=== PATIENT | male | born 1955 | race Caucasian/White ===

== ENCOUNTER → 2018-02-13 11:33 | Outpatient (CLI) | payer OTHER, SELFPAY ==
[2018-02-13 11:55] LABS: Basophils # 0.1 K/mm3 (0-0.2); Basophils % 0.5 % (0.1-2.0); Eosinophils # 0.4 K/mm3 (0.0-0.4); Eosinophils % 3.7 % (0.1-12.0); Hemoglobin 15.1 g/dL (14.1-18.0); Lymphocytes # 2.9 K/mm3 (0.7-4.5); Mean Corpuscular HGB Conc 31.4 g/dL (31.8-35.4); Mean Corpuscular Hemoglobin 31.1 pg (27.0-31.2); Mean Corpuscular Volume 99.1 fl (80-94); Mean Platelet Volume 10.1 fl (7.4-10.4); Monocytes # 0.5 K/mm3 (0.1-1.0); Monocytes % 5.1 % (1.7-9.3); Neutrophils # 5.8 K/mm3 (1.8-7.8); Neutrophils % 60.6 % (37.0-80.0); Platelet Count 199 K/mm3 (142-424); Red Blood Count 4.84 M/mm3 (4.60-6.20); White Blood Count 9.6 K/mm3 (4.8-10.8)
[2018-02-13 12:34] LABS: Alanine Aminotransferase 28 U/L (12-78); Albumin Level 3.5 gm/dL (3.4-5.0); Albumin/Globulin Ratio 1.3 (1.1-1.8); Alkaline Phosphatase 90 U/L (46-116); Anion Gap 9.6 mEq/L (5-15); Aspartate Amino Transferase 18 U/L (15-37); Bilirubin,Total 0.4 mg/dL (0.2-1.0); Blood Urea Nitrogen 14 mg/dL (7-18); Calcium 8.6 mg/dL (8.5-10.1); Carbon Dioxide 28 mmol/L (21.0-32.0); Chloride 109 mmol/L (98-107); Cholesterol 135 mg/dL (140-200); Creatinine,Serum 1.25 mg/dL (0.70-1.30); Estimated Glomerular Filt Rate 59 ml/min (>60); GFR (African American) 71 ML/MIN (>60); Globulin 2.8 gm/dl (1.3-3.2); Glucose 105 mg/dL (74-106); HDL Cholesterol 34 mg/dL (27-67); LDL Cholesterol 86 mg/dL (0-130); Potassium 4.6 mmoL/L (3.5-5.1); Sodium 142 mmol/L (136-145); Total Protein,Serum 6.3 gm/dL (6.4-8.2); Triglycerides 75 mg/dL (30-200); VLDL Cholesterol 15 mg/dL (0-40)
== END ==
PROVIDERS: Visit Provider Internal Medicine Adolescent Medicine
DX: I25.10 Atherosclerotic heart disease of native coronary artery without angina pectoris (principal)
CPT/HCPCS: 36415; 80053; 80061; 85025

== ENCOUNTER → 2019-07-14 10:31 | Outpatient (CLI) | payer OTHER, SELFPAY ==
[2019-07-14 11:24] LABS: Basophils # 0.1 K/mm3 (0-0.2); Basophils % 0.9 % (0.1-2.0); Eosinophils # 0.3 K/mm3 (0.0-0.4); Eosinophils % 3.3 % (0.1-12.0); Hemoglobin 14.3 g/dL (14.1-18.0); Lymphocytes # 2.6 K/mm3 (0.7-4.5); Lymphocytes % 32.9 % (10-50); Mean Corpuscular HGB Conc 32.4 g/dL (31.8-35.4); Mean Corpuscular Hemoglobin 32.6 pg (27.0-31.2); Mean Corpuscular Volume 100.6 fl (80-94); Mean Platelet Volume 9.7 fl (7.4-10.4); Monocytes # 0.4 K/mm3 (0.1-1.0); Neutrophils # 4.6 K/mm3 (1.8-7.8); Neutrophils % 57.9 % (37.0-80.0); Platelet Count 224 K/mm3 (142-424); Red Blood Count 4.38 M/mm3 (4.60-6.20); White Blood Count 7.9 K/mm3 (4.8-10.8)
[2019-07-14 15:49] LABS: Alanine Aminotransferase 17 U/L (12-78); Albumin Level 3.2 gm/dL (3.4-5.0); Albumin/Globulin Ratio 1.1 (1.1-1.8); Alkaline Phosphatase 91 U/L (46-116); Anion Gap 13.1 mEq/L (5-15); Aspartate Amino Transferase 13 U/L (15-37); Bilirubin,Total 0.4 mg/dL (0.2-1.0); Blood Urea Nitrogen 12 mg/dL (7-18); Calcium 8.1 mg/dL (8.5-10.1); Carbon Dioxide 29 mmol/L (21.0-32.0); Chloride 106 mmol/L (98-107); Estimated Glomerular Filt Rate 56 ml/min (>60); GFR (African American) 68 ML/MIN (>60); Globulin 2.8 gm/dl (1.3-3.2); Glucose 96 mg/dL (74-106); Potassium 4.1 mmoL/L (3.5-5.1); Sodium 144 mmol/L (136-145)
== END ==
PROVIDERS: Visit Provider Internal Medicine Adolescent Medicine
DX: R22.1 Localized swelling, mass and lump, neck (principal)
CPT/HCPCS: 36415; 80053; 85025

== ENCOUNTER → 2019-07-23 08:57 | Outpatient (CLI) | payer OTHER, SELFPAY ==
--- NOTE | 2019-07-23 | CT_ITS ---
PROCEDURE: CT SOFT TISSUE NECK W CON CLINICAL HISTORY: NECK MASS COMPARISON: No exams were available for comparison TECHNIQUE: 75 mL Optiray 350 axial images obtained with sagittal and coronal reformats. All CT scans at the facility use one or more dose reduction, viz: automated exposure control, ma/kV adjustment per patient size (including targeted exams where dose is matched to indication, i.e. head), or iterative reconstruction technique. FINDINGS: Heterogeneous soft tissue density is present at the angle of the mandible on the left deep to the sternocleidomastoid and anterior to the jugular vein and carotid artery consistent with an enlarged lymph node measuring 2.5 x 1.9 cm. Other smaller nodes are present in the neck. The submandibular glands, parotid glands and thyroid gland have an unremarkable appearance. There is some mild asymmetric prominence of the left parapharyngeal soft tissues. This is of questionable clinical significance and could be due to nondistention. No obvious abnormal enhancement at this area. Cannot exclude the possibility of a mucosal lesion. Please correlate with direct visualization. The epiglottis, glottic region, and subglottic area have an unremarkable appearance. The upper thoracic images show centrilobular emphysematous changes. There are degenerative changes of the cervical spine. Nuchal ligament calcifications are present. Incidental note made of mucosal thickening of the left maxillary sinus. Mild mucosal thickening also noted of the ethmoid sinuses. IMPRESSION: 1. Enlarged left internal jugular lymph node. This is superior to the hyoid bone and is a level 2 lymph node 2. Minimal asymmetric prominence of the left parapharyngeal soft tissues in the lower nasopharyngeal area and at the fossa of Rosenmuller. This may only be due to nondistention however, a submucosal lesion is not excluded. Please correlate with direct visualization. 3. Paranasal sinus disease Dictated by: Guillermo Diamond MD 07/23/2019 16:50 Electronically signed by Guillermo Diamond MD in [facility] 07/24/2019 10:23
== END ==
PROVIDERS: PCP Internal Medicine Adolescent Medicine; Visit Provider Internal Medicine Adolescent Medicine
DX: R22.1 Localized swelling, mass and lump, neck (principal)
CPT/HCPCS: 70491; Q9967

== ENCOUNTER → 2019-09-03 13:38 | Outpatient (CLI) | payer OTHER, SELFPAY ==
[2019-09-03 14:59] LABS: Blood Urea Nitrogen 11 mg/dL (7-18); Creatinine,Serum 1.36 mg/dL (0.70-1.30); Estimated Glomerular Filt Rate 53 ml/min (>60); GFR (African American) 64 ML/MIN (>60)
== END ==
PROVIDERS: Visit Provider Otolaryngology
DX: Z01.818 Encounter for other preprocedural examination (principal)
CPT/HCPCS: 36415; 82565; 84520

== ENCOUNTER → 2019-09-04 08:55 | Outpatient (CLI) | payer OTHER, SELFPAY ==
--- NOTE | 2019-09-04 08:56 | US_ITS ---
PROCEDURE: US FNA LYMPH NODE CLINICAL INDICATION: Left neck mass COMPARISON: CT SOFT TISSUE NECK W CON from 07/23/2019 TECHNIQUE: Following obtaining informed consent, using aseptic technique and local anesthesia with buffered lidocaine, fine-needle aspiration was performed of the nodule of interest using sonographic guidance. Four passes were made into the nodule with a 21 gauge needle. Two specimens were sent for cytology and 2 were put in the RPMI solution. Patient tolerated the procedure well without evidence of immediate complication and left radiology suite in stable condition. FINDINGS: Pre biopsy ultrasound performed of the left neck confirms hypoechoic mass in the left neck at 3.3 by 2 cm. There are fine stippled areas of increased echogenicity in the mass which could be due to small calcifications. CYTOLOGY: Squamous cell carcinoma IMPRESSION: Successful and uneventful ultrasound-guided fine needle aspiration of left neck mass demonstrating squamous cell carcinoma. The patient tolerated the procedure well without evidence of immediate complications and left the ultrasound suite in stable condition. Dictated by: Guillermo Diamond MD 09/06/2019 09:40 Electronically signed by Guillermo Diamond MD in [facility] 09/06/2019 09:40
--- NOTE | 2019-09-04 08:56 | XR_ITS ---
PROCEDURE: XR CHEST 2V CLINICAL HISTORY: cough COMPARISON: AARUNOFF ANGIO ABD/ILEO BILAT RUNOFF from 06/21/2013 FINDINGS: The cardiomediastinal silhouette and pulmonary vascularity are within normal limits. The lungs are clear without infiltrates, suspicious nodules, or pleural effusions. There are degenerative changes in the lower thoracic with wedging T12-T11 T10 most prominent at the T10 region. These findings may be chronic. Please correlate with patient's history. IMPRESSION: Chronic appearing wedge deformities of the lower thoracic spine otherwise negative Dictated by: Guillermo Diamond MD 09/04/2019 15:06 Electronically signed by Guillermo Diamond MD in [facility] 09/04/2019 15:06
--- NOTE | 2019-09-04 08:56 | CT_ITS ---
PROCEDURE: CT HEAD/BRAIN WO/W CON CLINICAL INDICATION: requested per radiologist Neck mass evaluate past this is COMPARISON: CT SOFT TISSUE NECK W CON from 07/23/2019 TECHNIQUE: IV Contrast: 100ML OPITRAY 320 Axial images obtained. All CT scans at the facility use one or more dose reduction, viz: automated exposure control, ma/kV adjustment per patient size (including targeted exams where dose is matched to indication, i.e. head), or iterative reconstruction technique. FINDINGS: No midline shift, mass effect, intracranial hemorrhage, hydrocephalus, or extra-axial fluid collection is evident. No enhancing lesions are evident. The calvarium has an unremarkable appearance. No mastoid effusion . Mild mucosal thickening ethmoid sinuses anteriorly This exam does not include the nasopharyngeal region. IMPRESSION: No acute intracranial findings. Dictated by: Guillermo Diamond MD 09/05/2019 10:50 Electronically signed by Guillermo Diamond MD in [facility] 09/05/2019 10:50
== END ==
PROVIDERS: PCP Internal Medicine Adolescent Medicine; Visit Provider Otolaryngology
DX: R22.1 Localized swelling, mass and lump, neck (principal); R05 Cough
CPT/HCPCS: 10005; 70470; 71046; 76942; Q9967

== ENCOUNTER → 2019-09-08 12:55 | Outpatient (CLI) | payer OTHER, SELFPAY ==
--- NOTE | 2019-09-08 | ECG_ITS ---
APPROVED REPORT Exam: Resting ECG HR:63 bpm ECG Measurements Heart Rate 63 AXES ND 142 P 78 QRSd 104 QRS 83 QT 404 T 61 QTc 413 <Conclusion> Normal sinus rhythm Incomplete right bundle branch block Borderline ECG Electronically signed by : Baron Kent, 09/10/2019 14:00:00
[2019-09-08 13:18] LABS: Basophils # 0.1 K/mm3 (0-0.2); Basophils % 0.7 % (0.1-2.0); Eosinophils # 0.3 K/mm3 (0.0-0.4); Eosinophils % 3.5 % (0.1-12.0); Hemoglobin 15.3 g/dL (14.1-18.0); Lymphocytes # 2.5 K/mm3 (0.7-4.5); Lymphocytes % 29.9 % (10-50); Mean Corpuscular HGB Conc 32.5 g/dL (31.8-35.4); Mean Corpuscular Hemoglobin 32.1 pg (27.0-31.2); Mean Corpuscular Volume 98.8 fl (80-94); Mean Platelet Volume 9.8 fl (7.4-10.4); Monocytes # 0.5 K/mm3 (0.1-1.0); Neutrophils # 4.9 K/mm3 (1.8-7.8); Neutrophils % 59.9 % (37.0-80.0); Platelet Count 215 K/mm3 (142-424); Red Blood Count 4.76 M/mm3 (4.60-6.20); Red Cell Distribution Width 13.2 % (11.5-17.5); White Blood Count 8.2 K/mm3 (4.8-10.8)
[2019-09-08 15:13] LABS: Anion Gap 10.6 mEq/L (5-15); Blood Urea Nitrogen 13 mg/dL (7-18); Calcium 8.5 mg/dL (8.5-10.1); Carbon Dioxide 30 mmol/L (21.0-32.0); Chloride 105 mmol/L (98-107); Creatinine,Serum 1.36 mg/dL (0.70-1.30); Estimated Glomerular Filt Rate 53 ml/min (>60); GFR (African American) 64 ML/MIN (>60); Glucose 90 mg/dL (74-106); Potassium 4.6 mmoL/L (3.5-5.1); Sodium 141 mmol/L (136-145)
== END ==
PROVIDERS: Visit Provider Otolaryngology
DX: C44.42 Squamous cell carcinoma of skin of scalp and neck (principal)
CPT/HCPCS: 36415; 80048; 85025; 93005

== ENCOUNTER → 2020-05-24 12:38 | Outpatient (CLI) | payer OTHER, SELFPAY ==
[2020-05-24 13:06] LABS: Basophils % 0.3 % (0.1-2.0); Eosinophils # 0.1 K/mm3 (0.0-0.4); Eosinophils % 1.7 % (0.1-12.0); Hematocrit 45.5 % (42.0-52.0); Hemoglobin 14.3 g/dL (14.1-18.0); Lymphocytes % 12.4 % (10-50); Mean Corpuscular HGB Conc 31.4 g/dL (31.8-35.4); Mean Corpuscular Hemoglobin 31.6 pg (27.0-31.2); Mean Corpuscular Volume 100.7 fl (80-94); Mean Platelet Volume 9.6 fl (7.4-10.4); Monocytes # 0.4 K/mm3 (0.1-1.0); Monocytes % 4.7 % (1.7-9.3); Neutrophils # 6.4 K/mm3 (1.8-7.8); Neutrophils % 80.9 % (37.0-80.0); Platelet Count 315 K/mm3 (142-424); Red Blood Count 4.52 M/mm3 (4.60-6.20); Red Cell Distribution Width 14.2 % (11.5-17.5); White Blood Count 7.9 K/mm3 (4.8-10.8)
[2020-05-24 13:11] LABS: Chloride 103 mmol/L (98-107); Potassium 4.8 mmoL/L (3.5-5.1); Sodium 140 mmol/L (136-145)
[2020-05-24 13:14] LABS: Alanine Aminotransferase 28 U/L (12-78); Albumin Level 3.9 g/dl (3.5-5.0); Albumin/Globulin Ratio 1.3 (1.1-1.8); Alkaline Phosphatase 100 U/L (38-126); Anion Gap 14.8 mEq/L (5-15); Aspartate Amino Transferase 23 U/L (17-59); Bilirubin,Total 0.5 mg/dl (0.2-1.3); Blood Urea Nitrogen 18 mg/dl (9-20); Calcium 9.2 mg/dl (8.4-10.2); Carbon Dioxide 27 mmol/L (22.0-30.0); Estimated Glomerular Filt Rate 76 ml/min (>60); GFR (African American) 92 ML/MIN (>60); Glucose 112 mg/dl (74-100); Total Protein,Serum 6.9 g/dl (6.3-8.2)
[2020-05-24 13:27] VITALS: BP 136/79; PULSE 67; RESP 18; TEMP 36.7; O2SAT 97
[2020-05-24 15:26] VITALS: BP 136/79; PULSE 68; RESP 18; TEMP 36.7; O2SAT 100
== END ==
PROVIDERS: PCP Internal Medicine Adolescent Medicine; Visit Provider Internal Medicine Adolescent Medicine
DX: I95.1 Orthostatic hypotension (principal)
CPT/HCPCS: 36415; 80053; 85025; 96365; 96366

== ENCOUNTER 2020-07-01 11:00 | Outpatient (RCR) | payer OTHER, SELFPAY | END 2020-07-01 11:55 | disposition home or self-care (01) | LOC: ST 11:00 | PROVIDERS: PCP Internal Medicine Adolescent Medicine | DX: R13.10 Dysphagia, unspecified (principal) | CPT/HCPCS: 92507; 92610 ==

== ENCOUNTER → 2020-09-16 15:43 | Outpatient (CLI) | payer OTHER, SELFPAY ==
--- NOTE | 2020-09-16 15:48 | XR_ITS ---
PROCEDURE: XR SHOULDER RT MIN 2V CLINICAL INDICATION: ACUTE PAIN OF RT SHOULDER COMPARISON: No exams were available for comparison FINDINGS: No fracture or dislocation. No lytic or blastic change. There is normal mineralization. Mild osteoarthritic change of the AC joint and glenohumeral joint with mild subacromial stenosis with mild hypertrophic change along the inferior aspect of the acromion. Right IJ MediPort catheter is present with tip in the region the SVC. Other findings:None. 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
== END ==
PROVIDERS: PCP Internal Medicine Adolescent Medicine; Visit Provider Internal Medicine Adolescent Medicine
DX: M25.511 Pain in right shoulder (principal)
CPT/HCPCS: 73030

== ENCOUNTER 2020-09-30 14:53 | Outpatient (RCR) | payer OTHER, SELFPAY ==
--- NOTE | 2020-09-30 16:17 | HMH.OTOPEV ---
OT Inpatient Evaluation Rehab OT Outpatient Eval Start: 09/30/20 15:48 Freq: Status: Active Protocol: Document 09/30/20 15:48 RMBILLHALMere (Rec: 09/30/20 16:17 [id number] Electronically Signed By Romulo Pereyra OT 09/30/20 15:48 Outpatient Therapy Subjective History Subjective History Pt seen this date for OT initial evaluation. Pt's was present for eval and assisted w/ providing information. Pt reports that his pain began about 1 month ago. Pt cannot recall a specific event causing the initial pain. Pt reports that he was diagnosed with throat cancer September 2019. Pt reports that he was declared cancer free in July 2020. Pt does still have a port in his R upper chest as well as a feeding tube. Pt reports that he has had an X-ray on the R shoulder but no MRI. Pt reports that pain has recently began in his L shoulder. Pt presents w/ decreased ROM in R shoulder. Chief Complaint Pain,Stiff Symptom Type Ache,Sharp Symptoms Relieved By Rest/Positioning,Activity Symptoms Aggravated By Supine,Physical Activity Prior Functional Limitations None Current Functional Limitations Reaching,Lifting,Dressing, Sleeping Symptom Description Intermittent,Pain at Rest, Activity Dependent Level of pain today (0-10) 5 Pain scale - at its best (0-10) 0 Pain scale - at its worst (0-10) 7 Shoulder/Elbow Eval Shoulder Objective Measurements Shoulder ROM Right Shoulder Abduction Active Range of 84 Motion (degrees) Shoulder Abduction Passive Range of 110 Motion (degrees) Shoulder Flexion Active Range of Motion 97 (degrees) Query Text: Shoulder Flexion Passive Range of Motion 100 (degrees) Shoulder External Rotation Active Range 39 of Motion (degrees) Shoulder External Rotation Passive Range 65 of Motion (degrees) Shoulder Internal Rotation Active Range 35 of Motion (degrees) Shoulder Internal Rotation Passive Range 90 of Motion (degrees) Shoulder MMT Shoulder Abduction Strength Grade 3-
== END 2020-09-30 14:55 | disposition home or self-care (01) ==
LOC: OT 14:53
PROVIDERS: PCP Internal Medicine Adolescent Medicine; Visit Provider Internal Medicine Adolescent Medicine
DX: M25.511 Pain in right shoulder (principal)
CPT/HCPCS: 97166

== ENCOUNTER 2021-06-10 17:00 | Emergency (ER) | payer OTHER, SELFPAY ==
[2021-06-10 17:00] VITALS: BP 142/82; PULSE 75; RESP 14; TEMP 36.7; O2SAT 99; BMI 22.8
--- NOTE | 2021-06-10 17:19 | PC.NURSE ---
Attempting to contact Dr. Menon at this time. Surgeon with [facility]. Spoke with after hours call center and they advised they would page him.
--- NOTE | 2021-06-10 17:19 | HMH.EDGENADL ---
ED Disposition Clinical Impression: Jejunostomy tube fell out Disposition: Home, Self-Care Condition on Discharge: Good Additional Instructions: Call your oncologist tomorrow to get a replacement jejunostomy tube insertion ordered, to be performed by interventional radiology at [facility]. Referrals: Genaro Avendano MD [Primary Care Provider] - - Critical Care Critical Care Time: No Attestation: On , the high probability of a clinically significant, sudden or life threatening deterioration of the following system(s) required my full and direct attention, intervention and personal management. The time I documented below is in addition to time spent performing reported procedures but includes the following listed in this critical care notation. Medical Decision Making - Bishnu Inquiry Pt receiving controlled substance: No Vital Signs: 06/10/21 17:00 Temperature 98.0 F Temperature Source Oral Pulse Rate [Right Radial] 75 Respiratory Rate 14 Blood Pressure [Right Arm] 142/82 H Blood Pressure Mean [Right Arm] 102 Blood Pressure Source [Right Arm] Automatic Cuff Blood Pressure Position [Right Arm] Sitting 02 Sat by Pulse Oximetry 99 Oxygen Delivery Method Room Air - Physician Consults Physician Consulted: Pao Time: 17:39 Reason -: Surgical Eval/Care Comment/Response: He states that the patient's tube goes into his jejunostomy. He says that he received a call with his office today from the patient and office staff advised the patient that he needed to get the tube replaced by interventional radiology in [place] and the patient should call his oncologist or primary care doctor to get that ordered and arranged. He states that it is not an emergency, the patient is able to eat small meals. Medical Decision Narrative: The largest tube we have is 20 Beninese, which according to the patient would be prone to clog. General Adult HPI - General Chief complaint: Recheck/Abnormal Lab/Rx Stated complaint: feeding tube replaced Time Seen by Provider: 06/10/21 17:19 Mode of Arrival: Ambulatory Limitations: No Limitations Description of Symptoms (Recalled from ER Triage Doc. by RN): Pt reports his PEG tube fell out 2 nights ago. States he was able to get ahold of his doctor today who told him to come to the ER to have it replaced. Pt brought old tube with him, it is a 22fr. Pt has a dressing in place over PEG tube site, opening looks to be smaller than what is orginally would be. - History of Present Illness HPI narrative: States that while he was taking a shower yesterday afternoon his PEG tube came out. He has had the PEG tube for more than a year. It is a 22 Beninese. He receives tube feedings through the tube daily. He says that the tube feeding are thick. He has had smaller tubes, but they have clogged. The 22 Beninese is the only tube that has not clogged. He does not get medications through the tube. He is able to eat small meals. The tube was put in by Dr. Cedeno at [facility]. The patient says they tried calling every doctor that is associated with his care and finally they were able to reach the service of Dr. Petersen today and were advised to come to the emergency department. - Related Data Home Medications Medication Instructions Recorded Confirmed Aspirin [Aspir 81] 81 mg PO DAILY 04/17/19 10/01/19 Esomeprazole Magnesium [Nexium] 20 mg PO DAILY 04/17/19 10/01/19 Allergies Allergy/AdvReac Type Severity Reaction Status Date / Time codeine [CODEINE] Allergy Unknown I-HIVES Verified 10/01/19 15:39 [facility] History - Hepatitis A Screen Drug use history?: No High risk sexual behaviors?: No History of sexually transmitted infection?: No Currently employed?: No Childcare worker?: No Do you have indoor plumbing?: Yes Do you have electricity?: Yes Attestation statement:: This patient has been screened for Hepatitis A risk factors. I have reviewed the patient's past
--- NOTE | 2021-06-10 17:32 | PC.NURSE ---
speaking with Dr. Menon
[2021-06-10 18:07] VITALS: BP 150/80; PULSE 70; RESP 16; TEMP 36.8; O2SAT 98
== END 2021-06-10 18:09 | disposition home or self-care (01) ==
PROVIDERS: Emergency Provider Emergency Medicine; PCP Internal Medicine Adolescent Medicine
DX: T85.528A Displacement of other gastrointestinal prosthetic devices, implants and grafts, initial encounter (principal); I73.9 Peripheral vascular disease, unspecified; F17.210 Nicotine dependence, cigarettes, uncomplicated; Z88.5 Allergy status to narcotic agent
CPT/HCPCS: 99281

== ENCOUNTER → 2021-07-16 08:49 | Outpatient (CLI) | payer OTHER, SELFPAY ==
[2021-07-16 09:31] LABS: Basophils % 0.6 % (0.1-2.0); Eosinophils # 0.1 K/mm3 (0.0-0.4); Eosinophils % 1.6 % (0.1-12.0); Hematocrit 39.3 % (42.0-52.0); Hemoglobin 13.1 g/dL (14.1-18.0); Lymphocytes # 1.1 K/mm3 (0.7-4.5); Lymphocytes % 15.3 % (10-50); Mean Corpuscular HGB Conc 33.4 g/dL (31.8-35.4); Mean Corpuscular Volume 102.1 fl (80-94); Mean Platelet Volume 10.1 fl (7.4-10.4); Monocytes # 0.5 K/mm3 (0.1-1.0); Monocytes % 6.6 % (1.7-9.3); Neutrophils # 5.3 K/mm3 (1.8-7.8); Neutrophils % 75.8 % (37.0-80.0); Platelet Count 221 K/mm3 (142-424); Red Blood Count 3.85 M/mm3 (4.60-6.20); Red Cell Distribution Width 13.6 % (11.5-17.5)
[2021-07-16 10:03] LABS: Alanine Aminotransferase 12 U/L (12-78); Albumin Level 4.1 g/dl (3.5-5.0); Albumin/Globulin Ratio 1.7 (1.1-1.8); Alkaline Phosphatase 77 U/L (38-126); Anion Gap 5.6 mEq/L (5-15); Aspartate Amino Transferase 21 U/L (17-59); Bilirubin,Total 0.5 mg/dl (0.2-1.3); Blood Urea Nitrogen 9 mg/dl (9-20); Calcium 9.2 mg/dl (8.4-10.2); Carbon Dioxide 31 mmol/L (22.0-30.0); Chloride 105 mmol/L (98-107); Estimated Glomerular Filt Rate 61 ml/min (>60); GFR (African American) 74 ML/MIN (>60); Globulin 2.4 g/dL (1.3-3.2); Glucose 112 mg/dl (74-100); Potassium 3.6 mmoL/L (3.5-5.1); Sodium 138 mmol/L (136-145); Total Protein,Serum 6.5 g/dl (6.3-8.2)
[2021-07-16 10:21] LABS: Free Thyroxine Index 2.9 ug/dL (5.93-13.13); T4 (Thyroxine) 9.2 ug/dl (5.53-11.0); Triiodothryronine (T3) Uptake 32 % (23.5-40.5)
[2021-07-16 10:35] LABS: Thyroid Stimulating Hormone 6.49 uIU/mL (0.465-4.68)
== END ==
PROVIDERS: Visit Provider Internal Medicine Adolescent Medicine
DX: C76.0 Malignant neoplasm of head, face and neck (principal); E03.9 Hypothyroidism, unspecified
CPT/HCPCS: 36415; 80053; 84436; 84443; 84479; 85025

== ENCOUNTER → 2022-01-02 10:34 | Outpatient (CLI) | payer OTHER, SELFPAY | PROVIDERS: Visit Provider Surgery | DX: Z01.812 Encounter for preprocedural laboratory examination (principal); Z20.822 Contact with and (suspected) exposure to COVID-19; Z12.11 Encounter for screening for malignant neoplasm of colon; Z86.010 Personal history of colon polyps | CPT/HCPCS: C9803; U0003; U0005 ==

== ENCOUNTER 2022-01-05 08:30 | Day surgery (SDC) | payer OTHER, SELFPAY ==
[2021-12-31 09:09] VITALS: BMI 22.8
[2022-01-05] VITALS (8 sets, daily range): BP systolic 99–136; BP diastolic 50–78; PULSE 59–69; RESP 16–18; TEMP 36.4–36.5; O2SAT 95–98
--- NOTE | 2022-01-05 10:24 | HMH.SCOPE ---
- Procedure: Date: 01/05/22 Patient Date of :: 1955 Procedure Performed:: Colonoscopy with polypectomy Indications:: History of colon polyps. Multiple colon polyps noted on most recent colonoscopy in April 2019 (Dr. Harrison). Performing Provider:: Grayson Trevino MD Referring Provider:: . Sedation:: Monitored anesthesia care Procedure:: After informed consent was obtained the patient was taken to the endoscopy suite. Sedation ensued after the patient was transferred to the left lateral decubitus position. Pulse, blood pressure, and oxygen saturation were monitored throughout the procedure. Digital rectal exam revealed no significant abnormality. The colonoscope was placed in position. The entire colon was evaluated. The colonoscope was carefully removed and the patient was transferred to recovery in stable condition. Please see findings and specimens below for detail. Findings:: Small palpable ridge versus nodule along midportion of prostate (noted on prior colonoscopy) Hemorrhoidal tags and cushions Bowel preparation moderate to fair Fairly profound spasticity/lack of relaxation Mild scattered sigmoid/left colonic diverticulosis Polyps (see specimens) Specimens:: Periappendiceal polyp (cold biopsy forceps) Complex lobulated polyp at 35 cm (hot snare) Recommendations:: Timing of repeat colonoscopy is pending pathology but likely be between 2-3 years secondary to slightly-limiting bowel preparation, profound spasticity/lack of relaxation, and history of complex polyps. Prior evaluation completed with regard to prostatic nodule...patient aware of current findings. Complications:: No immediate Estimated blood obtained (mL): 1
== END 2022-01-05 11:15 | disposition home or self-care (01) ==
LOC: OUTP 08:30
PROVIDERS: PCP Internal Medicine Adolescent Medicine; Visit Provider Surgery
PROC: 0DJD8ZZ Inspection of Lower Intestinal Tract, Via Natural or Artificial Opening Endoscopic (ICD-10-PCS; CPT 45380; principal; 2022-01-05 09:30)
DX: K63.5 Polyp of colon (principal); Z79.82 Long term (current) use of aspirin; Z79.899 Other long term (current) drug therapy
CPT/HCPCS: 45380; 45385

== ENCOUNTER → 2022-08-13 08:20 | Outpatient (CLI) | payer MEDICARE, SELFPAY ==
--- NOTE | 2022-08-13 08:25 | CT_ITS ---
FINAL REPORT TECHNIQUE: Axial images were obtained from the lung apex to the mid abdomen by computed tomography. This study was performed with techniques to keep radiation doses as low as reasonably achievable (ALARA). Individualized dose reduction techniques using automated exposure control or adjustment of mA and/or kV according to the patient's size were employed. CLINICAL HISTORY: HX OF NICOTINE DEPENDENCE current smoker 1ppd x4o years FINDINGS: CHEST CT LOW DOSE CTDI vol (mGy): 2.90 DLP (mGy-cm): 116.46 There is no axillary adenopathy. There is no hilar or mediastinal adenopathy. The heart is normal in size. There is no pericardial or pleural effusion. Lung window images demonstrate no suspicious infiltrate or nodule. Note is made of emphysema. There is mild bronchiectasis. Limited images of the upper abdomen are unremarkable. IMPRESSION: No evidence of neoplasm. Lung RADS category 1. Recommend 12 month follow-up low-dose chest CT. Reviewed, Interpreted and Dictated by Ophelia Caro MD Transcribed by Rehana Robles Authenticated and . [facility]
--- NOTE | 2022-08-13 08:25 | US_ITS ---
FINAL REPORT CLINICAL HISTORY: NICOTINE DEPENDENCE, AAA SCREENING FINDINGS: Limited sonographic images of the abdominal aorta were obtained. The aorta measures up to 1.9 cm. There is no evidence of aneurysm. Mild plaque disease is noted. IMPRESSION: No evidence of abdominal aortic aneurysm. Reviewed, Interpreted and Dictated by Ophelia Caro MD Transcribed by Rehana Robles Authenticated and [facility]
== END ==
PROVIDERS: PCP Internal Medicine Adolescent Medicine; Visit Provider Internal Medicine Adolescent Medicine
DX: Z87.891 Personal history of nicotine dependence (principal); Z12.2 Encounter for screening for malignant neoplasm of respiratory organs; Z13.6 Encounter for screening for cardiovascular disorders
CPT/HCPCS: 71271; 76705

== ENCOUNTER → 2023-01-07 13:08 | Outpatient (CLI) | payer MEDICARE, SELFPAY ==
--- NOTE | 2023-01-07 13:14 | XR_ITS ---
FINAL REPORT TECHNIQUE: Chest PA & Lateral CLINICAL HISTORY: BRONCHITIS. cough, fever COMPARISON: None FINDINGS: 2 views of the chest were performed. The heart size is normal. The mediastinum is within normal limits. There is no acute cardiopulmonary process. There are no pleural effusions. There is no pneumothorax. The bony thorax appears intact. IMPRESSION: No acute cardiopulmonary process. Reviewed, Interpreted and Dictated by Hector Ayoub MD Transcribed by Silvia Milner Authenticated and [facility]
== END ==
PROVIDERS: PCP Internal Medicine Adolescent Medicine; Visit Provider Physician Assistant
DX: J40 Bronchitis, not specified as acute or chronic (principal)
CPT/HCPCS: 71046

== ENCOUNTER → 2023-03-29 09:49 | Outpatient (CLI) | payer MEDICARE, SELFPAY ==
[2023-03-29 10:23] LABS: Blood Urea Nitrogen 19 mg/dl (9-20); Estimated Glomerular Filt Rate 44 ml/min (>60); GFR (African American) 53 ML/MIN (>60)
--- NOTE | 2023-03-29 10:31 | CT_ITS ---
FINAL REPORT CLINICAL HISTORY: PAD,RT LEG PAIN,TOBACCO USE COMPARISON: None FINDINGS: Post contrast axial imaging of the aorta and bilateral lower extremity was obtained and reviewed.This study was performed with techniques to keep radiation doses as low as reasonably achievable (ALARA). Individualized dose reduction techniques using automated exposure control or adjustment of mA and/or kV according to the patient''s size were employed. There is no evidence of aortic aneurysm. There is no evidence of aortic stenosis. The celiac axis is widely patent. There is approximately 50% stenosis at the origin of the superior mesenteric artery. There is no evidence of renal artery stenosis. The iliac arteries are unremarkable, without stenosis. There is a stent present in the right common iliac artery which is patent. There are moderate calcifications present in the left common iliac artery. The internal and external iliac arteries are patent. Right: The right common femoral artery, deep femoral artery and superficial femoral artery are all patent, without stenosis. There is no stenosis of the popliteal artery. The anterior and posterior tibial and peroneal arteries are patent to the lower leg. The anterior and posterior tibial arteries are patent to the foot. Left: The left common femoral artery has a small focus of less than 50% stenosis. The deep femoral artery and superficial femoral artery are all patent, without stenosis. There is no stenosis of the popliteal artery. The anterior and posterior tibial and peroneal arteries are patent to the lower leg. The anterior and posterior tibial arteries are patent to the foot. Review of the remaining abdomen and pelvis demonstrates a low-attenuation focus in the medial aspect of the right lobe of the liver, likely a hepatic cyst. Mild scarring is noted in the lung bases. There is no fluid collection or acute inflammatory process. 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 Less than 50% stenosis in the common femoral artery on the left side. No acute process. Reviewed, Interpreted and Dictated by Hector Ayoub MD Transcribed by Silvia Milner Authenticated and [facility]
== END ==
LOC: RAD 09:49
PROVIDERS: PCP Internal Medicine Adolescent Medicine; Visit Provider Nurse Practitioner Family
DX: I73.9 Peripheral vascular disease, unspecified (principal); M79.604 Pain in right leg; Z72.0 Tobacco use
CPT/HCPCS: 36415; 75635; 82565; 84520; Q9967

== ENCOUNTER → 2023-04-15 11:52 | Outpatient (CLI) | payer MEDICARE, SELFPAY ==
[2023-04-15 12:29] LABS: Basophils % 0.4 % (0.1-2.0); Eosinophils # 0.1 K/mm3 (0.0-0.4); Eosinophils % 1.1 % (0.1-12.0); Hematocrit 42.4 % (42.0-52.0); Hemoglobin 13.6 g/dL (14.1-18.0); Lymphocytes % 21.1 % (10-50); Mean Corpuscular HGB Conc 32.1 g/dL (31.8-35.4); Mean Corpuscular Hemoglobin 32.7 pg (27.0-31.2); Mean Platelet Volume 8.8 fl (7.4-10.4); Monocytes # 0.3 K/mm3 (0.1-1.0); Monocytes % 5.5 % (1.7-9.3); Neutrophils # 3.4 K/mm3 (1.8-7.8); Neutrophils % 71.9 % (37.0-80.0); Platelet Count 233 K/mm3 (142-424); Red Blood Count 4.15 M/mm3 (4.60-6.20); Red Cell Distribution Width 13.4 % (11.5-17.5); White Blood Count 4.7 K/mm3 (4.8-10.8)
[2023-04-15 12:49] LABS: Albumin Level 3.9 g/dl (3.5-5.0); Albumin/Globulin Ratio 1.5 (1.1-1.8); Alkaline Phosphatase 85 U/L (38-126); Anion Gap 10.5 mEq/L (5-15); Aspartate Amino Transferase 22 U/L (17-59); Bilirubin,Total 0.5 mg/dl (0.2-1.3); Blood Urea Nitrogen 14 mg/dl (9-20); Calcium 8.9 mg/dl (8.4-10.2); Carbon Dioxide 29 mmol/L (22.0-30.0); Chloride 103 mmol/L (98-107); Estimated Glomerular Filt Rate 55 ml/min (>60); GFR (African American) 67 ML/MIN (>60); Globulin 2.6 g/dL (1.3-3.2); Glucose 118 mg/dl (74-100); Potassium 4.5 mmoL/L (3.5-5.1); Sodium 138 mmol/L (136-145); Total Protein,Serum 6.5 g/dl (6.3-8.2)
[2023-04-15 12:50] LABS: Alanine Aminotransferase 17 U/L (12-78)
== END ==
PROVIDERS: PCP Internal Medicine Adolescent Medicine; Visit Provider Internal Medicine Adolescent Medicine
DX: R50.9 Fever, unspecified (principal)
CPT/HCPCS: 36415; 80053; 85025

== ENCOUNTER 2024-01-04 15:47 | Outpatient (CLI) | payer MEDICARE, SELFPAY ==
--- NOTE | 2024-01-04 15:57 | XR_ITS ---
PROCEDURE INFORMATION: Exam: XR Lumbosacral Spine Exam date and time: 01/04/2024 4:27 PM Age: 68 years old Clinical indication: Low back pain TECHNIQUE: Imaging protocol: Radiologic exam of the lumbosacral spine. Views: 4 or 5 views. COMPARISON: XR SACROILIAC JOINT BI MIN 3V 01/04/2024 4:27 PM FINDINGS: Bones/joints: Right iliac vascular stent is noted. The alignment of the lumbar spine is within normal limits with maintained lumbar lordosis. There are moderate degenerative changes characterized by disc space narrowing at multiple levels, most pronounced in the lower lumbar region. There is evidence of osteophyte formation along the vertebral bodies. The facet joints show moderate hypertrophic changes. The vertebral body heights are preserved, and there are no signs of acute fracture or dislocation. Soft tissues: Unremarkable. Vasculature: The visualized portions of the abdominal aorta and pelvic bones appear unremarkable. Other findings: Prevertebral and paravertebral soft tissues appear unremarkable. IMPRESSION: 1. Moderate degenerative changes in the lumbar spine, including disc space narrowing and osteophyte formation. 2. No evidence of acute fracture or significant malalignment.
--- NOTE | 2024-01-04 15:57 | XR_ITS ---
PROCEDURE INFORMATION: Exam: XR Bilateral Sacroiliac Joints Exam date and time: 01/04/2024 4:27 PM Age: 68 years old Clinical indication: Pain; Lumbago; With sciatica; Additional info: Lumbago with sciatica TECHNIQUE: Imaging protocol: XR bilateral XR of the sacroiliac joints. Views: 3 or more views. COMPARISON: CR XR LUMBAR SPINE MIN 4V 01/04/2024 4:27 PM FINDINGS: Bones/joints: Right iliac stent in place. There are partially visualized degenerative changes of the sacroiliac joints and lumbar spine as well as some degenerative disease of the pubic symphysis. Soft tissues: Normal. IMPRESSION: Mild degenerative change of the sacroiliac joints without acute abnormality identified.
[2024-01-04 17:42] LABS: Basophils # 0.1 K/mm3 (0-0.2); Basophils % 0.7 % (0.1-2.0); Eosinophils # 0.1 K/mm3 (0.0-0.4); Eosinophils % 1.9 % (0.1-12.0); Hematocrit 37.2 % (42.0-52.0); Hemoglobin 11.9 g/dL (14.1-18.0); Lymphocytes # 1.1 K/mm3 (0.7-4.5); Lymphocytes % 17.9 % (10-50); Mean Corpuscular Hemoglobin 33.5 pg (27.0-31.2); Mean Corpuscular Volume 104.7 fl (80-94); Mean Platelet Volume 8.9 fl (7.4-10.4); Monocytes # 0.3 K/mm3 (0.1-1.0); Neutrophils # 4.7 K/mm3 (1.8-7.8); Neutrophils % 74.3 % (37.0-80.0); Platelet Count 252 K/mm3 (142-424); Red Blood Count 3.55 M/mm3 (4.60-6.20); Red Cell Distribution Width 13.6 % (11.5-17.5); White Blood Count 6.3 K/mm3 (4.8-10.8)
[2024-01-04 18:22] LABS: Alanine Aminotransferase 14 U/L (12-78); Albumin Level 3.6 g/dl (3.5-5.0); Albumin/Globulin Ratio 1.5 (1.1-1.8); Alkaline Phosphatase 59 U/L (38-126); Anion Gap 10.1 mEq/L (5-15); Aspartate Amino Transferase 26 U/L (17-59); Bilirubin,Total 0.4 mg/dl (0.2-1.3); Blood Urea Nitrogen 9 mg/dl (9-20); Calcium 8.9 mg/dl (8.4-10.2); Carbon Dioxide 31 mmol/L (22.0-30.0); Chloride 102 mmol/L (98-107); Estimated Glomerular Filt Rate 51 ml/min (>60); GFR (African American) 61 ML/MIN (>60); Globulin 2.4 g/dL (1.3-3.2); Glucose 87 mg/dl (74-100); Magnesium 1.5 mg/dl (1.6-2.3); Potassium 4.1 mmoL/L (3.5-5.1); Sodium 139 mmol/L (136-145)
[2024-01-04 18:33] LABS: 25-OH Vitamin D, Total 34.1 ng/mL (30-100)
[2024-01-04 18:47] LABS: Thyroid Stimulating Hormone 2.47 uIU/mL (0.465-4.68)
[2024-01-04 19:23] LABS: Vitamin B12 400 pg/mL (239-931)
[2024-01-04 19:28] LABS: Folate 3.61 ng/mL
== END 2024-01-04 23:59 | disposition home or self-care (01) ==
PROVIDERS: PCP Internal Medicine Adolescent Medicine; Visit Provider Physician Assistant
DX: M54.41 Lumbago with sciatica, right side (principal); D53.9 Nutritional anemia, unspecified; R53.83 Other fatigue; R42 Dizziness and giddiness
CPT/HCPCS: 36415; 72110; 72202; 80053; 82306; 82607; 82746; 83735; 84443; 85025

== ENCOUNTER 2024-03-22 11:00 | Outpatient (RCR) | payer MEDICARE, SELFPAY | END 2024-03-22 11:05 | disposition home or self-care (01) | LOC: PT 11:00 | PROVIDERS: Visit Provider Physician Assistant | DX: M54.41 Lumbago with sciatica, right side (principal) | CPT/HCPCS: 97010; 97012; 97014; 97110; 97163; 97164; G0283 ==

== ENCOUNTER 2024-04-13 14:14 | Outpatient (CLI) | payer MEDICARE, SELFPAY ==
--- NOTE | 2024-04-13 14:18 | CT_ITS ---
FINAL REPORT TECHNIQUE: Axial CT images of the chest were obtained without contrast. Low-dose protocol was utilized. This study was performed with techniques to keep radiation doses as low as reasonably achievable (ALARA). Individualized dose reduction techniques using automated exposure control or adjustment of mA and/or kV according to the patient's size were employed. CLINICAL HISTORY: HX OF NICOTINE current smoker 1/2ppd x50 years COMPARISON: 08/13/2022 FINDINGS: CT CHEST WITHOUT, LOW DOSE SCREENING CT Di Vol: 2.90 mGy DLP: 110.20 mGy*cm There is no axillary, mediastinal, or hilar adenopathy. The heart size is normal. There are moderate coronary artery calcifications. There is no pleural or pericardial effusion. Mild emphysema and mild scarring are noted. The lung windows show no suspicious mass or nodule. There is a small calcified granuloma in the posterior right upper lobe. Limited images of the upper abdomen demonstrate a less than 3 mm nonobstructing left renal stone. IMPRESSION: No suspicious mass or nodule. LR Category 1: 12 month follow-up low-dose chest CT is recommended per Fleischner criteria. Reviewed, Interpreted and Dictated by Todd Harrell III, MD Transcribed by Michelle Espinoza Authenticated and [facility]
== END 2024-04-13 23:59 | disposition home or self-care (01) ==
LOC: RAD 14:14
PROVIDERS: PCP Internal Medicine Adolescent Medicine; Visit Provider Internal Medicine Adolescent Medicine
DX: Z87.891 Personal history of nicotine dependence (principal)
CPT/HCPCS: 71271

== ENCOUNTER 2024-05-01 13:24 | Day surgery (SDC) | payer MEDICARE, SELFPAY ==
[2024-05-01 13:42] VITALS: BP 120/61; PULSE 72; RESP 16; TEMP 36.6; O2SAT 98; BMI 24.9
[2024-05-01] MEDS: methylPREDNISolone ACETATE 80MG/ML VIAL 80 MG (14:14)
[2024-05-01 14:15] VITALS: BP 135/63; PULSE 67; RESP 18; O2SAT 99
[2024-05-01 14:16] VITALS: BP 135/63; PULSE 67; RESP 18; O2SAT 99
[2024-05-01 14:19] VITALS: BP 139/67; PULSE 77; RESP 18; O2SAT 99
--- NOTE | 2024-05-01 14:34 | P.PCN_ITS ---
Procedure Date: 05/01/24 Time: 14:00 Anesthesiologist:: Filippo Guidry CRNA Complications:: None Pre-procedure Diagnosis:: Degenerative disc lumbar spine multilevels. Lumbar radiculopathy. Post-procedure Diagnosis:: Same. Indications for Procedure:: Patient is a very pleasant 68-year-old male who comes our clinic today for lumbar epidural steroid injection at the L4-5 level. Patient describes low lumbar back pain as constant, dull, aching. Patient reports bilateral hip and leg radicular symptoms right greater than left. He rates his pain 7/10. Procedure Details:: Procedure: Lumbar epidural steroid injection under fluoroscopy Informed consent was obtained and the risks and benefits of the procedure were explained to the patient. The patient was taken to the procedure room and noninvasive monitors placed, including noninvasive blood pressure cuff and pulse oximeter. The back was viewed using C-arm Fluoroscopy and prepped using Chloraprep as a cleansing solution and the L4-L5 interspace was palpated. Skin and subcutaneous tissues were anesthetized using lidocaine 1.5% and a 25-gauge needle. After this, an 18-gauge Touhy epidural needle was placed into the L4-L5 interspace and advanced using fluoroscopic guidance and loss of resistance to air until the epidural space was encountered. After confirmation of needle placement in the epidural space, with dye, a solution containing normal saline, 3 mL and Depo-Medrol 80 mg were incrementally injected into the lumbar epidural space. The patient tolerated the procedure well with no complications. The patient was observed in the Pain Clinic and then discharged home neurolog ically intact. Plan and Disposition:: Patient was discharged without incident.
== END 2024-05-01 14:19 | disposition home or self-care (01) ==
LOC: SC.PAINP 13:25
PROVIDERS: PCP Internal Medicine Adolescent Medicine; Visit Provider Nurse Anesthetist, Certified Registered
DX: M51.16 Intervertebral disc disorders with radiculopathy, lumbar region (principal)
CPT/HCPCS: 62323; J1010

== ENCOUNTER 2024-05-30 14:30 | Outpatient (POV) | payer MEDICARE, SELFPAY ==
--- NOTE | 2024-05-30 14:35 | EXP.PAIN.SOA ---
[facility] Disclaimer: The information contained in this section may have been updated after the patient was seen, as this information can be updated by other users. 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 Patient rates his pain today a 6 out of 10. He denies any new trauma or injury from our last visit. Patient does state that he did not really notice any additional improvement following this injection. He states he still is having the low back and hip related pain with pressure. He does state that he still notices it more with certain positions such as prolonged sitting or riding his tractor or lawnmower. He does state the pain is interfering with his ability to perform activities of daily living such as cooking and cleaning. Patient is prescribed Flexeril from his PCP. His Bishnu has been reviewed and is appropriate Review of Systems: General: No recent weight changes, no fever, no sleep disturbances Respiratory: No cough, no shortness of air, no recurring pulmonary infections Cardiovascular/peripheral vascular: No chest pain, no palpitations, no edema, no shortness of breath Gastrointestinal: No new onset incontinence, normal bowel movements reported Genitourinary: No new onset incontinence Musculoskeletal: Low back pain, bilateral hip pain Psychiatric: [Normal mood/affect] Neurological: [Denies weakness in extremities], [denies balance issues] Pain at rest (0-10 scale): 6 Objective Objective:: Physical Exam: General: Alert and oriented x3, no acute distress, pleasant and cooperative Lungs: Respirations even and unlabored, symmetrical chest expansion Eyes: PERRL Musculoskeletal: Flexion and extension of lumbar [spine] somewhat guarded secondary to pain, [antalgic gait noted] point tenderness along bilateral SIs with positive bilateral Samy's, Laura's, Gaenslen's, compression and distraction exam Neurological: Speech clear, no gross sensory deficit Has patient had previous pain injection?: Yes Percent improvement in pain since last injection: 0 Conservative treatment options previously tried: Home exercise plan Length of treatment: Longer than 12 weeks Meds Home Medications and Allergies Home Medications ?Medication ?Instructions ?Recorded ?Confirmed ?Type aspirin 81 mg tablet,delayed 81 mg PO DAILY Blood thinner 04/17/19 05/01/24 History release esomeprazole magnesium 20 mg 20 mg PO DAILY GERD 04/17/19 05/01/24 History capsule,delayed release levothyroxine 50 mcg tablet 50 mcg PO DAILY Supplement 12/31/21 05/01/24 History New Prescriptions to Start Prescriptions: Allergies Allergy/AdvReac Type Severity Reaction Status Date / Time codeine [CODEINE] Allergy Unknown I-HIVES Verified 05/01/24 13:49 Assessment and Plan *Assessment and plan (1) Degenerative disc disease, lumbar: Status: Acute Category: Medical Code(s): M51.36 - Other intervertebral disc degeneration, lumbar region (2) Bilateral sacroiliitis: Status: Acute Category: Medical Code(s): M46.1 - Sacroiliitis, not elsewhere classified Plan Patient is experiencing worsening pain in his low back and bilateral hips today with point tenderness along his bilateral SIs and a positive bilateral Samy's, Laura's, Gaenslen's, compression and distraction exam. Patient was counseled that he may benefit from bilateral SI injections. Risk and benefits were discussed with the patient and he would like to proceed forward with this plan of care. Patient has tried and failed conservative therapy including continued at home stretching exercise for longer than 12 weeks. Patient has had this going on for longer than 3 months. Patient has also had updated imaging that did show degenerative changes in his SI joints. Patient will be scheduled for bilateral SI injections under fluoroscopy. Patient has been instructed to contact the clinic with any concerns before the next appointment. Dr. Pierson has reviewed this note and agrees with this plan of care. This note was dictated using voice recognition software and make contain errors or omissions. All injections are used with Lidocaine or Bupivacaine and Depo Medrol.
[2024-05-30 14:47] VITALS: BP 129/80; PULSE 77; RESP 18; O2SAT 99; BMI 25.0
== END 2024-05-30 23:59 | disposition home or self-care (01) ==
LOC: SC.PAIN 14:31
PROVIDERS: PCP Internal Medicine Adolescent Medicine; Visit Provider Nurse Practitioner Family
DX: M46.1 Sacroiliitis, not elsewhere classified; M51.369 Other intervertebral disc degeneration, lumbar region without mention of lumbar back pain or lower extremity pain; F17.210 Nicotine dependence, cigarettes, uncomplicated; Z73.89 Other problems related to life management difficulty
CPT/HCPCS: 99212; G0463

== ENCOUNTER 2024-10-19 15:05 | Outpatient (CLI) | payer MEDICARE, SELFPAY ==
[2024-10-19 15:18] LABS: Microscopic, Urine URINE MICROSCOPIC (MICROSCOPIC)
[2024-10-19 15:43] LABS: Hematocrit 28.9 % (42.0-52.0); Hemoglobin 9.1 g/dL (14.1-18.0); Mean Corpuscular HGB Conc 31.5 g/dL (31.8-35.4); Mean Corpuscular Hemoglobin 28.9 pg (27.0-31.2); Mean Corpuscular Volume 91.7 fl (80-94); Platelet Count 323 K/mm3 (142-424); Red Blood Count 3.15 M/mm3 (4.60-6.20); White Blood Count 7.2 K/mm3 (4.8-10.8)
[2024-10-19 15:57] LABS: Appearance,Urine Clear (Clear); Blood, Urine Negative (Negative); Color,Urine Yellow (Yellow); Glucose,Urine (UA) Negative (Negative); Ketones,Urine Negative (Negative); Nitrate,Urine Negative (Negative); PH,Urine 6.5 (5.0-8.5); Protein,Urine Trace (Negative); Specific Gravity, Urine 1.025 (1.005-1.030)
[2024-10-19 15:58] LABS: Bilirubin,Urine Negative (Negative); Leukocyte Esterase,Urine Negative (Negative); Urobilinogen,Urine 0.2 EU/dl (0.2)
[2024-10-19 16:05] LABS: WBC,Urine Occasional #/hpf (0-3)
[2024-10-19 16:06] LABS: Bacteria,Urine Trace /lpf; Mucus,Urine 2+ /lpf
[2024-10-19 16:25] LABS: Albumin Level 4.1 g/dl (3.5-5.0); Anion Gap 10.5 mEq/L (5-15); Blood Urea Nitrogen 14 mg/dl (9-20); Calcium 9.2 mg/dl (8.4-10.2); Carbon Dioxide 25 mmol/L (22.0-30.0); Chloride 106 mmol/L (98-107); Estimated Glomerular Filt Rate 51 ml/min (>60); GFR (African American) 61 ML/MIN (>60); Glucose 107 mg/dl (74-100); Phosphorous 3.1 mg/dl (2.5-4.5); Potassium 4.5 mmoL/L (3.5-5.1); Sodium 137 mmol/L (136-145)
[2024-10-19 16:34] LABS: Creatinine,Urine Random 399 mg/dL (Not Estab.)
[2024-10-19 16:37] LABS: Intact Parathyroid Hormone 120.8 pg/mL (7.5-53.5)
[2024-10-19 16:42] LABS: 25-OH Vitamin D, Total 31.8 ng/mL (30-100)
== END 2024-10-19 23:59 | disposition home or self-care (01) ==
LOC: LAB 15:07
PROVIDERS: PCP Internal Medicine Adolescent Medicine; Visit Provider Student in an Organized Health Care Education/Training Program
DX: I12.9 Hypertensive chronic kidney disease with stage 1 through stage 4 chronic kidney disease, or unspecified chronic kidney disease (principal); N18.30 Chronic kidney disease, stage 3 unspecified; F17.210 Nicotine dependence, cigarettes, uncomplicated
CPT/HCPCS: 36415; 80069; 81001; 82306; 82570; 83970; 84156; 85027

== ENCOUNTER 2025-04-02 10:02 | Day surgery (SDC) | payer MEDICARE, SELFPAY ==
--- NOTE | 2025-03-25 12:47 | SUR.PREOP ---
Left VM stating arrival time and the need for a route salesman and driver. Left number and instructions to call if any questions about procedure and prep.
[2025-04-01 10:30] VITALS: BMI 24.3
--- NOTE | 2025-04-02 10:16 | EXP.GEN.HP ---
HPI HPI HPI: This is a 69-year-old gentleman who presents for endoscopy. He has a history of reflux and is currently on proton pump inhibition. Symptoms continue to be intermittent. He also has a history of multiple colon polyps. In April 2019 he underwent a colonoscopy by Dr. Harrison and was diagnosed with multiple complex polyps. In December 2021 he underwent repeat colonoscopy. A small palpable ridge versus prostatic nodule noted on physical exam. The patient was made aware of these findings and confirmed plans to follow-up with urology/primary care. Hemorrhoidal tags/cushions also noted. Fairly profound spasticity/lack of relaxation limited visualization. Mild sigmoid/left-sided diverticulosis also confirmed. A sessile serrated adenoma of the periappendiceal region was excised. A tubular adenoma at 35 cm was excised. Recommendations for a 1-2-year repeat were made [facility] Disclaimer: The information contained in this section may have been updated after the patient was seen, as this information can be updated by other users. Medical History (Updated 04/02/25 @ 10:20 by Grayson Trevino MD) Thyroid cancer GERD (gastroesophageal reflux disease) Anemia Hypothyroid Hypertension GERD (gastroesophageal reflux disease) Surgical History (Updated 04/01/25 @ 10:27 by Rogelio Golden RN) History of thyroid surgery Family History (Updated 04/01/25 @ 10:28 by Rogelio Golden RN) Family history of CVA Family history of heart failure Social History (Updated 04/01/25 @ 10:29 by Rogelio Golden RN) Smoking Status: Current every day smoker tobacco type: cigarettes packs per day: 1 alcohol intake: never substance use type: denies use current occupational status: retired Travel in the last 8 weeks?: None household members: spouse housing: house 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 current occupational exposures/hazards: No caffeine: Yes Have you lived/traveled outside US in past 30 days?: No Contact w/someone who lives/traveled outside US past 30 days?: No Exposure to someone with infectious disease in past 14 days?: No Do you have a fever (greater than 100.4 F or 38 C)?: No Have you tested positive for COVID-19?: Yes Exposed to someone with COVID-19 in past 14 days?: No Do you have a sore throat?: No Do you have a cough?: No Do you have any weakness?: No Are you experiencing any nausea/vomitting?: No Do you have any diarrhea?: No Are you experiencing any unusual bleeding?: No Do you have any muscle aches/pain?: No Do you have any abdominal pain?: No Are you experiencing loss of taste or smell?: No Other Medical History Have you received the Flu Vaccine for this season: Yes Have you received the Pneumonia Vaccine: Yes Review of Systems Review of Systems Review of systems:: pertinent systems reviewed and negative unless documented below *Gastrointestinal Gastrointestinal: Reports as per [facility] Meds Home Medications and Allergies Home Medications ?Medication ?Instructions ?Recorded ?Confirmed ?Type aspirin 81 mg tablet,delayed 81 mg PO DAILY Blood thinner 04/17/19 05/30/24 History release esomeprazole magnesium 20 mg 20 mg PO DAILY GERD 04/17/19 05/30/24 History capsule,delayed release levothyroxine 50 mcg tablet 50 mcg PO DAILY Supplement 12/31/21 05/30/24 History New Prescriptions to Start Prescriptions: Allergies Allergy/AdvReac Type Severity Reaction Status Date / Time codeine (CODEINE) Allergy Unknown I-HIVES Verified 05/01/24 13:49 Exam Data for Last 24 hours I & O for Last 24 hours: Intake & Output 03/30/25 03/31/25 04/01/25 04/02/25 11:59 11:59 11:59 11:59 Weight 160 lb Constitutional Constitutional: no acute distress *Routine HEENT Exam Head: Present normocephalic Eye: Present EOMI ENT: Present mucous membranes moist *Routine Neck Exam Neck: Present full ROM *Routine Respiratory Exam Respiratory: Absent respiratory distress *Routine Cardiovascular Exam Cardiovascular: Absent tachycardia *Routine Abdominal Exam Abdominal: Present soft *Routine Rectal Exam Rectal:: deferred *Routine Genitalia Exam Genitalia:: deferred *Routine Extremities Exam Extremities: Present full ROM *Routine Skin Exam Skin: Absent erythema *Routine Neurological Exam Neurological: Present alert Assessment and Plan *Assessment and plan (1) History of colon polyps: Status: Acute Category: Medical Code(s): Z86.0100 - Personal history of colon polyps, unspecified (2) GERD (gastroesophageal reflux disease): Status: Acute Qualifiers: Esophagitis presence: esophagitis presence not specified Qualified Code(s): K21.9 - Gastro-esophageal reflux disease without esophagitis Category: Medical Code(s): K21.9 - Gastro-esophageal reflux disease without esophagitis Plan Esophagogastroduodenoscopy/colonoscopy today I have discussed the risks and benefits including, but not limited to: Bleeding Infection Damage to surrounding tissue Inherent risks of sedation The patient agrees to proceed.
[2025-04-02 10:18] VITALS: BP 153/72; PULSE 66; RESP 18; TEMP 36.4; O2SAT 99; BMI 24.3
--- NOTE | 2025-04-02 10:20 | HMH.SCOPE ---
Procedure: Date: 04/02/25 Patient Date of :: 1955 Procedure Performed:: Esophagogastroduodenoscopy with biopsy Colonoscopy with polypectomy by means other than snare Indications:: Anemia History of colon polyps Gastroesophageal reflux Note: Most recent colonoscopy in December 2021 complicated by profound spasticity/lack of relaxation. A small palpable ridge versus prostatic nodule palpated. The patient confirmed plans to follow-up with primary care/urology. Hemorrhoidal tags/cushions and mild diverticulosis also confirmed. A sessile serrated adenoma of the periappendiceal region was excised. A complex tubular adenoma 35 cm was also excised. Recommendations for a 1-2 year repeat were made. Performing Provider:: Grayson Trevino MD Referring Provider:: . Sedation:: Monitored anesthesia care Procedure:: After informed consent was obtained the patient was taken to the endoscopy suite. Sedation ensued after the patient was transferred to the left lateral decubitus position. Pulse, blood pressure, and oxygen saturation were monitored throughout the procedure. The endoscope was advanced beyond the duodenal bulb. Retroflexion within the gastric lumen was accomplished. The gastroscope was carefully removed. Digital rectal exam revealed no significant abnormality. The colonoscope was placed in position. The entire colon was evaluated. The colonoscope was carefully removed and the patient was transferred to recovery in stable condition. Please see findings and specimens below for detail. Findings:: Tortuous/patulous esophagus Moderate sliding hiatal hernia Mild patchy gastritis Bowel preparation moderate poor Small palpable ridge/prostatic nodule (unchanged) Unchanged hemorrhoidal cushions/tags Profound spasticity/lack of relaxation Mild left-sided and sigmoid diverticulosis Right colon polyp Specimens:: Antral biopsy Right colon polyp (cold biopsy forceps) Recommendations:: Consider UGI/SBFT/capsule endoscopy for evaluation of anemia Continue proton pump inhibition Follow-up pathology Timing of repeat colonoscopy is pending pathology will likely be around 1 year with extended/alternate bowel preparation. Consider gastroenterology consultation for evaluation of possible chronic constipation. If gastroenterology consultation completed, repeat colonoscopy will be deferred to their service. Complications:: No immediate Estimated blood obtained (mL): 1 Colonoscopy Component Colonoscopy Component Was a colonoscopy performed during today's procedure?: Yes Recommended follow up colonoscopy of at least 10 years?: No If no, follow up colonoscopy recommended in ___ years?: (See above) Reason for not recommending >/= 10 yr follow-up interval?: (See above)
[2025-04-02] MEDS: LACTATED RINGERS 1000ML 1,000 ML 50 ML IV (10:32)
[2025-04-02 11:21] VITALS: BP 98/54; PULSE 67; RESP 18; TEMP 36.3; O2SAT 96
[2025-04-02 11:31] VITALS: BP 105/56; PULSE 65; RESP 16; O2SAT 94
[2025-04-02 11:41] VITALS: BP 106/51; PULSE 65; RESP 18; O2SAT 98
[2025-04-02 11:51] VITALS: BP 125/68; PULSE 61; RESP 16; TEMP 36.4; O2SAT 96
== END 2025-04-02 11:59 | disposition home or self-care (01) ==
PROVIDERS: PCP Internal Medicine Adolescent Medicine; Visit Provider Surgery
PROC: 0DJ08ZZ Inspection of Upper Intestinal Tract, Via Natural or Artificial Opening Endoscopic (ICD-10-PCS; CPT 45378; principal; 2025-04-02 11:00)
DX: D12.2 Benign neoplasm of ascending colon (principal); K21.9 Gastro-esophageal reflux disease without esophagitis; F17.210 Nicotine dependence, cigarettes, uncomplicated; E03.9 Hypothyroidism, unspecified; I10 Essential (primary) hypertension; D64.9 Anemia, unspecified; K29.70 Gastritis, unspecified, without bleeding; K57.30 Diverticulosis of large intestine without perforation or abscess without bleeding; K31.A0 Gastric intestinal metaplasia, unspecified; N40.2 Nodular prostate without lower urinary tract symptoms; K44.9 Diaphragmatic hernia without obstruction or gangrene; K64.4 Residual hemorrhoidal skin tags; K22.89 Other specified disease of esophagus; Z79.82 Long term (current) use of aspirin; Z88.6 Allergy status to analgesic agent; Z86.0101 Personal history of adenomatous and serrated colon polyps
CPT/HCPCS: 43239; 45380; 88305; 88342; J2003; J2704; J3010; J7120

== ENCOUNTER 2025-04-24 15:19 | Outpatient (CLI) | payer MEDICARE, SELFPAY ==
--- OUTSIDE RECORDS SUMMARY | 2024-10-01 11:00 | XMS_ITS ---
Author Organization [facility] Address [address] [place] [address] Care Team Providers Care Stereotyper Name Role Phone Genaro Avendano Primary Care Provider [phone] REASON FOR VISIT 6 wk f/u Encounters Encounter Location Date Provider Diagnosis [facility] [address] [place] [address] 10/01/2024 Genaro Avendano Plan Of Treatment No Information Progress Notes * Colton RIVAS LDOB:1955 (69 yo M)Acc No.[id number]:10/01/2024 Progress Notes Patient: Colton AHUJA Provider: John Paul Avendano MD :1955 A ge:69 Y S ex:Male Date:10/01/2024 Address:[address] [id number] Subjective: * Chief Complaints: * 1 . 6 wk f/u. * Medical History: Objective: * Vitals: Assessment: Plan: * Treatment: * * Electronic signature of Miguelito Avendano MD FAAP on 04/24/2025 at 03:22 PM EDT Sign off status: Pending * Provider: John Paul Avendano MD Date: 0 10/01/2024 Generated for Keli migue/Debbie/eTransmitting on: 0 04/24/2025 03:22 PM EDT
--- OUTSIDE RECORDS SUMMARY | 2024-11-10 17:30 | XMS_ITS ---
Author Organization [facility] Address [address] [place] [address] Care Team Providers Care Regulatory Manager Name Role Phone Genaro Avendano Primary Care Provider [phone] Migration, Provider Unavailable Unavailable Allergies Allergen (clinical drug ingredient) Drug/Non Drug Allergy documented on EMR Reaction Allergy Type Onset Date Status codeine Codeine Unknown Drug Allergy Active REASON FOR VISIT [facility] Conversion Encounter Medications Medication SIG (Take, [...] a nd pick correct strength-formulati on from [employer] options. If intended option is not shown, discontinue and re-order from Quick Search* Active Fluticasone Furoate 2 sprays/eac h nostril *Please review and pick correct strength-formulati on from [employer] options. If intended option is not shown, discontinue and re-order from Quick Search* Active Levocetirizine Dihydrochloride 5 MG 1 tab(s) orally once a day (in the evening); Duration: 30 days Active Encounters Encounter Location Date Provider Diagnosis [facility] [address] [place] [address] 11/10/2024 Provider Migration Nocturia R35.1 ; Seasonal [...] * Colton RIVAS LDOB:1955 (69 yo M)Acc No.[id number]:11/10/2024 Patient: Colton AHUJA Provider: Frandy Francis :1955 A ge:69 Y S ex:Male Date:11/10/2024 Address:[address] [place] [address], [place], [id number] Pcp:Genaro Avendano Subjective: * Chief Complaints: * 1 . Multum To Medispan Conversion Encounter. * Medical History: * Medications: T aking Fluticasone Furoate , Notes to Pharmacist: 2 sprays/each nostril *Please review and pick correct strength-formulation from [employer] options. If intended option is not shown, discontinue and re-order from Quick Search*, Taking Zinc 50 MG TAB QD , Notes to Pharmacist: *Please review and pick correct strength-formulation from [employer] options. If intended option is not shown, [...] Electronic signature of Prov ider Migration on 04/24/2025 at 03:22 PM EDT Sign off status: Pending * Provider: Frandy rincon Migration Date: 0 11/10/2024 Generated for Patience camarena/Debbie/Edilberto on: 0 04/24/2025 03:22 PM EDT
--- OUTSIDE RECORDS SUMMARY | 2025-03-21 07:15 | XMS_ITS ---
Author Organization [facility] Address [address] [place] [address] Care Team Providers Care Transcribing Machine Operator Name Role Phone Genaro Avendano Primary Care Provider Allergies Allergen (clinical drug ingredient) Drug/Non Drug Allergy documented on EMR Reaction Allergy Type Onset Date Status codeine Codeine Unknown Drug Allergy Active Results Component Value Reference Range Notes THYROID PANEL WITH TSH (7444 ) Reviewed date:03/25/2025 10:06:36 AM Interpretation: Performing Lab:[facility] [employer] shopatplacesteMetronom HealthEl[facility] CenterLvsdYL[address] Paresh Pena Notes/Report: NON-FASTING; NON-FASTING; NON-FASTING; NON-FASTING T3 UPTAKE 31 22-35 % T4 (THYROXINE), TOTAL 7.1 4.9-10.5 mcg/dL FREE T4 INDEX (T7) 2.2 1.4-3.8 TSH 5.18 0.40-4.50 mIU/L COMPREHENSIVE METABOLIC PANE L (28009) Reviewed date:03/25/2025 10:06:24 AM Interpretation: Performing Lab:RUFINA [employer] Sweet CredElbow Lake Medical CenterGqmkWI[address] Paresh Pena Notes/Report: NON-FASTING; NON-FASTING; NON-FASTING; NON-FASTING GLUCOSE 112 65-99 mg/dL For someone without known diabetes, a glucose value Fasting reference interval between 100 and 125 mg/dL is consistent with prediabetes and should be confirmed with a follow-up test. UREA NITROGEN (BUN) 20 7-25 mg/dL CREATININE 1.52 0.70-1.35 mg/dL EGFR 50 > OR = 60 mL/min/1.73m2 BUN/CREATININE RATIO 13 6-22 (calc) SODIUM 139 135-146 mmol/L POTASSIUM 5.1 3.5-5.3 mmol/L CHLORIDE 109 98-110 mmol/L CARBON DIOXIDE 22 20-32 mmol/L CALCIUM 8.8 8.6-10.3 mg/dL PROTEIN, TOTAL 6.7 6.1-8.1 g/dL ALBUMIN 4.2 3.6-5.1 g/dL GLOBULIN 2.5 1.9-3.7 g/dL (calc) ALBUMIN/GLOBULIN RATIO 1.7 1.0-2.5 (calc) BILIRUBIN, TOTAL 0.3 0.2-1.2 mg/dL ALKALINE PHOSPHATASE 80 35-144 U/L AST 11 10-35 U/L ALT 5 9-46 U/L CBC (INCLUDES DIFF/PLT) (639 9) Reviewed date:03/25/2025 10:06:17 AM Interpretation: Performing Lab:CB, [facility] [address], [facility] CenterTkczWC[address] Paresh Pena Notes/Report: NON-FASTING; NON-FASTING; NON-FASTING; NON-FASTING WHITE BLOOD CELL COUNT 5.3 3.8-10.8 Thousand/ uL RED BLOOD CELL COUNT 3.21 4.20-5.80 Million/uL HEMOGLOBIN 7.4 13.2-17.1 g/dL HEMATOCRIT 26.9 38.5-50.0 % MCV 83.8 80.0-100.0 fL MCH 23.1 27.0-33.0 pg MCHC 27.5 32.0-36.0 g/dL For adults, a slight decrease in the calculated MCHC value (in the range of 30 to 32 g/dL) is most likely not clinically significant; however, it should be interpreted with caution in correlation with other red cell parameters and the patient's clinical condition. RDW 17.1 11.0-15.0 % PLATELET COUNT 292 140-400 Thousand/uL MPV 11.0 7.5-12.5 fL ABSOLUTE NEUTROPHILS 3641 3310-8587 cells/uL ABSOLUTE LYMPHOCYTES 439 796-3644 cells/uL ABSOLUTE MONOCYTES 445 200-950 cells/uL ABSOLUTE EOSINOPHILS 270 15-500 cells/uL ABSOLUTE BASOPHILS 69 0-200 cells/uL NEUTROPHILS 68.7 LYMPHOCYTES 16.5 MONOCYTES 8.4 EOSINOPHILS 5.1 BASOPHILS 1.3 PSA, TOTAL (5363) Reviewed date:03/25/2025 10:06:29 AM Interpretation: Performing Lab:CB, [facility] [address], Srinath ThomasPutlBL[address] Paresh Pena Notes/Report: NON-FASTING; NON-FASTING; NON-FASTING; NON-FASTING PSA, TOTAL 0.59 < OR = 4.00 ng/mL The total PSA value from this assay system is standardized against the WHO standard. The test result will be approximately 20% lower when compared to the equimolar-standardized total PSA (Leon Rafael). Comparison of serial PSA results should be interpreted with this fact in mind. This test was performed using the Siemens chemiluminescent method. Values obtained from different assay methods cannot be used interchangeably. PSA levels, regardless of value, should not be interpreted as absolute evidence of the presence or absence of disease. Reason For Referral Reason [facility] _ needs EGD and Colonoscopy set up Diagnosis 1 Walsh's esophagus without dysplasia (K22.70) Referral Organization [facility] CELINE NUNEZ Referring Provider First Name Genaro Referring Provider Last Name Romana Referring Provider Speciality Internal M edicine Referred Organization [facility] Referred Address [address] [place] [phone], Referred Provider Specialty Gastroentero logy General Notes Jessica Ordonez 2024 09:13:57 AM >records and referral sent to Dr. Harrison- They will contact patient to schedule. Referral Priority Routine REASON FOR VISIT Annual ck, dizziness, cough, wants to know if you think needs to have another CT Medications Medication SIG (Take, Route, Frequency, Duration) Notes Start Date End Date Status rOPINIRole HCl 0.5 MG 1 tab(s) orally at bedtime; Duration: 30 days Active Levothyroxine Sodium 75 MCG 1 tab(s) orally once a day; Duration: 30 day(s) Active Levocetirizine Dihydrochloride 5 MG 1 tab(s) orally once a day (in the evening); Duration: 30 days Active Rosuvastatin Calcium 10 MG 1 tab(s) orally once a day; Duration: 30 days Active Esomeprazole Magnesium 20 MG TAKE 1 CAPSULE BY MOUTH TWICE DAILY; Duration: 30 Active Tamsulosin HCl 0.4 MG 1 cap(s) orally once a day; Duration: 90 days Active Farxiga 10 MG 1 tab(s) orally once a day; Duration: 30 days 03/21/2024 Active Losartan Potassium 50 MG 1 tab(s) orally once a day; Duration: 90 days Active Fluticasone Furoate 2 sprays/eac h nostril *Please review and pick correct strength-formulati on from MysteryD options. If intended option is not shown, discontinue and re-order from Quick Search* Active Zinc 50 MG QD *Please review a nd pick correct strength-formulati on from MysteryD options. If intended option is not shown, discontinue and re-order from Quick Search* Active Escitalopram Oxalate 10 MG 1 tablet Orally Once a day; Duration: 30 days 03/21/2025 Active Ketoconazole 2 % 1 ute applied topically 3 times per week; Duration: 30 days 09/02/2022 Active Social History Tobacco Use: Social History Observation Description Date Details (start date - stop date) Current Smoker NA - NA Smoking: Question Answer Notes Are you a: current smoker How often do you smoke cigarettes? every day How many cigarettes a day do you smoke? - Problems Problem Type SNOMED Code ICD Code Onset Dates Problem Status W/U Status Risk Notes Problem Major depression single episode, in partial remission (68835562) Major depress, part remis (F32.4) Active confirmed Problem Mild major depression, single episode (85308131) Current mild episode of major depressive disorder, unspecified whether recurrent (F32.0) Active confirmed Problem Walsh's esophagus (657921472) Walsh's esophagus without dysplasia (K22.70) Active confirmed Vital Signs Temperature 97.3 degrees Fahrenheit 03/21/20 25 Heart Rate 88 /min 03/21/2025 Blood pressure systolic 90 mm Hg 03/21/20 25 Blood pressure diastolic 58 mm Hg 025 Height 68.5 in 03/21/2025 Weight 160 lbs 03/21/2025 BMI 23.97 kg/m2 03/21/2025 Encounters Encounter Location Date Provider Diagnosis [facility] [address] [address] 03/21/2025 Genaro Avendano Atherosclerosis of paimiut coronary artery of paimiut heart without angina pectoris I25.10 ; Hypothyroidism (acquired) E03.9 ; Chronic kidney disease, stage 3b N18.32 ; Current mild episode of major depressive disorder, unspecified whether recurrent F32.0 ; Walsh's esophagus without dysplasia K22.70 ; Foreign body of right external ear S00.451A ; Personal history of nicotine dependence Z87.891 and Healthcare maintenance Z00.00 Assessments Encounter Date Diagnosis (ICD Code) Assessment Notes Treatment Notes Treatment Clinical Notes Section Notes 03/21/2025 Atherosclerosis of paimiut coronary artery of paimiut heart without angina pectoris (ICD-10 - I25.10) f 03/21/2025 Hypothyroidism (acquired) (ICD-10 - E03.9) Had subclinical hypothyroidism at last TSH check. Will repeat today and can treat if TSH above 10 or if patient is symptomatic after starting lexapro + stopping BP medications. f 03/21/2025 Chronic kidney disease, stage 3b (ICD-10 - N18.32) Likely related to T2DM. On SGLT2i, had to d/c levi/arb due to hypotension. Will check UAC today and repeat CMP. f 03/21/2025 Current mild episode of major depressive disorder, unspecified whether recurrent (ICD-10 - F32.0) Will start Lexapro 10 mg today and see back in 3-4 weeks f 03/21/2025 Walsh's esophagus without dysplasia (ICD-10 - K22.70) Continue PPI daily. Last EGD in 2019 with metaplasia without signs of dysplasia. Will order repeat EGD today f 03/21/2025 Foreign body of right external ear (ICD-10 - S00.451A) Appears to be a small, bug near the tympanic membrane. No evidence of bites or rupture of the membrane. Discussed sweet oil to help flush the bug out f 03/21/2025 Personal history of nicotine dependence (ICD-10 - Z87.891) Wishes to defer low-dose CT, has had CT scans with cancer staging. Still smoking a bit, greater than 5 minutes discussed how to quit completely f 03/21/2025 Healthcare maintenance (ICD-10 - Z00.00) Colonoscopy due today, ordered. Up to date on vacciantions besides flu shot, advised to get at pharmacy or can give at follow up in 3-4 weeks. Patients wants to defere LDCT due to having CT neck for his cancer survelience. Patient would like to get PSA screened today. We will start medications for Depression, Will treat his hypotension to help for his concern for Falls, He would want his to make decision for him, He is up to date on his vaccines beside his annual flu shot, HCM up to date besides will do LDCT at a later time, low dose CT. Will order Colonoscopy, EGD today f Plan Of Treatment Medication Medication Name Sig Start Date Stop Date Notes Escitalopram Oxalate 10 MG 1 tablet Oral ly Once a day; Duration: 30 days 03/21/2025 PARoxetine HCl 20 MG 1 tab(s) orally once a day Treatment Notes Assessment Notes Hypothyroidism (acquired) Had subclinica l hypothyroidism at last TSH check. Will repeat today and can treat if TSH above 10 or if patient is symptomatic after starting lexapro + stopping BP medications. Chronic kidney disease, stage 3b Likely related to T2DM. On SGLT2i, had to d/c levi/arb due to hypotension. Will check UAC today and repeat CMP. Current mild episode of tania r depressive disorder, unspecified whether recurrent Will start Lexapro 10 mg today and see back in 3-4 weeks Walsh's esophagus without dysplasia Co ntinue PPI daily. Last EGD in 2019 with metaplasia without signs of dysplasia. Will order repeat EGD today Foreign body of right external ear Appears to be a small, bug near the tympanic membrane. No evidence of bites or rupture of the membrane. Discussed sweet oil to help flush the bug out Personal history of nicotine dependence Wishes to defer low-dose CT, has had CT scans with cancer staging. Still smoking a bit, greater than 5 minutes discussed how to quit completely Healthcare maintenance Colonoscopy due today, ordered. Up to date on vacciantions besides flu shot, advised to get at pharmacy or can give at follow up in 3-4 weeks. Patients wants to defere LDCT due to having CT neck for his cancer survelience. Patient would like to get PSA screened today. We will start medications for Depression, Will treat his hypotension to help for his concern for Falls, He would want his to make decision for him, He is up to date on his vaccines beside his annual flu shot, HCM up to date besides will do LDCT at a later time, low dose CT. Will order Colonoscopy, EGD today Pending Test Test Name Order Date Microalbumin (In-House) 03/21/2025 Referrals Referral Date Details 03/21/2025 03/21/2025, [facility] _ ne eds EGD and Colonoscopy set up, [address] [facility], [place], [address], Next Appt Details Follow Up: 2 Months, Reason: Progress Notes * Colton RIVAS LDOB:1955 (69 yo M)Acc No.[id number]:03/21/2025 Progress Notes Patient: Colton AHUJA Provider: John Paul Avendano MD :1955 A ge:69 Y S ex:Male Date:03/21/2025 Address:[address] [place] [address], [place] [id number] Subjective: * Chief Complaints: * 1 . Annual ck. 2. Dizziness. 3. Cough. 4. wants to know if you think needs to have another CT. * HPI: g en: Gen Arcadio frye will start medications for Depression, Will treat hypotension to help for his concern for Falls, He would want his to make decision for him, He is up to date on his vaccines beside his annual flu shot, HCM (will do at a later time, low dose CT, Colonoscopy, EGD will do) Chinmay frye thinks something is wrong with his blood pressure, he gets dizzy when he stands up. He has to go sit down. He is able to bend over, that doesnt bothering him. No room spinning sensation. No syncope. He gets dizzier when he looks up. Chinmay orozco got the shakes. Noties the most when he sits downs. Both hands. Caffiene does not make it worse. Hasnt tried anything to make it better. He has had this for 6 months to a year. B ack still bothering him. It has been constant for years. He takes tylenol when he goes to sleep. Physical therapy and the injections did not help. No worsening of pain. He is interested in checking his prostate numbers. 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 He would be interested in starting a medication. popping in ear, has bug in there. * Medical History: E sophageal reflux, Pernicious anemia, Neuropathy, B12 vitamin deficiency, Kidney stone, Intermittent spinal claudication, Anxiety, colonoscopy April 2019 with multiple tubular adenoma - repeated in 01/2022 with small adenomas... 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 * Surgical History: c olonoscopy 01/2022, port removal 10/2022. * Hospitalization/Major Diagno stic Procedure: D enies Past Hospitalization. * Family History: F ather: , diagnosed with Stroke. M other: , diagnosed with Stroke. P aternal Grand Father: , diagnosed with Stroke. P aternal Grand Mother: . M aternal Grand Father: . M aternal Grand Mother: . S iblings: alive, diagnosed with Stroke, Heart Disease. 5 brother(s) , 2 sister(s) . . * Social History: S moking: yes A re you a: c urrent smoker, H ow often do you smoke cigarettes??every day, H ow many cigarettes a day do you smoke? 1 -20. R ecreational drug use: no. Exercise: yes, minimal. Home smoke detector use: yes. Caffeine: yes, frequency:coffee, tea daily. Living Will: No. Alcohol: no. Sexually active: yes. Travel outside [place]: no. Occupation: retired. * Medications: T aking Fluticasone Furoate , Notes to Pharmacist: 2 sprays/each nostril *Please review and pick correct strength-formulation from Medispan options. If intended option is not shown, discontinue and re-order from Quick Search*, Taking Zinc 50 MG TAB QD , Notes to Pharmacist: *Please review and pick correct strength-formulation from Medispan options. If intended option is not shown, discontinue and re-order from Quick Search*, Taking Ketoconazole 2 % Shampoo 1 ute applied topically 3 times per week , Taking Farxiga 10 MG Tablet 1 tab(s) orally once a day , Taking Losartan Potassium 50 MG Tablet 1 tab(s) orally once a day , Taking Tamsulosin HCl 0.4 MG Capsule 1 cap(s) orally once a day , Taking PARoxetine HCl 20 MG Tablet 1 tab(s) orally once a day , Taking Levothyroxine Sodium 75 MCG Tablet 1 tab(s) orally once a day , Taking Levocetirizine Dihydrochloride 5 MG Tablet 1 tab(s) orally once a day (in the evening) , Taking rOPINIRole HCl 0.5 MG Tablet 1 tab(s) orally at bedtime , Taking Rosuvastatin Calcium 10 MG Tablet 1 tab(s) orally once a day , Taking Esomeprazole Magnesium 20 MG Capsule Delayed Release TAKE 1 CAPSULE BY MOUTH TWICE DAILY , Discontinued Chantix 1 MG Tablet 1 tab(s) orally 2 times a day , Discontinued Doxycycline Hyclate 100 MG Capsule 1 cap(s) orally 2 times a day , Medication List reviewed and reconciled with the patient * Allergies: C harshil. Objective: * Vitals: N urse: dw, Pain: 6, Temp: 97.3, RR: 20, HR: 88, BP: 90/58, Ht: 68.5, Wt: 160, BMI:23.97. * Examination: G eneral Examination: General P leasant and Cooperative, NAD on RA,. Heart: R egular Rate and Rhythm, no murmur, rubs or gallops. HEENT: s mall bed bug appearing object in R ear. Lungs: S light expiratory wheezes in lower lung field, scattered crackles, decreased air movement.. Abdomen: S oft, NTND, BSNA, No organomegaly or peritoneal signs.. Assessment: * Assessment: 1. A therosclerosis of paimiut coronary artery of paimiut heart without angina pectoris - I25.10 (Primary) 2 . H ypothyroidism (acquired) - E03.9 3 . C hronic kidney disease, stage 3b - N18.32 4 . C urrent mild episode of major depressive disorder, unspecified whether recurrent - F32.0 5 . B arrett's esophagus without dysplasia - K22.70 6 . F oreign body of right external ear - S00.451A ? 7 . P ersonal history of nicotine dependence - Z87.891 8 . H ealthcare maintenance - Z00.00 f Plan: * Treatment: Value Reference Range T 3 UPTAKE 31 22-35 - % * T 4 (THYROXINE), TOTAL 7.1 4.9-10.5 - mcg/dL * F REE T4 INDEX (T7) 2.2 1.4-3.8 - * T SH 5.18 H 0.40-4.50 - mIU/L * This lab was reviewed by Remigio Ordonez on 03/25/2025 at 10:06 AM EDT ?LAB: COMPREHENSIVE METABOLIC PANEL (46142)* Value Reference Range G LUCOSE 112 H 65-99 - mg/dL * U JOSIE NITROGEN (BUN) 20 7-25 - mg/dL * C REATININE 1.52 H 0.70-1.35 - mg/dL * B UN/CREATININE RATIO 13 6-22 - (calc) * S ODIUM 139 135-146 - mmol/L * P OTASSIUM 5.1 3.5-5.3 - mmol/L * C HLORIDE 109 98-110 - mmol/L * C ARBON DIOXIDE 22 20-32 - mmol/L * C ALCIUM 8.8 8.6-10.3 - mg/dL * P ROTEIN, TOTAL 6.7 6.1-8.1 - g/dL * A LBUMIN 4.2 3.6-5.1 - g/dL * G LOBULIN 2.5 1.9-3.7 - g/dL (calc ) * A LBUMIN/GLOBULIN RATIO 1.7 1.0-2.5 - (calc) * B ILIRUBIN, TOTAL 0.3 0.2-1.2 - mg/dL * A LKALINE PHOSPHATASE 80 35-144 - U/L * A ST 11 10-35 - U/L * A LT 5 L 9-46 - U/L * E GFR 50 L > OR = 60 - mL/min/1 .73m2 * This lab was reviewed by Remigio Ordonez on 03/25/2025 at 10:06 AM EDT ?LAB: CBC (INCLUDES DIFF/PLT) (4570)* Value Reference Range W KEN BLOOD CELL COUNT 5.3 3.8-10.8 - Thousan d/uL * R ED BLOOD CELL COUNT 3.21 L 4.20-5.80 - Million/ uL * H EMOGLOBIN 7.4 L 13.2-17.1 - g/dL * H EMATOCRIT 26.9 L 38.5-50.0 - % * M CV 83.8 80.0-100.0 - fL * M CH 23.1 L 27.0-33.0 - pg * M CHC 27.5 L 32.0-36.0 - g/dL * R DW 17.1 H 11.0-15.0 - % * P LATELET COUNT 292 140-400 - Thousand/u L * N EUTROPHILS 68.7 - % * A BSOLUTE NEUTROPHILS 3641 4211-2193 - cells/uL * L YMPHOCYTES 16.5 - % * A BSOLUTE LYMPHOCYTES [phone] - cells/uL * M ONOCYTES 8.4 - % * A BSOLUTE MONOCYTES 445 200-950 - cells/uL * E OSINOPHILS 5.1 - % * A BSOLUTE EOSINOPHILS 270 15-500 - cells/uL * B ASOPHILS 1.3 - % * A BSOLUTE BASOPHILS 69 0-200 - cells/uL * M PV 11.0 7.5-12.5 - fL * This lab was reviewed by Remigio Ordonez on 03/25/2025 at 10:06 AM EDT ?LAB: PSA, TOTAL (5363)* Value Reference Range P SA, TOTAL 0.59 < OR = 4.00 - ng/mL * This lab was reviewed by Remigio Ordonez on 03/25/2025 at 10:06 AM EDT 2.?Hypothyroidism (acquired)?LAB: THYROID PANEL WITH TSH (7444)* Value Reference Range T 3 UPTAKE 31 22-35 - % * T 4 (THYROXINE), TOTAL 7.1 4.9-10.5 - mcg/dL * F REE T4 INDEX (T7) 2.2 1.4-3.8 - * T SH 5.18 H 0.40-4.50 - mIU/L * This lab was reviewed by Remigio Ordonez on 03/25/2025 at 10:06 AM EDT ?LAB: COMPREHENSIVE METABOLIC PANEL (08987)* Value Reference Range G LUCOSE 112 H 65-99 - mg/dL * U JOSIE NITROGEN (BUN) 20 7-25 - mg/dL * C REATININE 1.52 H 0.70-1.35 - mg/dL * B UN/CREATININE RATIO 13 6-22 - (calc) * S ODIUM 139 135-146 - mmol/L * P OTASSIUM 5.1 3.5-5.3 - mmol/L * C HLORIDE 109 98-110 - mmol/L * C ARBON DIOXIDE 22 20-32 - mmol/L * C ALCIUM 8.8 8.6-10.3 - mg/dL * P ROTEIN, TOTAL 6.7 6.1-8.1 - g/dL * A LBUMIN 4.2 3.6-5.1 - g/dL * G LOBULIN 2.5 1.9-3.7 - g/dL (calc ) * A LBUMIN/GLOBULIN RATIO 1.7 1.0-2.5 - (calc) * B ILIRUBIN, TOTAL 0.3 0.2-1.2 - mg/dL * A LKALINE PHOSPHATASE 80 35-144 - U/L * A ST 11 10-35 - U/L * A LT 5 L 9-46 - U/L * E GFR 50 L > OR = 60 - mL/min/1 .73m2 * This lab was reviewed by Remigio Ordonez on 03/25/2025 at 10:06 AM EDT ?LAB: CBC (INCLUDES DIFF/PLT) (6215)* Value Reference Range W KEN BLOOD CELL COUNT 5.3 3.8-10.8 - Thousan d/uL * R ED BLOOD CELL COUNT 3.21 L 4.20-5.80 - Million/ uL * H EMOGLOBIN 7.4 L 13.2-17.1 - g/dL * H EMATOCRIT 26.9 L 38.5-50.0 - % * M CV 83.8 80.0-100.0 - fL * M CH 23.1 L 27.0-33.0 - pg * M CHC 27.5 L 32.0-36.0 - g/dL * R DW 17.1 H 11.0-15.0 - % * P LATELET COUNT 292 140-400 - Thousand/u L * N EUTROPHILS 68.7 - % * A BSOLUTE NEUTROPHILS 3641 3376-1709 - cells/uL * L YMPHOCYTES 16.5 - % * A BSOLUTE LYMPHOCYTES [phone] - cells/uL * M ONOCYTES 8.4 - % * A BSOLUTE MONOCYTES 445 200-950 - cells/uL * E OSINOPHILS 5.1 - % * A BSOLUTE EOSINOPHILS 270 15-500 - cells/uL * B ASOPHILS 1.3 - % * A BSOLUTE BASOPHILS 69 0-200 - cells/uL * M PV 11.0 7.5-12.5 - fL * This lab was reviewed by Remigio Ordonez on 03/25/2025 at 10:06 AM EDT ?LAB: PSA, TOTAL (5363)* Value Reference Range P SA, TOTAL 0.59 < OR = 4.00 - ng/mL * This lab was reviewed by Remigio Ordonez on 03/25/2025 at 10:06 AM EDT Notes: Had subclinical hypothyroidism at last TSH check. Will repeat today and can treat if TSH above 10 or if patient is symptomatic after starting lexapro + stopping BP medications. ??3.?Chronic kidney disease, stage 3b?LAB: Microalbumin (In-House) ?LAB: THYROID PANEL WITH TSH (7444)* Value Reference Range T 3 UPTAKE 31 22-35 - % * T 4 (THYROXINE), TOTAL 7.1 4.9-10.5 - mcg/dL * F REE T4 INDEX (T7) 2.2 1.4-3.8 - * T SH 5.18 H 0.40-4.50 - mIU/L * This lab was reviewed by Remigio Ordonez on 03/25/2025 at 10:06 AM EDT ?LAB: COMPREHENSIVE METABOLIC PANEL (17619)* Value Reference Range G LUCOSE 112 H 65-99 - mg/dL * U JOSIE NITROGEN (BUN) 20 7-25 - mg/dL * C REATININE 1.52 H 0.70-1.35 - mg/dL * B UN/CREATININE RATIO 13 6-22 - (calc) * S ODIUM 139 135-146 - mmol/L * P OTASSIUM 5.1 3.5-5.3 - mmol/L * C HLORIDE 109 98-110 - mmol/L * C ARBON DIOXIDE 22 20-32 - mmol/L * C ALCIUM 8.8 8.6-10.3 - mg/dL * P ROTEIN, TOTAL 6.7 6.1-8.1 - g/dL * A LBUMIN 4.2 3.6-5.1 - g/dL * G LOBULIN 2.5 1.9-3.7 - g/dL (calc ) * A LBUMIN/GLOBULIN RATIO 1.7 1.0-2.5 - (calc) * B ILIRUBIN, TOTAL 0.3 0.2-1.2 - mg/dL * A LKALINE PHOSPHATASE 80 35-144 - U/L * A ST 11 10-35 - U/L * A LT 5 L 9-46 - U/L * E GFR 50 L > OR = 60 - mL/min/1 .73m2 * This lab was reviewed by Remigio Ordonez on 03/25/2025 at 10:06 AM EDT ?LAB: CBC (INCLUDES DIFF/PLT) (6470)* Value Reference Range W KEN BLOOD CELL COUNT 5.3 3.8-10.8 - Thousan d/uL * R ED BLOOD CELL COUNT 3.21 L 4.20-5.80 - Million/ uL * H EMOGLOBIN 7.4 L 13.2-17.1 - g/dL * H EMATOCRIT 26.9 L 38.5-50.0 - % * M CV 83.8 80.0-100.0 - fL * M CH 23.1 L 27.0-33.0 - pg * M CHC 27.5 L 32.0-36.0 - g/dL * R DW 17.1 H 11.0-15.0 - % * P LATELET COUNT 292 140-400 - Thousand/u L * N EUTROPHILS 68.7 - % * A BSOLUTE NEUTROPHILS [phone] - cells/uL * L YMPHOCYTES 16.5 - % * A BSOLUTE LYMPHOCYTES [phone] - cells/uL * M ONOCYTES 8.4 - % * A BSOLUTE MONOCYTES 445 200-950 - cells/uL * E OSINOPHILS 5.1 - % * A BSOLUTE EOSINOPHILS 270 15-500 - cells/uL * B ASOPHILS 1.3 - % * A BSOLUTE BASOPHILS 69 0-200 - cells/uL * M PV 11.0 7.5-12.5 - fL * This lab was reviewed by Remigio Ordonez on 03/25/2025 at 10:06 AM EDT ?LAB: PSA, TOTAL (5363)* Value Reference Range P SA, TOTAL 0.59 < OR = 4.00 - ng/mL * This lab was reviewed by Remigio Ordonez on 03/25/2025 at 10:06 AM EDT Notes: Likely related to T2DM. On SGLT2i, had to d/c levi/arb due to hypotension. Will check UAC today and repeat CMP. ??4.?Current mild episode of major depressive disorder, unspecified whether recurrent? Start Escitalopram Oxalate Tablet, 10 MG, 1 tablet, Orally, Once a day, 30 days, 30, Refills 1; Stop PARoxetine HCl Tablet, 20 MG, 1 tab(s), orally, once a day.?? Notes: Will start Lexapro 10 mg today and see back in 3-4 weeks??5.?Walsh's esophagus without dysplasia? Notes: Continue PPI daily. Last EGD in 2019 with metaplasia without signs of dysplasia. Will order repeat EGD today? Referral To: ?Reason:[facility] _ needs EGD and Colonoscopy set up 6.?Foreign body of right external ear? Notes: Appears to be a small, bug near the tympanic membrane. No evidence of bites or rupture of the membrane. Discussed sweet oil to help flush the bug out??7.?Personal history of nicotine dependence? Notes: Wishes to defer low-dose CT, has had CT scans with cancer staging. Still smoking a bit, greater than 5 minutes discussed how to quit completely?? 8.?Healthcare maintenance? Notes: Colonoscopy due today, ordered. Up to date on vacciantions besides flu shot, advised to get at pharmacy or can give at follow up in 3-4 weeks. Patients wants to defere LDCT due to having CT neck for his cancer survelience. Patient would like to get PSA screened today. We will start medications for Depression, Will treat his hypotension to help for his concern for Falls, He would want his to make decision for him, He is up to date on his vaccines beside his annual flu shot, HCM up to date besides will do LDCT at a later time, low dose CT. Will order Colonoscopy, EGD today?? * Procedure Codes: 8 2043 MICROALBUMIN, URINE, Modifiers: QW , G2211 Complex e/m visit add on, G0439 ANNUAL WELLNESS VST; PPS SUBSQT VST, 1170F FUNCTIONAL STATUS ASSESSMENT, 1123F ADVANCED DIRECTIVE - HAS A LIVING WILL, 3017F COLORECTAL CA SCREEN DOC REV, G8420 BMI documented as normal, no follow up required., G8431 POSITIVE SCREENING FOR DEPRESSION W/DOCUMENTED F/U, G9902 Pt scrn tbco and id as user, G0030 PET MYOCARD IMAG FLW PREV PET; 1, G8783 NORMAL BP READING DOC F/U NOT RQR, 45487 BEHAV CHNG SMOKING 3-10 MIN * Follow Up: 2 Months * * Sign off status: Completed Addendum: * true * Provider: John Paul Avendano MD Date: 0 03/21/2025 Generated for Patience camarena/Debbie/eTransmitting on: 0 04/24/2025 03:21 PM EDT History and Physical Notes * HPI (History of Present Illness) Category Sub-Category Detail Notes Category Not es gen Gen We will start me dications for Depression, Will treat hypotension to help for his concern for Falls, He would want his to make decision for him, He is up to date on his vaccines beside his annual flu shot, HCM (will do at a later time, low dose CT, Colonoscopy, EGD will do) He thinks something is wrong with his blood pressure, he gets dizzy when he stands up. He has to go sit down. He is able to bend over, that doesnt bothering him. No room spinning sensation. No syncope. He gets dizzier when he looks up. Hes got the shakes. Noties the most when he sits downs. Both hands. Caffiene does not make it worse. Hasnt tried anything to make it better. He has had this for 6 months to a year. Back still bothering him. It has been constant for years. He takes tylenol when he goes to sleep. Physical therapy and the injections did not help. No worsening of pain. He is interested in checking his prostate numbers. 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 He would be interested in starting a medication. popping in ear, has bug in there Examination Category Sub-Category Detail Notes Category Not es General Examination HEENT: small bed bu g appearing object in R ear Heart: Regular Rate and Rhy thm, no murmur, rubs or gallops Lungs: Slight expiratory wh eezes in lower lung field, scattered crackles, decreased air movement. Abdomen: Soft, NTND, BSNA, No organomegaly or peritoneal signs. General Pleasant and [place] t[place], NAD on RA, Consultation Request Notes Referral Date Referring Provider Referred Provider Not es 03/21/2025 Genaro Avendano , [facility] _ needs EGD and Colonoscopy set up
--- OUTSIDE RECORDS SUMMARY | 2025-04-24 15:21 | XMS_ITS | Clinical Summary ---
Author Organization Healthcare Address [address] [place] [address] Care Team Providers Care Medical Records Receptionist Name Role Phone Genaro Avendano MD Primary Care Provider [phone] Allergies Active Allergy Reactions Criticality Noted Date Comments Codeine Other - please docum ent in the comment field Low 05/18/2010 Medications fluticasone (Veramyst) 27.5 MCG/SPRAY nasal spray Administer 2 sprays into each nostril 1 (one) time each day. Active Zinc 50 MG tablet Take by mouth. Activ e rosuvastatin (Crestor) 10 MG tablet Take 1 tablet by mouth daily. Active levocetirizine (Xyzal) 5 MG tablet Take by mouth every evening. Active dapagliflozin (Farxiga) 10 MG tablet Take 1 tablet by mouth daily. Active levothyroxine (Synthroid, Levoxyl) 75 MCG tablet Take 1 tablet by mouth daily before breakfast. Active esomeprazole (NexIUM) [address] capsule Take 1 capsule by mouth daily before breakfast. Do not open capsule. Active meclizine (Antivert) 25 MG tablet Take 1 tablet by mouth 3 (three) times a day as needed for dizziness. Active losartan (Cozaar) 50 MG tablet Take 1 tablet by mouth daily. Active varenicline (Chantix) 1 MG tablet Take 1 tablet by mouth 2 (two) times a day. Take with full glass of water. Active rOPINIRole (Requip) 0.5 MG tablet Take 1 tablet by mouth 3 (three) times a day. Active PARoxetine (Paxil) 20 MG tablet Take 1 tablet by mouth every morning. Active Active Problems Problem Noted Date Diagnosed Date Anemia in stage 3a chronic kidney disease 2024 Hypertensive chronic kidney disease with stage 1 through stage 4 chronic kidney disease, or unspecified chronic kidney disease 11/23/2024 History of throat cancer 11/23/2024 History of nephrolithiasis 11/23/2024 Mixed hyperlipidemia 11/23/2024 Family History Medical History Relation Name Comments Stroke Father Stroke Mother Relation Name Status Comments Father Mother Social History Tobacco Use Types Packs/Day Years Used Date Smoking Tobacco: Every Day Cigarettes 0.5 50.7 Started: 1974 Smokeless Tobacco: Never Tobacco Cessation:Ready to Q uit: Yes; Counseling Given: Yes Comments:Pt is quiting and only smokes roughly 4 a day Alcohol Use Standard Drinks/Week Comments Never 0 (1 standard drink = 0.6 oz pur e alcohol) Sex and Gender Information Value Date Recorded Sex Assigned at Not on file Legal Sex Male 6:15 PM EDT Gender Identity Not on file Sexual Orientation Not on file Last Filed Vital Signs Vital Sign Reading Time Taken Comments Blood Pressure 118/68 11/23/2024 11:16 AM EDT Pulse 79 11/23/2024 11:16 AM EDT Temperature 36.7 C (98 F) 11/23/2024 11:16 AM EDT Respiratory Rate 18 11/23/2024 11:16 AM EDT Oxygen Saturation 98% 11/23/2024 11:16 AM EDT Inhaled Oxygen Concentration - - Weight 73 kg (161 lb) 11/23/2024 11:16 AM EDT Height 172.7 cm (5' 8 ) 11/23/2024 11:16 AM EDT Body Mass Index 24.48 11/23/2024 11:16 AM EDT Plan of Treatment Upcoming Encounters Date Type Department Care Team (Late st Contact Info) Description 12/06/2025 12:20 PM EDT Office Visit [facility] [address] [place] [phone] Christopher Casiano MD [address] [place] [phone] Health Maintenance Due Date Last Done Comments [facility]-Depression Screening 1955 [facility]-Hepatitis C Screening 1955 [facility]-Medicare Annual Wellness (AWV) 1955 [facility]-Infant/Child/Adol SDOH Screenings 1955 [facility]- SDOH Screenings 1975 [facility]-Adult SDOH Screenings 1975 CT Colonography 2002 Colonoscopy 2002 FIT-DNA 2002 FIT 2002 FOBT 2002 Sigmoidoscopy 2002 [facility]-Colorectal Cancer Screening 2002 [facility]-Lung Cancer Screening 2007 [facility]-RSV Vaccine: 60+ Years or (1 - Risk 60-74 years 1-dose series) 2017 [facility]-Abdominal Aortic Aneurysm (AAA) Screening 2022 [id number] Vaccine ( - season) 2025 03/15/2022, 12/03/2020, 11/05/2020 [facility]-Influenza Vaccine (#1) 04/08/202506/14, 07/19/2022, 05/06/2021, Additional history exists [facility]-DTaP,Tdap,and Td Vaccines (2 - Td or Tdap) 03/19/2034 03/19/2024 [facility]-Zoster Vaccines Completed 05/06/2021, [facility]-Pneumococcal Vaccine: 50+ Years Completed 03/19/2024 HPV Vaccines Aged Out No longer eligi ble based on patient's age to complete this topic [facility]-HIB Vaccines Aged Out No longer e ligible based on patient's age to complete this topic [facility]-Hepatitis A Vaccines Aged Out No longer eligible based on patient's age to complete this topic [facility]-IPV Vaccines Aged Out No longer e ligible based on patient's age to complete this topic [facility]-Rotavirus Vaccines Aged Out No lo nger eligible based on patient's age to complete this topic Insurance Care Teams Medical Records Receptionist Relationship Specialty Start Date End Date Genaro Avendano MD [address] [place] [address] PCP - General 12/19/20
--- OUTSIDE RECORDS SUMMARY | 2025-04-24 15:22 | XMS_ITS | Encounter Summary ---
Author Organization [facility] Address [address] [place] [address] Care Team Providers Care Fittings Finisher Name Role Phone Genaro Avendano MD Primary Care Provider [phone] Reason for Referral * Consultation (Routine) - Closed Specialty Diagnoses / Procedures Referred By Carol t Referred To Contact Nephrology Diagnoses Chronic kidney disease (CKD) stage G3b/A1, moderately decreased glomerular filtration rate (GFR) between 30-44 mL/min/1.73 square meter and albuminuria creatinine ratio less than 30 mg/g ([facility]) Genaro Avendano MD [address] [facility] [address] [place] [id number] Phone: tel: fax: [address] [phone] Phone: tel: fax: Referral ID Status Reason Start Date Expiration Date V isits Requested Visits Authorized [id number] Closed Specialty Services Required 06/20/2024 12/20/2025 1 1 Encounter Details Date Type Department Care Team (Late st Contact Info) Description 06/20/2024 Community [facility] [address] [place] [address] Genaro Avendano MD [address] [place] [address] Chronic kidney disease (CKD) stage G3b/A1, moderately decreased glomerular filtration rate (GFR) between 30-44 mL/min/1.73 square meter and albuminuria creatinine ratio less than 30 mg/g (CMS/HCC) (Primary Dx) Social History Tobacco Use Types Packs/Day Years Used Date Smoking Tobacco: Never Assessed Sex and Gender Information Value Date Recorded Sex Assigned at Not on file Legal Sex Male 6:15 PM EDT Gender Identity Not on file Sexual Orientation Not on file documented as of this encounter Plan of Treatment Upcoming Encounters Date Type Department Care Team (Late st Contact Info) Description 12/06/2025 12:20 PM EDT Office Visit [facility] [address] [place] [phone] Christopher Casiano MD [address] [place] [phone] Scheduled Referrals Name Type Priority Associated Diagnoses Orde r Schedule Ambulatory referral to Nephrology Outpatient Referral Routine Chronic kidney disease (CKD) stage G3b/A1, moderately decreased glomerular filtration rate (GFR) between 30-44 mL/min/1.73 square meter and albuminuria creatinine ratio less than 30 mg/g (CMS/HCC) Ordered: 06/20/2024 documented as of this encounter Visit Diagnoses Diagnosis Chronic kidney disease (CKD) stage G3b/A1, moderately decreased glomerular filtration rate (GFR) between 30-44 mL/min/1.73 square meter and albuminuria creatinine ratio less than 30 mg/g (CMS/HCC)- Primary documented in this encounter Care Teams Fittings Finisher Relationship Specialty Start Date End Date Genaro Avendano MD [address] [place] [address] PCP - General 12/19/20 documented as of this encounter
--- OUTSIDE RECORDS SUMMARY | 2025-04-24 15:22 | XMS_ITS | Patient Health Record ---
Author Organization [facility] Address [address] [place] [address] Care Team Providers Care Baker Chef Name Role Phone SanjayGenaro nunez Primary Care Provider Jessie Lomax Unavailable [phone] Migration, Provider Unavailable Unavailable Allergies Allergen (clinical drug ingredient) Drug/Non Drug Allergy documented on EMR Reaction Allergy Type Onset Date Status codeine Codeine Unknown Drug Allergy Active Results Component Value Reference Range Notes CBC (INCLUDES DIFF/PLT) (639 9) Reviewed date:03/25/2025 10:06:17 AM Interpretation: Performing Lab:RUFINA, [facility] Xcbx3670 [facility], [facility] ClinicFybxTW[address] Paresh Pena Notes/Report: NON-FASTING; NON-FASTING; NON-FASTING; NON-FASTING [...] MPV 11.0 7.5-12.5 fL ABSOLUTE NEUTROPHILS 3641 [phone] cells/uL ABSOLUTE LYMPHOCYTES 410 430-3746 cells/uL ABSOLUTE MONOCYTES 445 200-950 cells/uL ABSOLUTE EOSINOPHILS 270 15-500 cells/uL ABSOLUTE BASOPHILS 69 0-200 cells/uL NEUTROPHILS 68.7 LYMPHOCYTES 16.5 MONOCYTES 8.4 EOSINOPHILS 5.1 BASOPHILS 1.3 COMPREHENSIVE METABOLIC PANE L (49201) Reviewed date:03/25/2025 10:06:24 AM Interpretation: Performing Lab:RUFINA, [facility] [address], The [employer] CompanyFvebBL[address] Paresh Pena Notes/Report: NON-FASTING; NON-FASTING; NON-FASTING; NON-FASTING GLUCOSE 112 65-99 mg/dL Fasting reference interval For someone without known diabetes, a glucose value between 100 and 125 mg/dL is consistent [...] 11 10-35 U/L ALT 5 9-46 U/L THYROID PANEL WITH TSH (4444 ) Reviewed date:03/25/2025 10:06:36 AM Interpretation: Performing Lab:RUFINA, [facility] [address], The [employer] CompanyGmoaIE[address] Paresh Pena Notes/Report: NON-FASTING; NON-FASTING; NON-FASTING; NON-FASTING T3 UPTAKE 31 22-35 % T4 (THYROXINE), TOTAL 7.1 4.9-10.5 mcg/dL FREE T4 INDEX (T7) 2.2 1.4-3.8 TSH 5.18 0.40-4.50 mIU/L CBC (INCLUDES DIFF/PLT) (639 9) Reviewed date:06/20/2024 03:26:24 PM Interpretation: Performing Lab:RUFINA, [facility] Networkse[address], [place] NvneIP[address] Paresh Pena Notes/Report: NON-FASTING; NON-FASTING; NON-FASTING; NON-FASTING; NON-FAST FASTING:YES FASTING: YES WHITE BLOOD CELL COUNT 5.4 3.8-10.8 Thousand/ uL RED BLOOD CELL COUNT 3.77 4.20-5.80 Million/uL HEMOGLOBIN 11.9 13.2-17.1 g/dL HEMATOCRIT 36.2 38.5-50.0 % MCV 96.0 80.0-100.0 fL MCH 31.6 27.0-33.0 pg MCHC 32.9 32.0-36.0 g/dL For adults, a slight decrease in the calculated MCHC value (in the range of 30 to 32 g/dL) is most likely not clinically significant; however, it should be interpreted with caution in correlation with other red cell parameters and the patient's clinical condition. RDW 14.5 11.0-15.0 % PLATELET COUNT 257 140-400 Thousand/uL MPV 11.2 7.5-12.5 fL ABSOLUTE NEUTROPHILS [phone] cells/uL ABSOLUTE LYMPHOCYTES 919 761-7456 cells/uL ABSOLUTE MONOCYTES 389 200-950 cells/uL ABSOLUTE EOSINOPHILS 178 15-500 cells/uL ABSOLUTE BASOPHILS 49 0-200 cells/uL NEUTROPHILS 70.5 LYMPHOCYTES 18.1 MONOCYTES 7.2 EOSINOPHILS 3.3 BASOPHILS 0.9 MAGNESIUM (622) Reviewed date:06/20/2024 03:25:50 PM Interpretation: Performing Lab:RUFINA, NSL [employer] [address], Acopia NetworksJhqzOA[address] Paresh Pena Notes/Report: NON-FASTING; NON-FASTING; NON-FASTING; NON-FASTING; NON-FAST FASTING:YES FASTING: YES MAGNESIUM 2.2 1.5-2.5 mg/dL LIPID PANEL, STANDARD (7600) Reviewed date:06/20/2024 03:26:04 PM Interpretation: Performing Lab:RUFINA S[facility] ServicesG[facility] Servicese1355 [facility], [facility] HospitalEbazBU[address] Paresh Pena Notes/Report: NON-FASTING; NON-FASTING; NON-FASTING; NON-FASTING; NON-FAST FASTING:YES FASTING: YES CHOLESTEROL, TOTAL 99 <200 mg/dL HDL CHOLESTEROL 43 > OR = 40 mg/dL TRIGLYCERIDES 67 <150 mg/dL LDL-CHOLESTEROL 42 Reference range: <100 Desirable range <100 mg/dL for primary prevention; <70 mg/dL for patients with CHD or diabetic patients with > or = 2 CHD risk factors. LDL-C is now calculated using the Chilo-Jennifer calculation, which is a validated novel method providing better accuracy than the Friedewald equation in the estimation of LDL-C. Chilo SS et al. KAVITA. 2013;310(19): 2539-9847 (http://education.Orchestra [employer].Ampex/faq/GDY637) CHOL/HDLC RATIO 2.3 <5.0 (calc) NON HDL CHOLESTEROL 56 <130 mg/dL (calc) For patients with diabetes plus 1 major ASCVD risk factor, treating to a non-HDL-C goal of <100 mg/dL (LDL-C of <70 mg/dL) is considered a therapeutic option. ALBUMIN, RANDOM URINE W/CREA LIBIA (6517) Reviewed date:06/20/2024 03:25:57 PM Interpretation: Performing Lab:RUFINA SASH [facility] ServicesGlen[facility] Servicese1355 [facility], [facility] HospitalCmpfRD[address] Paresh Pena Notes/Report: NON-FASTING; NON-FASTING; NON-FASTING; NON-FASTING; NON-FAST FASTING:YES FASTING: YES CREATININE, RANDOM URINE 325 20-320 mg/dL Anya ified by repeat analysis. ALBUMIN, URINE 1.6 See Note: mg/dL Reference Range: Reference Range Not established ALBUMIN/CREATININE RATIO, RANDOM URINE 5 <30 mg/g creat The ADA defines abnormalities in albumin excretion as follows: Albuminuria Category Result (mg/g creatinine) Normal to Mildly increased <30 Moderately increased 30-299 Severely increased > OR = 300 The ADA recommends that at least two of three specimens collected within a 3-6 month period be abnormal before considering a patient to be within a diagnostic category. THYROID PANEL WITH TSH (7444 ) Reviewed date:06/20/2024 03:26:10 PM Interpretation: Performing Lab:RUFINA, [facility] Bvpq9877 GoTableAstra Health Center, Buffalo HospitalQtwbBY[address] Paresh Pena Notes/Report: NON-FASTING; NON-FASTING; NON-FASTING; NON-FASTING; NON-FAST FASTING:YES FASTING: YES T3 UPTAKE 32 22-35 % T4 (THYROXINE), TOTAL 7.0 4.9-10.5 mcg/dL FREE T4 INDEX (T7) 2.2 1.4-3.8 TSH 4.77 0.40-4.50 mIU/L COMPREHENSIVE METABOLIC PANE L (45976) Reviewed date:06/20/2024 03:26:16 PM Interpretation: Performing Lab:RUFINA [facility] Owgy5374 GoTableAstra Health Center, Buffalo HospitalLagnXU[address] Paresh Pena Notes/Report: NON-FASTING; NON-FASTING; NON-FASTING; NON-FASTING; NON-FAST FASTING:YES FASTING: YES GLUCOSE 129 65-99 mg/dL Fasting reference interval For someone without known diabetes, a glucose value >125 mg/dL indicates that they may have diabetes and this should be confirmed with a follow-up test. UREA NITROGEN (BUN) 13 7-25 mg/dL CREATININE 1.70 0.70-1.35 mg/dL EGFR 44 > OR = 60 mL/min/1.73m2 BUN/CREATININE RATIO 8 6-22 (calc) SODIUM 136 135-146 mmol/L POTASSIUM 4.6 3.5-5.3 mmol/L CHLORIDE 103 98-110 mmol/L CARBON DIOXIDE 26 20-32 mmol/L CALCIUM 8.7 8.6-10.3 mg/dL PROTEIN, TOTAL 6.5 6.1-8.1 g/dL ALBUMIN 4.0 3.6-5.1 g/dL GLOBULIN 2.5 1.9-3.7 g/dL (calc) ALBUMIN/GLOBULIN RATIO 1.6 1.0-2.5 (calc) BILIRUBIN, TOTAL 0.3 0.2-1.2 mg/dL ALKALINE PHOSPHATASE 95 35-144 U/L AST 15 10-35 U/L ALT 8 9-46 U/L PSA, TOTAL (5363) Reviewed date:03/25/2025 10:06:29 AM Interpretation: Performing Lab:CB, [facility] Kidde1355 [facility], Srinath KiddFenuBK[address] Paresh Ander Pena Notes/Report: NON-FASTING; NON-FASTING; NON-FASTING; NON-FASTING PSA, TOTAL 0.59 < OR = 4.00 ng/mL The total PSA value from this assay system is standardized against the WHO standard. The test result will be approximately 20% lower when compared to the equimolar-standardized total PSA ([place]). Comparison of serial PSA results should be interpreted with this fact in mind. This test was performed using the Siemens chemiluminescent method. Values obtained from different assay methods cannot be used interchangeably. PSA levels, regardless of value, should not be interpreted as absolute evidence of the presence or absence of disease. Reason For Referral Reason Dr. Casiano- Nephrology Referral Organization [facility] CELINE NUNEZ Referring Provider First Name Genaro Referring Provider Last Name Romana Referring Provider Speciality Internal M edicine Referred Organization Referrals Referred Address [address] [facility] [place],[place] Referred Provider Specialty Nephrology General Notes Jessica Ordonez 2023 03:36:52 PM >Placed through [facility] Referral Priority Routine Referral Appointment Date 11/23/2024 Reason Please arrange Carot id US bilateral at [facility] for patient. Recurrent dizziness, history of PAD with stents in his legs, smoker. CPT 69273 no precert required per Cristiane Raylon unable to contact patient- per [facility] Diagnosis 1 Dizziness, nonspecif ic (R42) Referral Organization [facility] Referring Provider First Name Jessie Referring Provider Last Name Monie Referring Provider Speciality [facility] ctice Referred Organization [facility] Referred Address [address] [place] [facility] [facility] [facility], [place], [place],[address],[place] Referred Provider Specialty Diagnostic R adiology General Notes Jessica Ordonez 2024 03:48:00 PM >sent to [facility] No Precert needed, Jessica Ordonez 08/31/2024 04:34:14 PM >checked with [facility] Referral Priority Routine Reason [facility] _ needs EGD and Colonoscopy set up Diagnosis 1 Walsh's esophagus without dysplasia (K22.70) Referral Organization [facility] EN[facility]QUE Referring Provider First Name Genaro Referring Provider Last Name Romana Referring Provider Speciality Internal M edicine Referred Organization [facility] Referred Address [address] [facility] [facility], [place],[address],[place] Referred Provider Specialty Gastroentero logy General Notes Jessica Ordonez 2024 09:13:57 AM >records and referral sent to Dr. Harrison- They will contact patient to schedule. Referral Priority Routine Medications Medication SIG (Take, Route, Frequency, Duration) Notes Start Date End Date Status Fluticasone Furoate 2 sprays/eac h nostril *Please review and pick correct strength-formulati on from Parascale options. If intended option is not shown, discontinue and re-order from Quick Search* Active rOPINIRole HCl 0.5 MG 1 tab(s) orally at bedtime; Duration: 30 days Active Zinc 50 MG QD *Please review a nd pick correct strength-formulati on from Parascale options. If intended option is not shown, discontinue and re-order from Quick Search* Active Levothyroxine Sodium 75 MCG 1 tab(s) orally once a day; Duration: 30 day(s) Active Levocetirizine Dihydrochloride 5 MG 1 tab(s) orally once a day (in the evening); Duration: 30 days Active Escitalopram Oxalate 10 MG 1 tablet Orally Once a day; Duration: 30 days 03/21/2025 Active Farxiga 10 MG 1 tab(s) orally once a day; Duration: 30 days 03/21/2024 Active Losartan Potassium 50 MG 1 tab(s) orally once a day; Duration: 90 days Active Tamsulosin HCl 0.4 MG TAKE 1 CAPSULE BY MOUTH ONCE DAILY; Duration: 90 Active Rosuvastatin Calcium 10 MG 1 tab(s) orally once a day; Duration: 30 days Active Ketoconazole 2 % 1 ute applied topically 3 times per week; Duration: 30 days 09/02/2022 Active Esomeprazole Magnesium 20 MG TAKE 1 CAPSULE BY MOUTH TWICE DAILY; Duration: 30 Active Immunizations Vaccine Route Administration Date Status Comme nts Boostrix IM Intramuscular 03/19/2024 Administered Covid Moderna Unknown 11/05/2020 Administered Covid Moderna Unknown 12/03/2020 Administered Flublok IM Intramuscular 07/19/2022 Administered Fluvirin--Influenza vaccine 3+ year IM Intramuscular 06/17/2008 Administered Fluvirin--Influenza vaccine 3+ year IM Intramuscular 04/30/2013 Administered Fluvirin--Influenza vaccine 3+ year IM Intramuscular 06/17/2014 Administered FLUZONE 6MO - OLDER IM Intramuscular 07/07/2019 Administer ed Fluzone High Dose IM Intramuscular 06/14/2024 Administered Influenza-Fluzone 3+years (NON-MEDICARE) IM Intramuscular 04/19/2018 Administered Prevnar PCV-20 (Pneumococcal conjugate 20) IM Intramuscular 03/19/2024 Administered SHINGRIX Unknown 02/02/2021 Administered SHINGRIX Unknown 05/06/2021 Administered Social History Tobacco Use: Social History Observation Description Date Details (start date - stop date) Current Smoker NA - NA Smoking: Question Answer Notes Are you a: current smoker How often do you smoke cigarettes? every day How many cigarettes a day do you smoke? 11-20 Problems Problem Type SNOMED Code ICD Code Onset Dates Problem Status W/U Status Risk Notes Problem Generalized anxiety disorder (20791336) Generalized anxiety disorder (F41.1) Active confirmed Problem Seasonal allergic rhinitis (107870624) Other seasonal allergic rhinitis (J30.2) Active confirmed Problem Allergic rhinitis (71325457) Other allergic rhinitis (J30.89) Active confirmed Problem Walsh's esophagus (895631439) Walsh's esophagus without dysplasia (K22.70) Active confirmed Problem Sciatica (61782633) Lumbago with sciatica, right side (M54.41) Active confirmed Problem Tobacco use (907751276) Tobacco use (Z72.0) Active confirmed Problem Nicotine dependence (86451004) Personal history of nicotine dependence (Z87.891) Active confirmed Problem Hypothyroidism (96775903) Hypothyroidism (acquired) (E03.9) Active confirmed Problem Sore throat (795489103) Sore throat (J02.9) Active confirmed Problem Essential hypertension (06719704) Hypertension, essential (I10) Active confirmed Problem Seasonal allergy (530665322) Seasonal allergies (J30.2) Active confirmed Problem Restless legs syndrome (95470393) Restless leg syndrome (G25.81) Active confirmed Problem Acute exacerbation of chronic obstructive airways disease (008614831) COPD with acute exacerbation (J44.1) Active confirmed Problem Chronic pain (15418944) Other chronic pain (G89.29) Active confirmed Problem Polyp colon (98301414) Colon polyp (K63.5) Active confirmed Problem Atherosclerosis of coronary artery without angina pectoris (169059227421087) Atherosclerosis of [place] coronary artery of [place] heart without angina pectoris (I25.10) Active confirmed Problem Peripheral vascular disease (150346907) PAD (peripheral artery disease) (I73.9) Active confirmed Problem Sciatica (60838974) Right sided sciatica (M54.31) Active confirmed Problem Sciatica (72070313) Acute right-sided low back pain with right-sided sciatica (M54.41) Active confirmed Problem Major depression single episode, in partial remission (78246074) Major depress, part remis (F32.4) Active confirmed Problem Gastrojejunostom y tube status (Z93.4) Active confirmed Problem Chronic kidney disease stage 3B (disorder) (383766783) Chronic kidney disease, stage 3b (N18.32) Active confirmed Problem Gastroesophageal reflux disease with esophagitis (disorder) (064029645) Gastroesophageal reflux disease with esophagitis, unspecified whether hemorrhage (K21.00) Active confirmed Problem Squamous cell carcinoma of head and neck (399787965) 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) Active confirmed Problem Mild major depression, single episode (18883573) Current mild episode of major depressive disorder, unspecified whether recurrent (F32.0) Active confirmed Problem Squamous cell carcinoma of skin of neck (035684980) Squamous cell carcinoma of neck (C44.42) Active confirmed Problem Chronic kidney disease stage 3B (disorder) (401323392) Stage 3b chronic kidney disease (CKD) (N18.32) Active confirmed Vital Signs Heart Rate 88 /min 03/21/2025 Temperature 97.3 degrees Fahrenheit 03/21/2025 Blood pressure diastolic 58 mm Hg 03/21/2025 Height 68.5 in 03/21/2025 Blood pressure systolic 90 mm Hg 03/21/2025 Weight 160 lbs 03/21/2025 BMI 23.97 kg/m2 03/21/2025 Encounters Encounter Location Date Provider Diagnosis [facility] ENRIQUE [address] [place] [address] 06/18/2024 Genaro Besson [facility] [address] [facility] [address] [place] [address] 11/10/2024 Provider Migration Nocturia R35.1 ; Seasonal allergies J30.2 ; Restless leg syndrome G25.81 and Acute bronchitis, unspecified organism J20.9 [facility] [address] [address] 06/14/2024 Genaro Avendano Atherosclerosis of [place] coronary artery of [place] heart without angina pectoris I25.10 ; Personal history of nicotine dependence Z87.891 ; Hypertension, essential I10 ; Immunization(s) administered Z23 ; Hypothyroidism (acquired) E03.9 ; Right sided sciatica M54.31 ; Chronic kidney disease, stage 3b N18.32 and Routine medical exam Z00.00 [facility] [address] [facility] [address] [place] [address] 08/22/2024 Jessie Lomax Restless leg syndrom e G25.81 ; Acute bronchitis, unspecified organism J20.9 ; Dizziness, nonspecific R42 and Stage 3b chronic kidney disease (CKD) N18.32 [facility] [address] [address] 03/21/2025 Genaro Avendano Atherosclerosis of [place] coronary artery of [place] heart without angina pectoris I25.10 ; Hypothyroidism (acquired) E03.9 ; Chronic kidney disease, stage 3b N18.32 ; Current mild episode of major depressive disorder, unspecified whether recurrent F32.0 ; Walsh's esophagus without dysplasia K22.70 ; Foreign body of right external ear S00.451A ; Personal history of nicotine dependence Z87.891 and Healthcare maintenance Z00.00 [facility] [address] [facility] [address] [place] [address] 08/22/2024 Jessie Lomax Dizziness, nonspecif ic R42 ; PAD (peripheral artery disease) I73.9 and Personal history of nicotine dependence Z87.891 [facility] [address] [facility] [address] [place] [address] 02/14/2025 Genaro Avendano [facility] [address] [facility] [address] [place] [address] 03/28/2025 Genaro Avendano Assessments Encounter Date Diagnosis (ICD Code) Assessment Notes Treatment Notes Treatment Clinical Notes Section Notes 08/22/2024 Restless leg syndrome (ICD-10 - G25.81) Normal free t4 in June. Discussed pathophysiology of restless leg issues and importance of hydration. Discussed medication and patient is agreeable. Will proceed with treatment. If no improvement at follow-up, consider checking iron studies, B12, and folate. Not checking labs today with patient being sick with bronchitis. Follow-up in 4 weeks or sooner if needed. 08/22/2024 Acute bronchitis, unspecified organism (ICD-10 - J20.9) Discussed the etiology and expected course of bronchitis. Discussed the rationale for antibiotic and the importance of completing the prescription as prescribed. Continue supportive care with PRN antipyretics, OTC cough/cold meds, nasal saline rinses/Neti pot with distilled water, salt water gargles, cough drops, and humidifier. Encourage PO hydration. Discussed the signs and symptoms of worsening infection/respirat ory distress that may indicate need for reassessment in clinic/ED. Keep previously scheduled physical exam or f/u sooner PRN. Patient voices understanding and agree to this plan. 08/22/2024 Dizziness, nonspecific (ICD-10 - R42) 03/21/2025 Hypothyroidism (acquired) (ICD-10 - E03.9) Had subclinical hypothyroidism at last TSH check. Will repeat today and can treat if TSH above 10 or if patient is symptomatic after starting lexapro + stopping BP medications. f 03/21/2025 Atherosclerosis of [place] coronary artery of [place] heart without angina pectoris (ICD-10 - I25.10) f 11/10/2024 Nocturia (ICD-10 - R35.1) 11/10/2024 Seasonal allergies (ICD-10 - J30.2) 11/10/2024 Restless leg syndrome (ICD-10 - G25.81) 11/10/2024 Acute bronchitis, unspecified organism (ICD-10 - J20.9) 06/14/2024 Personal history of nicotine dependence (ICD-10 - Z87.891) Discussed smoking cessation. Discussed for greater than 5 minutes needs for this. Discussed pharmacologic availability. Has tried Chantix before, wishes to restart this. Will do so 06/14/2024 Atherosclerosis of [place] coronary artery of [place] heart without angina pectoris (ICD-10 - I25.10) Overall doing well. Seems to be stable. No cardiovascular issues at this point. Stay on xiga. Check labs to make sure things are stable 06/14/2024 Hypertension, essential (ICD-10 - I10) Excellent blood pressure control. He will check at home to see if he is orthostatic that might be causing the dizziness 03/21/2025 Chronic kidney disease, stage 3b (ICD-10 - N18.32) Likely related to T2DM. On SGLT2i, had to d/c levi/arb due to hypotension. Will check UAC today and repeat CMP. f 08/22/2024 PAD (peripheral artery disease) (ICD-10 - I73.9) 08/22/2024 Dizziness, nonspecific (ICD-10 - R42) Normal BP in clinic today. [place] to be related to poor po water intake, but with his smoking history and PAD requiring stents to his legs, will proceed with Carotid US. I personally will review US results once final. 08/22/2024 Stage 3b chronic kidney disease (CKD) (ICD-10 - N18.32) Keep follow-up with Chief Digital Officer Dr. Casiano and Dr. Avendano is okay with waiting for November app with his long waitlist. 08/22/2024 Personal history of nicotine dependence (ICD-10 - Z87.891) 03/21/2025 Current mild episode of major depressive disorder, unspecified whether recurrent (ICD-10 - F32.0) Will start Lexapro 10 mg today and see back in 3-4 weeks f 06/14/2024 Immunization(s) administered (ICD-10 - Z23) 06/14/2024 Hypothyroidism (acquired) (ICD-10 - E03.9) 03/21/2025 Walsh's esophagus without dysplasia (ICD-10 - [...] to help flush the bug out f 06/14/2024 Right sided sciatica (ICD-10 - M54.31) Patient thinks that the instability is from sciatica. Wants to go try more shots. Declines PT. Declines further evaluation of dizziness 06/14/2024 Chronic kidney disease, stage 3b (ICD-10 - N18.32) Labs ordered. All reviewed personally 03/21/2025 Personal history of nicotine dependence (ICD-10 [...] CT. Will order Colonoscopy, EGD today f 06/14/2024 Routine medical exam (ICD-10 - Z00.00) Good functional status. No cognitive impairment, 3/3 word recall. 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 Will check labs Tuesday. Up-to-date with low-dose CTs, colonoscopy and AAA screening. Flu shot today. Has had pneumonia vaccine and other vaccines 08/22/2024 Other Patient discuss ed with Attending Dr. Avendano who agrees with the plan of care above. Plan Of Treatment Pending Test Test Name Order Date N-CBC 06/20/2006 X-Lipid Profile 06/20/2006 X ray : Chest 01/07/2023 Ultrasound : Carotids 08/22/2024 CT Scan : Chest, Without Contrast 2016 X ray : Foot, Left 06/20/2006 N-TSH (Thyroid Stimulating Hormone) 06/08 N-PSA 06/20/2006 Microalbumin (In-House) 03/21/2025 N-CMP 06/20/2006 Occupational Therapy : Eval & Treatment 09/24/2020 H-CBC with AUTO DIFF 01/30/2009 H-CBC with AUTO DIFF 01/13/2009 H-VITAMIN B12 01/13/2009 H-FOLATE, SERUM 01/13/2009 H-BMP 01/30/2009 H-CMP 01/13/2009 H-LIPID PANEL 01/13/2009 H-IMMUNOGLOBULIN A URINE 01/30/2009 H-PSA SCREEN 01/13/2009 H-TSH 01/13/2009 H-SED RATE 01/13/2009 H-SED RATE 01/30/2009 H-URINALYSIS 01/30/2009 H-URINE 24 HOUR FOR PROTEIN 01/30/2009 H-CREATININE CLEARANCE 24HR UA 9 H-URINARY SEDIMENT 01/30/2009 H-TESTOSTERONE 01/13/2009 Physical Therapy Eval and Treat 01/12/20 24 COMPREHENSIVE METABOLIC PANEL (34308) MAGNESIUM (622) 01/04/2024 CBC (INCLUDES DIFF/PLT) (6399) VITAMIN B12/FOLATE, SERUM PANEL (7065) 0 01/04/2024 TSH W/REFLEX TO FT4 (05090) 01/04/2024 VITAMIN D,25-OH,TOTAL,IA [phone]) [phone] Insurance Providers Payer Name Payer Address Payer Phone Subscriber Number Group Number Insured Name Patient Relationship to Insured Coverage Start Date Coverage End Date [employer] MED[employer]ARE [address] [address] [place] [address] [id number] Colton Ascencio Self - patient is the insured Medications Administered Medication Instructions Date of Administration Dosage Notes Ceftriaxone 500 05/01/2016 500 mg Cyanocobalamin/B-12 Pt's Own Medication 11/26/2013 Cyanocobalamin/B-12 Pt's Own Medication 02/25/2014 Cyanocobalamin/B-12 Pt's Own Medication 04/22/2014 Cyanocobalamin/B-12 Pt's Own Medication 06/17/2014 1 mL Dexamethasone 4mg Injection 01/27/2023 4 mg Dexamethasone 4mg Injection 06/16/2023 4 mL Kenalog 40mg 07/09/2017 40 mg Triamcinolone Acetonide 40mg Injection 04/19/2018 1 mL Triamcinolone Acetonide 40mg Injection 01/27/2019 1 mL Kenalog 04/30/2013 1 Kenalog 05/01/2016 1 mL Kenalog 08/02/2016 1 mL Medical (General) History Medical History History ICD Code Esophageal reflux pernicious anemia neuropathy B12 vitamin deficiency Kidney stone Intermittent spinal claudication Anxiety colonoscopy April 2019 w ith multiple tubular adenoma - repeated in 01/2022 with small adenomas... repeat 3 years EGD April 2019 with Walsh's esopha gitis Neck mass biopsy 08/27 with squamous cell carcinoma Negative low-dose CT scan August 2022 a nd 03/2024 Negative AAA screening August 2022 Surgical History Surgery Date(Month/Year) colonoscopy 01/2022 port removal 10/2022 Hospitalization History Reason Date(Month/Year)
[2025-04-24 15:41] LABS: Hematocrit 29.4 % (42.0-52.0); Hemoglobin 8.5 g/dL (14.1-18.0)
== END 2025-04-24 23:59 | disposition home or self-care (01) ==
LOC: LAB 15:19
PROVIDERS: PCP Internal Medicine Adolescent Medicine; Visit Provider Surgery
DX: K21.9 Gastro-esophageal reflux disease without esophagitis (principal)
CPT/HCPCS: 36415; 85014; 85018

== ENCOUNTER 2025-06-17 07:57 | Outpatient (CLI) | payer MEDICARE, SELFPAY ==
--- OUTSIDE RECORDS SUMMARY | 2024-06-06 10:00 | XMS_ITS ---
Author Organization [facility] Address [address] [place] [address] Care Team Providers Care Fishing Rod Assembler Name Role Phone Genaro Avendano Primary Care Provider REASON FOR VISIT 2 month check up Encounters Encounter Location Date Provider Diagnosis [facility] [place] [address] [place] [address] 06/06/2024 Genaro Avendano Plan Of Treatment No Information Progress Notes * Colton RIVAS LDOB:1955 (69 yo M)Acc No.[id number]:06/06/2024 Progress Notes Patient: Colton AHUJA Provider: John Paul Avendano MD :1955 A ge:68 Y S ex:Male Date:06/06/2024 Address:[address] [id number] Subjective: * Chief Complaints: * 1 . 2 month check up. * Medical History: Objective: * Vitals: Assessment: Plan: * Treatment: * * Electronic signature of Miguelito Avendano MD FAAP on 06/17/2025 at 07:59 AM EST Sign off status: Pending * Provider: John Paul Avendano MD Date: Generated for Printi migue/Debbie/eTransmitting on: 08/17/2024 07:59 AM EST
--- OUTSIDE RECORDS SUMMARY | 2024-06-18 06:15 | XMS_ITS ---
Author Organization [facility] Address [address] [place] [address] Care Team Providers Care General Duty Nurse Name Role Phone Genaro Avendano Primary Care Provider [phone] REASON FOR VISIT blood draw Encounters Encounter Location Date Provider Diagnosis [facility] [address] [place] [address] 06/18/2024 Geanro Avendano Plan Of Treatment No Information Progress Notes * Colton RIVAS LDOB:1955 (69 yo M)Acc No.[id number]:06/18/2024 LABS Patient: Colton AHUJA Provider: John Paul Avendano MD :1955 A ge:68 Y S ex:Male Date:06/18/2024 Address:[address] [id number] Subjective: * Chief Complaints: * 1 . Blood draw. * Medical History: Objective: * Vitals: Assessment: Plan: * Treatment: * * Electronic signature of Miguelito Avendano MD FAAP on 06/17/2025 at 08:03 AM EST Sign off status: Pending * Provider: John Paul Avendano MD Date: 08/18/2023 Generated for Printi ng/Fadebbieg/eTransmitting on: 08/17/2024 08:03 AM EST
--- OUTSIDE RECORDS SUMMARY | 2024-10-01 10:00 | XMS_ITS ---
Author Organization [facility] Address [address] [place] [address] Care Team Providers Care Television Cable Installer Name Role Phone Genaro Avendano Primary Care Provider REASON FOR VISIT 6 wk f/u Encounters Encounter Location Date Provider Diagnosis [facility] [address] [place] [address] 10/01/2024 Genaro Avendano Plan Of Treatment No Information Progress Notes * Colton RIVAS LDOB:1955 (69 yo M)Acc No.[id number]:10/01/2024 Progress Notes Patient: Colton AHUJA Provider: John Paul Avendano MD :1955 A ge:69 Y S ex:Male Date:10/01/2024 Address:[address] [id number] Subjective: * Chief Complaints: * 1 . 6 wk f/u. * Medical History: Objective: * Vitals: Assessment: Plan: * Treatment: * * Electronic signature of Miguelito Avendano MD FAAP on 06/17/2025 at 08:02 AM EST Sign off status: Pending * Provider: John Paul Avendano MD Date: 0 10/01/2024 Generated for Patience camarena/Debbie/eTransmitting on: 1 08/17/2024 08:02 AM EST
--- OUTSIDE RECORDS SUMMARY | 2024-11-10 16:30 | XMS_ITS ---
Author Organization [facility] Address [address] [place] [address] Care Team Providers Care Tin Pot Operator Name Role Phone Genaro Avendano Primary Care Provider [phone] Migration, Provider Unavailable Unavailable Allergies Allergen (clinical drug ingredient) Drug/Non Drug Allergy documented on EMR Reaction Allergy Type Onset Date Status codeine Codeine Unknown Drug Allergy Active REASON FOR VISIT [facility] To [facility] Conversion Encounter Medications Medication SIG (Take, Route, Frequency, Duration) Notes Start Date End Date Status NexIUM 24HR 20 MG 1 cap(s) orally twice daily; Duration: 30 days Active Doxycycline Hyclate 100 MG 1 cap(s) orally 2 times a day; Duration: 10 days 08/22/2024 Active Chantix 1 MG 1 tab(s) orally 2 times a day; Duration: 90 days 06/14/2024 Active Losartan Potassium 50 MG 1 tab(s) orally once a day; Duration: 90 days Active rOPINIRole HCl 0.5 MG 1 tab(s) orally at bedtime; Duration: 30 days Active Farxiga 10 MG 1 tab(s) orally once a day; Duration: 30 days 03/21/2024 Active Rosuvastatin Calcium 10 MG 1 tab(s) orally once a day; Duration: 30 days Active Tamsulosin HCl 0.4 MG 1 cap(s) orally once a day; Duration: 90 days Active PARoxetine HCl 20 MG 1 tab(s) orally once a day; Duration: 30 days Active Levothyroxine Sodium 75 MCG 1 tab(s) orally once a day; Duration: 30 day(s) Active Ketoconazole 2 % 1 ute applied topically 3 times per week; Duration: 30 days 09/02/2022 Active Zinc 50 MG QD *Please review a nd pick correct strength-formulati on from [employer] Dev[employer] options. If intended option is not shown, discontinue and re-order from Quick Search* Active Fluticasone Furoate 2 sprays/eac h nostril *Please review and pick correct strength-formulati on from [employer] options. If intended option is not shown, discontinue and re-order from Quick Search* Active Levocetirizine Dihydrochloride 5 MG 1 tab(s) orally once a day (in the evening); Duration: 30 days Active Encounters Encounter Location Date Provider Diagnosis [facility] [address] [place] [address] 11/10/2024 Provider Migration Nocturia R35.1 ; Seasonal allergies J30.2 ; Restless leg syndrome G25.81 and Acute bronchitis, unspecified organism J20.9 Assessments Encounter Date Diagnosis (ICD Code) Assessment Notes Treatment Notes Treatment Clinical Notes Section Notes 11/10/2024 Nocturia (ICD-10 - R35.1) 11/10/2024 Seasonal allergies (ICD-10 - J30.2) 11/10/2024 Restless leg syndrome (ICD-10 - G25.81) 11/10/2024 Acute bronchitis, unspecified organism (ICD-10 - J20.9) Plan Of Treatment Medication Medication Name Sig Start Date Stop Date Notes NexIUM 24HR 20 MG 1 cap(s) orally twic e daily; Duration: 30 days Doxycycline Hyclate 100 MG 1 cap(s) oral ly 2 times a day; Duration: 10 days 08/22/2024 rOPINIRole HCl 0.5 MG 1 tab(s) orally at bedtime; Duration: 30 days Tamsulosin HCl 0.4 MG 1 cap(s) orally on ce a day; Duration: 90 days PARoxetine HCl 20 MG 1 tab(s) orally onc e a day; Duration: 30 days Levocetirizine Dihydrochlori de 5 MG 1 tab(s) orally once a day (in the evening); Duration: 30 days Progress Notes * Colton RIVAS LDOB:1955 (69 yo M)Acc No.[id number]:11/10/2024 Patient: Colton AHUJA Provider: Frandy Francis :1955 A ge:69 Y S ex:Male Date:11/10/2024 Address:[address] [place] [address], [place], [id number] Pcp:Genaro Avendano Subjective: * Chief Complaints: * 1 . Multum To Medispan Conversion Encounter. * Medical History: * Medications: T aking Fluticasone Furoate , Notes to Pharmacist: 2 sprays/each nostril *Please review and pick correct strength-formulation from [employer] options. If intended option is not shown, discontinue and re-order from Quick Search*, Taking Zinc 50 MG TAB QD , Notes to Pharmacist: *Please review and pick correct strength-formulation from [employer] options. If intended option is not shown, discontinue and re-order from Quick Search*, Taking Ketoconazole 2 % Shampoo 1 ute applied topically 3 times per week , Taking Rosuvastatin Calcium 10 MG Tablet 1 tab(s) orally once a day , Taking Farxiga 10 MG Tablet 1 tab(s) orally once a day , Taking Levothyroxine Sodium 75 MCG Tablet 1 tab(s) orally once a day , Taking Losartan Potassium 50 MG Tablet 1 tab(s) orally once a day , Taking Chantix 1 MG Tablet 1 tab(s) orally 2 times a day * Allergies: C odeine. Objective: * Vitals: Assessment: * Assessment: 1. A cute bronchitis, unspecified organism - J20.9 (Primary) 2 . N octuria - R35.1 3 . S easonal allergies - J30.2 4 . R estless leg syndrome - G25.81 Plan: * Treatment: 2. N octuria Start Tamsulosin HCl Capsule, 0.4 MG, 1 cap(s), orally, once a day, 90 days, 90 Capsule, Refills 1.? 3. S easonal allergies Start Levocetirizine Dihydrochloride Tablet, 5 MG, 1 tab(s), orally, once a day (in the evening), 30 days, 30, Refills 2. 4. R estless leg syndrome Start rOPINIRole HCl Tablet, 0.5 MG, 1 tab(s), orally, at bedtime, 30 days, 30, Refills 2. ? 5. O thers Start PARoxetine HCl Tablet, 20 MG, 1 tab(s), orally, once a day, 30 days, 30, Refills 3; S tart NexIUM 24HR Capsule Delayed Release, 20 MG, 1 cap(s), orally, twice daily, 30 days, 60, Refills 1.? * * Electronic signature of Prov ider Migration on 06/17/2025 at 08:02 AM EST Sign off status: Pending * Provider: Frandy rincon Migration Date: 0 11/10/2024 Generated for Patience camarena/Debbie/Edilberto on: 1 08/17/2024 08:02 AM EST
--- OUTSIDE RECORDS SUMMARY | 2025-06-17 07:58 | XMS_ITS | Encounter Summary ---
Author Organization [employer] ([place], [place], [place], [place], [place]) Address [address] [place] [address] Care Team Providers Care Engine Manager Name Role Phone Christophe Vega MD Unavailable Unavailable Dennys Kent MD Unavailable [phone] Genaro Avendano MD Primary Care Provider [phone] Encounter Details Date Type Department Care Team (Late st Contact Info) Description 01/17/2020 Transcribed Document [facility] [place] [address] [place] [address] ProviderRadha MD [address] [place] [address] Social History Tobacco Use Types Packs/Day Years Used Date Smoking Tobacco: Never Assessed Sex and Gender Information Value Date Recorded Sex Assigned at Not on file Legal Sex Male 4:20 PM CDT Gender Identity Not on file Sexual Orientation Not on file documented as of this encounter Miscellaneous Notes * Cerner Conversion Note - Radha ProviderMD - 01/17/2020 4:50 PM CDT Electronically signed by [facility] Conversion Bacon Skinner Cerner at 11/25/2022 12:13 AM CDT documented in this encounter Plan of Treatment Not on file documented as of this encounter Visit Diagnoses Not on filedocumented in this encounter Care Teams Engine Manager Relationship Specialty Start Date End Date Genaro Avendano MD [address] [place] [address] PCP - General Adolescent Medicine 01/25/23 Christophe Vega MD Medical Oncologist Hematology and Oncology 07/27/22 Dennys Kent MD [address] [place] [address] Surgeon Otolaryngology 07/27/22 documented as of this encounter
--- OUTSIDE RECORDS SUMMARY | 2025-06-17 07:58 | XMS_ITS | Encounter Summary ---
Author Organization [employer] ([place], [place], [place], [place], [place]) Address [address] [place] [address] Care Team Providers Care Newspaper Copy Editor Name Role Phone Christophe Vega MD Unavailable Unavailable Dennys Kent MD Unavailable [phone] Genaro Avendano MD Primary Care Provider [phone] Encounter Details Date Type Department Care Team (Late st Contact Info) Description 03/18/2025 Telephone Pool Radiation Oncology - [facility] [address] [place] [address] Juju Dhaliwal RN Social History Tobacco Use Types Packs/Day Years Used Date Smoking Tobacco: Every Day Cigarettes 0.5 50 Passive Smoke Exposure: Past Smokeless Tobacco: Never Alcohol Use Standard Drinks/Week Comments Never 0 (1 standard drink = 0.6 oz pur e alcohol) Family and Community Support Answer Gordo e Recorded Help with Day to Day Activities Not on file 08/17/2023 Feeling Lonely or Isolated Not on file 08/17 Educational Attainment Answer Date Nadeem rded Speak language other than Cambodian at home Not on file 08/17/2023 Want help with school or training Not on file 08/17/2023 Substance Use Answer Date Recorded Used prescription meds for non-medical reasons N ot on file 08/17/2023 Used illegal drugs past 12 months Not on file 08/17/2023 Sex and Gender Information Value Date Recorded Sex Assigned at Not on file Legal Sex Male 4:20 PM CDT Gender Identity Not on file Sexual Orientation Not on file 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
--- OUTSIDE RECORDS SUMMARY | 2025-06-17 07:58 | XMS_ITS | Encounter Summary ---
Author Organization [employer] ([place], [place], [place], [place], [place]) Address [address] [place] [address] Care Team Providers Care Rn Radiation Oncology Name Role Phone Christophe Vega MD Unavailable Unavailable Dennys Kent MD Unavailable [phone] Genaro Avendano MD Primary Care Provider [phone] Encounter Details Date Type Department Care Team (Late st Contact Info) Description 01/17/2020 Transcribed Document [facility] [place] [address] [place] [address] ProviderRadha MD [address] [place] [address] Social History Tobacco Use Types Packs/Day Years Used Date Smoking Tobacco: Never Assessed Sex and Gender Information Value Date Recorded Sex Assigned at Not on file Legal Sex Male 4:20 PM CDT Gender Identity Not on file Sexual Orientation Not on file documented as of this encounter Miscellaneous Notes * Cerner Conversion Note - Radha Garduno MD - 01/17/2020 4:58 PM CDT ED Discharge Entered On: 01/17/2020 16:58 EDT Performed On: 01/17/2020 16:58 EDT by Flora Lara RN Discharge Process Patient Disposition : Discharge Personal Belongings With Patient : Yes Patient Education Completed : Yes Teaching Evaluation : Verbalizes understanding IV Discontinued : Not applicable Nursing Documentation Completed : Yes Flora Lara RN - 01/17/2020 16:58 EDT ED Discharge Discharge To : Home with ambulatory/outpatient follow-up Mode Of Departure : Ambulatory Accompanied By : Unaccompanied Discharge Instructions Reviewed With, Opportunity For Questions Given : Patient Prescriptions Given to Patient : Flora Crockett, RN - 01/17/2020 16:58 EDT documented in this encounter Plan of Treatment Not on file documented as of this encounter Visit Diagnoses Not on filedocumented in this encounter Care Teams Rn Radiation Oncology Relationship Specialty Start Date End Date Genaro Avendano MD [address] [facility] [address] [place] [address] PCP - General Adolescent Medicine 01/25/23 Christophe Vega MD Medical Oncologist Hematology and Oncology 07/27/22 Dennys Kent MD [address] [place] [address] Surgeon Otolaryngology 07/27/22 documented as of this encounter
--- OUTSIDE RECORDS SUMMARY | 2025-06-17 07:58 | XMS_ITS | Encounter Summary ---
Author Organization [employer] ([place], [place], [place], [place], [place]) Address [address] [place] [address] Care Team Providers Care Spring Assembler Name Role Phone Christophe Vega MD Unavailable Unavailable Dennys Kent MD Unavailable [phone] Genaro Avendano MD Primary Care Provider [phone] Encounter Details Date Type Department Care Team (Late st Contact Info) Description 01/26/2020 Transcribed Document [facility] [place] Medicine [address] [place] [address] ProviderRadha MD [address] [place] [address] Social History Tobacco Use Types Packs/Day Years Used Date Smoking Tobacco: Never Assessed Sex and Gender Information Value Date Recorded Sex Assigned at Not on file Legal Sex Male 4:20 PM CDT Gender Identity Not on file Sexual Orientation Not on file documented as of this encounter Miscellaneous Notes * Cerner Conversion Note - Radha Garduno MD - 01/26/2020 3:20 PM CDT ED Assessment Entered On: 01/26/2020 16:06 EDT Performed On: 01/26/2020 15:53 EDT by NEO BOSTON RN ED Quick Look Assessment Level of Consciousness : Alert, Awake Affect/Behavior : Appropriate, Calm, Cooperative Orientation : Oriented x 4 Skin Temperature : Warm NEO BOSTON RN - 01/26/2020 15:53 EDT ED General-Functional Assess Information Obtained From : Patient Preferred Communication Mode : Verbal Communication Barrier : None Primary Language : Croatian Any Spiritual/Cultural Needs or Requests : No Currently in Unsafe Situation : No NEO BOSTON RN - 01/26/2020 15:53 EDT Social Habits Smoking Status : Never (less than 100 in lifetime; none in last 30 days) Smokeless Tobacco Status : Never Desires Tobacco Cessation Calc : 0 NEO BOSTON RN - 01/26/2020 15:53 EDT Social History (As Of: 01/26/2020 16:06:23 EDT) Tobacco: Never (less than 100 in lifetime) Smoking Status. Never Smokeless Tobacco Status. (Last Updated: 01/17/2020 15:59:40 EDT by Flora Lara RN) Gastrointestinal ED Gastrointestinal Assessment WDL : WDL with exceptions (Comment: Pt is visiting the ED today stating his G-tube is clogged. Cannot unclog it at home after several attempts. [NEO BOSTON RN - 01/26/2020 15:53 EDT] ) NEO BOSTON RN - 01/26/2020 15:53 EDT Electronically signed by [facility] Conversion Pattern Hand Cerner at 11/25/2022 12:13 AM CDT documented in this encounter Plan of Treatment Not on file documented as of this encounter Visit Diagnoses Not on filedocumented in this encounter Care Teams Spring Assembler Relationship Specialty Start Date End Date Genaro Avendano MD [address] [place] [facility] [address] [place] [address] PCP - General Adolescent Medicine 01/25/23 Christophe Vega MD Medical Oncologist Hematology and Oncology 07/27/22 Dennys Kent MD [address] [place] [address] Surgeon Otolaryngology 07/27/22 documented as of this encounter
--- OUTSIDE RECORDS SUMMARY | 2025-06-17 07:58 | XMS_ITS | Encounter Summary ---
Author Organization [employer] ([place], [place], [place], [place], [place]) Address [address] [place] [address] Care Team Providers Care Merchandise Shopper Name Role Phone Christophe Vega MD Unavailable Unavailable Dennys Kent MD Unavailable [phone] Genaro Avendano MD Primary Care Provider [phone] Encounter Details Date Type Department Care Team (Late st Contact Info) Description 01/18/[address] [facility] [place] Medicine [address] [place] [address] ProviderRadha MD [address] [place] [address] Social History Tobacco Use Types Packs/Day Years Used Date Smoking Tobacco: Never Assessed Sex and Gender Information Value Date Recorded Sex Assigned at Not on file Legal Sex Male 4:20 PM CDT Gender Identity Not on file Sexual Orientation Not on file documented as of this encounter Miscellaneous Notes * Cerner Conversion Note - Historical ProviderMD - 01/18/2020 11:28 AM CDT CR G-J Tube Injection Ordered: 01/17/2020 Auth (Verified) Reason for Exam: clogged 01/18/2020 08:41 01/18/2020 11:28 (CAMILA CHASE) No further action required documented in this encounter Plan of Treatment Not on file documented as of this encounter Visit Diagnoses Not on filedocumented in this encounter Care Teams Merchandise Shopper Relationship Specialty Start Date End Date Genaro Avendano MD [address] [place] [address] PCP - General Adolescent Medicine 01/25/23 Christophe Vega MD Medical Oncologist Hematology and Oncology 07/27/22 Dennys Kent MD [address] [place] [address] Surgeon Otolaryngology 07/27/22 documented as of this encounter
--- OUTSIDE RECORDS SUMMARY | 2025-06-17 07:58 | XMS_ITS | Encounter Summary ---
Author Organization [employer] ([place], [place], [place], [place], [place]) Address [address] [place] [address] Care Team Providers Care Assistant Engineer Name Role Phone Christophe Vega MD Unavailable Unavailable Dennys Kent MD Unavailable [phone] Genaro Avendano MD Primary Care Provider [phone] Encounter Details Date Type Department Care Team (Late st Contact Info) Description 01/26/2020 Transcribed Document [facility] [place] [facility] [place] [address] [place] [address] ProviderRadha MD [address] [place] [address] Social History Tobacco Use Types Packs/Day Years Used Date Smoking Tobacco: Never Assessed Sex and Gender Information Value Date Recorded Sex Assigned at Not on file Legal Sex Male 4:20 PM CDT Gender Identity Not on file Sexual Orientation Not on file documented as of this encounter Miscellaneous Notes * Cerner Conversion Note - Radha ProviderMD - 01/26/2020 4:08 PM CDT Electronically signed by [facility] Conversion Park Attendant Cerner at 11/25/2022 12:21 AM CDT documented in this encounter Plan of Treatment Not on file documented as of this encounter Visit Diagnoses Not on filedocumented in this encounter Care Teams Assistant Engineer Relationship Specialty Start Date End Date Genaro Avendano MD [address] [place] [address] PCP - General Adolescent Medicine 01/25/23 Christophe Vega MD Medical Oncologist Hematology and Oncology 07/27/22 Dennys Kent MD [address] [place] [address] Surgeon Otolaryngology 07/27/22 documented as of this encounter
--- OUTSIDE RECORDS SUMMARY | 2025-06-17 07:58 | XMS_ITS | Encounter Summary ---
Author Organization [employer] ([place], [place], [place], [place], [place]) Address [address] [place] [address] Care Team Providers Care Forensic Anthropologist Name Role Phone Christophe Vega MD Unavailable Unavailable Dennys Kent MD Unavailable [phone] Genaro Avendano MD Primary Care Provider [phone] Encounter Details Date Type Department Care Team (Late st Contact Info) Description 01/17/2020 Transcribed Document [facility] [place] [address] [place] [address] ProviderRadha MD [address] [place] [address] Social History Tobacco Use Types Packs/Day Years Used Date Smoking Tobacco: Never Assessed Sex and Gender Information Value Date Recorded Sex Assigned at Not on file Legal Sex Male 4:20 PM CDT Gender Identity Not on file Sexual Orientation Not on file documented as of this encounter Miscellaneous Notes * Cerner Conversion Note - Radha Garduno MD - 01/17/2020 2:31 PM CDT ED Assessment Entered On: 01/17/2020 16:00 EDT Performed On: 01/17/2020 15:59 EDT by Flora Lara RN ED Quick Look Assessment Level of Consciousness : Alert, Awake Affect/Behavior : Appropriate, Calm, Cooperative Orientation : Oriented x 4 Skin Temperature : Warm Skin Description : Dry Flora Lara RN - 01/17/2020 15:59 EDT ED General-Functional Assess Information Obtained From : Patient Preferred Communication Mode : Verbal Communication Barrier : None Primary Language : Ivorian Any Spiritual/Cultural Needs or Requests : No Currently in Unsafe Situation : No Living Situation : Home Current Daily Living Assistance : None Sensory Deficits : None Mobility Assistance Prior to Admission : Independent Current Home Treatments : Tube feeding Home Equipment : Tube feeding/supplies Professional Skilled Services : None Special Services and Community Resources : None Flora Lara RN - 01/17/2020 15:59 EDT Social Habits Smoking Status : Never (less than 100 in lifetime; none in last 30 days) Smokeless Tobacco Status : Never Desires Tobacco Cessation Calc : 0 Flora Lara RN - 01/17/2020 15:59 EDT Social History (As Of: 01/17/2020 16:00:46 EDT) Tobacco: Never (less than 100 in lifetime) Smoking Status. Never Smokeless Tobacco Status. (Last Updated: 01/17/2020 15:59:40 EDT by Flora Lara RN) Gastrointestinal ED Bowel Sounds Bowel Sounds All Quadrants : Active LLQ : Active LUQ : Active RLQ : Active RUQ : Active Flora Lara RN - 01/17/2020 15:59 EDT Electronically signed by [facility] Conversion Prefitter Cerner at 11/25/2022 12:19 AM CDT documented in this encounter Plan of Treatment Not on file documented as of this encounter Visit Diagnoses Not on filedocumented in this encounter Care Teams Forensic Anthropologist Relationship Specialty Start Date End Date Genaro Avendano MD [address] [place] [address] PCP - General Adolescent Medicine 01/25/23 Christophe Vega MD Medical Oncologist Hematology and Oncology 07/27/22 Dennys Kent MD [address] [place] [address] Surgeon Otolaryngology 07/27/22 documented as of this encounter
--- OUTSIDE RECORDS SUMMARY | 2025-06-17 07:58 | XMS_ITS | Encounter Summary ---
Author Organization [employer] ([place], [place], [place], [place], [place]) Address [address] [place] [address] Care Team Providers Care Cyber Threat Analyst Name Role Phone Christophe Vega MD Unavailable Unavailable Dennys Kent MD Unavailable [phone] Genaro Avendano MD Primary Care Provider [phone] Encounter Details Date Type Department Care Team (Late st Contact Info) Description 01/02/2020 Transcribed Document [facility] [place] [address] [place] [address] ProviderRadha MD [address] [place] [address] Social History Tobacco Use Types Packs/Day Years Used Date Smoking Tobacco: Never Assessed Sex and Gender Information Value Date Recorded Sex Assigned at Not on file Legal Sex Male 4:20 PM CDT Gender Identity Not on file Sexual Orientation Not on file documented as of this encounter Miscellaneous Notes * [employer]ner Conversion Note - Radha Garduno MD - 01/02/2020 4:05 PM CDT Consult Phone Call Documentation Entered On: 01/02/2020 16:28 EDT Performed On: 01/02/2020 16:05 EDT by Kaylynn Carmona PATIENT FORESTRY PATROLMAN Phone Call for Consults Consult Phone Call/Page Attempt : First call Consult Reason : surgery dr. Cedeno need G or J feeding tube Physician Requesting Consult : BRAXTON PATTEN MD-INT Physician Requested for Consult : CRISTEL CEDENO MD-SUR Physician Covering for Consult : CRISTEL CEDENO MD-SUR Date and Time Call Returned : 01/02/2020 16:28 EDT Physician Returning Call : CRISTEL CEDENO MD-Kaylynn Noyola, PATIENT FORESTRY PATROLMAN - 01/02/2020 16:27 EDT documented in this encounter Plan of Treatment Not on file documented as of this encounter Visit Diagnoses Not on filedocumented in this encounter Care Teams Cyber Threat Analyst Relationship Specialty Start Date End Date Genaro Avendano MD [address] [place] [address] PCP - General Adolescent Medicine 01/25/23 Christophe Vega MD Medical Oncologist Hematology and Oncology 07/27/22 Dennys Kent MD [address] [place] [address] Surgeon Otolaryngology 07/27/22 documented as of this encounter
--- OUTSIDE RECORDS SUMMARY | 2025-06-17 07:58 | XMS_ITS | Encounter Summary ---
Author Organization [employer] ([place], [place], [place], [place], [place]) Address [address] [place] [address] Care Team Providers Care Phone Screener Name Role Phone Christophe Vega MD Unavailable Unavailable Dennys Kent MD Unavailable [phone] Genaro Avendano MD Primary Care Provider [phone] Encounter Details Date Type Department Care Team (Late st Contact Info) Description 03/20/2025 Telephone [place] Radiation Oncology - [facility] [address] [place] [address] Juju Dhaliwal RN Social History [...] Date Nadeem rded Speak language other than St Helenian at home Not on file 08/17/2023 Want [...] Job 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
--- OUTSIDE RECORDS SUMMARY | 2025-06-17 07:58 | XMS_ITS | Encounter Summary ---
Author Organization [employer] ([place], [place], [place], [place], [place]) Address [address] [place] [address] Care Team Providers Care Tablet Making Machine Operator Helper Name Role Phone Christophe Vega MD Unavailable Unavailable Dennys Kent MD Unavailable [phone] Genaro Chirinos MD Primary Care Provider [phone] Encounter Details Date Type Department Care Team (Late st Contact Info) Description 01/26/2020 Transcribed Document [facility] Family Medicine [address] [place] [address] ProviderRadha MD [address] [place] [address] Social History Tobacco Use Types Packs/Day Years Used Date Smoking Tobacco: Never Assessed Sex and Gender Information Value Date Recorded Sex Assigned at Not on file Legal Sex Male 4:20 PM CDT Gender Identity Not on file Sexual Orientation Not on file documented as of this encounter Miscellaneous Notes * Cerner Conversion Note - Radha Garduno MD - 01/26/2020 4:14 PM CDT [facility] [place] [address] JONATHAN RIVAS :1955 Visit Time:01/26/2020 Your Visit Summary Your Care Team Primary Provider: REGINALD MARTINES Secondary Provider: Your Diagnosis GI tube evaluation, GI tube evaluation Malfunction of gastrostomy tube Medical Information You may obtain a copy of your Emergency Department visit from Medical Records by calling the hospital phone number listed above and asking to be directed to the Medical Records Department. If you had special tests, such as EKG???s or X-rays, the interpretation of your tests given to you by the Emergency Department Physician is a preliminary report. Some fractures and illnesses fail to show up on preliminary tests. These will be reviewed again and we will call you if there are any new suggestions. If your symptoms continue notify your physician. After you leave, you should follow the instructions provided. What to do next Follow-Up Appointments Follow Up with GENARO CHIRINOS When Within 2 to 3 days Where: [address] [place], [place] [id number] [facility] (1) Allergies codeine Immunizations This Visit No Immunizations Found Medications What How Much When Instructions Next Dose acetaminophen-hydrocodone (acetaminophen-HYDROcodone 325 mg-10 mg oral tablet) 1 Tablet(s) Oral Every 4 Hours as needed for for pain aspirin (aspirin 81 mg oral delayed release tablet) 1 Tablet(s) Oral Every Day esomeprazole (NexIUM 24HR 20 mg oral delayed release capsule) 1 Capsule(s) Oral Every Day granisetron (Sancuso 3.1 mg/ 24 hr transdermal film, extended release) 1 Patch(es) Topical Weekly hydroCHLOROthiazide (hydroCHLOROthiazide 25 mg oral tablet) 1 Tablet(s) Oral Every Day LORazepam (LORazepam 0.5 mg oral tablet) 0.5 Tablet(s) Oral Four Times A Day as needed for for anxiety promethazine (promethazine 25 mg rectal suppository) 1 Suppository(ies) Rectal Every 4 Hours as needed for Nausea/Vomiting The home medications listed are only as accurate as the information you provided. Please continue taking all of your medications prescribed by your Primary Care Provider unless specifically told to change or discontinue the medication. Please direct any questions regarding your home medications to your Primary Care Provider. Take your medications faithfully. Do NOT skip medication. Do NOT stop taking medications without the direction of a physician. Carry a list of your medications with you at all times, and take this medication list with you to your first follow up visit. Report any side effects. Avoid herbal remedies unless discussed with your physician. As part of your treatment plan, your physician may have prescribed a limited course of a controlled substance. This medication may be given to help people with moderate or severe pain or for other medical conditions, but there are risks involved with treatment. Common side effects may include nausea, constipation, drowsiness, sweating, itching, dry mouth, and rash. More serious side effects may include cognitive and motor impairment, like problems with thinking, concentrating, alertness, and movement (e.g. slowed reflexes), and driving and operating heavy machinery can be dangerous. It is important for you to talk to your physician if you have these side effects or questions. These controlled substances can produce physical dependence and be habit-forming if taken for an extended period of time, which means that the body has gotten used to them and may experience withdrawal symptoms if they are abruptly stopped. Withdrawal symptoms can include runny nose, sweating, goose bumps, diarrhea, abdominal cramping, rapid heartbeat, difficulty sleeping, and nervousness. Please dispose of unused and medications per pharmacy guidance. Test Results Laboratory or Other Results This Visit (last charted value for your 01/26/2020 visit) No Laboratory or Other Results This Visit Education Materials Gastrostomy Tube Home Guide, Adult A gastrostomy tube, or G-tube, is a tube that is inserted through the abdomen into the stomach. The tube is used to give feedings and medicines when a person is unable to eat and drink enough on his or her own. How to care for a G-tube Supplies needed ??? Saline solution or clean, warm water and soap. ??? Cotton swab or gauze. ??? Precut gauze bandage (dressing) and tape, if needed. Instructions 1. Wash your hands with soap and water. 2. If there is a dressing between the person's skin and the tube, remove it. 3. Check the area where the tube enters the skin. Check for problems such as: ??? Redness. ??? Swelling. ??? Pus-like drainage. ??? Extra skin growth. 4. Moisten the cotton swab with the saline solution or soap and water mixture. Gently clean around the insertion site. Remove any drainage or crusting. ??? When the G-tube is first put in, a normal saline solution or water can be used to clean the skin. ??? Mild soap and warm water can be used when the skin around the G-tube site has healed. 5. If there should be a dressing between the person's skin and the tube, apply it at this time. How to flush a G-tube Flush the G-tube regularly to keep it from clogging. Flush it before and after feedings and as often as told by the health care provider. Supplies needed ??? Purified or sterile water, warmed. If the person has a weak disease-fighting (immune) system, or if he or she has difficulty fighting off infections (is immunocompromised), use only sterile water. ? If you are unsure about the amount of chemical contaminants in purified or drinking water, use sterile water. ? To purify drinking water by boiling: ? Boil water for at least 1 minute. Keep lid over water while it boils. Allow water to cool to room temperature before using. ??? 60cc G-tube syringe. Instructions 1. Wash your hands with soap and water. 2. Draw up 30 mL of warm water in a syringe. 3. Connect the syringe to the tube. 4. Slowly and gently push the water into the tube. G-tube problems and solutions ??? If the tube comes out: ? Cover the opening with a clean dressing and tape. ? Call a health care provider right away. ? A health care provider will need to put the tube back in within 4 hours. ??? If there is skin or scar tissue growing where the tube enters the skin: ? Keep the area clean and dry. ? Secure the tube with tape so that the tube does not move around too much. ? Call a health care provider. ??? If the tube gets clogged: ? Slowly push warm water into the tube with a large syringe. ? Do not force the fluid into the tube or push an object into the tube. ? If you are not able to unclog the tube, call a health care provider right away. Follow these instructions at home: Feedings ??? Give feedings at room temperature. ??? Cover and place unused feedings in the refrigerator. ??? If feedings are continuous: ? Do not put more than 4 hours worth of feedings in the feeding bag. ? Stop the feedings when you need to give medicine or flush the tube. Be sure to restart the feedings. ? Make sure the person's head is above his or her stomach (upright position). This will prevent choking and discomfort. ??? Replace feeding bags and syringes as told by the health care provider. ??? Make sure the person is in the right position during and after feedings: ? During feedings, the person's position should be in the upright position. ? After a noncontinuous feeding (bolus feeding), have the person stay in the upright position for 1 hour. General instructions ??? Only use syringes made for G-tubes. ??? Do not pull or put tension on the tube. ??? Clamp the tube before removing the cap or disconnecting a syringe. ??? Measure the length of the G-tube every day from the insertion site to the end of the tube. ??? If the person's G-tube has a balloon, check the fluid in the balloon every week. The amount of fluid that should be in the balloon can be found in the preparer making department???s specifications. ??? Make sure the person takes care of his or her oral health, such as by brushing his or her teeth. ??? Remove excess air from the G-tube as told by the person's health care provider. This is called venting. ??? Keep the area where the tube enters the skin clean and dry. ??? Do not push feedings, medicines, or flushes rapidly. Contact a health care provider if: ??? The person with the tube has any of these problems: ? Constipation. ? Fever. ??? There is a large amount of fluid or mucus-like liquid leaking from the tube. ??? Skin or scar tissue appears to be growing where the tube enters the skin. ??? The length of tube from the insertion site to the G-tube gets longer. Get help right away if: ??? The person with the tube has any of these problems: ? Severe abdominal pain. ? Severe tenderness. ? Severe bloating. ? Nausea. ? Vomiting. ? Trouble breathing. ? Shortness of breath. ??? Any of these problems happen in the area where the tube enters the skin: ? Redness, irritation, swelling, or soreness. ? Pus-like discharge. ? A bad smell. ??? The tube is clogged and cannot be flushed. ??? The tube comes out. Summary ??? A gastrostomy tube, or G-tube, is a tube that is inserted through the abdomen into the stomach. The tube is used to give feedings and medicines when a person is unable to eat and drink enough on his or her own. ??? Check and clean the insertion site daily as told by the person's health care provider. ??? Flush the G-tube regularly to keep it from clogging. Flush it before and after feedings and as often as told by the person's health care provider. ??? Keep the area where the tube enters the skin clean and dry. This information is not intended to replace advice given to you by your health care provider. Make sure you discuss any questions you have with your health care provider. Document Released: 10/03/2002 Document Revised: 02/07/2018 Document Reviewed: 09/19/2017 [employer] Interactive Patient Education ?? 2020 [employer]. Emergency Awareness and Preventative Care STROKE is an EMERGENCY Every Minute Counts Act FAST and Check for these signs: FACE Does the face look uneven? ARM Does one arm drift down? SPEECH Does their speech sound strange? TIME Call at any sign of stroke Stroke Risk Factors Atrial Fibrillation (irregular heartbeat) Diabetes Family history of stroke Heart Disease Heavy alcohol use High Blood Pressure High Cholesterol Physical inactivity and obesity Smoking Cigarette Smoking The facts are clear, cigarette smoking will shorten your life. Smoking can cause many illnesses along the way. As a healthcare provider, we recommend that you stop smoking. Assistance with quitting is available by contacting 0-446-ONLC-NOW. This is a free resource providing counseling, support, and referral. Or you may contact your personal physician. National Suicide Prevention Lifeline: The National Suicide Prevention Lifeline is a national network of local crisis centers that provides free and confidential emotional support to people in suicidal crisis or emotional distress 24 hours a day, 7 days a week. Don't Wait! Stop a Heart Attack Before it Starts What is a heart attack? A heart attack is damage or to a part of the heart from severely decreased or lack of blood flow to the heart. Over time, arteries can become narrow from the buildup of fat and cholesterol, which is called plaque. The plaque can rupture causing a blood clot to form. When the blood clot forms, the artery can become severely narrowed or completely blocked, causing a heart attack. Heart attack is the leading cause of in the [place]. 85% of muscle damage occurs within the first 2 hours. Delay in the recognition of heart attack symptoms increases the chances of . Know the early symptoms of a heart attack: Nausea Feeling of fullness in chest Jaw Pain Pain that travels down one or both arms Fatigue/being tired Anxiety Back Pain Chest pressure, squeezing, or discomfort Shortness of breath Sweating, or a cold sweat Feeling of impending doom There are unusual signs of a heart attack, too! Women, the elderly, and diabetics may present with atypical symptoms: Fainting/dizziness Weakness Confusion Risk Factors for a Heart Attack Some heart disease risk factors, such as age and family history, cannot be changed. Others, like smoking and lack of exercise, can be changed. Smoking High Cholesterol High Blood Pressure Family History Obesity Age Gender (Males are at higher risk) Lack of Exercise Diabetes Diet Stress Excessive Alcohol Intake If you or someone you know is experiencing the signs and symptoms of a heart attack, DON???T DELAY. Call immediately and seek help. If someone collapses, perform CPR! Do not attempt to drive if you are having symptoms of heart attack. Hands-Only CPR Why Hands-Only CPR? Hands-Only CPR has been shown to be as effective as conventional CPR for cardiac arrests that occur outside of a hospital. Survival depends on immediately receiving CPR from someone nearby. How do you perform Hands-Only CPR? There are two easy steps: Call if you see a teen or adult collapse Push hard and fast in the center of the chest at a beat of 100 beats per minute. Save a life! 4 WAYS TO GET AHEAD OF SEPSIS SEPSIS is a MEDICAL EMERGENCY. Time matters! Infections put you and your family at risk for a life-threatening condition called sepsis. Sepsis is the body's extreme response to an infection. It is life-threatening, and without timely treatment, sepsis can rapidly lead to tissue damage, organ failure, and . Sepsis happens when an infection you already have-in your skin, lungs, urinary tract or somewhere else-triggers a chain reaction throughout your body. 1 PREVENT INFECTIONS Take good care of chronic conditions. Talk to your doctor about getting the recommended vaccines. 2 PRACTICE GOOD HYGIENE Wash your hands frequently. Keep cuts or open sores clean and covered until they are healed. 3 KNOW THE SYMPTOMS Confusion or disorientation Shortness of breath High heart rate Fever, shivering, or feeling very cold Extreme pain or discomfort Clammy or sweaty skin 4 ACT FAST Get medical care IMMEDIATELY if you suspect sepsis or if you have an infection that is not getting better or is getting worse. To learn more about sepsis and how to prevent infections, visit www.cdc.gov/sepsis. The examination and treatment you have received in the Emergency Department has been done to provide an appropriate evaluation and stabilizing treatment on an emergency basis only. Given the limited resources, it is not meant to be a substitute for complete medical care. The follow-up doctor you named will receive a copy of your records and all test reports. IT IS IMPORTANT THAT YOU SCHEDULE A FOLLOW-UP APPOINTMENT AND ARE RE-EVALUATED. You should report any new complaints, symptoms, or remaining problems at that time. IT IS IMPOSSIBLE FOR THE EMERGENCY DEPARTMENT TO RECOGNIZE AND TREAT ALL ELEMENTS OF INJURY OR ILLNESS IN A SINGLE VISIT. If you have been referred to a specialist physician, it means that we believe you may have a condition that requires the expertise of a specialist. These physicians work in partnership with the hospital and have agreed to see referred patients in their office for further evaluation. KEEP IN MIND THAT THE SPECIALIST HAS HIS/HER OWN OFFICE POLICIES WHICH MAY REQUIRE PROPER INSURANCE OR PAYMENT UP FRONT BEFORE THE SPECIALIST WILL SEE YOU. It is your responsibility to call the specialist physician to make an appointment. We do not have the ability to refer patients to specialists/physicians that work with specific insurance companies. Please be advised that all financial charges or billing practices are determined by that practice, not the hospital. If your insurance company requires that you see a specialist from their approved list, it is your responsibility to contact your insurance company to make those arrangements. It is also your responsibility to follow any other requirements of your insurance company necessary to obtain coverage for claims submitted. We will bill your insurance; however, you are responsible today for any co-pay amounts. You will receive a separate bill for any services you may have received including: emergency, radiology, or pathology physicians. Patient Name:JONATHAN RIVAS [place] I have received this information and was given the opportunity to ask questions. Patient/Splicing Machine Operator Name: Patient/Splicing Machine Operator Signature: Relationship to Patient: Clinician/Hospital Splicing Machine Operator Signature: Please Provide a Telephone Number Where You Can Be Reached: Is it Permissible To Leave a Message? Date: Electronically signed by [facility], [facility] Conversion Supervisor Fruit Grading Cerner at 11/25/2022 12:20 AM CDT documented in this encounter Plan of Treatment Not on file documented as of this encounter Visit Diagnoses Not on filedocumented in this encounter Care Teams Tablet Making Machine Operator Helper Relationship Specialty Start Date End Date Genaro Chirinos MD [address] [place] [address] [place] [address] PCP - General Adolescent Medicine 01/25/23 Christophe Vega MD Medical Oncologist Hematology and Oncology 07/27/22 Dennys Kent MD [address] [place] [address] Surgeon Otolaryngology 07/27/22 documented as of this encounter
--- OUTSIDE RECORDS SUMMARY | 2025-06-17 07:58 | XMS_ITS | Encounter Summary ---
Author Organization [employer] ([place], [place], [place], [place], [place]) Address [address] [place] [address] Care Team Providers Care Automobile Racer Name Role Phone Christophe Vega MD Unavailable Unavailable Dennys Kent MD Unavailable [phone] Genaro Avendano MD Primary Care Provider [phone] Encounter Details Date Type Department Care Team (Late st Contact Info) Description 01/26/2020 Transcribed Document [facility] Family Medicine [address] [place] [address] ProviderRadha MD [address] [place] [address] Social History Tobacco Use Types Packs/Day Years Used Date Smoking Tobacco: Never Assessed Sex and Gender Information Value Date Recorded Sex Assigned at Not on file Legal Sex Male 4:20 PM CDT Gender Identity Not on file Sexual Orientation Not on file documented as of this encounter Miscellaneous Notes * Cerner Conversion Note - Radha Garduno MD - 01/26/2020 4:13 PM CDT ED Discharge Entered On: 01/26/2020 16:13 EDT Performed On: 01/26/2020 16:13 EDT by NEO BOSTON RN Discharge Process Patient Disposition : Discharge Personal Belongings With Patient : Yes Patient Education Completed : Yes Teaching Evaluation : Verbalizes understanding IV Discontinued : Yes Nursing Documentation Completed : Yes NEO BOSTON RN - 01/26/2020 16:13 EDT ED Discharge Discharge To : Home with ambulatory/outpatient follow-up Mode Of Departure : Ambulatory NEO BOSTON RN - 01/26/2020 16:13 EDT Electronically signed by Yesi Joy Conversion Photovoltaic Fabrication Technician Cerner at 11/25/2022 12:20 AM CDT documented in this encounter Plan of Treatment Not on file documented as of this encounter Visit Diagnoses Not on filedocumented in this encounter Care Teams Automobile Racer Relationship Specialty Start Date End Date Genaro Avendano MD [address] [place] [address] PCP - General Adolescent Medicine 01/25/23 Christophe Vega MD Medical Oncologist Hematology and Oncology 07/27/22 Dennys Kent MD [address] [place] [address] Surgeon Otolaryngology 07/27/22 documented as of this encounter
--- OUTSIDE RECORDS SUMMARY | 2025-06-17 07:58 | XMS_ITS | Encounter Summary ---
Author Organization [employer], ([place], [place], [place], [place], [place]) Address [address] [place] [address] Care Team Providers Care Developmental Behavioral Physician Name Role Phone Christophe Vega MD Unavailable Unavailable Dennys Kent MD Unavailable [phone] Genaro Chirinos MD Primary Care Provider [phone] Encounter Details Date Type Department Care Team (Late st Contact Info) Description 01/17/2020 Transcribed Document [facility] [place] [address] [place] [address] ProviderRadha MD [address] [place] [address] Social History Tobacco Use Types Packs/Day Years Used Date Smoking Tobacco: Never Assessed Sex and Gender Information Value Date Recorded Sex Assigned at Not on file Legal Sex Male 4:20 PM CDT Gender Identity Not on file Sexual Orientation Not on file documented as of this encounter Miscellaneous Notes * Cerner Conversion Note - Radha ProviderMD - 01/17/2020 4:49 PM CDT Patient: JONATHAN RIVAS Age: 64 years Sex: Male : 1955 Associated Diagnoses: G tube feedings Author: ARCELIA GRACIA APRN Basic Information Time seen: Immediately upon arrival. History source: Patient. Arrival mode: Private vehicle. History limitation: None. Additional information: Chief Complaint from Nursing Triage Note : Chief Complaint 01/17/2020 14:37 EDT Chief Complaint Pt from home with c/o a clogged J-tube. States he has been working on it at home for a couple days, but can't get it cleared. . History of Present Illness Patient presents to the ER and states that his J-tube has been clotted off. J-tube was placed directly [address] Menon. Patient states been clogged for 2 days. He has tried irrigating it with PET/CT with no results. There is been no nausea or vomiting. There is no redness or drainage around the site. Review of Systems Constitutional symptoms: No fever, no chills. Respiratory symptoms: Negative except as documented in HPI. Cardiovascular symptoms: Negative except as documented in HPI. Gastrointestinal symptoms: clogged j tube, no abdominal pain, no nausea, no vomiting, no diarrhea. Musculoskeletal symptoms: Negative except as documented in HPI. Neurologic symptoms: Negative except as documented in HPI. Psychiatric symptoms: Negative except as documented in HPI. Endocrine symptoms: Negative except as documented in HPI. Hematologic/Lymphatic symptoms: Negative except as documented in HPI. Allergy/immunologic symptoms: Negative except as documented in HPI. Health Status Allergies: Allergic Reactions (Selected) Moderate Codeine- No reactions were documented.. Medications: (Selected) Documented Medications Documented LORazepam 0.5 mg oral tablet: 0.5 Tab, Oral, QID, PRN: for anxiety, 60 Tab NexIUM 24HR 20 mg oral delayed release capsule: 1 Cap, Oral, Daily, 0 Refill(s) Sancuso 3.1 mg/24 hr transdermal film, extended release: 1 Patch, Topical, Weekly, 1 Patch, 0 Refill(s) acetaminophen-HYDROcodone 325 mg-10 mg oral tablet: 1 Tab, Oral, Q4H, PRN: for pain, 60 Tab, 0 Refill(s) aspirin 81 mg oral delayed release tablet: 1 Tab, Oral, Daily, 30 Tab, 0 Refill(s) hydroCHLOROthiazide 25 mg oral tablet: 1 Tab, Oral, Daily, 0 Refill(s) promethazine 25 mg rectal suppository: 1 Supp, Rectal, Q4H, PRN: Nausea/Vomiting, 0 Refill(s). Past Medical/ Family/ Social History Surgical history: No active procedure history items have been selected or recorded., Reviewed as documented in chart. Family history: No family history items have been selected or recorded., Reviewed as documented in chart. Social history: Social & Psychosocial Habits Tobacco 01/17/2020 Smoking Status Never (less than 100 in l Smokeless Tobacco Status Never , Reviewed as documented in chart. Problem list: Active Problems (2) At risk for sleep apnea Severe protein-calorie malnutrition , per nurse's notes. Physical Examination Vital Signs Vital Signs/Vital Measures 01/17/2020 14:37 EDT Blood Pressure Location Arm, right upper Blood Pressure Source Non-Invasive BP Device Systolic Blood Pressure 141 mmHg HI Diastolic Blood Pressure 76 mmHg Temperature Source Tympanic Temperature Mode Fahrenheit Temperature, Fahrenheit 97.7 Deg F Clinical Temperature, C 36.5 Deg C Peripheral Pulse Rate 86 bpm Respiratory Rate 16 Breaths/Min Oxygen Saturation 98 % Oxygen Therapy Mode Room air . Measurements 01/17/2020 14:37 EDT Height Source Stated Height Entry Format [place] Height/Length, ANGUILLAN (ft) 5 ft Height/Length ANGUILLAN 8 Inch CLINICALHEIGHT 172.72 cm [place] Body Weight 67.45 kg Weight Source, ED Standing scale Weight Entry Format [place]earing Weight [place] lb 149 lb CLINICALWEIGHT 67.73 kg Body Surface Area (BSA) 1.81 m2 Body Mass Index 22.7 kg/m2 . Oxygen Saturation 01/17/2020 14:37 EDT Oxygen Saturation 98 % . General: Alert, no acute distress. Skin: Warm, pink, intact. Cardiovascular: Regular rate and rhythm. Respiratory: Lungs are clear to auscultation, respirations are non-labored. Gastrointestinal: Soft, Nontender, Non distended, j tube inplace. no redness or drainge noted. Unable to flush tube.. Musculoskeletal: Normal ROM. Neurological: Alert and oriented to person, place, time, and situation. Lymphatics: No lymphadenopathy. Psychiatric: Cooperative. Medical Decision Making Differential Diagnosis: j tube disfunction. Orders Include Previous Orders (Selected) Inpatient Orders Ordered Consult to Dietitian: Discharge: Ordered (Exam Completed) CR G/J Tube PAtency Check: Completed ED Adult Fall Risk Assessment: ED Adult Triage: ED C-SSRS: ED Clinical Reconciliation: ED steel hanger: diatrizoate: 60 mL, JTUBE, ADHOC. Radiology results: No Radiology Results Found. Notes: Patient sent to radiology. Tube was able to be unclogged. J-tube flushing well without difficulty. Spoke with Dr. Menon and okay to discharge patient. Impression and Plan Diagnosis G tube feedings - Discharge, Emergency medicine, Medical Calls-Consults - 01/17/2020 15:00:00 , CRISTEL GUO MD-KEVYN. Plan Condition: Stable. Disposition: Discharged Admit/Transfer/Discharge: Discharge (Order): Start: 01/17/2020 16:50 EDT, Discharge to: Home. Patient was given the following educational materials: Gastrostomy Tube Home Guide, Adult, How to Care for a Feeding Tube. Follow up with: GENARO CHIRINOS Within 2 to 3 days; Follow up with primary care provider Within As needed; Return to Emergency Department Within As needed. Counseled: Patient, Regarding diagnosis, Regarding diagnostic results, Regarding treatment plan, Regarding prescription, Patient indicated understanding of instructions. documented in this encounter Plan of Treatment Not on file documented as of this encounter Visit Diagnoses Not on filedocumented in this encounter Care Teams Developmental Behavioral Physician Relationship Specialty Start Date End Date Genaro Chirinos MD [address] [place] [address] PCP - General Adolescent Medicine 01/25/23 Christophe Vega MD Medical Oncologist Hematology and Oncology 07/27/22 Dennys Kent MD [address] [place] [address] Surgeon Otolaryngology 07/27/22 documented as of this encounter
--- OUTSIDE RECORDS SUMMARY | 2025-06-17 07:58 | XMS_ITS | Encounter Summary ---
Author Organization [facility] ([place], [place], [place], [place], [place]) Address [address] [place] [address] Care Team Providers Care Head Char Filter Tank Tender Name Role Phone Christophe Vega MD Unavailable Unavailable Dennys Kent MD Unavailable [phone] Genaro Avendano MD Primary Care Provider [phone] Encounter Details Date Type Department Care Team (Late st Contact Info) Description 01/17/2020 Transcribed Document [facility] [place] Family Medicine [address] [place] [address] ProviderRadha MD [address] [place] [address] Social History Tobacco Use Types Packs/Day Years Used Date Smoking Tobacco: Never Assessed Sex and Gender Information Value Date Recorded Sex Assigned at Not on file Legal Sex Male 4:20 PM CDT Gender Identity Not on file Sexual Orientation Not on file documented as of this encounter Miscellaneous Notes * Cerner Conversion Note - Radha ProviderMD - 01/17/2020 3:58 PM CDT Patient: JONATHAN RIVAS Age: 64 Years Sex: Male : 1955 Assessment/Plan 64-year-old male with 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 tube placement which has now become clogged. Discussed with radiology who will attempt to unclog tube under fluoroscopy and replace tube if needed. Discussed with patient that his tube should be flushed after finishing tube feeds and at least once daily if not in use. VTE Prophylaxis - Medical No VTE Prophylaxis Orders. Subjective Patient 2 weeks status post jejunostomy tube placement. He reports the tube has been clogged for the past 1 day and has been unable to receive any tube feeds. Vital Signs T: 36.5 ??C HR: 86(Peripheral) RR: 16 BP: 141/76 SpO2: 98% HT: 172.72 cm WT: 67.73 kg BMI: 22.7 Oxygen Settings (Last) Oxygen Therapy Mode: Room air (01/17/20 14:37:00) Intake & Output Totals Last 24 Hours (7a-7a) Input Total: 0 mL Output Total: 0 mL Balance: 0 mL Physical Exam Gen: NAD Resp: Nonlabored respirations CV: Normal peripheral perfusion Ab: soft, nontender, nondistended. J tube in place, unable to be flushed. Medications No active inpatient medications Electronically signed by [facility], [facility] Conversion Crew Scheduler Cerner at 11/25/2022 12:28 AM CDT documented in this encounter Plan of Treatment Not on file documented as of this encounter Visit Diagnoses Not on filedocumented in this encounter Care Teams Head Char Filter Tank Tender Relationship Specialty Start Date End Date Genaro Avendano MD [address] [place] [address] PCP - General Adolescent Medicine 01/25/23 Christophe Vega MD Medical Oncologist Hematology and Oncology 07/27/22 Dennys Kent MD [address] [place] [address] Surgeon Otolaryngology 07/27/22 documented as of this encounter
--- OUTSIDE RECORDS SUMMARY | 2025-06-17 07:59 | XMS_ITS | Encounter Summary ---
Author Organization [employer] ([place], [place], [place], [place], [place]) Address [address] [place] [address] Care Team Providers Care Certified Art Therapist Name Role Phone Christophe Vega MD Unavailable Unavailable Dennys Kent MD Unavailable [phone] Genaro Avendano MD Primary Care Provider [phone] Encounter Details Date Type Department Care Team (Late st Contact Info) Description 01/17/[address] [facility] [place] [address] [place] [address] ProviderRadha MD [address] [place] [address] Social History Tobacco Use Types Packs/Day Years Used Date Smoking Tobacco: Never Assessed Sex and Gender Information Value Date Recorded Sex Assigned at Not on file Legal Sex Male 4:20 PM CDT Gender Identity Not on file Sexual Orientation Not on file documented as of this encounter Miscellaneous Notes * Cerner Conversion Note - Radha ProviderMD - 01/17/2020 2:32 PM CDT [place] Suicide Severity Rating Scale (C-SSRS) Entered On: 01/17/2020 15:00 EDT Performed On: 01/17/2020 14:59 EDT by Flora Lara RN [place] Suicide Severity Rating Scale (C-SSRS) CSSRS Past Month Wish to be : No CSSRS Past Month Suicidal Thoughts : No CSSRS Lifetime Suicide Behavior : No Suicide Severity Rating Score : 0 Suicide Severity Rating : No Additional Care Required at this time Flora Lara RN - 01/17/2020 14:59 EDT documented in this encounter Plan of Treatment Not on file documented as of this encounter Visit Diagnoses Not on filedocumented in this encounter Care Teams Certified Art Therapist Relationship Specialty Start Date End Date Genaro Avendano MD [address] [place] [address] PCP - General Adolescent Medicine 01/25/23 Christophe Vega MD Medical Oncologist Hematology and Oncology 07/27/22 Dennys Kent MD [address] [place] [address] Surgeon Otolaryngology 07/27/22 documented as of this encounter
--- OUTSIDE RECORDS SUMMARY | 2025-06-17 07:59 | XMS_ITS | Encounter Summary ---
Author Organization [employer] ([place], [place], [place], [place], [place]) Address [address] [place] [address] Care Team Providers Care Associate Director Of Biostatistics Name Role Phone Christophe Vega MD Unavailable Unavailable Dennys Kent MD Unavailable [phone] Genaro Avendano MD Primary Care Provider [phone] Encounter Details Date Type Department Care Team (Late st Contact Info) Description 01/03/2020 Transcribed Document [facility] [place] [facility] [place] [address] ProviderRadha MD [address] [place] [address] Social History Tobacco Use Types Packs/Day Years Used Date Smoking Tobacco: Never Assessed Sex and Gender Information Value Date Recorded Sex Assigned at Not on file Legal Sex Male 4:20 PM CDT Gender Identity Not on file Sexual Orientation Not on file documented as of this encounter Miscellaneous Notes * Cerner Conversion Note - Radha ProviderMD - 01/03/2020 10:13 AM CDT Patient: JONATHAN RIVAS Age: 64 Years Sex: Male : 1955 Discussed his case at length with our practical nursing faculty Segundo regarding transition to home with PEG / tube feeding. Placed home health order to aid with this and also consideration of IVF at home. Goal to resume RT Tuesday pending recovery from inpatient stay, transition to tube feeds, and clinical improvement. documented in this encounter Plan of Treatment Not on file documented as of this encounter Visit Diagnoses Not on filedocumented in this encounter Care Teams Associate Director Of Biostatistics Relationship Specialty Start Date End Date Genaro Avendano MD [address] [place] [address] [place] [address] PCP - General Adolescent Medicine 01/25/23 Christophe Vega MD Medical Oncologist Hematology and Oncology 07/27/22 Dennys Kent MD [address] [place] [address] Surgeon Otolaryngology 07/27/22 documented as of this encounter
--- OUTSIDE RECORDS SUMMARY | 2025-06-17 07:59 | XMS_ITS | Encounter Summary ---
Author Organization [employer] ([place], [place], [place], [place], [place]) Address [address] [place] [address] Care Team Providers Care Sheet Metal Smith Name Role Phone Christophe Vega MD Unavailable Unavailable Dennys Kent MD Unavailable [phone] Genaro Avendano MD Primary Care Provider [phone] Encounter Details Date Type Department Care Team (Late st Contact Info) Description 01/11/2020 Transcribed Document [facility] [place] [address] [place] [address] ProviderRadha MD [address] [place] [address] Social History Tobacco Use Types Packs/Day Years Used Date Smoking Tobacco: Never Assessed Sex and Gender Information Value Date Recorded Sex Assigned at Not on file Legal Sex Male 4:20 PM CDT Gender Identity Not on file Sexual Orientation Not on file documented as of this encounter Miscellaneous Notes * Cerner Conversion Note - Radha ProviderMD - 01/11/2020 11:11 AM CDT UM Authorization Entered On: 01/11/2020 11:12 EDT Performed On: 01/11/2020 11:11 EDT by BRITTANY CLARK RN Primary Insurance Authorization Authorization and Policy Numbers : Insurance 1 Health Plan: [employer] Policy Number: [id number] Authorization Number: Insurance Primary Name : [employer] Policy Number: [id number] Authorization Status-Primary : Denial - continued stay Authorization Fax Number-Primary : [phone] Auth/Referral Phone Number-Primary : [phone] Auth/Referral Contact Name-Primary : Marcelina Campbell RN Reference Number-Primary : [id number] Number of Days Authorized-Primary : 3 Day(s) Authorized Service Begin Date-Primary : 01/02/2020 EDT Authorized Service End Date-Primary : 01/05/2020 EDT Observation Authorization Nbr-Primary : DC + Authorization Comments-Primary : Informed appeals team of continued stay denial. Historical Authorization Comments-Primary : Comment 1: Per with [employer], Denial review was upheld. Verified P2P number. (MARCEL BALL Rn-Utilization Review 01/09/2020 15:59) Comment 2: Emailed p2p form to Veronica/Jozef (BRITTANY CLARK RN 01/08/2020 15:43) Comment 3: per shakira 01/05 was denied per mdr. may call p2p @ [phone] option 3. em to ana (Priscilla Clarke Rn-Utilization Review 01/08/2020 15:13) Comment 4: d/c summary faxed per karen (Priscilla Clarke Rn-Utilization Review 01/07/2020 14:06) Comment 5: clinical faxed per karen for 01/05 nd 01/06 per faxed request (Priscilla Clarke Rn-Utilization Review 01/07/2020 13:55) Comment 6: Per fax received 01/03/2020 approved IP admission 01/01-01/04 NRD 01/05. Please fax to [phone]. (BRITTANY CLARK RN 01/03/2020 12:53) Comment 7: Per fax received 01/02/2020 @ 0739 needs clinicals submitted for review. Please fax to [phone]. Marcelina Campbell RN phone # is [phone]. (BRITTANY CLARK RN 01/03/2020 08:21) BRITTANY CLARK RN - 01/11/2020 11:11 EDT documented in this encounter Plan of Treatment Not on file documented as of this encounter Visit Diagnoses Not on filedocumented in this encounter Care Teams Sheet Metal Smith Relationship Specialty Start Date End Date Genaro Avendano MD [address] [place] [address] PCP - General Adolescent Medicine 01/25/23 Christophe Vega MD Medical Oncologist Hematology and Oncology 07/27/22 Dennys Kent MD [address] [place] [address] Surgeon Otolaryngology 07/27/22 documented as of this encounter
--- OUTSIDE RECORDS SUMMARY | 2025-06-17 07:59 | XMS_ITS | Encounter Summary ---
Author Organization [employer] ([place], [place], [place], [place], [place]) Address [address] [place] [address] Care Team Providers Care Job Setter Honing Name Role Phone Christophe Vega MD Unavailable Unavailable Dennys Kent MD Unavailable [phone] Genaro Avendano MD Primary Care Provider [phone] Encounter Details Date Type Department Care Team (Late st Contact Info) Description 01/03/2020 Transcribed Document [facility] [place] [address] [place] [address] ProviderRadha MD [address] [place] [address] Social History Tobacco Use Types Packs/Day Years Used Date Smoking Tobacco: Never Assessed Sex and Gender Information Value Date Recorded Sex Assigned at Not on file Legal Sex Male 4:20 PM CDT Gender Identity Not on file Sexual Orientation Not on file documented as of this encounter Miscellaneous Notes * Cerner Conversion Note - Radha ProviderMD - 01/03/2020 3:05 PM CDT Education-(VTE) / (DVT) Entered On: 01/03/2020 15:31 EDT Performed On: 01/03/2020 15:05 EDT by Carlotta York RN Teaching/Learning Assessment Barriers To Learning : None evident Highest Level of Education : Some college Learning Style Preferences Patient : Demonstration, Verbal explanation Carlotta York RN - 01/03/2020 15:31 EDT Electronically signed by [facility] Conversion Stay Cutter Cerner at 11/25/2022 12:16 AM CDT documented in this encounter Plan of Treatment Not on file documented as of this encounter Visit Diagnoses Not on filedocumented in this encounter Care Teams Job Setter Honing Relationship Specialty Start Date End Date Genaro Avendano MD [address] [place] [address] PCP - General Adolescent Medicine 01/25/23 Christophe Vega MD Medical Oncologist Hematology and Oncology 07/27/22 Dennys Kent MD [address] [place] [address] Surgeon Otolaryngology 07/27/22 documented as of this encounter
--- OUTSIDE RECORDS SUMMARY | 2025-06-17 07:59 | XMS_ITS | Encounter Summary ---
Author Organization [employer] ([place], [place], [place], [place], [place]) Address [address] [place] [address] Care Team Providers Care Clinical Documentation Specialist Name Role Phone Christophe Vega MD Unavailable Unavailable Dennys Kent MD Unavailable [phone] Genaro Chirinos MD Primary Care Provider [phone] Encounter Details Date Type Department Care Team (Late st Contact Info) Description 01/17/2020 Transcribed Document [facility] [place] Family Medicine [address] [place] [address] ProviderRadha MD [address] [place] [address] Social History Tobacco Use Types Packs/Day Years Used Date Smoking Tobacco: Never Assessed Sex and Gender Information Value Date Recorded Sex Assigned at Not on file Legal Sex Male 4:20 PM CDT Gender Identity Not on file Sexual Orientation Not on file documented as of this encounter Miscellaneous Notes * Cerner Conversion Note - Radha Garduno MD - 01/17/2020 4:53 PM CDT [facility] [place] [address] JONATHAN RIVAS :1955 Visit Time:01/17/2020 Your Visit Summary Your Care Team Primary Provider: ARCELIA GRACIA Secondary Provider: Your Diagnosis G tube feedings GI tube evaluation Medical screening exam Medical Information You may obtain a copy [...] do next Follow-Up Appointments Follow Up with Return to Emergency Department When Within As needed Follow Up with Follow up with primary care provider When Within As needed Follow Up with GENARO CHIRINOS When Within 2 to 3 days Where: [address] [place], [place] [address] [facility] (1) Allergies codeine Immunizations This Visit No [...] This Visit (last charted value for your 01/17/2020 visit) No Laboratory or Other Results This Visit Education Materials How to Care for a Feeding Tube A feeding tube is a soft, flexible tube through which medicine, water, and liquid food can be given. A person may have a feeding tube if she or he has trouble swallowing or cannot have food or medicine by mouth. Supplies needed to care for the tube site: ??? Clean gloves. ??? Clean washcloth, gauze pads, or soft paper towel. ??? Cotton swabs. ??? Skin barrier ointment or cream, such as petroleum jelly. ??? Soap and water. ??? Pre-cut foam pads or gauze for around the tube. ??? Tube tape. ??? Anchoring device (optional). How to care for the tube site 1. Have all supplies ready and available. 2. Wash your hands well. 3. Put on clean gloves. 4. If there is a foam pad or gauze under the tube stabilizing disc and it is soiled or moist or has been there for more than one day, replace it. 5. Check the skin around the tube site for redness, a rash, swelling, drainage, or extra tissue growth. If you notice any of these, call your health care provider. 6. Use water and soap to moisten gauze pads and cotton swabs. 7. Use the moistened cotton swabs to wipe the area closest to the tube, right near the opening in the abdomen (stoma). 8. Use the moistened gauze pads to wipe the surrounding skin. 9. Rinse with water. 10. Use a washcloth, dry gauze pad, or soft paper towel to dry the skin and stoma site. 11. If the skin is red, use a cotton swab to apply a skin barrier cream or ointment in a circular motion. The cream or ointment will help the wound to heal. Do not apply antibiotic ointments at the tube site. 12. Apply a new pre-cut foam pad or gauze around the tube. If there is no drainage, you can leave off the foam pads or gauze. 13. Secure the pre-cut foam pad or gauze with tape around the edges. 14. Use tape or an anchoring device to fasten the feeding tube to the skin for comfort or as directed. Alternate where you put the tape to avoid damaging the skin. 15. Position the person in a semi-upright position, at about a 30???45 degree angle. 16. Throw away used supplies. 17. Remove your gloves. 18. Wash your hands. Supplies needed to flush a feeding tube: ??? Clean gloves. ??? A clean 60 mL syringe that connects to the feeding tube. ??? Towel. ??? Sterile or purified water. Follow these guidelines: ? Use sterile water if: ? You have a weak immune system and have difficulty fighting off infections (are immunocompromised). ? You are unsure about the amount of chemical contaminants in purified or drinking water. ? Do not use fresh water found in lakes, samano, reservoirs, or aquifers without treating or filtering first. ? To purify drinking water by boiling: ? Boil water for at least 1 minute. Keep a lid over the water while it boils. ? Allow the water to cool to room temperature before using. How to flush a feeding tube 1. Have all supplies ready and available. 2. Wash your hands well. 3. Put on clean gloves. 4. Draw up 30 mL of water into the syringe. 5. Before flushing, place the towel under the tube to catch any fluid leaks. 6. Kink the feeding tube while disconnecting it from the feeding-bag tubing or while removing the cap at the end of the tube. Kinking closes the tube and prevents fluid in the tube from spilling out. 7. Insert the tip of the syringe into the end of the feeding tube. 8. Release the kink. 9. Slowly inject the water. If you are unable to inject the water, the tip of the tube may be against the person's stomach, blocking fluid flow. To fix this problem, have the person with the feeding tube lie on his or her left side. Then, try injecting the water again. If there is resistance, do not use a lot of force to overcome it because this could cause the tube to tear. 10. Remove the syringe and replace the cap. 11. Throw away used supplies. 12. Remove your gloves. 13. Wash your hands. Follow these instructions at home: Caring for the tube ??? If there is a foam pad or gauze under the tube stabilizing disc, change it every day and when it is soiled or moist. ??? Do not apply antibiotic ointments at the tube site. Flushing the tube ??? Do not use a syringe that is smaller than 60 mL. ??? To prevent medicine from clogging the tube, flush the tube at all of these times: ? Before the person is given the first medicine. ? Between medicines. ? After the person is given the final medicine before starting a feeding. ??? Do not mix medicines with formula or with other medicines. ??? Thoroughly flush medicines through the tube so they do not mix with formula. Contact a health care provider if: ??? The tube becomes blocked or clogged. ??? You find any of these on the skin around the tube site: ? Redness. ? A rash. ? Swelling. ? Drainage. ? Extra tissue growth. Summary ??? A feeding tube is a soft, flexible tube through which medicine, water, and liquid food can be given. A person may have a feeding tube if she or he has trouble swallowing or cannot have food or medicine by mouth. ??? Follow instructions from your health care provider about daily care and flushing of the tube. ??? Contact your health care provider if the tube becomes blocked or clogged, or if you notice swelling, drainage, or changes in skin around the tube site. This information is not intended to replace advice given to you by your health care provider. Make sure you discuss any questions you have with your health care provider. Document Released: 07/25/2006 Document Revised: 08/27/2017 Document Reviewed: 08/27/2017 [employer] Interactive Patient Education ?? 2020 Unsocial. Gastrostomy Tube Home Guide, Adult A gastrostomy [...] the balloon can be found in the x ray control equipment repairer???s specifications. ??? Make sure the person takes [...] 10/03/2002 Document Revised: 02/07/2018 Document Reviewed: 09/19/2017 [employer] Interactive Patient Education ?? 2020 Unsocial. Emergency Awareness and Preventative Care STROKE is [...] Assistance with quitting is available by contacting 8-477-KCGLTime To CaterNOW. This is a free resource providing counseling, [...] radiology, or pathology physicians. Patient Name:JONATHAN RIVAS I have received this information and was given the opportunity to ask questions. Patient/Register Of Wills Name: Patient/Register Of Wills Signature: Relationship to Patient: Clinician/Hospital Register Of Wills Signature: Please Provide a Telephone Number Where You Can Be Reached: Is it Permissible To Leave a Message? Date: documented in this encounter Plan of Treatment Not on file documented as of this encounter Visit Diagnoses Not on filedocumented in this encounter Care Teams Clinical Documentation Specialist Relationship Specialty Start Date End Date Genaro Chirinos MD [address] [place] [address] PCP - General Adolescent Medicine 01/25/23 Christophe Vega MD Medical Oncologist Hematology and Oncology 07/27/22 Dennys Kent MD [address] [place] [address] Surgeon Otolaryngology 07/27/22 documented as of this encounter
--- OUTSIDE RECORDS SUMMARY | 2025-06-17 07:59 | XMS_ITS | Encounter Summary ---
Author Organization [employer] ([place], [place], [place], [place], [place]) Address [address] [place] [address] Care Team Providers Care Electric System Operator Name Role Phone Christophe Vega MD Unavailable Unavailable Dennys Kent MD Unavailable [phone] Genaro Avendano MD Primary Care Provider [phone] Encounter Details Date Type Department Care Team (Late st Contact Info) Description 01/03/2020 Transcribed Document [facility] [place] [address] [place] [address] ProviderRadha MD [address] [place] [address] Social History Tobacco Use Types Packs/Day Years Used Date Smoking Tobacco: Never Assessed Sex and Gender Information Value Date Recorded Sex Assigned at Not on file Legal Sex Male 4:20 PM CDT Gender Identity Not on file Sexual Orientation Not on file documented as of this encounter Miscellaneous Notes * Cerner Conversion Note - Radha ProviderMD - 01/03/2020 5:00 AM CDT Chart Check - Review Order Profile Entered On: 01/03/2020 5:09 EDT Performed On: 01/03/2020 5:00 EDT by Don Hargrove, RN Chart Check Powerplans Initiated/Discontinued as Appropriate : Yes All Active Orders Reviewed : Yes Don Hargrove RN - 01/03/2020 5:09 EDT Electronically signed by Ben[facility] Conversion Full Service Supervisor Cerner at 11/25/2022 12:10 AM CDT documented in this encounter Plan of Treatment Not on file documented as of this encounter Visit Diagnoses Not on filedocumented in this encounter Care Teams Electric System Operator Relationship Specialty Start Date End Date Genaro Avendano MD [address] [place] [address] PCP - General Adolescent Medicine 01/25/23 Christophe Vega MD Medical Oncologist Hematology and Oncology 07/27/22 Dennys Kent MD [address] [place] [address] Surgeon Otolaryngology 07/27/22 documented as of this encounter
--- OUTSIDE RECORDS SUMMARY | 2025-06-17 07:59 | XMS_ITS | Encounter Summary ---
Author Organization [employer] ([place], [place], [place], [place], [place]) Address [address] [place] [address] Care Team Providers Care Plate Shop Helper Name Role Phone Christophe Vega MD Unavailable Unavailable Dennys Kent MD Unavailable [phone] Genaro Avendano MD Primary Care Provider [phone] Encounter Details Date Type Department Care Team (Late st Contact Info) Description 01/03/2020 Transcribed Document [facility] [place] Family Medicine [address] [place] [address] ProviderRadha MD [address] [place] [address] Social History Tobacco Use Types Packs/Day Years Used Date Smoking Tobacco: Never Assessed Sex and Gender Information Value Date Recorded Sex Assigned at Not on file Legal Sex Male 4:20 PM CDT Gender Identity Not on file Sexual Orientation Not on file documented as of this encounter Miscellaneous Notes * Cerner Conversion Note - Radha ProviderMD - 01/03/2020 2:00 AM CDT Truck Manager Details Entered On: 01/03/2020 1:07 EDT Performed On: 01/03/2020 2:00 EDT by Don Hargrove RN Order Details Transport Mode Order Detail : Wheelchair Isolation Precautions Order Detail : Standard Precautions Order Detail : N/A IV Order Detail : 0 Oxygen Order Detail : 0 Nurse Collect Order Detail : 1 Lift/Transfer : Independent Central Line Order Detail : Yes Room Service : Appropriate Arterial Line : No Don Hargrove RN - 01/03/2020 1:06 EDT documented in this encounter Plan of Treatment Not on file documented as of this encounter Visit Diagnoses Not on filedocumented in this encounter Care Teams Plate Shop Helper Relationship Specialty Start Date End Date Genaro Avendano MD [address] [place] [address] PCP - General Adolescent Medicine 01/25/23 Christophe Vega MD Medical Oncologist Hematology and Oncology 07/27/22 Dennys Kent MD [address] [place] [address] Surgeon Otolaryngology 07/27/22 documented as of this encounter
--- OUTSIDE RECORDS SUMMARY | 2025-06-17 07:59 | XMS_ITS | Encounter Summary ---
Author Organization [employer] ([place], [place], [place], [place], [place]) Address [address] [place] [address] Care Team Providers Care Truck Driver'S Offsider Name Role Phone Christophe Vega MD Unavailable Unavailable Dennys Kent MD Unavailable [phone] Genaro Avendano MD Primary Care Provider [phone] Encounter Details Date Type Department Care Team (Late st Contact Info) Description 01/03/2020 Transcribed Document [facility] [place] [address] [place] [address] ProviderRadha MD [address] [place], [place] [address] Social History Tobacco Use Types Packs/Day Years Used Date Smoking Tobacco: Never Assessed Sex and Gender Information Value Date Recorded Sex Assigned at Not on file Legal Sex Male 4:20 PM CDT Gender Identity Not on file Sexual Orientation Not on file documented as of this encounter Miscellaneous Notes * Cerner Conversion Note - Radha ProviderMD - 01/03/2020 6:32 AM CDT Patient: JONATHAN RIVAS Age: 64 years Sex: Male : 1955 Associated Diagnoses: None Author: CHRISTOPHE VEGA MD-ONC Subjective feeling a little better after fluids yesterday and overnight. No new complaints, awaiting placement of feeding tube Health Status Problem list: Medical At risk for sleep apnea / IMO [id number] / Confirmed, Active Problems (1) At risk for sleep apnea Objective VS/Measurements Vitals Signs (last 24 hrs) Last Charted Minimum Maximum Temp 97.6 (JANUARY 02 02:43) 97.6 (JANUARY 02 02:43) 97.6 (JANUARY 01 16:00) Mon HR 68 (JANUARY 02 02:43) 68 (JANUARY 01 23:05) 72 (JANUARY 01 18:55) Resp Rate 16 (JANUARY 02 02:43) 16 (JANUARY 01 23:05) 18 (JANUARY 01 16:00) SBP 135 (JANUARY 02 02:43) 123 (JANUARY 01 23:05) 138 (JANUARY 01 18:55) DBP 80 (JANUARY 02:43) 66 (JANUARY 01 23:05) 80 (JANUARY 02 02:43) MAP 96 (JANUARY 02:43) 90 (JANUARY 01 23:05) 109 (JANUARY 01 18:55) SpO2 98 (JANUARY 02:43) 98 (JANUARY 01 16:00) 99 (JANUARY 01 23:05) General: Alert and oriented, No acute distress. Respiratory: Respirations are non-labored. Cardiovascular: Normal rate. Integumentary: Warm, Dry. Neurologic: Alert, Oriented. Psychiatric: Cooperative. 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 Erbitux held last 2 weeks due to grade 3 mucositis which has improved, but has had refractory nausea and vomiting, radiation on hold. Arrangements made by Dr Mccall for admission and feeding tube placement today. Nothing to add from Med Onc standpoint. Once feeding tube placed and cleared for use, need to get feedings started and titrated to his caloric goals. Patient has follow up already scheduled with me on Tuesday. Call if questions, patient on board with plans documented in this encounter Plan of Treatment Not on file documented as of this encounter Visit Diagnoses Not on filedocumented in this encounter Care Teams Truck Driver'S Offsider Relationship Specialty Start Date End Date Genaro Avendano MD [address] [place] [address] PCP - General Adolescent Medicine 01/25/23 Christophe Vega MD Medical Oncologist Hematology and Oncology 07/27/22 Dennys Kent MD [address] [place] [address] Surgeon Otolaryngology 07/27/22 documented as of this encounter
--- OUTSIDE RECORDS SUMMARY | 2025-06-17 07:59 | XMS_ITS | Encounter Summary ---
Author Organization [employer] ([place], [place], [place], [place], [place]) Address [address] [place] [address] Care Team Providers Care Price Economist Name Role Phone Christophe Vega MD Unavailable Unavailable Dennys Kent MD Unavailable [phone] Genaro Avendano MD Primary Care Provider [phone] Encounter Details Date Type Department Care Team (Late st Contact Info) Description 01/03/2020 Transcribed Document [facility] [place] Family Medicine [address] [place] [address] ProviderRadha MD [address] [place] [address] Social History Tobacco Use Types Packs/Day Years Used Date Smoking Tobacco: Never Assessed Sex and Gender Information Value Date Recorded Sex Assigned at Not on file Legal Sex Male 4:20 PM CDT Gender Identity Not on file Sexual Orientation Not on file documented as of this encounter Miscellaneous Notes * Cerner Conversion Note - Radha ProviderMD - 01/03/2020 3:13 PM CDT Spiritual Care Short Form Entered On: 01/03/2020 16:21 EDT Performed On: 01/03/2020 15:13 EDT by PEE MONTANO General Information, Spiritual Care Intervention/Comment/Summary Points : PreSurgery visit; Expressed no needs Orthodoxy Preference : Congregation, other PEE MONTANO - 01/03/2020 16:21 EDT Electronically signed by Yesi Joy Conversion Senior Sql Server Database Developer Cerner at 11/25/2022 12:11 AM CDT documented in this encounter Plan of Treatment Not on file documented as of this encounter Visit Diagnoses Not on filedocumented in this encounter Care Teams Price Economist Relationship Specialty Start Date End Date Genaro Avendano MD [address] [place] [address] PCP - General Adolescent Medicine 01/25/23 Christophe Vega MD Medical Oncologist Hematology and Oncology 07/27/22 Dennys Kent MD [address] [place] [address] Surgeon Otolaryngology 07/27/22 documented as of this encounter
--- OUTSIDE RECORDS SUMMARY | 2025-06-17 07:59 | XMS_ITS | Encounter Summary ---
Author Organization [employer] ([place], [place], [place], [place], [place]) Address [address] [place] [address] Care Team Providers Care Program Director Cable Television Name Role Phone Christophe Vega MD Unavailable Unavailable Dennys Kent MD Unavailable [phone] Genaro Avendano MD Primary Care Provider [phone] Encounter Details Date Type Department Care Team (Late st Contact Info) Description 01/08/2020 Transcribed Document [facility] [place] [address] [place] [address] ProviderRadha MD [address] [place] [address] Social History Tobacco Use Types Packs/Day Years Used Date Smoking Tobacco: Never Assessed Sex and Gender Information Value Date Recorded Sex Assigned at Not on file Legal Sex Male 4:20 PM CDT Gender Identity Not on file Sexual Orientation Not on file documented as of this encounter Miscellaneous Notes * Cerner Conversion Note - Radha ProviderMD - 01/08/2020 3:43 PM CDT UM Authorization Entered On: 01/08/2020 15:43 EDT Performed On: 01/08/2020 15:43 EDT by BRITTANY CLARK RN Primary Insurance Authorization Authorization and Policy Numbers : Insurance 1 Health Plan: [employer] Policy Number: [id number] Authorization Number: Insurance Primary Name : [employer] Policy Number: [id number] Authorization Status-Primary : Denial - continued stay Authorization Fax Number-Primary : [phone] Auth/Referral Phone Number-Primary : [phone] Auth/Referral Contact Name-Primary : Marcelina Campbell RN Reference Number-Primary : [id number] Number of Days Authorized-Primary : 3 Day(s) Authorized Service Begin Date-Primary : 01/02/2020 EDT Authorized Service End Date-Primary : 01/05/2020 EDT Authorization Comments-Primary : Emailed p2p form to Veronica/Jozef Historical Authorization Comments-Primary : Comment 1: per shakira 01/05 was denied per mdr. may call p2p @ [phone] option 3. em to jbritni (Priscilla Clarke Rn-Utilization Review 01/08/2020 15:13) Comment 2: d/c summary faxed per cerner (Priscilla Clarke Rn-Utilization Review 01/07/2020 14:06) Comment 3: clinical faxed per cerner for 01/05 nd 01/06 per faxed request (Priscilla Clarke Rn-Utilization Review 01/07/2020 13:55) Comment 4: Per fax received 01/03/2020 approved IP admission 01/01-01/04 NRD 01/05. Please fax to [phone]. (BRITTANY CLARK RN 01/03/2020 12:53) Comment 5: Per fax received 01/02/2020 @ 0739 needs clinicals submitted for review. Please fax to [phone]. Marcelina Campbell RN phone # is [phone]. (BRITTANY CLARK RN 01/03/2020 08:21) BRITTANY CLARK RN - 01/08/2020 15:43 EDT documented in this encounter Plan of Treatment Not on file documented as of this encounter Visit Diagnoses Not on filedocumented in this encounter Care Teams Program Director Cable Television Relationship Specialty Start Date End Date Genaro Avendano MD [address] [place] [address] PCP - General Adolescent Medicine 01/25/23 Christophe Vega MD Medical Oncologist Hematology and Oncology 07/27/22 Dennys Kent MD [address] [place] [address] Surgeon Otolaryngology 07/27/22 documented as of this encounter
--- OUTSIDE RECORDS SUMMARY | 2025-06-17 07:59 | XMS_ITS | Encounter Summary ---
Author Organization [employer] ([place], [place], [place], [place], [place]) Address [address] [place] [address] Care Team Providers Care Toilet Products Molder Name Role Phone Christophe Vega MD Unavailable Unavailable Dennys Kent MD Unavailable [phone] Genaro Avendano MD Primary Care Provider [phone] Encounter Details Date Type Department Care Team (Late st Contact Info) Description 01/03/2020 Transcribed Document [facility] [place] [address] [place] [address] ProviderRadha MD [address] [place] [address] Social History Tobacco Use Types Packs/Day Years Used Date Smoking Tobacco: Never Assessed Sex and Gender Information Value Date Recorded Sex Assigned at Not on file Legal Sex Male 4:20 PM CDT Gender Identity Not on file Sexual Orientation Not on file documented as of this encounter Miscellaneous Notes * Cerner Conversion Note - Radha ProviderMD - 01/03/2020 8:21 AM CDT UM Authorization Entered On: 01/03/2020 8:23 EDT Performed On: 01/03/2020 8:21 EDT by BRITTANY CLARK RN Primary Insurance Authorization Authorization and Policy Numbers : Insurance 1 Health Plan: [employer] Policy Number: [id number] Authorization Number: Insurance Primary Name : [employer] Policy Number: [id number] Authorization Status-Primary : Pending clinicals Authorization Fax Number-Primary : [phone] Auth/Referral Phone Number-Primary : [phone] Auth/Referral Contact Name-Primary : Marcelina Campbell RN Reference Number-Primary : [id number] Authorized Service Begin Date-Primary : 01/02/2020 EDT Authorization Comments-Primary : Per fax received 01/02/2020 @ 0739 needs clinicals submitted for review. Please fax to [phone]. Marcelina Campbell RN phone # is [phone]. Historical Authorization Comments-Primary : No Authorization Comments Found BRITTANY CLARK RN - 01/03/2020 8:21 EDT Electronically signed by [facility] Conversion Power Electronics Engineer Cerner at 11/25/2022 12:10 AM CDT documented in this encounter Plan of Treatment Not on file documented as of this encounter Visit Diagnoses Not on filedocumented in this encounter Care Teams Toilet Products Molder Relationship Specialty Start Date End Date Genaro Avendano MD [address] [place] [address] PCP - General Adolescent Medicine 01/25/23 Christophe Vega MD Medical Oncologist Hematology and Oncology 07/27/22 Dennys Kent MD [address] [place] [address] Surgeon Otolaryngology 07/27/22 documented as of this encounter
--- OUTSIDE RECORDS SUMMARY | 2025-06-17 07:59 | XMS_ITS | Encounter Summary ---
Author Organization [employer] ([place], [place], [place], [place], [place]) Address [address] [place] [address] Care Team Providers Care Director Product Management Name Role Phone Christophe Vega MD Unavailable Unavailable Dennys Kent MD Unavailable [phone] Genaro Avendano MD Primary Care Provider [phone] Encounter Details Date Type Department Care Team (Late st Contact Info) Description 01/09/2020 Transcribed Document [facility] [place] [address] [place] [address] ProviderRadha MD [address] [place] [address] Social History Tobacco Use Types Packs/Day Years Used Date Smoking Tobacco: Never Assessed Sex and Gender Information Value Date Recorded Sex Assigned at Not on file Legal Sex Male 4:20 PM CDT Gender Identity Not on file Sexual Orientation Not on file documented as of this encounter Miscellaneous Notes * Cerner Conversion Note - Radha ProviderMD - 01/09/2020 3:59 PM CDT UM Authorization Entered On: 01/09/2020 15:59 EDT Performed On: 01/09/2020 15:59 EDT by MARCEL BALL Rn-Utilization Review Primary Insurance Authorization Authorization and Policy Numbers : Insurance 1 Health Plan: [employer] Policy Number: [id number] Authorization Number: Insurance Primary Name : [employer] Policy Number: [id number] Authorization Status-Primary : Denial - continued stay Authorization Fax Number-Primary : [phone] Auth/Referral Phone Number-Primary : [phone] Auth/Referral Contact Name-Primary : Marcelina Campbell RN Reference Number-Primary : [id number] Number of Days Authorized-Primary : 3 Day(s) Authorized Service Begin Date-Primary : 01/02/2020 EDT Authorized Service End Date-Primary : 01/05/2020 EDT Observation Authorization Nbr-Primary : DC + Authorization Comments-Primary : Per with [employer], Denial review was upheld. Verified P2P number. Historical Authorization Comments-Primary : Comment 1: Emailed p2p form to Veronica/Jozef (BRITTANY CLARK RN 01/08/2020 15:43) Comment 2: per shakira 01/05 was denied per mdr. may call p2p @ [phone] option 3. em to ana (Priscilla Clarke Rn-Utilization Review 01/08/2020 15:13) Comment 3: d/c summary faxed per karen (Priscilla Clarke Rn-Utilization Review 01/07/2020 14:06) Comment 4: clinical faxed per karen for 01/05 nd 01/06 per faxed request (Priscilla Clarke Rn-Utilization Review 01/07/2020 13:55) Comment 5: Per fax received 01/03/2020 approved IP admission 01/01-01/04 NRD 01/05. Please fax to [phone]. (BRITTANY CLARK RN 01/03/2020 12:53) Comment 6: Per fax received 01/02/2020 @ 0739 needs clinicals submitted for review. Please fax to [phone]. Marcelina Campbell RN phone # is [phone]. (BRITTANY CLARK RN 01/03/2020 08:21) MARCEL BALL Rn-Utilization Review - 01/09/2020 15:59 EDT documented in this encounter Plan of Treatment Not on file documented as of this encounter Visit Diagnoses Not on filedocumented in this encounter Care Teams Director Product Management Relationship Specialty Start Date End Date Genaro Avendano MD [address] [place] [address] PCP - General Adolescent Medicine 01/25/23 Christophe Vega MD Medical Oncologist Hematology and Oncology 07/27/22 Dennys Kent MD [address] [place] [address] Surgeon Otolaryngology 07/27/22 documented as of this encounter
--- OUTSIDE RECORDS SUMMARY | 2025-06-17 07:59 | XMS_ITS | Encounter Summary ---
Author Organization [employer] ([place], [place], [place], [place], [place]) Address [address] [place] [address] Care Team Providers Care Rewinder Operator Helper Name Role Phone Christophe Vega MD Unavailable Unavailable Dennys Kent MD Unavailable [phone] Genaro Avendano MD Primary Care Provider [phone] Encounter Details Date Type Department Care Team (Late st Contact Info) Description 01/09/2020 Transcribed Document [facility] [place] Medicine [address] [place] [address] ProviderRadha MD [address] [place] [address] Social History Tobacco Use Types Packs/Day Years Used Date Smoking Tobacco: Never Assessed Sex and Gender Information Value Date Recorded Sex Assigned at Not on file Legal Sex Male 4:20 PM CDT Gender Identity Not on file Sexual Orientation Not on file documented as of this encounter Miscellaneous Notes * Cerner Conversion Note - Radha ProviderMD - 01/09/2020 7:00 AM CDT UM Authorization Entered On: 01/09/2020 7:00 EDT Performed On: 01/09/2020 7:00 EDT by Pam Felder, Supervisor Carding Primary Insurance Authorization Authorization and Policy Numbers : Insurance 1 Health Plan: [employer] Policy Number: [id number] Authorization Number: Insurance Primary Name : [employer] Policy Number: [id number] Authorization Status-Primary : Denial - continued stay Authorization Fax Number-Primary : [phone] Auth/Referral Phone Number-Primary : [phone] Auth/Referral Contact Name-Primary : Marcelina Campbell RN Reference Number-Primary : [id number] Number of Days Authorized-Primary : 3 Day(s) Authorized Service Begin Date-Primary : 01/02/2020 EDT Authorized Service End Date-Primary : 01/05/2020 EDT Observation Authorization Nbr-Primary : DC + Historical Authorization Comments-Primary : Comment 1: Emailed p2p form to Veronica/Jozef (BRITTANY CLARK RN 01/08/2020 15:43) Comment 2: per shakira 01/05 was denied per mdr. may call p2p @ [phone] option 3. em to ana (Priscilla Clarke Rn-Utilization Review 01/08/2020 15:13) Comment 3: d/c summary faxed per karen (Priscilla Clarke Rn-Utilization Review 01/07/2020 14:06) Comment 4: clinical faxed per karen for 01/05 nd 01/06 per faxed request (Priscilla Clarke Rn-Utilization Review 01/07/2020 13:55) Comment 5: Per fax received 01/03/2020 approved IP admission 01/01-01/04 NRD 01/05. Please fax to [phone]. (BRITTANY CLARK RN 01/03/2020 12:53) Comment 6: Per fax received 01/02/2020 @ 0739 needs clinicals submitted for review. Please fax to [phone]. Marcelina Campbell RN phone # is [phone]. (BRITTANY CLARK RN 01/03/2020 08:21) Pam Felder, Supervisor Carding - 01/09/2020 7:00 EDT documented in this encounter Plan of Treatment Not on file documented as of this encounter Visit Diagnoses Not on filedocumented in this encounter Care Teams Rewinder Operator Helper Relationship Specialty Start Date End Date Genaro Avendano MD [address] [place] [address] PCP - General Adolescent Medicine 01/25/23 Christophe Vega MD Medical Oncologist Hematology and Oncology 07/27/22 Dennys Kent MD [address] [place] [address] Surgeon Otolaryngology 07/27/22 documented as of this encounter
--- OUTSIDE RECORDS SUMMARY | 2025-06-17 07:59 | XMS_ITS | Encounter Summary ---
Author Organization [employer] ([place], [place], [place], [place], [place]) Address [address] [place] [address] Care Team Providers Care Front Desk Receptionist Name Role Phone Christophe Vega MD Unavailable Unavailable Dennys Kent MD Unavailable [phone] Genaro Chirinos MD Primary Care Provider [phone] Encounter Details Date Type Department Care Team (Late st Contact Info) Description 01/03/2020 Transcribed Document [facility] [place] [facility] [place] [address] ProviderRadha MD [address] [place] [address] Social History Tobacco Use Types Packs/Day Years Used Date Smoking Tobacco: Never Assessed Sex and Gender Information Value Date Recorded Sex Assigned at Not on file Legal Sex Male 4:20 PM CDT Gender Identity Not on file Sexual Orientation Not on file documented as of this encounter Miscellaneous Notes * Cerner Conversion Note - Rdaha ProviderMD - 01/03/2020 12:25 PM CDT Patient: JONTAHAN RIVAS Age: 64 Years Sex: Male : 1955 Chief Complaint malnutrition Reason for Consultation feeding tube placement History of Present Illness This is a 64 year old male with 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 Currently undergoing chemo and radiation. He presents with complaints of nausea and vomiting with eating over the past 2 weeks. With a 15 lb weight loss over the last week. He also reports a history of reflux controlled with medication. He denies difficulty swallowing. He was admitted for failure to thrive and feeding tube placement. Review of Systems Complete review of systems was performed and negative except as stated in history of present illness Vital Signs T: 36.5 ??C TMIN: 36.4 ??C TMAX: 36.6 ??C HR: 59(Monitored) RR: 14 BP: 128/71 SpO2: 99% HT: 172.72 cm WT: 67.39 kg BMI: 22.6 Oxygen Settings (Last) Oxygen Therapy Mode: Room air (01/03/20 08:00:00) Physical Exam General: Alert and oriented, weak Neurologic: Awake, alert, and oriented X3 Eye: EOMI, normal conjuctiva HENT: Normocephalic, normal hearing, moist oral mucosa, no scleral icterus, no sinus tenderness Neck: Supple, non-tender, no lymphadenopathy Lungs: Clear to auscultation, non-labored respiration Heart: Normal rate, regular rhythm, no murmur, gallop or edema Abdomen: Soft, non-tender, non-distended, normal bowel sounds, no masses Musculoskeletal: Normal range of motion and strength, no tenderness or swelling, Skin: Skin is warm, dry and pink, petechiae across chest and upper abdomen Psychiatric: Cooperative, appropriate mood and affect Assessment/Plan 64 year old male with metastatic squamous cell carcinoma of the head and neck and chemo-and radiation therapy with failure to thrive. I discussed the various feeding tube options. The patient and oncology are eager to resume treatment quickly and I think the patient would be best suited for a percutaneous endoscopic gastrostomy tube. I discussed the risks and benefits of the PEG and if I am unable to traverse the esophagus with the endoscope we will perform a laparoscopic G-tube placement. Adult failure to thrive, Adult failure to thrive VTE Prophylaxis - Medical Enoxaparin 40 mg, SubCutaneous, Inj, [id number], Routine, Start 01/02/20 19:00:00 EDT (BRAXTON PATTEN MD-INT) Sequential Compression Device Start: 01/02/20 16:04:00 EDT, Bilateral, Continuous Order (BRAXTON PATTEN MD-INT) Provider Information Primary Care Physician - GENARO CHIRINOS (REF), ADRIANA Attending Physician - MA, BRAXTON, MD-INT Admitting Physician - BRAXTON PATTEN MD-INT Consulting Physician - CRISTEL CEDENO MD-KEVYN (surgery dr. Cedeno)- need G or J feeding tube Consulting Physician - CHRISTOPHE VEGA MD-ONC Consulting Physician - YUE SENIOR MD-ONC Referring Physician - BRENDEN, UNKNOWN Problem List/Past Medical History Adult failure to thrive severe dehydration metastatic squamous cell carcinoma HTN GERD Anxiety hypernatremia on admit h/o PAD with leg stent Procedure/Surgical History tonsilectomy. No abdominal surgery Medications Inpatient acetaminophen, 650 mg= 2 Tab, Oral, 1-Time acetaminophen, 650 mg= 2 Tab, Oral, 1-Time acetaminophen-HYDROcodone 325 mg-10 mg oral tablet, 1 Tab, Oral, Q4H, PRN cetuximab 480 mg + evacuated glass container 1 Each cetuximab 480 mg + evacuated glass container 1 Each Colace, 100 mg= 1 Cap, Oral, BID, PRN dexamethasone + Sodium Chloride 0.9% intravenous solution 50 mL dexamethasone + Sodium Chloride 0.9% intravenous solution 50 mL dexamethasone + Sodium Chloride 0.9% intravenous solution 50 mL dexamethasone + Sodium Chloride 0.9% intravenous solution 50 mL dexamethasone + Sodium Chloride 0.9% intravenous solution 50 mL dexamethasone + Sodium Chloride 0.9% intravenous solution 50 mL dexamethasone + Sodium Chloride 0.9% intravenous solution 50 mL dexamethasone + Sodium Chloride 0.9% intravenous solution 50 mL dexamethasone + Sodium Chloride 0.9% intravenous solution 50 mL dexamethasone + Sodium Chloride 0.9% intravenous solution 50 mL dexamethasone + Sodium Chloride 0.9% intravenous solution 50 mL dexamethasone + Sodium Chloride 0.9% intravenous solution 50 mL diphenhydrAMINE, 12.5 mg= 0.25 mL, IV Push, 1-Time diphenhydrAMINE, 12.5 mg= 0.25 mL, IV Push, 1-Time LORazepam, 0.25 mg= 0.5 Tab, Oral, QID, PRN Lovenox, 40 mg= 0.4 mL, SubCutaneous, [id number] Milk of Magnesia 8% oral suspension, 30 mL, Oral, Daily, PRN Pepcid + Sodium Chloride 0.9% intravenous solution 50 mL Pepcid + Sodium Chloride 0.9% intravenous solution 50 mL potassium chloride Inj Intermittent 10 mEq + Dextrose 5% in Water intravenous solution 1,000 mL Protonix, 40 mg= 1 Tab, Oral, Daily Sodium Chloride 0.9% intravenous solution, 1000 mL, IntraVENous, 1-Time Sodium Chloride 0.9% intravenous solution, 1000 mL, IntraVENous, 1-Time Sodium Chloride 0.9% intravenous solution, 1000 mL, IntraVENous, 1-Time Sodium Chloride 0.9% intravenous solution, 1000 mL, IntraVENous, 1-Time Sodium Chloride 0.9% intravenous solution, 1000 mL, IntraVENous, 1-Time Sodium Chloride 0.9% intravenous solution, 1000 mL, IntraVENous, 1-Time Sodium Chloride 0.9% intravenous solution, 1000 mL, IntraVENous, 1-Time Sodium Chloride 0.9% intravenous solution, 1000 mL, IntraVENous, 1-Time Sodium Chloride 0.9% intravenous solution, 1000 mL, IntraVENous, 1-Time Sodium Chloride 0.9% intravenous solution, 1000 mL, IntraVENous, 1-Time Sodium Chloride 0.9% intravenous solution, 250 mL, IntraVENous, 1-Time Sodium Chloride 0.9% intravenous solution, 250 mL, IntraVENous, 1-Time Sodium Chloride 0.9% intravenous solution, 1000 mL, IntraVENous, 1-Time Sodium Chloride 0.9% intravenous solution, 1000 mL, IntraVENous, 1-Time Sodium Chloride 0.9% intravenous solution, 1000 mL, IntraVENous, 1-Time Sodium Chloride 0.9% intravenous solution, 1000 mL, IntraVENous, 1-Time Sodium Chloride 0.9% intravenous solution, 1000 mL, IntraVENous, 1-Time Sodium Chloride 0.9% intravenous solution, 1000 mL, IntraVENous, 1-Time Sodium Chloride 0.9% intravenous solution, 1000 mL, IntraVENous, 1-Time Sodium Chloride 0.9% intravenous solution, 1000 mL, IntraVENous, 1-Time Sodium Chloride 0.9% intravenous solution, 1000 mL, IntraVENous, 1-Time Sodium Chloride 0.9% intravenous solution, 1000 mL, IntraVENous, 1-Time Zofran, 4 mg= 2 mL, IV Push, Q4H, PRN Zofran + Sodium Chloride 0.9% intravenous solution 50 mL Zofran + Sodium Chloride 0.9% intravenous solution 50 mL Zofran + Sodium Chloride 0.9% intravenous solution 50 mL Zofran + Sodium Chloride 0.9% intravenous solution 50 mL Zofran + Sodium Chloride 0.9% intravenous solution 50 mL Zofran + Sodium Chloride 0.9% intravenous solution 50 mL Zofran + Sodium Chloride 0.9% intravenous solution 50 mL Zofran + Sodium Chloride 0.9% intravenous solution 50 mL Zofran + Sodium Chloride 0.9% intravenous solution 50 mL Zofran + Sodium Chloride 0.9% intravenous solution 50 mL Zofran + Sodium Chloride 0.9% intravenous solution 50 mL Zofran + Sodium Chloride 0.9% intravenous solution 50 mL Home acetaminophen-HYDROcodone 325 mg-10 mg oral tablet, 1 Tab, Oral, Q4H, PRN aspirin 81 mg oral delayed release tablet, 81 mg= 1 Tab, Oral, Daily hydroCHLOROthiazide 25 mg oral tablet, 25 mg= 1 Tab, Oral, Daily LORazepam 0.5 mg oral tablet, 0.25 mg= 0.5 Tab, Oral, QID, PRN NexIUM 24HR 20 mg oral delayed release capsule, 20 mg= 1 Cap, Oral, Daily promethazine 25 mg rectal suppository, 1 Supp, Rectal, Q4H, PRN Sancuso 3.1 mg/24 hr transdermal film, extended release, 1 Patch, Topical, Weekly Allergies codeine Social History Smoked 1ppd until 2 months ago. No alcohol or other drug use. Family History CVA Electronically signed by Benita [facility] Conversion Atmospheric Physics Professor Cerner at 11/25/2022 12:11 AM CDT documented in this encounter Plan of Treatment Not on file documented as of this encounter Visit Diagnoses Not on filedocumented in this encounter Care Teams Front Desk Receptionist Relationship Specialty Start Date End Date Genaro Chirinos MD [address] [place] [address] PCP - General Adolescent Medicine 01/25/23 Christophe Vega MD Medical Oncologist Hematology and Oncology 07/27/22 Dennys Kent MD [address] [place] [address] Surgeon Otolaryngology 07/27/22 documented as of this encounter
--- OUTSIDE RECORDS SUMMARY | 2025-06-17 07:59 | XMS_ITS | Encounter Summary ---
Author Organization [employer] ([place], [place], [place], [place], [place]) Address [address] [place] [address] Care Team Providers Care Car Body Mechanic Name Role Phone Christophe Vega MD Unavailable Unavailable Dennys Kent MD Unavailable [phone] Genaro Avendano MD Primary Care Provider [phone] Encounter Details Date Type Department Care Team (Late st Contact Info) Description 01/02/2020 Transcribed Document [facility] [place] [address] [place] [address] ProviderRadha MD [address] [place] [address] Social History Tobacco Use Types Packs/Day Years Used Date Smoking Tobacco: Never Assessed Sex and Gender Information Value Date Recorded Sex Assigned at Not on file Legal Sex Male 4:20 PM CDT Gender Identity Not on file Sexual Orientation Not on file documented as of this encounter Miscellaneous Notes * Cerner Conversion Note - Radha ProviderMD - 01/02/2020 8:53 PM CDT Spiritual Care Assessment Entered On: 01/02/2020 20:53 EDT Performed On: 01/02/2020 20:53 EDT by GABRIELE ADAMS Chaplain General Information Initial Visit : Yes Referral Reason Comment : order for advance directive need Ministry Provided to : Patient Uatsdin Preference : Anglican, other GABRIELE ADAMS Chaplain - 01/02/2020 20:53 EDT Interventions Advance Directive Information Provided : Yes Emotional Support : Information provided GARBIELE ADAMS Chaplain - 01/02/2020 20:53 EDT Electronically signed by Braeden Joy Conversion Semiautomatic Stitcher Operator Cerner at 11/25/2022 12:15 AM CDT documented in this encounter Plan of Treatment Not on file documented as of this encounter Visit Diagnoses Not on filedocumented in this encounter Care Teams Car Body Mechanic Relationship Specialty Start Date End Date Genaro Avendano MD [address] [place] [address] PCP - General Adolescent Medicine 01/25/23 Christophe Vega MD Medical Oncologist Hematology and Oncology 07/27/22 Dennys Kent MD [address] [place] [address] Surgeon Otolaryngology 07/27/22 documented as of this encounter
--- OUTSIDE RECORDS SUMMARY | 2025-06-17 07:59 | XMS_ITS | Encounter Summary ---
Author Organization [employer] ([place], [place], [place], [place], [place]) Address [address] [place] [address] Care Team Providers Care Gas Pumper Name Role Phone Christophe Vega MD Unavailable Unavailable Dennys Kent MD Unavailable [phone] Genaro Avendano MD Primary Care Provider [phone] Encounter Details Date Type Department Care Team (Late st Contact Info) Description 01/03/2020 Transcribed Document [facility] [place] [address] [place] [address] ProviderRadha MD [address] [place] [address] Social History Tobacco Use Types Packs/Day Years Used Date Smoking Tobacco: Never Assessed Sex and Gender Information Value Date Recorded Sex Assigned at Not on file Legal Sex Male 4:20 PM CDT Gender Identity Not on file Sexual Orientation Not on file documented as of this encounter Miscellaneous Notes * Cerner Conversion Note - Radha Garduno MD - 01/03/2020 12:53 PM CDT UM Authorization Entered On: 01/03/2020 12:53 EDT Performed On: 01/03/2020 12:53 EDT by BRITTANY CLARK RN Primary Insurance Authorization Authorization and Policy Numbers : Insurance 1 Health Plan: [employer] Policy Number: [id number] Authorization Number: Insurance Primary Name : [employer] Policy Number: [id number] Authorization Status-Primary : Admit approved Authorization Fax Number-Primary : [phone] Auth/Referral Phone Number-Primary : [phone] Auth/Referral Contact Name-Primary : Marcelina Campbell RN Reference Number-Primary : [id number] Number of Days Authorized-Primary : 3 Day(s) Authorized Service Begin Date-Primary : 01/02/2020 EDT Authorized Service End Date-Primary : 01/05/2020 EDT Authorization Comments-Primary : Per fax received 01/03/2020 approved IP admission 01/01-01/04 NRD 01/05. Please fax to [phone]. Historical Authorization Comments-Primary : Comment 1: Per fax received 01/02/2020 @ 0739 needs clinicals submitted for review. Please fax to [phone]. Marcelina Campbell RN phone # is [phone]. (BRITTANY CLARK RN 01/03/2020 08:21) BRITTANY CLARK RN - 01/03/2020 12:53 EDT documented in this encounter Plan of Treatment Not on file documented as of this encounter Visit Diagnoses Not on filedocumented in this encounter Care Teams Gas Pumper Relationship Specialty Start Date End Date Genaro Avendano MD [address] [place] [facility] [address] [place] [address] PCP - General Adolescent Medicine 01/25/23 Christophe Vega MD Medical Oncologist Hematology and Oncology 07/27/22 Dennys Kent MD [address] [place] [address] Surgeon Otolaryngology 07/27/22 documented as of this encounter
--- OUTSIDE RECORDS SUMMARY | 2025-06-17 07:59 | XMS_ITS | Encounter Summary ---
Author Organization [employer] ([place], [place], [place], [place], [place]) Address [address] [place] [address] Care Team Providers Care Internet Developer Name Role Phone Christophe Vega MD Unavailable Unavailable Dennys Kent MD Unavailable [phone] Genaro Avendano MD Primary Care Provider [phone] Encounter Details Date Type Department Care Team (Late st Contact Info) Description 01/07/2020 Transcribed Document [facility] [place] Family Medicine [address] [place] [address] ProviderRadha MD [address] [place] [address] Social History Tobacco Use Types Packs/Day Years Used Date Smoking Tobacco: Never Assessed Sex and Gender Information Value Date Recorded Sex Assigned at Not on file Legal Sex Male 4:20 PM CDT Gender Identity Not on file Sexual Orientation Not on file documented as of this encounter Miscellaneous Notes * Cerner Conversion Note - Radha Garduno MD - 01/07/2020 1:19 PM CDT Final Discharge Planning Entered On: 01/07/2020 13:22 EDT Performed On: 01/07/2020 13:19 EDT by CAMILA GATES, OTTO-Commercial Truck Driver Final Discharge Planning Discharge Arrangements : Patient Post-Acute Information Patient Name: JONATHAN RIVAS Gender: Male : [birth year] Age: 64 Years No Post-Acute Placement(s) Listed No Post-Acute Service(s) Listed No Curaspan Referral(s) Listed Patient Offered Choice/Affiliations Explained : Yes Transportation Needs : Family/Friend Follow Up Appointment Scheduled : Yes Is Patient High/Moderate Readmission Risk? : No Patient/Family Notified of Plan : Yes Support Person/Pt Rep Notified of Plan : Yes Is Patient Ready for Discharge? : Yes Physician Notified Patient is Ready for Discharge? : Yes Discharge To Care Management : Home Health Services (Related/SOC within 3 days)-06 CAMILA GATES RN-Commercial Truck Driver - 01/07/2020 13:19 EDT Final Narrative Note Final Narrative Note : Discharged to home, agreeable. Orders noted for home health and tube feedings. Pt has [employer] Insurance and they were notified on need for home health. Kindra Kimball, notified that when an agnecy was found the insurance would contact the Pt at home. Angela was sent the tube feeding orders due to being in network with [employer]. No other needs noted/verbalized at this time. CAMILA GATES RN-Commercial Truck Driver - 01/07/2020 13:19 EDT Electronically signed by Benita [facility] Conversion Airfield Defence Guard Cerner at 11/25/2022 12:25 AM CDT documented in this encounter Plan of Treatment Not on file documented as of this encounter Visit Diagnoses Not on filedocumented in this encounter Care Teams Internet Developer Relationship Specialty Start Date End Date Genaro Avendano MD [address] [place] [address] PCP - General Adolescent Medicine 01/25/23 Christophe Vega MD Medical Oncologist Hematology and Oncology 07/27/22 Dennys Kent MD [address] [place] [address] Surgeon Otolaryngology 07/27/22 documented as of this encounter
--- OUTSIDE RECORDS SUMMARY | 2025-06-17 07:59 | XMS_ITS | Patient Health Record ---
Author Organization [facility] Address [address] [place] [address] Care Team Providers Care Windows Security Engineer Name Role Phone Genaro Avendano Primary Care Provider [phone] Jessie Lomax Unavailable [phone] Migration, Provider Unavailable Unavailable Allergies Allergen (clinical drug ingredient) Drug/Non Drug Allergy documented on EMR Reaction Allergy Type Onset Date Status codeine Codeine Unknown Drug Allergy Active Results Component Value Reference Range Notes THYROID PANEL WITH TSH (7444 ) Reviewed date:03/25/2025 10:06:36 AM Interpretation: Performing Lab:[facility] Tqgq8099 [facility] ClinicCkshIN[address] Paresh Pena Notes/Report: NON-FASTING; NON-FASTING; NON-FASTING; NON-FASTING T3 UPTAKE 31 22-35 % T4 (THYROXINE), TOTAL 7.1 4.9-10.5 mcg/dL FREE T4 INDEX (T7) 2.2 1.4-3.8 TSH 5.18 0.40-4.50 mIU/L COMPREHENSIVE METABOLIC PANE L (42037) Reviewed date:03/25/2025 10:06:24 AM Interpretation: Performing Lab:[facility] Wkuh5356 TwitchteTimeFree InnovationsOwatonna ClinicHhvyVB[address] Paresh Pena Notes/Report: NON-FASTING; NON-FASTING; NON-FASTING; NON-FASTING GLUCOSE 112 65-99 mg/dL follow-up test. between 100 and 125 mg/dL is consistent with prediabetes and should be confirmed with a For someone without known diabetes, a glucose value Fasting reference interval UREA NITROGEN (BUN) 20 7-25 mg/dL CREATININE [...] Reviewed date:03/25/2025 10:06:17 AM Interpretation: Performing Lab:[facility], [facility], [facility] HospitalVcxtNP[address] Paresh Pena Notes/Report: NON-FASTING; NON-FASTING; NON-FASTING; NON-FASTING WHITE BLOOD CELL COUNT 5.3 3.8-10.8 Thousand/ uL RED BLOOD CELL COUNT 3.21 4.20-5.80 Million/uL HEMOGLOBIN 7.4 13.2-17.1 g/dL HEMATOCRIT 26.9 38.5-50.0 % MCV 83.8 80.0-100.0 fL MCH 23.1 27.0-33.0 pg MCHC 27.5 32.0-36.0 g/dL not clinically significant; however, it should be condition. red cell parameters and the patient's clinical value (in the range of 30 to 32 g/dL) is most likely For adults, a slight decrease in the calculated MCHC interpreted with caution in correlation with other RDW 17.1 11.0-15.0 % PLATELET COUNT 292 140-400 Thousand/uL MPV 11.0 7.5-12.5 fL ABSOLUTE NEUTROPHILS 3641 7361-2454 cells/uL ABSOLUTE LYMPHOCYTES 150 707-7304 cells/uL ABSOLUTE MONOCYTES 445 200-950 cells/uL ABSOLUTE EOSINOPHILS 270 15-500 cells/uL ABSOLUTE BASOPHILS 69 0-200 cells/uL NEUTROPHILS 68.7 LYMPHOCYTES 16.5 MONOCYTES 8.4 EOSINOPHILS 5.1 BASOPHILS 1.3 PSA, TOTAL (5363) Reviewed date:03/25/2025 10:06:29 AM Interpretation: Performing Lab:[facility], iVideosongsBzujOA[address] Paresh Pena Notes/Report: NON-FASTING; NON-FASTING; NON-FASTING; NON-FASTING PSA, TOTAL 0.59 < OR = 4.00 ng/mL chemiluminescent method. Values obtained from value, should not be interpreted as absolute standardized against the WHO standard. The test [place]). Comparison of serial PSA results should be The total PSA value from this assay system is to the equimolar-standardized total PSA (Leon interpreted with this fact in mind. result will be approximately 20% lower when compared interchangeably. PSA levels, regardless of This test was performed using the Siemens evidence of the presence or absence of disease. different assay methods cannot be used THYROID PANEL WITH TSH (7444 ) Reviewed date:06/20/2024 03:26:10 PM Interpretation: Performing Lab:[facility] [place] easy2map, iVideosongsBolpVU[address] Paresh Pena Notes/Report: FASTING: YES FASTING:YES NON-FASTING; NON-FASTING; NON-FASTING; NON-FASTING; NON-FAST T3 UPTAKE 32 22-35 % T4 (THYROXINE), TOTAL 7.0 4.9-10.5 mcg/dL FREE T4 INDEX (T7) 2.2 1.4-3.8 TSH 4.77 0.40-4.50 mIU/L COMPREHENSIVE METABOLIC PANE L (03517) Reviewed date:06/20/2024 03:26:16 PM Interpretation: Performing Lab:[facility]1355 easy[employer]map, iVideosongsEsznVD[address] Paresh Pena Notes/Report: FASTING: YES FASTING:YES NON-FASTING; NON-FASTING; NON-FASTING; NON-FASTING; NON-FAST GLUCOSE 129 65-99 mg/dL follow-up test. diabetes and this should be confirmed with a For someone without known diabetes, a glucose value >125 mg/dL indicates that they may have Fasting reference interval UREA NITROGEN (BUN) 13 7-25 mg/dL CREATININE [...] 15 10-35 U/L ALT 8 9-46 U/L CBC (INCLUDES DIFF/PLT) (639 9) Reviewed date:06/20/2024 03:26:24 PM Interpretation: Performing Lab:[facility], [facility], [facility] HospitalJtycAP[address] Paresh Pena Notes/Report: NON-FASTING; NON-FASTING; NON-FASTING; NON-FASTING; NON-FAST FASTING:YES FASTING: YES WHITE BLOOD CELL COUNT 5.4 3.8-10.8 Thousand/ uL RED BLOOD CELL COUNT 3.77 4.20-5.80 Million/uL HEMOGLOBIN 11.9 13.2-17.1 g/dL HEMATOCRIT 36.2 38.5-50.0 % MCV 96.0 80.0-100.0 fL MCH 31.6 27.0-33.0 pg MCHC 32.9 32.0-36.0 g/dL red cell parameters and the patient's clinical not clinically significant; however, it should be condition. interpreted with caution in correlation with other For adults, a slight decrease in the calculated MCHC value (in the range of 30 to 32 g/dL) is most likely RDW 14.5 11.0-15.0 % PLATELET COUNT 257 140-400 Thousand/uL MPV 11.2 7.5-12.5 fL ABSOLUTE NEUTROPHILS 3807 6194-8410 cells/uL ABSOLUTE LYMPHOCYTES 715 149-5844 cells/uL ABSOLUTE MONOCYTES 389 200-950 cells/uL ABSOLUTE EOSINOPHILS 178 15-500 cells/uL ABSOLUTE BASOPHILS 49 0-200 cells/uL NEUTROPHILS 70.5 LYMPHOCYTES 18.1 MONOCYTES 7.2 EOSINOPHILS 3.3 BASOPHILS 0.9 ALBUMIN, RANDOM URINE W/CREA TININE (6517) Reviewed date:06/20/2024 03:25:57 PM Interpretation: Performing Lab:[facility], [facility] [address], [place] TgpnPQ[address] Paresh Pena Notes/Report: NON-FASTING; NON-FASTING; NON-FASTING; NON-FASTING; NON-FAST FASTING:YES FASTING: YES CREATININE, RANDOM URINE 325 20-320 mg/dL Anya ified by repeat analysis. ALBUMIN, URINE 1.6 See Note: mg/dL Reference Range Not established Reference Range: ALBUMIN/CREATININE RATIO, RANDOM URINE 5 <30 mg/g creat The ADA defines abnormalities in albumin Normal to Mildly increased <30 abnormal before considering a patient to be within a diagnostic category. Albuminuria Category Result (mg/g creatinine) The ADA recommends that at least two of three Moderately increased 30-299 Severely increased > OR = 300 excretion as follows: specimens collected within a 3-6 month period be MAGNESIUM (622) Reviewed date:06/20/2024 03:25:50 PM Interpretation: Performing Lab:[facility] [address], [facility] HospitalJdbvKH[address] Paresh Pena Notes/Report: NON-FASTING; NON-FASTING; NON-FASTING; NON-FASTING; NON-FAST FASTING:YES FASTING: YES MAGNESIUM 2.2 1.5-2.5 mg/dL LIPID PANEL, STANDARD (7600) Reviewed date:06/20/2024 03:26:04 PM Interpretation: Performing Lab:[facility], [place] TlvsFJ[address] Paresh Pena Notes/Report: NON-FASTING; NON-FASTING; NON-FASTING; NON-FASTING; NON-FAST FASTING:YES FASTING: YES CHOLESTEROL, TOTAL 99 <200 mg/dL HDL CHOLESTEROL 43 > OR = 40 mg/dL TRIGLYCERIDES 67 <150 mg/dL LDL-CHOLESTEROL 42 <70 mg/dL for patients with CHD or diabetic patients better accuracy than the Friedewald equation in the Desirable range <100 mg/dL for primary prevention; (http://education.WebVetcom/faq/HZA840) Chilo CABRERA et al. KAVITA. 2013;310(19): 9181-3270 calculation, which is a validated novel method providing Reference range: <100 estimation of LDL-C. LDL-C is now calculated using the PamRodriguez with > or = 2 CHD risk factors. CHOL/HDLC RATIO 2.3 <5.0 (calc) NON HDL CHOLESTEROL 56 <130 mg/dL (calc) For patients with diabetes plus 1 major ASCVD risk (LDL-C of <70 mg/dL) is considered a therapeutic factor, treating to a non-HDL-C goal of <100 mg/dL option. Reason For Referral Reason Dr. Casiano- Nephrology Referral Organization [facility] CELINE NUNEZ Referring Provider First Name Genaro Referring Provider Last Name Romana Referring Provider Speciality Internal M edicine Referred Organization Referrals Referred Address [address], [place],[address],[place] Referred Provider Specialty Nephrology General Notes Jessica Ordonez 2023 03:36:52 PM >Placed through [facility] Referral Priority Routine Referral Appointment Date 11/23/2024 Reason Please arrange Carot id US bilateral at [facility] for patient. Recurrent dizziness, history of PAD with stents in his legs, smoker. CPT 46499 no precert required per Mateo Belllojake unable to contact patient- per [facility] Diagnosis 1 Dizziness, nonspecif ic (R42) Referral Organization [facility] MORENITA BERGER ENRIQUE Referring Provider First Name Jessie Referring Provider Last Name Monie Referring Provider Speciality [facility] ctice [facility] Referred Address [address] [facility] [address] [facility] [place], [place], [place],[address],[place] Referred Provider Specialty Diagnostic R adiology General Notes Jessica Ordonez 2024 03:48:00 PM >sent to [facility] No Precert needed, Jessica Ordonez 08/31/2024 04:34:14 PM >checked with [facility] Referral Priority Routine Reason [facility] _ needs EGD and Colonoscopy set up Diagnosis 1 Walsh's esophagus without dysplasia (K22.70) Referral Organization [facility] ENRIQUE Referring Provider First Name Genaro Referring Provider Last Name Romana Referring Provider Speciality Internal M edicine Referred Organization [facility] Referred Address [address] [facility] [address], [place],[address],[place] Referred Provider Specialty Gastroentero logy General Notes Jessica Ordonez 2024 09:13:57 AM >records and referral sent to Dr. Harrison- They will contact patient to schedule. Referral Priority Routine Medications Medication SIG (Take, Route, Frequency, Duration) Notes Start Date End Date Status Fluticasone Furoate 2 sprays/eac h nostril *Please review and pick correct strength-formulati on from [facility] options. If intended option is not shown, discontinue and re-order from Quick Search* Active rOPINIRole HCl 0.5 MG 1 tab(s) orally at bedtime; Duration: 30 days Active Esomeprazole Magnesium 20 MG TAKE 1 CAPSULE BY MOUTH TWICE DAILY; Duration: 30 Active Zinc 50 MG QD *Please review a nd pick correct strength-formulati on from [facility] options. If intended option is not shown, [...] per week; Duration: 30 days 09/02/2022 Active Immunizations Vaccine Route Administration Date Status Comme nts SHINGRIX Unknown 02/02/2021 Administered SHINGRIX Unknown 05/06/2021 Administered Prevnar PCV-20 (Pneumococcal conjugate 20) IM Intramuscular 03/19/2024 Administered Influenza-Fluzone 3+years (NON-MEDICARE) IM Intramuscular 04/19/2018 Administered Fluzone High Dose IM Intramuscular 06/14/2024 Administered FLUZONE 6MO - OLDER IM Intramuscular 07/07/2019 Administer ed Fluvirin--Influenza vaccine 3+ year IM Intramuscular 06/17/2008 Administered Fluvirin--Influenza vaccine 3+ year IM Intramuscular 04/30/2013 Administered Fluvirin--Influenza vaccine 3+ year IM Intramuscular 06/17/2014 Administered Flublok IM Intramuscular 07/19/2022 Administered Covid Moderna Unknown 11/05/2020 Administered Covid Moderna Unknown 12/03/2020 Administered Boostrix IM Intramuscular 03/19/2024 Administered Social History Tobacco Use: Social History [...] Status Risk Notes Problem Generalized anxiety disorder (82440799) Generalized anxiety disorder (F41.1) Active confirmed Problem Seasonal allergic rhinitis (066733480) Other seasonal allergic rhinitis (J30.2) Active confirmed Problem Allergic rhinitis (97433101) Other allergic rhinitis (J30.89) Active confirmed Problem Walsh's esophagus (987634811) Walsh's esophagus without dysplasia (K22.70) Active confirmed Problem Sciatica (09033107) Lumbago with sciatica, right side (M54.41) Active confirmed Problem Tobacco use (164318469) Tobacco use (Z72.0) Active confirmed Problem Nicotine dependence (01085988) Personal history of nicotine dependence (Z87.891) Active confirmed Problem Hypothyroidism (95245358) Hypothyroidism (acquired) (E03.9) Active confirmed Problem Sore throat (052276648) Sore throat (J02.9) Active confirmed Problem Essential hypertension (54819232) Hypertension, essential (I10) Active confirmed Problem Seasonal allergy (966580996) Seasonal allergies (J30.2) Active confirmed Problem Restless legs syndrome (40747802) Restless leg syndrome (G25.81) Active confirmed Problem Acute exacerbation of chronic obstructive airways disease (547398972) COPD with acute exacerbation (J44.1) Active confirmed Problem Chronic pain (56324314) Other chronic pain (G89.29) Active confirmed Problem Polyp colon (78028977) Colon polyp (K63.5) Active confirmed Problem Atherosclerosis of coronary artery without angina pectoris (087192804474581) Atherosclerosis of big sandy coronary artery of big sandy heart without angina pectoris (I25.10) Active confirmed Problem Peripheral vascular disease (237008299) PAD (peripheral artery disease) (I73.9) Active confirmed Problem Sciatica (41299559) Right sided sciatica (M54.31) Active confirmed Problem Sciatica (84716246) Acute right-sided low back pain with right-sided sciatica (M54.41) Active confirmed Problem Major depression single episode, in partial remission (01867120) Major depress, part remis (F32.4) Active confirmed Problem Gastrojejunostom y tube status (Z93.4) Active confirmed Problem Chronic kidney disease stage 3B (disorder) (592398019) Chronic kidney disease, stage 3b (N18.32) Active confirmed Problem Gastroesophageal reflux disease with esophagitis (disorder) (365869944) Gastroesophageal reflux disease with esophagitis, unspecified whether hemorrhage (K21.00) Active confirmed Problem Squamous cell carcinoma of head and neck (432971108) 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) Active confirmed Problem Mild major depression, single episode (53009218) Current mild episode of major depressive disorder, unspecified whether recurrent (F32.0) Active confirmed Problem Squamous cell carcinoma of skin of neck (628640444) Squamous cell carcinoma of neck (C44.42) Active confirmed Problem Chronic kidney disease stage 3B (disorder) (015537725) Stage 3b chronic kidney disease (CKD) (N18.32) Active confirmed Vital Signs Heart Rate 88 /min 03/21/2025 Temperature 97.3 degrees Fahrenheit 03/21/2025 Blood pressure diastolic 58 mm Hg 03/21/2025 Height 68.5 in 03/21/2025 Blood pressure systolic 90 mm Hg 03/21/2025 Weight 160 lbs 03/21/2025 BMI 23.97 kg/m2 03/21/2025 Encounters Encounter Location Date Provider Diagnosis [facility] ENRIQUE [address] [place] [address] 06/18/2024 Genaro Besson [facility] [address] [facility] [address] [place] [address] 11/10/2024 Provider Migration Nocturia R35.1 ; Seasonal allergies J30.2 ; Restless leg syndrome G25.81 and Acute bronchitis, unspecified organism J20.9 [facility] [address] [facility] [address] [place] [address] 08/22/2024 Jessie Lomax Restless leg syndrom e G25.81 ; Acute bronchitis, unspecified organism J20.9 ; Dizziness, nonspecific R42 and Stage 3b chronic kidney disease (CKD) N18.32 [facility] [address] [address] 03/21/2025 Genaro Avendano Atherosclerosis of big sandy coronary artery of big sandy heart without angina pectoris I25.10 ; Hypothyroidism (acquired) E03.9 ; Chronic kidney disease, stage 3b N18.32 ; Current mild episode of major depressive disorder, unspecified whether recurrent F32.0 ; Walsh's esophagus without dysplasia K22.70 ; Foreign body of right external ear S00.451A ; Personal history of nicotine dependence Z87.891 and Healthcare maintenance Z00.00 [facility] [address] [facility] [address] [place] [address] 08/22/2024 Jessie Lomax Dizziness, nonspecif ic R42 ; PAD (peripheral artery disease) I73.9 and Personal history of nicotine dependence Z87.891 [facility] [address] [facility] [address] [place] [address] 02/14/2025 Genaro Avendano [facility] [address] [facility] [address] [place], [place] [address] 03/28/2025 Genaro Avendano Assessments Encounter Date Diagnosis [...] voices understanding and agree to this plan. 11/10/2024 Nocturia (ICD-10 - R35.1) 11/10/2024 Seasonal allergies (ICD-10 - J30.2) 11/10/2024 Restless leg syndrome (ICD-10 - G25.81) 11/10/2024 Acute bronchitis, unspecified organism (ICD-10 - J20.9) 03/21/2025 Hypothyroidism (acquired) (ICD-10 - E03.9) Had subclinical hypothyroidism at last TSH check. Will repeat today and can treat if TSH above 10 or if patient is symptomatic after starting lexapro + stopping BP medications. f 03/21/2025 Atherosclerosis of big sandy coronary artery of big sandy heart without angina pectoris (ICD-10 - I25.10) f 08/22/2024 Dizziness, nonspecific (ICD-10 - R42) 08/22/2024 PAD (peripheral artery disease) (ICD-10 - I73.9) 03/21/2025 Chronic kidney disease, stage 3b (ICD-10 - N18.32) Likely related to T2DM. On SGLT2i, had to d/c levi/arb due to hypotension. Will check UAC today and repeat CMP. f 08/22/2024 Dizziness, nonspecific (ICD-10 - R42) Normal BP in clinic today. [place] to be related to poor po water intake, but with his smoking history and PAD requiring stents to his legs, will proceed with Carotid US. I personally will review US results once final. 08/22/2024 Stage 3b chronic kidney disease (CKD) (ICD-10 - N18.32) Keep follow-up with County Assessor Dr. Casiano and Dr. Avendano is okay with waiting for November app with his long waitlist. 03/21/2025 Current mild episode of major depressive disorder, unspecified whether recurrent (ICD-10 - F32.0) Will start Lexapro 10 mg today and see back in 3-4 weeks f 08/22/2024 Personal history of nicotine dependence (ICD-10 - Z87.891) 03/21/2025 Walsh's esophagus without dysplasia (ICD-10 - [...] CT. Will order Colonoscopy, EGD today f 08/22/2024 Other Patient discuss ed with Attending [...] and Treat 01/12/20 24 COMPREHENSIVE METABOLIC PANEL (37697) MAGNESIUM (622) 01/04/2024 CBC (INCLUDES DIFF/PLT) (6399) VITAMIN B12/FOLATE, SERUM PANEL (7065) 0 01/04/2024 TSH W/REFLEX TO FT4 (02499) 01/04/2024 VITAMIN D,25-OH,TOTAL,IA [phone] Insurance Providers Payer Name Payer Address Payer Phone Subscriber Number Group Number Insured Name Patient Relationship to Insured Coverage Start Date Coverage End Date [employer] MED[employer]ARE [address] [address] [place] [address] [id number] Colton Ascencio Self - patient is the [...]
--- OUTSIDE RECORDS SUMMARY | 2025-06-17 07:59 | XMS_ITS | Encounter Summary ---
Author Organization [employer] ([place], [place], [place], [place], [place]) Address [address] [place] [address] Care Team Providers Care Screen Operator Name Role Phone Christophe Vega MD Unavailable Unavailable Dennys Kent MD Unavailable [phone] Genaro Avendano MD Primary Care Provider [phone] Encounter Details Date Type Department Care Team (Late st Contact Info) Description 01/03/2020 Transcribed Document [facility] [address] [place] [address] ProviderRadha MD [address] [place] [address] Social History Tobacco Use Types Packs/Day Years Used Date Smoking Tobacco: Never Assessed Sex and Gender Information Value Date Recorded Sex Assigned at Not on file Legal Sex Male 4:20 PM CDT Gender Identity Not on file Sexual Orientation Not on file documented as of this encounter Miscellaneous Notes * Cerner Conversion Note - Radha ProviderMD - 01/03/2020 11:42 AM CDT Consult Phone Call Documentation Entered On: 01/03/2020 12:36 EDT Performed On: 01/03/2020 11:42 EDT by Mary Salgado Care Asst-Health Unit Coord Phone Call for Consults Consult Phone Call/Page Attempt : Other: Dr. Cedeno was on the floor. I asked if he knew about the consult and he said he did it yesterday. He was adding the pt to his list Consult Reason : Need G or J feeding tube Physician Requesting Consult : MA, BRAXTON, MD-INT Physician Requested for Consult : CRISTEL CEDENO MD-SUR Physician Covering for Consult : CRISTEL CEDENO MD-SUR Date and Time Call Returned : 01/03/2020 12:35 EDT Physician Returning Call : CRISTEL CEDENO MD-SUR Stoddart, Marlie, Care [facility] - 01/03/2020 12:34 EDT Electronically signed by [facility], [facility] Conversion Gyroscopic Instrument Tester Cerner at 11/25/2022 12:14 AM CDT documented in this encounter Plan of Treatment Not on file documented as of this encounter Visit Diagnoses Not on filedocumented in this encounter Care Teams Screen Operator Relationship Specialty Start Date End Date Genaro Avendano MD [address] [place] [address] PCP - General Adolescent Medicine 01/25/23 Christophe Vega MD Medical Oncologist Hematology and Oncology 07/27/22 Dennys Kent MD [address] [place] [address] Surgeon Otolaryngology 07/27/22 documented as of this encounter
--- OUTSIDE RECORDS SUMMARY | 2025-06-17 07:59 | XMS_ITS | Encounter Summary ---
Author Organization [employer] ([place], [place], [place], [place], [place]) Address [address] [place] [address] Care Team Providers Care Trustee Of Estate Name Role Phone Christophe Vega MD Unavailable Unavailable Dennys Kent MD Unavailable [phone] Genaro Avendano MD Primary Care Provider [phone] Encounter Details Date Type Department Care Team (Late st Contact Info) Description 01/02/2020 Transcribed Document [facility] [address] [place] [address] ProviderRadha MD [address] [place] [address] Social History Tobacco Use Types Packs/Day Years Used Date Smoking Tobacco: Never Assessed Sex and Gender Information Value Date Recorded Sex Assigned at Not on file Legal Sex Male 4:20 PM CDT Gender Identity Not on file Sexual Orientation Not on file documented as of this encounter Miscellaneous Notes * Cerner Conversion Note - Radha Garduno MD - 01/02/2020 4:07 PM CDT Consult Phone Call Documentation Entered On: 01/02/2020 16:57 EDT Performed On: 01/02/2020 16:07 EDT by Kaylynn Carmona PATIENT RELIGIOUS EDUCATION TEACHER Phone Call for Consults Consult Phone Call/Page Attempt : First call Consult Reason : head and neck cancer Physician Requesting Consult : BRAXTON PATTEN MD-INT Physician Requested for Consult : CHRISTOPHE VEGA MD-ONC Physician Covering for Consult : GUEVARA MOORE MD-ONC Date and Time Call Returned : 01/02/2020 16:57 EDT Physician Returning Call : GUEVARA MOORE MD-ONC Kaylynn Carmona, PATIENT RELIGIOUS EDUCATION TEACHER - 01/02/2020 16:56 EDT documented in this encounter Plan of Treatment Not on file documented as of this encounter Visit Diagnoses Not on filedocumented in this encounter Care Teams Trustee Of Estate Relationship Specialty Start Date End Date Genaro Avendano MD [address] [place] [address] PCP - General Adolescent Medicine 01/25/23 Christophe Vega MD Medical Oncologist Hematology and Oncology 07/27/22 Dennys Kent MD [address] [place] [address] Surgeon Otolaryngology 07/27/22 documented as of this encounter
--- OUTSIDE RECORDS SUMMARY | 2025-06-17 07:59 | XMS_ITS | Encounter Summary ---
Author Organization [employer] ([place], [place], [place], [place], [place]) Address [address] [place] [address] Care Team Providers Care Natural Sciences Department Chair Name Role Phone Christophe Vega MD Unavailable Unavailable Dennys Kent MD Unavailable [phone] Genaro Avendano MD Primary Care Provider [phone] Encounter Details Date Type Department Care Team (Late st Contact Info) Description 01/07/2020 Transcribed Document [facility] [place] [address] [place] [address] ProviderRadha MD [address] [place] [address] Social History Tobacco Use Types Packs/Day Years Used Date Smoking Tobacco: Never Assessed Sex and Gender Information Value Date Recorded Sex Assigned at Not on file Legal Sex Male 4:20 PM CDT Gender Identity Not on file Sexual Orientation Not on file documented as of this encounter Miscellaneous Notes * Cerner Conversion Note - Radha ProviderMD - 01/07/2020 1:18 PM CDT Nursing Discharge Summary Entered On: 01/07/2020 13:18 EDT Performed On: 01/07/2020 13:18 EDT by Yanet Gonsales RN Discharge Documentation Discharge Date/Time : 01/07/2020 13:18 EDT Patient Disposition, General : Discharge Discharge To : Home with ambulatory/outpatient follow-up Mode Of Departure, General Discharge : Private vehicle Accompanied By, Discharge : Spouse IV Discontinued : Not applicable Patient Education Completed : Yes Yanet Gonsales RN - 01/07/2020 13:18 EDT documented in this encounter Plan of Treatment Not on file documented as of this encounter Visit Diagnoses Not on filedocumented in this encounter Care Teams Natural Sciences Department Chair Relationship Specialty Start Date End Date Genaro Avendano MD [address] [place] [address] PCP - General Adolescent Medicine 01/25/23 Christophe Vega MD Medical Oncologist Hematology and Oncology 07/27/22 Dennys Kent MD [address] [place] [address] Surgeon Otolaryngology 07/27/22 documented as of this encounter
--- OUTSIDE RECORDS SUMMARY | 2025-06-17 07:59 | XMS_ITS | Encounter Summary ---
Author Organization [employer] ([place], [place], [place], [place], [place]) Address [address] [place] [address] Care Team Providers Care Senior Process Engineer Name Role Phone Christophe Vega MD Unavailable Unavailable Dennys Kent MD Unavailable [phone] Genaro Avendano MD Primary Care Provider [phone] Encounter Details Date Type Department Care Team (Late st Contact Info) Description 01/02/2020 Transcribed Document [facility] [place] Family Medicine [address] [place] [address] ProviderRadha MD [address] [place] [address] Social History Tobacco Use Types Packs/Day Years Used Date Smoking Tobacco: Never Assessed Sex and Gender Information Value Date Recorded Sex Assigned at Not on file Legal Sex Male 4:20 PM CDT Gender Identity Not on file Sexual Orientation Not on file documented as of this encounter Miscellaneous Notes * Cerner Conversion Note - Radha ProviderMD - 01/02/2020 6:40 PM CDT Nutrition Assessment Entered On: 01/03/2020 9:08 EDT Performed On: 01/03/2020 15:40 EDT by KALLI GAMEZ, BRANDON, LD Nutrition Assessment Nutrition Assessment Reason 2 : Malnutrition Screening Tool Current Nutrition Regimen Comment : (01/03/20) Consult received for malnutrition d/t decreased appetite and wt loss of 14-23#. Spoke with pt; reports getting an ulcer on his tongue d/t CTX/RTX and couldn't eat, and then developed N/V, has only taken liquids the past 3-4 weeks with wt loss of ~35#/19%. Pt admitted for PEG vs J-tube. Observed moderate muscle wasting in clavicle area. 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), severe dehydration, adult FTT, hypernatremia, GERD, anxiety, mucositis, N/V, neg COVID-19 PMH: CTX/RTX past 2-3 months, PAD with leg stent Labs: K 3.3, Gluc 138, WBC 7.7 (01/01) Alb 2.5 Meds: protonix, lovenox, D5+kcl @ 125 ml/hr (510 kcals) Skin: wdls GI: LBM + (01/01), N/V Diet: clear liqs PO intake: ~20% X 1 meal Ht: 5'8 Admit wt: 148# UBW: 182.5# IBW: 154#/96% IBW BMI: 22.6 Estimated needs: 4925-0625 kcals (30-35 kcal/kg) and 87-100 grams protein (1.3-1.5 grams/kg) KALLI GAMEZ RD, KATIE - 01/03/2020 15:26 EDT Nutrition Assessment Reason : Automatic referral KALLI GAMEZ RD, KATIE - 01/03/2020 9:08 EDT Dietitian Malnutrition Assessment Energy Intake, Chronic Illness : Severely reduced: </= 75% needs for >/= 1 month Weight Loss, Chronic Illness : Severe: >5% past 1 month Physical Findings Body Fat & Muscle Mass : Moderate: (suggested) some loss of subcutaneous fat &/or muscle mass Malnutrition Etiology Summary : Chronic illness severe Nutrition Assessment Result : Severely Malnourished Nutrition Assessment Completed : Yes Malnutrition Survey Comment : Severe PCM criteria met: PO intake </= 75% >/= 1 month with wt loss of wt loss of ~35#/19% X [address], KATIE - 01/03/2020 15:26 EDT Nutrition Diagnoses Nutrient Intake : Chronic disease or condition related malnutrition Nutrient Intake Related to : tongue ulcer with N/V, head and neck CA on CTX/RTX Nutrient Intake As Evidenced by : PO intake </= 75% >/= 1 month with wt loss of wt loss of ~35#/19% X 3 weeks. Need for TF via PEG vs J-tube. Nutrient Intake Status : Active KALLI GAMEZ RD, - 01/03/2020 15:26 EDT Nutrition Interventions Meals and Snacks : Clear liquid diet Enteral/Parenteral Nutrition : Initiate enteral nutrition KALLI GAMEZ RD, - 01/03/2020 15:26 EDT Monitoring/Evaluation Energy Intake : Total energy intake Enteral Nutrition Intake : Formula/Solution, Tube Feeding Tolerance Protein Intake : Total protein Weight Status : Weight Maintanence Gastrointestinal Function : Bowel Function KALLI GAMEZ RD, - 01/03/2020 15:26 EDT Nutrition Recommendations Dietitian Recommendations : 1. Initiate EN (if PEG placed), recommend: Two Andrea HN 4.5 cans daily (provides 2138 kcals, 90 grams protein and 747 ml water) with 125 ml free water flush before and after. Start with 1/2 can for first feedings. Goal: meet est needs 2. If J-tube placed, recommend Osmolite 1.5 @ 65 ml/hr (provides 2145 kcals, 90 grams protein and 1090 ml water). Flush with 260 ml FW 4x daily. Goal: meet est needs 3. PO intake as tolerated. RD to send Ensure clear BID. Goal: no N/V 4. Monitor wt 1-2x per week Goal: avoid significant unintended wt loss 5. Monitor eltyes and replace prn (pt at refeeding risk) Goal: wnls Nutrition risk: high Severe PCM identified KALLI GAMEZ RD, - 01/03/2020 15:26 EDT Electronically signed by Benita [facility] Conversion Collating Machine Operator Cerner at 11/25/2022 12:08 AM CDT documented in this encounter Plan of Treatment Not on file documented as of this encounter Visit Diagnoses Not on filedocumented in this encounter Care Teams Senior Process Engineer Relationship Specialty Start Date End Date Genaro Avendano MD [address] [place] [address] PCP - General Adolescent Medicine 01/25/23 Christophe Vega MD Medical Oncologist Hematology and Oncology 07/27/22 Dennys Kent MD [address] [place] [address] Surgeon Otolaryngology 07/27/22 documented as of this encounter
--- OUTSIDE RECORDS SUMMARY | 2025-06-17 07:59 | XMS_ITS | Encounter Summary ---
Author Organization [employer] ([place], [place], [place], [place], [place]) Address [address] [place] [address] Care Team Providers Care Hydrogenation Still Operator Name Role Phone Christophe Vega MD Unavailable Unavailable Dennys Kent MD Unavailable [phone] Genaro Avendano MD Primary Care Provider [phone] Encounter Details Date Type Department Care Team (Late st Contact Info) Description 01/08/2020 Transcribed Document [facility] [place] [address] [place] [address] ProviderRadha MD [address] [place] [address] Social History Tobacco Use Types Packs/Day Years Used Date Smoking Tobacco: Never Assessed Sex and Gender Information Value Date Recorded Sex Assigned at Not on file Legal Sex Male 4:20 PM CDT Gender Identity Not on file Sexual Orientation Not on file documented as of this encounter Miscellaneous Notes * Cerner Conversion Note - Radha ProviderMD - 01/08/2020 3:13 PM CDT UM Authorization Entered On: 01/08/2020 15:17 EDT Performed On: 01/08/2020 15:13 EDT by Priscilla Clarke Rn-Utilization Review Primary Insurance Authorization Authorization and Policy Numbers : Insurance 1 Health Plan: [employer] Policy Number: [id number] Authorization Number: Insurance Primary Name : [employer] Policy Number: [id number] Authorization Status-Primary : Admit approved Authorization Fax Number-Primary : [phone] Auth/Referral Phone Number-Primary : [phone] Auth/Referral Contact Name-Primary : Marcelina Campbell RN Reference Number-Primary : [id number] Number of Days Authorized-Primary : 3 Day(s) Authorized Service Begin Date-Primary : 01/02/2020 EDT Authorized Service End Date-Primary : 01/05/2020 EDT Authorization Comments-Primary : per shakira 01/05 was denied per mdr. may call p2p @ [phone] option 3. em to j Historical Authorization Comments-Primary : Comment 1: d/c summary faxed per cerner (Priscilla Clarke, Rn-Utilization Review 01/07/2020 14:06) Comment 2: clinical faxed per tamner for 01/05 nd 01/06 per faxed request (Priscilla Clarke Rn-Utilization Review 01/07/2020 13:55) Comment 3: Per fax received 01/03/2020 approved IP admission 01/01-01/04 NRD 01/05. Please fax to [phone]. (BRITTANY CLARK RN 01/03/2020 12:53) Comment 4: Per fax received 01/02/2020 @ 0739 needs clinicals submitted for review. Please fax to [phone]. Marcelina Campbell RN phone # is [phone]. (BRITTANY CLARK RN 01/03/2020 08:21) Priscilla Clarke Rn-Utilization Review - 01/08/2020 15:13 EDT documented in this encounter Plan of Treatment Not on file documented as of this encounter Visit Diagnoses Not on filedocumented in this encounter Care Teams Hydrogenation Still Operator Relationship Specialty Start Date End Date Genaro Avendano MD [address] [place] [address] PCP - General Adolescent Medicine 01/25/23 Christophe Vega MD Medical Oncologist Hematology and Oncology 07/27/22 Dennys Kent MD [address] [place] [address] Surgeon Otolaryngology 07/27/22 documented as of this encounter
--- OUTSIDE RECORDS SUMMARY | 2025-06-17 07:59 | XMS_ITS | Encounter Summary ---
Author Organization [employer] ([place], [place], [place], [place], [place]) Address [address] [place] [address] Care Team Providers Care Emt P Name Role Phone Christophe Vega MD Unavailable Unavailable Dennys Kent MD Unavailable [phone] Genaro Avendano MD Primary Care Provider [phone] Encounter Details Date Type Department Care Team (Late st Contact Info) Description 01/17/2020 Transcribed Document [facility] [place] [address] [place] [address] ProviderRadha MD [address] [place] [address] Social History Tobacco Use Types Packs/Day Years Used Date Smoking Tobacco: Never Assessed Sex and Gender Information Value Date Recorded Sex Assigned at Not on file Legal Sex Male 4:20 PM CDT Gender Identity Not on file Sexual Orientation Not on file documented as of this encounter Miscellaneous Notes * Cerner Conversion Note - Radha ProviderMD - 01/17/2020 2:31 PM CDT ED Triage Entered On: 01/17/2020 14:39 EDT Performed On: 01/17/2020 14:37 EDT by Enedelia Munoz RN ED Triage Across the Room Chief Complaint : Pt from home with c/o a clogged J-tube. States he has been working on it at home for a couple days, but can't get it cleared. Triage Date/Time : 01/17/2020 14:37 EDT Enedelia Munoz RN - 01/17/2020 14:37 EDT DCP GENERIC CODE Tracking Acuity : 3 - Urgent Tracking Group : [facility] ED Enedelia Munoz RN - 01/17/2020 14:37 EDT Mode of Arrival : Ambulatory Transported to ED by : Private vehicle To Room Via : Ambulate Accompanied By : Unaccompanied ED Vital Signs : Document Height & Weight : Document ED Allergies : Document ED Reason for Visit : Document Fiberglass Insulation Installer Needed : No Enedelia Munoz RN - 01/17/2020 14:37 EDT Infectious Disease History Has the patient ever been tested for COVID-19? : Yes, Patient stated results Negative COVID19 Screening : No Experiencing Infectious Disease Symptoms : No symptoms Physical contact outside [place] in the last 30 days : No Infectious Disease Symptoms Score : 0 Infectious Disease History : None Tuberculosis Symptoms : None Enedelia Munoz RN - 01/17/2020 14:37 EDT Vital Signs ED Temperature Source : Tympanic Temperature Mode : Fahrenheit Temperature, Fahrenheit : 97.7 Deg F Clinical Temperature, C : 36.5 Deg C Oxygen Therapy Mode : Room air Peripheral Pulse Rate : 86 bpm Respiratory Rate : 16 Breaths/Min Blood Pressure Location : Arm, right upper Blood Pressure Source : Non-Invasive BP Device Systolic Blood Pressure : 141 mmHg (HI) Diastolic Blood Pressure : 76 mmHg Oxygen Saturation : 98 % Enedelia Munoz RN - 01/17/2020 14:37 EDT Allergy (As Of: 01/17/2020 14:39:49 EDT) Allergies (Active) codeine Estimated Onset Date: Unspecified ; Created By: Carlotta York RN; Reaction Status: Active ; Category: Drug ; Substance: codeine ; Type: Allergy ; Severity: Moderate ; Updated By: Carlotta York RN; Reviewed Date: 01/17/2020 14:39 EDT Diagnosis Control ED (As Of: 01/17/2020 14:39:49 EDT) Problems(Active) At risk for sleep apnea (IMO :13888358 ) Name of Problem: At risk for sleep apnea ; Recorder: SYSTEM, SYSTEM; Confirmation: Confirmed ; Classification: Medical ; Code: [id number] ; Last Updated: 01/02/2020 18:40 EDT ; Life Cycle Date: 01/02/2020 ; Life Cycle Status: Active ; Vocabulary: IMO Severe protein-calorie malnutrition (SNOMED CT :873298992 ) Name of Problem: Severe protein-calorie malnutrition ; Onset Date: 01/03/2020 ; Recorder: KALLI GAMEZ, BRANDON, KATIE; Confirmation: Confirmed ; Classification: DIETARY ; Code: [id number] ; Contributor System: [facility] ; Last Updated: 01/03/2020 15:46 EDT ; Life Cycle Date: 01/03/2020 ; Life Cycle Status: Active ; Vocabulary: SNOMED CT ; Comments: 01/03/2020 15:46 - KALLI GAMEZ, BRANDON, KATIE Nutrition Diagnoses Nutrient Intake : Chronic disease or condition related malnutrition Nutrient Intake Related to : tongue ulcer with N/V, head and neck CA on CTX/RTX Nutrient Intake As Evidenced by : PO intake </= 75% >/= 1 month with wt loss of wt loss of ~35#/19% X 3 weeks. Need for TF via PEG vs J-tube. Nutrient Intake Status : Active Diagnoses(Active) Medical screening exam Date: 01/17/2020 ; Diagnosis Type: Reason For Visit ; Confirmation: Complaint of ; Clinical Dx: Medical screening exam ; Classification: Medical ; Clinical Service: Non-Specified ; Code: PNED ; Probability: 0 ; Diagnosis Code: [id number] ED Height and Weight Height Source : Stated Height Entry Format : [place] Height, Feet : 5 ft(Converted to: 152 cm, 60 Inch) Height, Inches : 8 Inch(Converted to: 0 ft 8 Inch, 20.32 cm) Clinical Height : 172.72 cm Weight Source, ED : Standing scale Weight Entry Format : [place] Weight, Pounds : 149 lb Clinical Dosing Weight : 67.73 kg Body Surface Area (BSA) : 1.81 m2 Body Mass Index : 22.7 kg/m2 [place] Body Weight (IBW) : 67.45 kg Enedelia Munoz RN - 01/17/2020 14:37 EDT documented in this encounter Plan of Treatment Not on file documented as of this encounter Visit Diagnoses Not on filedocumented in this encounter Care Teams Emt P Relationship Specialty Start Date End Date Genaro Avendano MD [address] [place] [address] PCP - General Adolescent Medicine 01/25/23 Christophe Vega MD Medical Oncologist Hematology and Oncology 07/27/22 Dennys Kent MD [address] [place] [address] Surgeon Otolaryngology 07/27/22 documented as of this encounter
--- OUTSIDE RECORDS SUMMARY | 2025-06-17 07:59 | XMS_ITS | Encounter Summary ---
Author Organization [employer] ([place], [place], [place], [place], [place]) Address [address] [place] [address] Care Team Providers Care Restaurant Kitchen Manager Name Role Phone Christophe Vega MD Unavailable Unavailable Dennys Kent MD Unavailable [phone] Genaro Avendano MD Primary Care Provider [phone] Encounter Details Date Type Department Care Team (Late st Contact Info) Description 01/02/2020 Transcribed Document [facility] [place] [address] [place] [address] ProviderRadha MD [address] [place] [address] Social History Tobacco Use Types Packs/Day Years Used Date Smoking Tobacco: Never Assessed Sex and Gender Information Value Date Recorded Sex Assigned at Not on file Legal Sex Male 4:20 PM CDT Gender Identity Not on file Sexual Orientation Not on file documented as of this encounter Miscellaneous Notes * Cerner Conversion Note - Radha ProviderMD - 01/02/2020 4:04 PM CDT Evaluation, Physical Therapy Entered On: 01/03/2020 14:54 EDT Performed On: 01/03/2020 14:34 EDT by DERREK BIRD PT General Information, PT Visit Type, PT : Initial evaluation Patient Orders : Order Date Order Ordering 01/02/2020 16:04 PT Evaluation and Treatment Ordered By: BRAXTON PATTEN MD-INT Active Diagnoses : No Qualifying Diagnoses Therapy Diagnosis, PT : Evaluation of mobility Admission Date : 01/02/2020 14:42 Co-treated by, PT : Occupational Therapist Personal Devices : Personal Devices No Devices Recorded Assistive Devices : Assistive Devices No Devices Recorded General Information Comment, PT : Admitted with Failure to Thrive, Weight Loss, Dehydration, Nausea and Vomiting Metastatic Squamous Cell Cancer, HTN, GERD, Anxiety, PAD with Stent, Hypernatremia DERREK BIRD, PT - 01/03/2020 14:47 EDT General Status Patient Received Status : Supine in bed Treatment Start Time : 01/03/2020 14:24 EDT Patient Left Status : Up in chair, RN/PCT informed, Communication board completed, All needs met and within reach RN/PCT Informed Comment : Ok to see per RN Treatment End Time : 01/03/2020 14:34 EDT Treatment Time : 10 Minute(s) DERREK BIRD, PT - 01/03/2020 14:47 EDT History and Environment Living Situation, Therapy : Home Patient Lives With : Spouse Persons Assisting Patient at Home : Spouse Persons Providing Information : Patient Home Equipment Therapy, PT : None Home Setup : One story Stairs : No DERREK BIRD, PT - 01/03/2020 14:47 EDT Prior Level of Function PT GRID Prior LOF Ambulation, Household : Independent Prior LOF Ambulation, Community : Independent Prior LOF Bed Mobility : Independent Prior LOF Toileting : Independent Prior LOF Transfer : Independent DERREK BIRD, PT - 01/03/2020 14:47 EDT Upper Extremity Upper Extremity Dominance : Right Right UE Active ROM : WFL Left UE Active ROM : WFL DERERK BIRD, PT - 01/03/2020 14:47 EDT Right Upper Extremity MMT Shoulder Flexion 0-180 : 4/good Elbow Flexion 0-150 : 4/good Elbow Extension 0-0 : 4/good DERREK BIRD, PT - 01/03/2020 14:47 EDT Left Upper Extremity MMT Shoulder Flexion 0-180 : 4/good Elbow Flexion 0-150 : 4/good Elbow Extension 0-0 : 4/good DERREK BIRD, PT - 01/03/2020 14:47 EDT Lower Extremity RLE Active ROM : WFL LLE Active ROM : WFL DERREK BIRD, PT - 01/03/2020 14:47 EDT Right Lower Extremity MMT Hip Flexion (0-125) : 4/good Hip Abduction (0-45) : 5/normal Hip Adduction (0-20) : 5/normal Knee Flexion (0-140) : 4/good Knee Extension (0-0) : 5/normal Ankle Dorsiflexion (0-20) : 5/normal DERREK BIRD, PT - 01/03/2020 14:47 EDT Left Lower Extremity MMT Hip Flexion (0-125) : 4/good Hip Abduction (0-45) : 5/normal Hip Adduction (0-20) : 5/normal Knee Flexion (0-140) : 4/good Knee Extension (0-0) : 5/normal Ankle Dorsiflexion (0-20) : 5/normal DERREK BIRD, PT - 01/03/2020 14:47 EDT Functional Mobility Mobility Grid Bed Roll Right : Rehab Complete independence Bed Scooting : Rehab Complete independence Supine to Sit : Rehab Complete independence Sit to Stand : Rehab Complete independence Bed to Chair : Rehab Complete independence Stand to Sit : Rehab Complete independence DERREK BIRD, PT - 01/03/2020 14:47 EDT Gait Training/Assessment, PT Weight Bearing Status Maintained : Yes Weight Bearing Status : Full Gait Assistance Level : Supervision Walking Distance : Amb 320' with supervision only Ambulatory Devices : None, Gait belt Gait Deviations : No DERREK BIRD, PT - 01/03/2020 14:47 EDT Cognition Assessment, PT Orientation : Not oriented to time Cognition Assessment Comment : Knew year not month Follows Basic Command Assessment : Yes DERREK BIRD PT - 01/03/2020 14:47 EDT Edu Topics Physical Therapy Education Grid Bed Mobility Training : Returns demonstration Gait Training : Returns demonstration Safety : Returns demonstration Transfer Training : Returns demonstration DERREK BIRD, PT - 01/03/2020 14:47 EDT Indication Assesessment, PT Physical Therapy Indicated : No Physical Therapy Not Indicated : Other: Can walk with nursing staff DERREK BIRD, PT - 01/03/2020 14:47 EDT Plan of Care, PT PT Tx Plan/Goals Established w Patient : Yes Reason Tx/Plan Not Established W/ Pt PT : Pt walking ind in room and can walk in leonard with nursing staff. He doesn't feel he needs PT PT Frequency Rehab : Discontinue DERREK BIRD, PT - 01/03/2020 14:47 EDT Treatment Note Subjective Comment : His goal is to get the feeding tube in and get out of Here Patient's Response to Treatment : Doesn't need skilled PT. Additional Objective Information : Amb 320' with supervision only Assessment : Can walk with nursing staff and family Plan for Treatment : D/C PT DERREK BIRDPollo, PT - 01/03/2020 14:47 EDT Pain Assessment Pain Scaled Used : 0-10 Pain scale Pain Score Pre-Intervention : 0 DERREK BIRD Tiburcio, PT - 01/03/2020 14:47 EDT Image 1 - Images currently included in the form version of this document have not been included in the text rendition version of the form. Anticipated Discharge Needs, OT/PT Anticipated Discharge to : Home, with family care DERREK BIRDPollo, PT - 01/03/2020 14:47 EDT [place] PT Charges PT Eval Moderate Complexity : 1 DERREK BIRD Tiburcio, PT - 01/03/2020 14:47 EDT Electronically signed by Benita [facility] Conversion Logistics Coordinator Cerner at 11/25/2022 12:11 AM CDT documented in this encounter Plan of Treatment Not on file documented as of this encounter Visit Diagnoses Not on filedocumented in this encounter Care Teams Restaurant Kitchen Manager Relationship Specialty Start Date End Date Genaro Avendano MD [address] [place] [address] PCP - General Adolescent Medicine 01/25/23 Christophe Vega MD Medical Oncologist Hematology and Oncology 07/27/22 Dennys Kent MD [address] [place] [address] Surgeon Otolaryngology 07/27/22 documented as of this encounter
--- NOTE | 2025-06-17 08:00 | FL_ITS ---
FINAL REPORT CLINICAL HISTORY: Nausea throat ca abd pain 2286.89 dap 3.28 fluoro time FINDINGS: AIR CONTRAST UPPER GI TECHNIQUE: Double-contrast exam Esophagus shows no obstructing lesion. However there was aspiration noted occurring during the exam. Small hiatal hernia was noted. A barium tablet readily passed into the stomach. Prominent gastric folds were noted. There is no gastric outlet obstruction. Duodenal sweep is unremarkable. IMPRESSION: 1. Small hiatal hernia 2. Prominent gastric folds 3. Multiple episodes of aspiration during the exam Small bowel follow-through. The patient ingested barium. Spot and overhead films were obtained. The honey extractor film is unremarkable . The transit time to the colon is normal . The mucosal fold pattern is normal . Spot images of the terminal ileum are unremarkable . IMPRESSION: Normal small bowel follow-through . Reference air kerma dose 3.28 mGy Authenticated and ERN
--- OUTSIDE RECORDS SUMMARY | 2025-06-17 08:00 | XMS_ITS | Encounter Summary ---
Author Organization [employer] ([place], [place], [place], [place], [place]) Address [address] [place] [address] Care Team Providers Care Assistant Director Of Financial Aid Name Role Phone Christophe Vega MD Unavailable Unavailable Dennys Kent MD Unavailable [phone] Genaro Chirinos MD Primary Care Provider [phone] Encounter Details Date Type Department Care Team (Late st Contact Info) Description 01/02/2020 Transcribed Document [facility] [place] Family Medicine [address] [place] [address] ProviderRadha MD [address] [place] [address] Social History Tobacco Use Types Packs/Day Years Used Date Smoking Tobacco: Never Assessed Sex and Gender Information Value Date Recorded Sex Assigned at Not on file Legal Sex Male 4:20 PM CDT Gender Identity Not on file Sexual Orientation Not on file documented as of this encounter Miscellaneous Notes * Cerner Conversion Note - Radha ProviderMD - 01/02/2020 4:15 PM CDT Patient: JONATHAN RIVAS Age: 64 Years Sex: Male : 1955 Chief Complaint can not hold food down, N/V and weight loss Primary Care Provider GENARO CHIRINOS (REF[facility] History of Present Illness 64 yo male with PMH of metastatic squamous celll carcinoma diagnosed 2-[address] lamb did LN bx and tonsilectomy also. primary cancer still not known. but f/u oncology dr. Vega and started chemo and XRT. per his , chemo just done 4 cycles of 6, and XRT just finished 4/6 weeks. but during last 2 weeks he decreased eating and feel nausea and vomiting. per patient he had no swallow problem, just can not hold food in his stomach and lost 15 LB over last week. he supposed to have feeding tube by dr. Cedeno. today he was in radiation oncology dr. Lopez office for XRT and dr. lopez referred him for inpatient ivf and do feeding tube in hospital. He deny any chest pain or SOB, no fever, no abd pain. no recently travel. mild anxiety also Review of Systems GEN: no fever, has weight loss. HEENT: No blurred vision. no headache. Pulmonary: no cough and sob. No hemoptysis. CARDIAC: no chest pain. GI SYSTEM: has nausea, vomiting and no diarrhea SYSTEM: no UTI. No kidney stone NEUROLOGY no seizure, no vertigo. MS: no chronic back pain VASCULAR: no claudication, no cramping leg pain ENDOCRINOLOGY: . No tremor. No cold or heat intolerance. DERMATOLOGY: No rash. No dryness. PSYCHIATRY: positive for anxiety. all other systems are negative Vital Signs T: 36.4 ??C HR: 70(Monitored) RR: 18 BP: 135/78 SpO2: 98% Oxygen Settings (Last) Oxygen Therapy Mode: Room air (01/02/20 16:00:00) Physical Exam GENERAL: The patient is anxiety , but awake Eyes: Pupils PERRLA. ENT: No discharge from ear, nose, or throat. NECK: No JVD. No mass. PULMONARY: Bilateral breath sounds equal. Scattered rhonchi. b/l small rhonchi Palpation normal. Percussion normal. CVS SYSTEM: S1, S2 normal. No murmur. No click. No S3 or S4. ABDOMEN: Soft. No hernia. Bowel sounds normal. No rebound. MUSCULOSKELETAL: Head and neck, no trauma. Bilateral legs no edema. urology: defer exam now, no symptom SKIN: No rash. No ulcerative change NEUROLOGIC: The patient is awakable, but he is anxiety he move his legs and arms freely, no focal neuro deficit Psychiatry: positive anxiety Assessment/Plan Adult failure to thrive severe dehydration metastatic squamous cell carcinoma HTN GERD Anxiety hypernatremia on admit h/o PAD with leg stent PLAN: start ivf D5W with kcl consult dr. Wylie for feeding tube- PEG vs J tube ? lab ordered close watch BMP check covid-19 ppi lovenox sq d/w pat and family Orders: docusate, 100 mg, Oral, Cap, BID, PRN for Constipation, Routine, Start 01/02/20 16:04:00 EDT magnesium hydroxide, 30 mL, Oral, Liquid, Daily, PRN for Constipation, Routine, Start 01/02/20 16:04:00 EDT ondansetron, 4 mg, IV Push, Inj, Q4H, PRN for Nausea, Routine, Start 01/02/20 16:04:00 EDT pantoprazole, 40 mg, IV Push, Inj, Daily, Routine, Start 01/03/20 9:00:00 EDT Admit to Inpatient CMP Comprehensive Metabolic Panel Consult to Case Management Consult to Physician Consult to Physician Coronavirus 2019 Novel Diet, Adult Facility Protocol Intake and Output Lactic Acid Level Notify Provider Vital Signs OT Evaluation and Treatment PT Evaluation and Treatment Resuscitation Status Sequential Compression Device TSH Thyroid Stimulating Hormone Up Ad Emerita Vital Signs Problem List/Past Medical History Ongoing No qualifying data Historical No qualifying data Procedure/Surgical History tonsilectomy, leg stent No qualifying data available Allergies No active allergies Social History smoke 1 pack daily until 2 months ago, no ETOH Family History positive cancer and CVA Diagnostic Results PET-CT IMPRESSION: Hypermetabolic left submandibular lymphadenopathy consistent with malignancy. Small focus of hypermetabolism in the pre-epiglottic fat. Recommend direct visualization. No evidence of FDG avid malignancy in the chest, abdomen or pelvis. Lab Results Test Name Test Result Date/Time WBC 7.7 K/uL 01/02/2020 15:53 EDT RBC 3.50 Million/uL (Low) 01/02/2020 15:53 EDT Hgb 11.6 g/dL (Low) 01/02/2020 15:53 EDT Hct 34.1 % (Low) 01/02/2020 15:53 EDT MCV 97.4 fL (High) 01/02/2020 15:53 EDT MCH 33.1 pg (High) 01/02/2020 15:53 EDT MCHC 34.0 Gram/dL 01/02/2020 15:53 EDT Platelet Count 261 K/uL 01/02/2020 15:53 EDT MPV 11.2 fL 01/02/2020 15:53 EDT RDW 14.9 % 01/02/2020 15:53 EDT PT 13.2 Second(s) (High) 01/02/2020 15:53 EDT INR 1.3 (High) 01/02/2020 15:53 EDT documented in this encounter Plan of Treatment Not on file documented as of this encounter Visit Diagnoses Not on filedocumented in this encounter Care Teams Assistant Director Of Financial Aid Relationship Specialty Start Date End Date Genaro Chirinos MD [address] [place] [address] [place] [address] PCP - General Adolescent Medicine 01/25/23 Christophe Vega MD Medical Oncologist Hematology and Oncology 07/27/22 Dennys Kent MD [address] [place] [id number] Surgeon Otolaryngology 07/27/22 documented as of this encounter
--- OUTSIDE RECORDS SUMMARY | 2025-06-17 08:00 | XMS_ITS | Encounter Summary ---
Author Organization [employer] ([place], [place], [place], [place], [place]) Address [address] [place] [address] Care Team Providers Care Nightclub Manager Name Role Phone Christophe Vega MD Unavailable Unavailable Dennys Kent MD Unavailable [phone] Genaro Avendano MD Primary Care Provider [phone] Encounter Details Date Type Department Care Team (Late st Contact Info) Description 01/02/2020 Transcribed Document [facility] [place] Family Medicine [address] [place] [address] ProviderRadha MD [address] [place] [address] Social History Tobacco Use Types Packs/Day Years Used Date Smoking Tobacco: Never Assessed Sex and Gender Information Value Date Recorded Sex Assigned at Not on file Legal Sex Male 4:20 PM CDT Gender Identity Not on file Sexual Orientation Not on file documented as of this encounter Miscellaneous Notes * Cerner Conversion Note - Radha ProviderMD - 01/02/2020 2:33 PM CDT Admission History, Adult Entered On: 01/02/2020 18:40 EDT Performed On: 01/02/2020 14:33 EDT by Carlotta York RN Advance Directive Patient has Advance Directive *Q : No, patient requests assist formulating Advance Directive Carlotta York RN - 01/02/2020 18:33 EDT Anesthesia/Transfusion History Family History of Anesthesia Reaction : No prior transfusion(s) Transfusion History : Prior anesthesia without reaction Family History of Anesthesia Reaction : Unknown Carlotta York RN - 01/02/2020 18:33 EDT Anticipated Discharge Needs Discharge To, Anticipated : Home Anticipated Discharge Needs at This Time : Outpatient follow-up Carlotta York RN - 01/02/2020 18:33 EDT Functional Assessment Living Situation : Home Patient Lives With : Family member(s), Spouse Persons Assisting Patient at Home : Spouse Current Daily Living Assistance : None Sensory Deficits : None Mobility Assistance Prior to Admission : Independent SANDERS Hx Falls Immediate/Within 3 Months : No Current Home Treatments : None Carlotta York RN - 01/02/2020 18:33 EDT General Info Contact Password : gen Telles Family/Rep/Phys Notified of Admit : No Emergency Contact #1 : Akilah Tino Emergency Contact #1 Phone Number : [phone] Emergency Contact #1 Relationship : Emergency Contact #2 : . Emergency Contact #2 Phone Number : . Emergency Contact #2 Relationship : . Primary Language : Nepalese Communication Barrier : None Carlotta York RN - 01/02/2020 18:33 EDT Fall Risk Scales ABCs Fall Injury Risk Identification : Age ABC Fall Injury Risk : Moderate to high injury risk SANDERS Hx Falls Immediate/Within 3 Months : No Sanders Secondary Diagnosis : No SANDERS Use of Ambulatory Aid : None SANDERS IV Therapy or IV Access : Yes Sanders Gait/Transferring : Weak Sanders Mental Status : Oriented to own ability Sanders Fall Risk Score : 30 SANDERS Fall Scale Risk Level : 25-45 Medium Risk [place] Fall Interventions : Adequate lighting, Assistive devices within reach, Bed in low position, Call device within reach, Fall prevention handout/education per facility policy, Frequent orientation to call device, Frequent orientation to surroundings, Hourly comfort/safety rounds, Non-slip footwear, Personal items within reach, Reinforced to call for assistance before getting out of bed, Room free of clutter/spills, Upper side-rails up, Wheels locked, Wires/Cords secured Carlotta York RN - 01/02/2020 18:33 EDT Health Histories Smoking Status : Former smoker, quit more than 30 days ago Smokeless Tobacco Status : Never Carlotta York RN - 01/02/2020 18:33 EDT Social History (As Of: 01/02/2020 18:40:25 EDT) Height and Weight, Clinical Dosing Height Source : Stated Height Entry Format : [place] Height, Feet : 5 ft(Converted to: 152 cm, 60 Inch) Height, Inches : 8 Inch(Converted to: 0 ft 8 Inch, 20.32 cm) Clinical Height : 172.72 cm Weight Source : Stated [place] Body Weight : 67 kg Carlotta York RN - 01/02/2020 18:33 EDT Estimated Weight Type of Weight Measurement Est : [place] Weight, est lb : 164 lb(Converted to: 74 kg) Estimated Clinical Dosing Weight : 74.55 kg Carlotta York RN - 01/02/2020 18:33 EDT Infectious Disease History Has the patient ever been tested for COVID-19? : No, Patient stated COVID19 Screening : No Experiencing Infectious Disease Symptoms : No symptoms Physical contact outside [place] in the last 30 days : No Infectious Disease Symptoms Score : 0 Infectious Disease History : None Tuberculosis Symptoms : None Carlotta York RN - 01/02/2020 18:33 EDT Tetanus Immunization Status Previous Tetanus Immunizations : No qualifying data available. Carlotta York RN - 01/02/2020 18:33 EDT Influenza Vaccine Asmt, Adult Previous Vaccines from Immunization Schedule : No qualifying data available. Influenza Immunization, Current Season : Yes Carlotta York RN - 01/02/2020 18:33 EDT Pneumococcal Vaccine Previous Vaccines from Immunization Schedule : No qualifying data available. Pneumonia Immunization Received : Yes Carlotta York RN - 01/02/2020 18:33 EDT Order Details Transport Mode Order Detail : Wheelchair Isolation Precautions Order Detail : Standard Precautions Order Detail : N/A IV Order Detail : 0 Oxygen Order Detail : 1 Nurse Collect Order Detail : 0 Lift/Transfer : Independent Central Line Order Detail : Yes Room Service : Appropriate Arterial Line : No Carlotta York RN - 01/02/2020 18:33 EDT Nutrition History Feeding Ability : Independent Adaptive Feeding Equipment : None Adaptive Feeding Equipment : Regular Oral Medication Administration : By mouth Eating Poorly Due to Decreased Appetite : Yes Unplanned Weight Loss in Past 3-6 Months : Yes Unplanned Weight Loss Amount : 14-23 lbs/6.4-10.5 kg Malnutrition Screening Tool Total(mal) : 3 Malnutrition Screening Tool Risk Level : Patient at risk Carlotta York RN - 01/02/2020 18:33 EDT [place] Suicide Severity Rating Scale (C-SSRS) CSSRS Past Month Wish to be : No CSSRS Past Month Suicidal Thoughts : No CSSRS Lifetime Suicide Behavior : No Suicide Severity Rating Score : 0 Suicide Severity Rating : No Additional Care Required at this time Carlotta York RN - 01/02/2020 18:33 EDT Psychosocial History Currently in Unsafe Situation : No Carlotta York RN - 01/02/2020 18:33 EDT Sleep Apnea Risk Assmt Hx of Obstructive Sleep Apnea Diagnosis : No Snore Loudly : No Tired, Fatigued, or Sleepy During Day : No Observed Stopping Breathing During Sleep : No Have/Are Being Treated for Hypertension : No BMI Greater Than 35 kg/m2 : No Age over 50 Years Old : Yes Neck Circumference Greater Than 40 cm : No Gender Male : Yes STOP-BANG Sleep Apnea Risk Level Score : 2 Carlotta York RN - 01/02/2020 18:33 EDT Spiritual/Cultural Needs Anglican Preference : Jainism, other Carlotta York RN - 01/02/2020 18:33 EDT Valuables and Belongings Valuables and Belongings : Clothing, Personal items Clothing : Common streetwear Clothing Disposition : Bedside Personal Items : Cell phone Personal Items Disposition : Bedside Carlotta York RN - 01/02/2020 18:33 EDT documented in this encounter Plan of Treatment Not on file documented as of this encounter Visit Diagnoses Not on filedocumented in this encounter Care Teams Nightclub Manager Relationship Specialty Start Date End Date Genaro Avendano MD [address] [place] [facility] [address] [place] [address] PCP - General Adolescent Medicine 01/25/23 Christophe Vega MD Medical Oncologist Hematology and Oncology 07/27/22 Dennys Kent MD [address] [place] [address] Surgeon Otolaryngology 07/27/22 documented as of this encounter
--- OUTSIDE RECORDS SUMMARY | 2025-06-17 08:00 | XMS_ITS | Encounter Summary ---
Author Organization [employer] ([place], [place], [place], [place], [place]) Address [address] [place] [address] Care Team Providers Care Interline Clerk Name Role Phone Christophe Vega MD Unavailable Unavailable Dennys Kent MD Unavailable [phone] Genaro Avendano MD Primary Care Provider [phone] Encounter Details Date Type Department Care Team (Late st Contact Info) Description 01/02/2020 Transcribed Document [facility] [place] Family Medicine [address] [place] [address] ProviderRadha MD [address] [place] [address] Social History Tobacco Use Types Packs/Day Years Used Date Smoking Tobacco: Never Assessed Sex and Gender Information Value Date Recorded Sex Assigned at Not on file Legal Sex Male 4:20 PM CDT Gender Identity Not on file Sexual Orientation Not on file documented as of this encounter Miscellaneous Notes * Cerner Conversion Note - Radha ProviderMD - 01/02/2020 5:00 PM CDT Chart Check - Review Order Profile Entered On: 01/02/2020 18:56 EDT Performed On: 01/02/2020 17:00 EDT by Carlotta York RN Chart Check Powerplans Initiated/Discontinued as Appropriate : Yes All Active Orders Reviewed : Yes Carlotta York RN - 01/02/2020 18:56 EDT Electronically signed by Braeden [employer] Conversion Percussion Welding Machine Operator Cerner at 11/25/2022 12:15 AM CDT documented in this encounter Plan of Treatment Not on file documented as of this encounter Visit Diagnoses Not on filedocumented in this encounter Care Teams Interline Clerk Relationship Specialty Start Date End Date Genaro Avendano MD [address] [place] [address] PCP - General Adolescent Medicine 01/25/23 Christophe Vega MD Medical Oncologist Hematology and Oncology 07/27/22 Dennys Kent MD [address] [place] [address] Surgeon Otolaryngology 07/27/22 documented as of this encounter
--- OUTSIDE RECORDS SUMMARY | 2025-06-17 08:00 | XMS_ITS | Encounter Summary ---
Author Organization [employer] ([place], [place], [place], [place], [place]) Address [address] [place] [address] Care Team Providers Care Director Of Automation Name Role Phone Christophe Vega MD Unavailable Unavailable Dennys Kent MD Unavailable [phone] Genaro Avendano MD Primary Care Provider [phone] Encounter Details Date Type Department Care Team (Late st Contact Info) Description 01/02/2020 Transcribed Document [facility] [place] [address] [place] [address] ProviderRadha MD [address] [place] [address] Social History Tobacco Use Types Packs/Day Years Used Date Smoking Tobacco: Never Assessed Sex and Gender Information Value Date Recorded Sex Assigned at Not on file Legal Sex Male 4:20 PM CDT Gender Identity Not on file Sexual Orientation Not on file documented as of this encounter Miscellaneous Notes * Cerner Conversion Note - Radha ProviderMD - 01/02/2020 6:40 PM CDT Spiritual Care Assessment Entered On: 01/02/2020 20:54 EDT Performed On: 01/02/2020 18:40 EDT by GABRIELE ADAMS Chaplain General Information Referred by : Other: system Spiritism Preference : Druze, other GABRIELE ADAMS Chaplain - 01/02/2020 20:53 EDT Interventions Advance Directive Information Provided : Yes GABRIELE ADAMS Chaplain - 01/02/2020 20:53 EDT documented in this encounter Plan of Treatment Not on file documented as of this encounter Visit Diagnoses Not on filedocumented in this encounter Care Teams Director Of Automation Relationship Specialty Start Date End Date Genaro Avendano MD [address] [place] [address] PCP - General Adolescent Medicine 01/25/23 Christophe Vega MD Medical Oncologist Hematology and Oncology 07/27/22 Dennys Kent MD [address] [place] [address] Surgeon Otolaryngology 07/27/22 documented as of this encounter
--- OUTSIDE RECORDS SUMMARY | 2025-06-17 08:00 | XMS_ITS ---
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 Past Treatment and Therapy Plans [facility] Care Plan Name Start Date Discontinue Date Treatment Medications Discontinue Reason Plan Provider [facility] - USE FOR SCHEDULED MAINTENANCE 07/27/2022 08/17/2023 No medications scheduled. Therapy Complete Lamont Wells MD
--- OUTSIDE RECORDS SUMMARY | 2025-06-17 08:00 | XMS_ITS | Encounter Summary ---
Author Organization [employer] ([place], [place], [place], [place], [place]) Address [address] [place] [address] Care Team Providers Care Quantitative Analyst Marketing Name Role Phone Christophe Vega MD Unavailable Unavailable Dennys Kent MD Unavailable [phone] Genaro Avendano MD Primary Care Provider [phone] Encounter Details Date Type Department Care Team (Late st Contact Info) Description 01/02/2020 Transcribed Document [facility] [address] [place] [address] ProviderRadha MD [address] [place] [address] Social History Tobacco Use Types Packs/Day Years Used Date Smoking Tobacco: Never Assessed Sex and Gender Information Value Date Recorded Sex Assigned at Not on file Legal Sex Male 4:20 PM CDT Gender Identity Not on file Sexual Orientation Not on file documented as of this encounter Miscellaneous Notes * [employer]ner Conversion Note - Radha ProviderMD - 01/02/2020 6:40 PM CDT Height and Weight, Clinical Dosing Entered On: 01/02/2020 19:47 EDT Performed On: 01/02/2020 18:40 EDT by Don Hargrove RN Height and Weight, Clinical Dosing Height Source : Stated Height Entry Format : [place] Height, Feet : 5 ft(Converted to: 152 cm, 60 Inch) Height, Inches : 8 Inch(Converted to: 0 ft 8 Inch, 20.32 cm) Clinical Height : 172.72 cm Weight Source : Standing scale Weight Entry Format : [place] Clinical Dosing Weight : 67.39 kg Weight, Pounds : 148 lb Weight, Ounces : 4 oz Body Surface Area (BSA) : 1.8 m2 Body Mass Index : 22.6 kg/m2 [place] Body Weight : 67 kg Don Hargrove RN - 01/02/2020 19:47 EDT Electronically signed by [facility] Conversion Dental Internship Cerner at 11/25/2022 12:22 AM CDT documented in this encounter Plan of Treatment Not on file documented as of this encounter Visit Diagnoses Not on filedocumented in this encounter Care Teams Quantitative Analyst Marketing Relationship Specialty Start Date End Date Genaro Avendano MD [address] [place] [address] PCP - General Adolescent Medicine 01/25/23 Christophe Vega MD Medical Oncologist Hematology and Oncology 07/27/22 Dennys Kent MD [address] [place] [address] Surgeon Otolaryngology 07/27/22 documented as of this encounter
--- OUTSIDE RECORDS SUMMARY | 2025-06-17 08:01 | XMS_ITS | Encounter Summary ---
Author Organization [employer] ([place], [place], [place], [place], [place]) Address [address] [place] [address] Care Team Providers Care Sign Builder Supervisor Name Role Phone Christophe Vega MD Unavailable Unavailable Dennys Kent MD Unavailable [phone] Genaro Avendano MD Primary Care Provider [phone] Encounter Details Date Type Department Care Team (Late st Contact Info) Description 01/03/2020 Transcribed Document [facility] [place] [address] [place] [address] ProviderRadha MD [address] [place], [place] [id number] Social History Tobacco Use Types Packs/Day Years Used Date Smoking Tobacco: Never Assessed Sex and Gender Information Value Date Recorded Sex Assigned at Not on file Legal Sex Male 4:20 PM CDT Gender Identity Not on file Sexual Orientation Not on file documented as of this encounter Miscellaneous Notes * Cerner Conversion Note - Historical ProviderMD - 01/03/2020 3:53 PM CDT Patient: JONATHAN RIVAS Age: 64 years Sex: Male : 1955 Associated Diagnoses: None Author: BRAXTON PATTEN MD-INT Subjective 64 yo male with PMH of metastatic [...] pain. no recently travel. mild anxiety also saw him today in am and awake on ivf and na level better, still feel nausea and anxiety ROS: no fever, no chest pain or SOB, has nausea Health Status Allergies: Allergic Reactions (Selected) Moderate Codeine- No reactions were documented., Allergies (1) Active Reaction codeine None Documented Problem list: Medical At risk for sleep apnea / IMO [id number] / Confirmed, Active Problems (2) At risk for sleep apnea Severe protein-calorie malnutrition Objective VS/Measurements Vitals Signs (last 24 hrs) Last Charted Minimum Maximum Temp 97.6 (JANUARY 02 15:15) 97.6 (JANUARY 02 15:15) 97.6 (JANUARY 01 16:00) Mon HR 58 (JANUARY 02 15:15) 58 (JANUARY 02 15:15) 72 (JANUARY 01 18:55) Resp Rate 14 (JANUARY 02 06:00) 14 (JANUARY 02 06:00) 18 (JANUARY 01 16:00) SBP 110 (JANUARY 02 15:15) 110 (JANUARY 02 15:15) 138 (JANUARY 01 18:55) DBP 69 (JANUARY 02 15:15) 66 (JANUARY 01 23:05) 80 (JANUARY 02 02:43) MAP 81 (JANUARY 02 15:15) 81 (JANUARY 02 15:15) 109 (JANUARY 01 18:55) SpO2 99 (JANUARY 02 06:00) 98 (JANUARY 01 16:00) 99 (JANUARY 01 23:05) General: Alert and oriented, Mild distress. HENT: Normocephalic. Neck: Supple, Non-tender, No jugular venous distention. Respiratory: Respirations are non-labored, Breath sounds are equal, Symmetrical chest wall expansion, No chest wall tenderness. Cardiovascular: Normal rate, No murmur, No gallop. Gastrointestinal: Soft, Non-tender, Normal bowel sounds. Musculoskeletal: No tenderness, No deformity. Integumentary: Warm, Intact, No pallor. Neurologic: Alert, Oriented, No focal deficits. Psychiatric: Cooperative, anxiety, Not appropriate mood & affect. Results Review Lab and test: Labs (Last four charted values) WBC 7.7 (JANUARY 01) HB L 11.6 (JANUARY 01) HCT L 34.1 (JANUARY 01) Plt 261 (JANUARY 01) Na 146 (JANUARY 02) H 151 (JANUARY 01) K L 3.3 (JANUARY 02) 4.0 (JANUARY 01) Cl H 117 (JANUARY 02) H 123 (JANUARY 01) CO2 23 (JANUARY 02) L 18 (JANUARY 01) BUN 21 (JANUARY 02) H 26 (JANUARY 01) Cr 1.10 (JANUARY 02) 1.20 (JANUARY 01) Glu R H 138 (JANUARY 02) H 133 (JANUARY 01) Ca L 8.2 (JANUARY 02) 8.5 (JANUARY 01) Lactic 1.1 (JANUARY 01) PT H 13.2 (JANUARY 01) INR H 1.3 (JANUARY 01) AST 15 (JANUARY 01) ALT 31 (JANUARY 01) ALK P 84 (JANUARY 01) T Bili 0.5 (JANUARY 01) PTN L 6.0 (JANUARY 01) ALB L 2.8 (JANUARY 01) No Radiology Results Found Diagnosis / problem Adult failure to thrive severe dehydration metastatic squamous cell carcinoma HTN GERD Anxiety hypernatremia on admit- better h/o PAD with leg stent PLAN: cont ivf D5W with kcl consult dr. Wylie for feeding tube- PEG vs J tube ? close watch BMP check covid-19 i sneg ppi lovenox sq, hold in am d/w pat and surgery Electronically signed by [facility], [facility] Conversion Fiber Designer Cerner at 11/25/2022 12:04 AM CDT documented in this encounter Plan of Treatment Not on file documented as of this encounter Visit Diagnoses Not on filedocumented in this encounter Care Teams Sign Builder Supervisor Relationship Specialty Start Date End Date Genaro Avendano MD [address] [place] [id number] PCP - General Adolescent Medicine 01/25/23 Christophe Vega MD Medical Oncologist Hematology and Oncology 07/27/22 Dennys Kent MD [address] [place] [address] Surgeon Otolaryngology 07/27/22 documented as of this encounter
--- OUTSIDE RECORDS SUMMARY | 2025-06-17 08:01 | XMS_ITS | Encounter Summary ---
Author Organization [employer] ([place], [place], [place], [place], [place]) Address [address] [place] [address] Care Team Providers Care Catering And Events Manager Name Role Phone Christophe Vega MD Unavailable Unavailable Dennys Kent MD Unavailable [phone] Genaro Avendano MD Primary Care Provider [phone] Encounter Details Date Type Department Care Team (Late st Contact Info) Description 01/04/2020 Transcribed Document [facility] [place] [address] [place] [address] ProviderRadha MD [address] [place] [address] Social History Tobacco Use Types Packs/Day Years Used Date Smoking Tobacco: Never Assessed Sex and Gender Information Value Date Recorded Sex Assigned at Not on file Legal Sex Male 4:20 PM CDT Gender Identity Not on file Sexual Orientation Not on file documented as of this encounter Miscellaneous Notes * Cerner Conversion Note - Radha Garduno MD - 01/04/2020 11:30 AM CDT Peripheral Nerve Block Entered On: 01/04/2020 11:32 EDT Performed On: 01/04/2020 11:30 EDT by Jessica Grigsby, Nurse Motor Equipment Sergeant Peripheral Nerve Block Site Marked and Visible : Yes Peripheral Nerve Block Start Date/Time : 01/04/2020 11:25 EDT Verbally Confirm Pt, Site, and Procedure : Yes Site Preparation : Chlorhexidine (Hibiclens) Peripheral Nerve Block : Other: serina tap block Laterality : Bilateral Peripheral Nerve Block Performed by : ALFRED PISANO MD-ANS Medication Delivery Method : Single Shot Peripheral Nerve Block Assisted by 2 : Jessica Grigsby, Nurse Motor Equipment Sergeant Peripheral Nerve Block Assisted by : ENMA Abreu RN Ultra sound used during insertion : Yes Nerve Block Activity, Patient Tolerance : Good Peripheral Nerve Block End Date/Time : 01/04/2020 11:32 EDT Jessica Grigsby, Nurse Motor Equipment Sergeant - 01/04/2020 11:30 EDT Electronically signed by [facility], [facility] Conversion Cable Television Line Technician Cerner at 11/25/2022 12:28 AM CDT documented in this encounter Plan of Treatment Not on file documented as of this encounter Visit Diagnoses Not on filedocumented in this encounter Care Teams Catering And Events Manager Relationship Specialty Start Date End Date Genaro Avendano MD [address] [place] [address] PCP - General Adolescent Medicine 01/25/23 Christophe Vega MD Medical Oncologist Hematology and Oncology 07/27/22 Dennys Kent MD [address] [place] [address] Surgeon Otolaryngology 07/27/22 documented as of this encounter
--- OUTSIDE RECORDS SUMMARY | 2025-06-17 08:01 | XMS_ITS | Encounter Summary ---
Author Organization [employer] ([place], [place], [place], [place], [place]) Address [address] [place] [address] Care Team Providers Care Comfort Filler Name Role Phone Christophe Vega MD Unavailable Unavailable Dennys Kent MD Unavailable [phone] Genaro Avendano MD Primary Care Provider [phone] Encounter Details Date Type Department Care Team (Late st Contact Info) Description 01/04/2020 Transcribed Document [facility] [place] [address] [place] [address] ProviderRadha MD [address] [place], [place] [...] Cerner Conversion Note - Radha ProviderMD - 01/04/2020 8:00 PM CDT Pain Assessment Entered On: 01/04/2020 23:53 EDT Performed On: 01/04/2020 21:43 EDT by Don Hargrove RN Intervention Information: acetaminophen Performed by Don Hargrove RN on 01/04/2020 20:43:00 EDT acetaminophen,1000mg Oral Pain Assessment Pain Assessment : Follow-up assessment Pain Scale Goal : 3 Pain Scale Used : FACES Pain Improved by Intervention : Yes Don Hargrove RN - 01/04/2020 23:53 EDT Pain Scale Intensity : 3 Don Hargrove, RN - 01/04/2020 23:53 EDT Image 4 - Images currently included in the form version of this document have not been included in the text rendition version of the form. documented in this encounter Plan of Treatment Not on file documented as of this encounter Visit Diagnoses Not on filedocumented in this encounter Care Teams Comfort Filler Relationship Specialty Start Date End Date Genaro Avendano MD [address] [place] [address] PCP - General Adolescent Medicine 01/25/23 Christophe Vega MD Medical Oncologist Hematology and Oncology 07/27/22 Dennys Kent MD [address] [place] [address] Surgeon Otolaryngology 07/27/22 documented as of this encounter
--- OUTSIDE RECORDS SUMMARY | 2025-06-17 08:01 | XMS_ITS | Encounter Summary ---
Author Organization [employer] ([place], [place], [place], [place], [place]) Address [address] [place] [address] Care Team Providers Care Hearing Aid Dispenser Name Role Phone Christophe Vega MD Unavailable Unavailable Dennys Kent MD Unavailable [phone] Genaro Avendano MD Primary Care Provider [phone] Encounter Details Date Type Department Care Team (Late st Contact Info) Description 01/03/2020 Transcribed Document [facility] [place] [address] [place] [address] ProviderRadha MD [address] [place] [address] Social History Tobacco Use Types Packs/Day Years Used Date Smoking Tobacco: Never Assessed Sex and Gender Information Value Date Recorded Sex Assigned at Not on file Legal Sex Male 4:20 PM CDT Gender Identity Not on file Sexual Orientation Not on file documented as of this encounter Miscellaneous Notes * Cerner Conversion Note - Radha Garduno MD - 01/03/2020 1:59 PM CDT Initial Discharge Planning Entered On: 01/03/2020 14:17 EDT Performed On: 01/03/2020 13:59 EDT by CAMILA GATES, OTTO-Director Corporate Initial Assessment I Previously Documented Living Environment : No qualifying data available. Living Situation : Home Patient Lives With : Family member(s), Spouse Is the Patient a Caregiver at Home? : No Emergency Contact #1 : Akilah Jiménez Emergency Contact #1 Emergency Contact #1 Relationship : Emergency Contact #2 : . Emergency Contact #2 Phone Number : . Emergency Contact #2 Relationship : . Enter Doctors Name : Genaro Avendano Does Patient have PCP Listed? : Yes Legal Guardian : No Is Guardianship Needed : No CAMILA GATES RN-Director Corporate - 01/03/2020 13:59 EDT Initial Assessment II Sensory and Motor Deficits : Weakness Current Home Treatments and Equipment : None CAMILA GATES RN-Director Corporate - 01/03/2020 13:59 EDT Discharge Needs I Anticipated Discharge Date : 01/06/2020 EDT Anticipated Discharge To, CM : Home with family care Current Home Treatment/Equipment : Current Home Treatment/Equipment No qualifying data available. Post Acute/Home Treatments : None Documentation Status Complete : Yes CAMILA GATES RN-Director Corporate - 01/03/2020 13:59 EDT Discharge Needs II Professional Skilled Services : Professional Skilled Services No qualifying data available. Needs Assistance with Transportation : No Discharge Options Discussed with Patient : Home Health CAMILA GATES RN-Director Corporate - 01/03/2020 13:59 EDT Narrative Note Narrative Note : Received from Radiation Oncology to here as a direct admit due to nausea/vomiting and weight loss, being admitted with failure to thrive. Pt with CA mets, has been receiving chemo and radiation. Met with Pt during IDT rounds. Role of CM explained. Pt states that he is ADL independent. Plans are to return home with when discharged. Per OTTO Laguerre, Pt is scheduled to have a PEG tube placed tomorrow. RRS is low @ 38. CM will follow for discharge needs once determined. CAMILA GATES RN-Director Corporate - 01/03/2020 13:59 EDT Electronically signed by [facility] Conversion Driver'S Education Instructor Cerner at 11/25/2022 12:04 AM CDT documented in this encounter Plan of Treatment Not on file documented as of this encounter Visit Diagnoses Not on filedocumented in this encounter Care Teams Hearing Aid Dispenser Relationship Specialty Start Date End Date Genaro Avendano MD [address] [place] [address] PCP - General Adolescent Medicine 01/25/23 Christophe Vega MD Medical Oncologist Hematology and Oncology 07/27/22 Dennys Kent MD [address] [place] [address] Surgeon Otolaryngology 07/27/22 documented as of this encounter
--- OUTSIDE RECORDS SUMMARY | 2025-06-17 08:01 | XMS_ITS | Encounter Summary ---
Author Organization [employer] ([place], [place], [place], [place], [place]) Address [address] [place] [address] Care Team Providers Care Security Flex Utility Officer Name Role Phone Christophe Vega MD Unavailable Unavailable Dennys Kent MD Unavailable [phone] Genaro Avendano MD Primary Care Provider [phone] Encounter Details Date Type Department Care Team (Late st Contact Info) Description 01/03/2020 Transcribed Document [facility] [place] [address] [place] [address] ProviderRadha MD [address] [place] [address] Social History Tobacco Use Types Packs/Day Years Used Date Smoking Tobacco: Never Assessed Sex and Gender Information Value Date Recorded Sex Assigned at Not on file Legal Sex Male 4:20 PM CDT Gender Identity Not on file Sexual Orientation Not on file documented as of this encounter Miscellaneous Notes * Cerner Conversion Note - Radha ProviderMD - 01/03/2020 5:00 PM CDT Chart Check - Review Order Profile Entered On: 01/03/2020 15:31 EDT Performed On: 01/03/2020 17:00 EDT by Carlotta York RN Chart Check Powerplans Initiated/Discontinued as Appropriate : Yes All Active Orders Reviewed : Yes Carlotta York RN - 01/03/2020 15:31 EDT documented in this encounter Plan of Treatment Not on file documented as of this encounter Visit Diagnoses Not on filedocumented in this encounter Care Teams Security Flex Utility Officer Relationship Specialty Start Date End Date Genaro Avendano MD [address] [place] [address] PCP - General Adolescent Medicine 01/25/23 Christophe Vega MD Medical Oncologist Hematology and Oncology 07/27/22 Dennys Kent MD [address] [place] [address] Surgeon Otolaryngology 07/27/22 documented as of this encounter
--- OUTSIDE RECORDS SUMMARY | 2025-06-17 08:01 | XMS_ITS | Encounter Summary ---
Author Organization [employer] ([place], [place], [place], [place], [place]) Address [address] [place] [address] Care Team Providers Care Hospice Entrance Attendant Name Role Phone Christophe Vega MD Unavailable Unavailable Dennys Kent MD Unavailable [phone] Genaro Avendano MD Primary Care Provider [phone] Encounter Details Date Type Department Care Team (Late st Contact Info) Description 01/05/2020 Transcribed Document [facility] [place] [address] [place] [address] ProviderRadha MD [address] [place] [address] Social History Tobacco Use Types Packs/Day Years Used Date Smoking Tobacco: Never Assessed Sex and Gender Information Value Date Recorded Sex Assigned at Not on file Legal Sex Male 4:20 PM CDT Gender Identity Not on file Sexual Orientation Not on file documented as of this encounter Miscellaneous Notes * Cerner Conversion Note - Radha ProviderMD - 01/05/2020 2:00 AM CDT Precision Grinder Details Entered On: 01/05/2020 2:33 EDT Performed On: 01/05/2020 2:00 EDT by Don Hargrove RN Order Details Transport Mode Order Detail : Wheelchair Isolation Precautions Order Detail : Standard Precautions Order Detail : N/A IV Order Detail : 1 Oxygen Order Detail : 0 Nurse Collect Order Detail : 1 Lift/Transfer : Independent Central Line Order Detail : Yes Room Service : Not Appropriate Arterial Line : No Don Hargrove RN - 01/05/2020 2:33 EDT documented in this encounter Plan of Treatment Not on file documented as of this encounter Visit Diagnoses Not on filedocumented in this encounter Care Teams Hospice Entrance Attendant Relationship Specialty Start Date End Date Genaro Avendano MD [address] [place] [address] PCP - General Adolescent Medicine 01/25/23 Christophe Vega MD Medical Oncologist Hematology and Oncology 07/27/22 Dennys Kent MD [address] [place] [address] Surgeon Otolaryngology 07/27/22 documented as of this encounter
--- OUTSIDE RECORDS SUMMARY | 2025-06-17 08:01 | XMS_ITS | Encounter Summary ---
Author Organization [employer] ([place], [place], [place], [place], [place]) Address [address] [place] [address] Care Team Providers Care Life Skills Specialist Name Role Phone Christophe Vega MD Unavailable Unavailable Dennys eKnt MD Unavailable [phone] Genaro Avendano MD Primary Care Provider [phone] Encounter Details Date Type Department Care Team (Late st Contact Info) Description 01/02/2020 Transcribed Document [facility] [place] [address] [place] [address] ProviderRadha MD [address] [place] [address] Social History Tobacco Use Types Packs/Day Years Used Date Smoking Tobacco: Never Assessed Sex and Gender Information Value Date Recorded Sex Assigned at Not on file Legal Sex Male 4:20 PM CDT Gender Identity Not on file Sexual Orientation Not on file documented as of this encounter Miscellaneous Notes * Cerner Conversion Note - Radha ProviderMD - 01/02/2020 8:54 PM CDT Advance Directive Entered On: 01/02/2020 20:54 EDT Performed On: 01/02/2020 20:54 EDT by GABRIELE ADAMS Chaplain Advance Directive Patient has Advance Directive *Q : No, patient requests information about Advance Directive Patient Given Information about AD : Yes GABRIELE ADAMS Chaplain - 01/02/2020 20:54 EDT documented in this encounter Plan of Treatment Not on file documented as of this encounter Visit Diagnoses Not on filedocumented in this encounter Care Teams Life Skills Specialist Relationship Specialty Start Date End Date Genaro Avendano MD [address] [facility] [address] [place] [address] PCP - General Adolescent Medicine 01/25/23 Christophe Vega MD Medical Oncologist Hematology and Oncology 07/27/22 Dennys Kent MD [address] [place] [address] Surgeon Otolaryngology 07/27/22 documented as of this encounter
--- OUTSIDE RECORDS SUMMARY | 2025-06-17 08:01 | XMS_ITS | Encounter Summary ---
Author Organization [employer] ([place], [place], [place], [place], [place]) Address [address] [place] [address] Care Team Providers Care Sole Inker Name Role Phone Christophe Vega MD Unavailable Unavailable Dennys Kent MD Unavailable [phone] Genaro Avendano MD Primary Care Provider [phone] Encounter Details Date Type Department Care Team (Late st Contact Info) Description 01/02/2020 Transcribed Document [facility] [place] Family Medicine [address] [place] [address] ProviderRadha MD [address] [place] [address] Social History Tobacco Use Types [...] ProviderMD - 01/02/2020 4:04 PM CDT Evaluation, Occupational Therapy Entered On: 01/03/2020 14:56 EDT Performed On: 01/03/2020 14:50 EDT by CLARA TAYLOR OTR/Mere General Information, OT Visit Type, OT : Initial evaluation Patient Orders : Order Date Order Ordering 01/02/2020 16:04 OT Evaluation and Treatment Ordered By: BRAXTON PATTEN MD-INT Active Diagnoses : No Qualifying Diagnoses Admission Date : 01/02/2020 14:42 Co-treated by, OT : Physical Therapist Personal Devices : Personal Devices No Devices Recorded Assistive Devices : Assistive Devices No Devices Recorded General Information Comment, OT : Dx: Failure to Thrive Hx: metastatic squamous celll carcinoma, last 2 weeks pt with decreased eating and N/V. lost 15 LB over last week. CLARA TAYLOR OTR/Mere 01/03/2020 14:50 EDT General Status Patient Received Status : Supine in bed Patient Left Status : Up in chair, All needs met and within reach RN/PCT Informed Comment : RN ok/d CLARA TAYLOR OTR/Mere 01/03/2020 14:50 EDT History and Environment, OT Living Situation, Therapy : Home Patient Lives With : Family member(s), Spouse Persons Assisting Patient at Home : Spouse Home Equipment, Therapy : None Home Setup : One story CLARA TAYLOR OTR/Mere 01/03/2020 14:50 EDT Prior LOF Bathing, OT : Independent Prior LOF Bed Mobility : Independent Prior LOF Upper Body Dressing, OT : Independent Prior LOF Lower Body Dressing, OT : Independent Prior LOF Toileting : Independent Prior LOF Transfer : Independent Prior LOF Grooming, OT : Independent Prior LOF for IADLs, OT : Independent CLARA TAYLOR OTR/Mere 01/03/2020 14:50 EDT Upper Extremity Right UE Active ROM : WFL Left UE Active ROM : WFL CLARA TAYLOR OTR/Mere 01/03/2020 14:50 EDT Right Upper Extremity MMT Shoulder Flexion 0-180 : 4/good Shoulder Extension 0-60 : 4/good Shoulder Abduction 0-180 : 4/good Shoulder Adduction 0-180 : 4/good Shoulder Internal Rotation 0-90 : 4/good Shoulder External Rotation 0-90 : 4/good Elbow Flexion 0-150 : 4/good Elbow Extension 0-0 : 4/good Wrist Flexion 0-80 : 4/good Wrist Extension 0-70 : 4/good Forearm Pronation 0-70 : 4/good Forearm Supination 0-85 : 4/good Ulnar Deviation 0-45 : 4/good RadialDeviation 0-20 : 4/good CLARA TAYLOR OTR/Mere - 01/03/2020 14:50 EDT Left Upper Extremity MMT Shoulder Flexion 0-180 : 4/good Shoulder Extension 0-60 : 4/good Shoulder Abduction 0-180 : 4/good Shoulder Adduction 0-180 : 4/good Shoulder Internal Rotation 0-90 : 4/good Shoulder External Rotation 0-90 : 4/good Elbow Flexion 0-150 : 4/good Elbow Extension 0-0 : 4/good Wrist Flexion 0-80 : 4/good Wrist Extension 0-70 : 4/good Forearm Pronation 0-70 : 4/good Forearm Supination 0-85 : 4/good Ulnar Deviation 0-45 : 4/good RadialDeviation 0-20 : 4/good CLARA TAYLOR OTR/Mere - 01/03/2020 14:50 EDT Self Care/Home Management, OT Self Feeding Assist Level, OT : Independent, modified CLARA TAYLOR OTR/Mere 01/03/2020 14:50 EDT Functional Mobility Mobility Grid Supine to Sit : Rehab Moderate assistance Sit to Stand : Rehab Moderate assistance Bed to Chair : Rehab Moderate assistance Stand to Sit : Rehab Moderate assistance CLARA TAYLOR OTR/Mere 01/03/2020 14:50 EDT Cognition Assessment, OT Orientation : Oriented x 4 CLARA TAYLOR OTR/Mere 01/03/2020 14:50 EDT Indication Assessment, OT Occupational Therapy Indicated : No Occupational Therapy Not Indicated : At prior level of function, Independent CLARA TAYLOR OTR/Mere 01/03/2020 14:50 EDT Plan of Care, OT OT Tx Plan/Goals Established w Patient : No Reason OT Treatment/Plan Not Established : Pt is at prior level of function and is independent with ADls. OT will sign off at this time CLARA TAYLOR OTR/L - 01/03/2020 14:50 EDT Treatment Note Subjective Comment : Pt agreeable Patient's Response to Treatment : Pt tolereated eval Additional Objective Information : Pty was found lying supine in bed fully dressed. Pt was mod I for supine to sit, sit to stand, ambulation in hallway with no AD, and stand to sit. Pt was left up in chair with all needs met an call light within reach. Assessment : Pt is at prior level of function and is independent with ADls. OT will sign off at this time Plan for Treatment : eval only CLARA TAYLOR OTR/L - 01/03/2020 14:50 EDT Pain Assessment Pain Scaled Used : 0-10 Pain scale Pain Score Pre-Intervention : 0 CLARA TAYLOR OTR/L - 01/03/2020 14:50 EDT Image 1 - Images currently included in the form version of this document have not been included in the text rendition version of the form. Anticipated Discharge Needs, OT/PT Anticipated Discharge to : Home, with family care CLARA TAYLOR OTR/L - 01/03/2020 14:50 EDT Spearman OT Charges OT Eval Moderate Complexity : 1 CLARA TAYLOR OTR/L - 01/03/2020 14:50 EDT Electronically signed by [employer], [facility] Conversion Signal Fitter Cerner at 11/25/2022 12:29 AM CDT documented in this encounter Plan of Treatment Not on file documented as of this encounter Visit Diagnoses Not on filedocumented in this encounter Care Teams Sole Inker Relationship Specialty Start Date End Date Genaro Avendano MD [address] [place] [address] PCP - General Adolescent Medicine 01/25/23 Christophe Vega MD Medical Oncologist Hematology and Oncology 07/27/22 Dennys Kent MD [address] [place] [address] Surgeon Otolaryngology 07/27/22 documented as of this encounter
--- OUTSIDE RECORDS SUMMARY | 2025-06-17 08:01 | XMS_ITS | Encounter Summary ---
Author Organization [employer] ([place], [place], [place], [place], [place]) Address [address] [place] [address] Care Team Providers Care First Aid Nurse Name Role Phone Christophe Vega MD Unavailable Unavailable Dennys Kent MD Unavailable [phone] Genaro Avendano MD Primary Care Provider [phone] Encounter Details Date Type Department Care Team (Late st Contact Info) Description 01/04/2020 Transcribed Document [facility] [place] Family Medicine [facility] [place] [address] ProviderRadha MD [address] [place], [place] [id number] Social History Tobacco Use Types Packs/Day Years Used Date Smoking Tobacco: Never Assessed Sex and Gender Information Value Date Recorded Sex Assigned at Not on file Legal Sex Male 4:20 PM CDT Gender Identity Not on file Sexual Orientation Not on file documented as of this encounter Miscellaneous Notes * [employer]ner Conversion Note - Radha ProviderMD - 01/04/2020 3:39 PM CDT Patient: JONATHAN RIVAS Age: 64 Years Sex: Male : 1955 *Operation Laparoscopic jejunostomy Indication for Surgery 64 year old male with 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 Currently undergoing chemo and radiation. He presents with complaints of nausea and vomiting with eating over the past 2 weeks and a 15 lb weight loss over the last week. He was admitted for failure to thrive. *Preoperative Diagnosis FAILURE TO THRIVE *Postoperative Diagnosis FAILURE TO THRIVE *Surgeon(s) Primary Surgeon CRISTEL GUO MD-KEVYN (Surgeon/Proceduralist, First) operator assistant i cementing Lisa Villalobos *Procedure Narrative The patient was brought to operative suite and placed in supine position after receiving a tap block in the preoperative area. After induction of general anesthesia the patient was prepped and draped in sterile fashion . A timeout out was performed to verify patient, procedures and bola-operative antibiotics. A curvilinear incision was made at the umbilicus. Next I dissected down to the umbilical stalk. An incision was made at the base of the umbilical stalk and an empty 5 mm trocar was placed in the abdomen to establish insufflation. 2, 5 mm ports were placed under direct supervision long the right lateral abdominal wall. The 5 mm port at the umbilicus was exchanged for a 10 mm port. The transverse colon was grabbed with a bowel grasper and elevated and the ligament of Treitz was identified. The proximal small bowel was then placed in a reverse C configuration. I measured approximately 40 cm from the ligament of Treitz and placed a stay suture using 2-0 silk suture. I then identified an area of small bowel that easily came up to the abdominal wall. Using 2-0 silk I placed a pursestring suture around the site. I then used a Harmonic scalpel to open the small bowel and carefully dissected to ensure I was in the lumen. A 5 mm port was then placed in the left lateral abdominal wall at the site of the intended feeding tube. A [place] grasper was then inserted intra-abdominally and out the left lateral port to grab a 14 Tuvaluan Alvarez catheter. The port was removed and the catheter was pulled into the abdominal cavity and inserted into the enterotomy. The balloon was then inflated multiple times to ensure intraluminal position and the pursestring suture was tied. Next I placed 4 individual 2-0 silk sutures in a orquidea configuration around the enterotomy. These were tied and clipped with 5 mm clip appliers. Once all sutures secured the catheter was no longer visible and additional stay suture was placed distally to prevent bowel kinking. The balloon was inflated and the catheter was pulled until taut. Umbilical port was closed under direct supervision with a suture passer using 0 Vicryl and the abdomen was desufflated via the 5 mm ports. They were subsequently removed and all port sites were closed using 4-0 Monocryl at the skin and then Dermabond. A stat lock was placed on the Alvarez catheter which was then placed to a drainage bag. The patient tolerated the procedure well. All sponge and instrument counts were correct. Drains/Packs Used 14???Tuvaluan Alvarez catheter Anesthesia General MELISSA PARIKH MD-ANS (Anesthesiologist of Record) Urine Output Urine Voided (Volume): 275 mL *Findings See operative report *Specimen(s) n/a Date of Service Date/Time of Service SN - Proc - Start Time: 01/04/20 13:25:00 (01/04/20 14:33:15) Electronically signed by [facility] Conversion Logistical Engineer Cerner at 11/25/2022 12:29 AM CDT documented in this encounter Plan of Treatment Not on file documented as of this encounter Visit Diagnoses Not on filedocumented in this encounter Care Teams First Aid Nurse Relationship Specialty Start Date End Date Genaro Avendano MD [address] [place] [address] PCP - General Adolescent Medicine 01/25/23 Christophe Vega MD Medical Oncologist Hematology and Oncology 07/27/22 Dennys Kent MD [address] [place] [address] Surgeon Otolaryngology 07/27/22 documented as of this encounter
--- OUTSIDE RECORDS SUMMARY | 2025-06-17 08:01 | XMS_ITS | Encounter Summary ---
Author Organization [employer] ([place], [place], [place], [place], [place]) Address [address] [place] [address] Care Team Providers Care Gas Plant Repairer Name Role Phone Christophe Vega MD Unavailable Unavailable Dennys Kent MD Unavailable [phone] Genaro Avendano MD Primary Care Provider [phone] Encounter Details Date Type Department Care Team (Late st Contact Info) Description 01/05/2020 Transcribed Document [facility] [place] [address] [place] [address] ProviderRadha MD [address] [place] [address] Social History Tobacco Use Types Packs/Day Years Used Date Smoking Tobacco: Never Assessed Sex and Gender Information Value Date Recorded Sex Assigned at Not on file Legal Sex Male 4:20 PM CDT Gender Identity Not on file Sexual Orientation Not on file documented as of this encounter Miscellaneous Notes * [employer]ner Conversion Note - Radha ProviderMD - 01/05/2020 5:00 AM CDT Chart Check - Review Order Profile Entered On: 01/05/2020 4:24 EDT Performed On: 01/05/2020 5:00 EDT by Don Hargrove, RN Chart Check Powerplans Initiated/Discontinued as Appropriate : Yes All Active Orders Reviewed : Yes Don Hargrove RN - 01/05/2020 4:24 EDT documented in this encounter Plan of Treatment Not on file documented as of this encounter Visit Diagnoses Not on filedocumented in this encounter Care Teams Gas Plant Repairer Relationship Specialty Start Date End Date Genaro Avendano MD [address] [place] [address] PCP - General Adolescent Medicine 01/25/23 Christophe Vega MD Medical Oncologist Hematology and Oncology 07/27/22 Dennys Kent MD [address] [place] [address] Surgeon Otolaryngology 07/27/22 documented as of this encounter
--- OUTSIDE RECORDS SUMMARY | 2025-06-17 08:01 | XMS_ITS | Encounter Summary ---
Author Organization [employer] ([place], [place], [place], [place], [place]) Address [address] [place] [address] Care Team Providers Care Sewing Machine Operator Plastic Zipper Name Role Phone Christophe Vega MD Unavailable Unavailable Dennys Kent MD Unavailable [phone] Genaro Avendano MD Primary Care Provider [phone] Encounter Details Date Type Department Care Team (Late st Contact Info) Description 01/05/2020 Transcribed Document [facility] [place] [address] [place] [address] ProviderRadha MD [address] [place] [address] Social History Tobacco Use Types Packs/Day Years Used Date Smoking Tobacco: Never Assessed Sex and Gender Information Value Date Recorded Sex Assigned at Not on file Legal Sex Male 4:20 PM CDT Gender Identity Not on file Sexual Orientation Not on file documented as of this encounter Miscellaneous Notes * [employer]ner Conversion Note - Radha ProviderMD - 01/05/2020 9:35 AM CDT Clinical Dietitian Note Entered On: 01/05/2020 9:37 EDT Performed On: 01/05/2020 9:35 EDT by Rupal Vasquez Dietitidonnell Clinical Dietitian Note Clinical Dietitian Note : 01/04: Check on, c/s for home EN recs. Pt had a J-tube placed yesterday with plans to start EN today. Please see recs below. Recommendations: 1. Initiate EN of Osmolite 1.5 @ 65 ml/hr (provides 2145 kcals, 90 grams protein and 1090 ml water). Flush with 260 ml FW 4x daily. Advance TF by 10 ml q 10-12 hours, monitoring elytes closely. Goal: meet est needs 2. Once d/c'd home, recommend using either gravity bags or pump for EN. Do not bolus EN via J-tube. For gravity bag, give 6 cans Osmolite 1.5 daily (2 @ breakfast, 2 @ lunch, 1 @ dinner, 1 @ HS) and flush with 130ml FW before and after gravity feed. If pt has a pump, continue Osmolite 1.5 @ goal rate of 65ml/hr x 22 hrs and Flush with 260 ml FW 4x daily. 3. PO intake as tolerated. RD to send Ensure clear BID. Goal: no N/V 4. Monitor wt 1-2x per week Goal: avoid significant unintended wt loss 5. Monitor eltyes and replace prn (pt at refeeding risk) Goal: wnls Nutrition risk: high Severe PCM identified Rupal Vasquez, Dietitian - 01/05/2020 10:23 EDT Electronically signed by [facility] Conversion Outdoor Education Teacher Cerner at 11/25/2022 12:02 AM CDT documented in this encounter Plan of Treatment Not on file documented as of this encounter Visit Diagnoses Not on filedocumented in this encounter Care Teams Sewing Machine Operator Plastic Zipper Relationship Specialty Start Date End Date Genaro Avendano MD [address] [place] [address] PCP - General Adolescent Medicine 01/25/23 Christophe Vega MD Medical Oncologist Hematology and Oncology 07/27/22 Dennys Kent MD [address] [place] [address] Surgeon Otolaryngology 07/27/22 documented as of this encounter
--- OUTSIDE RECORDS SUMMARY | 2025-06-17 08:01 | XMS_ITS | Clinical Summary ---
Author Organization [employer] ([place], [place], [place], [place], [place]) Address [address] [place] [address] Care Team Providers Care Pecan Picker Name Role Phone Christophe Vega MD Unavailable Unavailable Dennys Kent MD Unavailable [phone] Genaro Avendano MD Primary Care Provider [phone] Allergies Active Allergy Reactions Criticality Noted Date Comments Codeine Phosphate Hives,Anxiety High 07/26/2022 Medications aspirin 81 MG EC tablet 1 tab(s) Active esomeprazole (NexIUM) 20 MG capsule esomeprazole magnesium 20 mg capsule,delayed release Active losartan (COZAAR) 50 MG tablet Take 1 tablet (50 mg total) by mouth daily. 3 Active levothyroxine (SYNTHROID, LEVOTHROID) 75 MCG tablet Take 1 tablet (75 mcg total) by mouth daily. 3 Active varenicline (CHANTIX) 1 mg tablet Take 1 tablet (1 mg total) by mouth 2 (two) times daily Give with meals and with a full glass of water.. Active fluticasone propionate (FLONASE) 50 mcg/actuation nasal spray fluticasone propionate 50 mcg/actuation nasal spray,suspension Active cyclobenzaprine (FLEXERIL) 10 MG tablet Take by mouth. 4 Active levocetirizine (XYZAL) 5 MG tablet Take by mouth. 4 Active PARoxetine (PAXIL) 20 MG tablet Take by mouth. 4 Active rosuvastatin (CRESTOR) 10 MG tablet Take by mouth. 4 Active tamsulosin (FLOMAX) 0.4 mg Cap 24 hr capsule 1 cap(s) orally once a day for 90 days 4 Active magnesium oxide (MAG-OX) 400 mg (241.3 mg magnesium) tablet Take 1 tablet (400 mg total) by mouth daily. 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 07/26/2022 Cancer Staging:Clinical stage from 09/20/2019:Stage BLAINE(cT0, cN2b, cM0) - Signed by Naldo Collins MD on 07/27/2022 Hypothyroidism 04/08/2021 History of gastroesophageal reflux (GERD) 2019 Personal history of other di seases of the circulatory system 03/17/2020 Encounters Date Type Department Care Team Description 03/26/2025 12:54 PM EDT - 03/26/2025 11:59 PM EDT Hospital Encounter [facility] [address] [place] [address] Naldo Collins MD Secondary squamous cell carcinoma of head and neck (HCC) (Primary Dx) Discharge Disposition: Home or Self Care 03/26/2025 9:28 AM EDT - 03/26/2025 12:53 PM EDT Hospital Encounter [facility] [address] [place] [address] Dale Oliveira MD Secondary squamous cell carcinoma of head and neck (HCC) Discharge Disposition: Home or Self Care 03/26/2025 Travel 03/20/2025 Telephone [facility] [address] [place] [address] Juju Dhaliwal RN 03/18/2025 Telephone [facility] [address] [place] [address] Juju Dhaliwal RN from Last 3 Months Family History Medical History Relation Name Comments Heart attack Brother 1 No Known Problem Brother 2 Obesity Brother 3 Blindness Brother 4 Obesity Brother 5 Stroke Father Stroke Mother Other Sister 1 Eye disease Other Sister 2 eye disease Relation Name Status Comments Brother 1 Brother 2 Alive Brother 3 Alive Brother 4 Alive Brother 5 Alive Father Mother Sister 1 Sister 2 Social History Tobacco Use Types Packs/Day Years Used Date Smoking Tobacco: Every Day Cigarettes 0.5 50 Passive Smoke Exposure: Past Smokeless Tobacco: Never Tobacco Cessation:Ready to Q uit: Not Asked; Counseling Given: Not Answered Alcohol Use Standard Drinks/Week Comments Never 0 (1 standard drink = 0.6 oz pur e alcohol) Family and Community Support Answer Gordo e Recorded Help with Day to Day Activities Not on file 08/17/2023 Feeling Lonely or Isolated Not on file 08/17 Educational Attainment Answer Date Nadeem rded Speak language other than Thai at home Not on file 08/17/2023 Want [...] Job Start Date Job End Date 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 on file Not on file Not on file Last Filed Vital Signs Vital Sign Reading Time Taken Comments Blood Pressure 104/58 03/26/2025 1:00 PM EDT Pulse 88 03/26/2025 1:00 PM EDT Temperature 36.3 C (97.3 F) 03/26/2025 1:00 PM EDT Respiratory Rate 18 03/26/2025 1:00 PM EDT Oxygen Saturation 98% 03/26/2025 1:00 PM EDT Inhaled Oxygen Concentration - - Weight 72.8 kg (160 lb 9.6 oz) 03/26/2025 1:00 P M EDT Height 172.7 cm (5' 8 ) 03/20/2024 3:25 PM EDT Body Mass Index 24.42 03/20/2024 3:25 PM EDT Plan of Treatment Health Maintenance Due Date Last Done Comments CT Colonography 1955 Colonoscopy 1955 Colorectal Cancer Screening 1955 FOBT/FIT 1957 Fit-DNA (Cologuard) 1955 Sigmoidoscopy 1955 Hepatitis C Screening 1975 DTAP/TDAP/TD VACCINES (1 - Tdap) 1976 Pneumococcal 50+ years (1 of 2 - PCV) 1976 Lung Cancer Screening 2007 Abdominal Aortic Aneurysm (A AA) Screen 2022 Medicare Initial AWV [id number] 07/11/2023 Tobacco Cessation Counseling and Screening (12+) 01/26/2024 01/25/2023 Falls Risk Screening 08/08/2024 COVID-19 VACCINE ( - season) 2025 03/15/2022, 12/03/2020, 11/05/2020 Influenza Vaccine (#1) 2025 07/19/2022 Depression Screening (12+) 03/26/2026 03/26/2025 Respiratory Syncytial Virus (RSV) Adult or (1 - 1-dose 75+ series) 2032 Shingles Vaccine (Zoster) Completed 05/06/2021, Procedures Procedure Name Priority Date/Time Associated Diagnosis Comments CT NECK SOFT TISSUE WITH IV CONTRAST Routine 03/26/2025 9:47 AM EDT Secondary squamous cell carcinoma of head and neck (HCC) from Last 3 Months Results * CT neck soft tissue with IV contrast (03/26/2025 9:47 AM EDT) Anatomical Region Laterality Modality Neck, C-spine Computed Tomogra phy (CT) 03/27/2025 10:3 0 AM EDT Impressions 03/27/2025 10:34 AM EDT No acute process. Images reviewed, interpreted, and dictated by Cristian Lucas MD Narrative 03/27/2025 10:[address] SCAN OF THE NECK WITH CONTRAST 03/26/2025 9:47 AM HISTORY: Squamous cell carcinoma of the neck, restaging COMPARISON: March 2024 PROCEDURE: The patient was injected with IV contrast. Axial images were obtained through the neck by computed tomography. This study was performed with techniques to keep radiation doses as low as reasonably achievable, (ALARA). Individualized dose reduction techniques using automated exposure control or adjustment of mA and/or kV according to the patient size were employed. FINDINGS: NECK: There is no mass. There is no adenopathy. The thyroid is unremarkable. The prevertebral soft tissues are unremarkable. The epiglottis is unremarkable. There is bilateral ethmoid disease. There is marked degenerative disc disease in the mid and lower cervical spine. Procedure Note Nicole Lucas MD - 03/27/2025 CT SCAN OF THE NECK WITH CONTRAST 03/26/2025 9:47 AM HISTORY: Squamous cell carcinoma of the neck, restaging COMPARISON: March 2024 PROCEDURE: The patient was injected with IV contrast. Axial images were obtained through the neck by computed tomography. This study was performed with techniques to keep radiation doses as low as reasonably achievable, (ALARA). Individualized dose reduction techniques using automated exposure control or adjustment of mA and/or kV according to the patient size were employed. FINDINGS: NECK: There is no mass. There is no adenopathy. The thyroid is unremarkable. The prevertebral soft tissues are unremarkable. The epiglottis is unremarkable. There is bilateral ethmoid disease. There is marked degenerative disc disease in the mid and lower cervical spine. IMPRESSION: No acute process. Images reviewed, interpreted, and dictated by Cristian Lucas MD Dale Oliveira MD IMG CT ORDERABLES Final Resu lt from Last 3 Months Insurance [employer] MEDICARE HMO Care Teams Pecan Picker Relationship Specialty Start Date End Date Genaro Avendano MD [address] [place] [address] PCP - General Adolescent Medicine 01/25/23 Christophe Vega MD Medical Oncologist Hematology and Oncology 07/27/22 Dennys Kent MD [address] [place] [address] Surgeon Otolaryngology 07/27/22
--- OUTSIDE RECORDS SUMMARY | 2025-06-17 08:01 | XMS_ITS | Encounter Summary ---
Author Organization [employer] ([place], [place], [place], [place], [place]) Address [address] [place] [address] Care Team Providers Care Syrup Filterer Name Role Phone Christophe Vega MD Unavailable Unavailable Dennys Kent MD Unavailable [phone] Genaro Avendano MD Primary Care Provider [phone] Encounter Details Date Type Department Care Team (Late st Contact Info) Description 01/05/[address] [facility] [place] Medicine Formerly [facility] [place] [address] ProviderRadha MD [address] [place] [address] Social History Tobacco Use Types Packs/Day Years Used Date Smoking Tobacco: Never Assessed Sex and Gender Information Value Date Recorded Sex Assigned at Not on file Legal Sex Male 4:20 PM CDT Gender Identity Not on file Sexual Orientation Not on file documented as of this encounter Miscellaneous Notes * Cerner Conversion Note - Radha Garduno MD - 01/05/2020 10:48 AM CDT Patient Education Materials Follows: Percutaneous Endoscopic Jejunostomy, Care After This sheet gives you information about how to care for yourself after your procedure. Your health care provider may also give you more specific instructions. If you have problems or questions, contact your health care provider. What can I expect after the procedure? After the procedure, it is common to have: ??? Pain and tenderness around your feeding tube. ??? A sore throat. ??? Slight drainage around your feeding tube. Follow these instructions at home: Activity ??? Return to your normal activities as told by your health care provider. Ask your health care provider what activities are safe for you. ??? Take short walks often. Try to take at least two 10-minute walks each day. ??? Do not drive for 24 hours if you were given a medicine to help you relax (sedative). Incision care ??? Do not shower for the first 2 days after the procedure. ??? Do not take a bath, swim, or use a hot tub for the first 2 weeks after the procedure. ??? Follow instructions from your health care provider about how to take care of your incision. Make sure you: ? Wash your hands with soap and water before you change your bandage (dressing). If soap and water are not available, use hand spray machine loader. ? Change your dressing as told by your health care provider. ? Clean the skin around your feeding tube every day. You may need to use a certain kind of solution to do this. ? Apply any ointments to the area only as told by your health care provider. ??? Check your incision area every day for signs of infection. Check for: ? More redness, swelling, or pain. ? More fluid or blood. ? Warmth. ? Pus or a bad smell. General instructions ??? Take ruuf-dlx-bniieyp and prescription medicines only as told by your health care provider. ??? Make sure you know when and how to start tube feeding. Contact your health care provider if you have any questions. ??? Keep all follow-up visits as told by your health care provider. This is important. Contact a health care provider if: ??? You have pain that gets worse or does not get better with medicine. ??? You have constipation or diarrhea that does not improve with treatment. ??? You feel bloated. ??? You feel nauseous. ??? You have more redness, swelling, or pain around your incision. ??? You have more fluid or blood coming from your incision. ??? Your incision feels warm to the touch. ??? You have pus or a bad smell coming from your incision. ??? You have a fever. Get help right away if: ??? You have a fever that lasts longer than 3 days. ??? You have severe pain. ??? You have coughing and trouble breathing. ??? You vomit blood. ??? Your feeding tube is blocked, you cannot rinse out (flush out) the tube, or it comes out. ??? You become disoriented, confused, or very tired. This information is not intended to replace advice given to you by your health care provider. Make sure you discuss any questions you have with your health care provider. Document Released: 07/30/2014 Document Revised: 05/06/2017 Document Reviewed: 05/06/2017 [employer] Interactive Patient Education ? 2019 [employer]. Electronically signed by Yesi Joy Conversion Loading Unit Operator Powder Charging Cerner at 11/25/2022 12:21 AM CDT documented in this encounter Plan of Treatment Not on file documented as of this encounter Visit Diagnoses Not on filedocumented in this encounter Care Teams Syrup Filterer Relationship Specialty Start Date End Date Genaro Avendano MD [address] [place] [address] PCP - General Adolescent Medicine 01/25/23 Christophe Vega MD Medical Oncologist Hematology and Oncology 07/27/22 Dennys Kent MD [address] [place] [address] Surgeon Otolaryngology 07/27/22 documented as of this encounter
--- OUTSIDE RECORDS SUMMARY | 2025-06-17 08:01 | XMS_ITS | Encounter Summary ---
Author Organization [facility] ([place], [place], [place], [place], [place]) Address [address] [place] [address] Care Team Providers Care Electrician Front Name Role Phone Christophe Vega MD Unavailable Unavailable Dennys Kent MD Unavailable [phone] Genaro Avendano MD Primary Care Provider [phone] Encounter Details Date Type Department Care Team (Late st Contact Info) Description 01/05/2020 Transcribed Document [facility] [place] [address] [place] [address] ProviderRadha MD [address] [place] [address] Social History Tobacco Use Types Packs/Day Years Used Date Smoking Tobacco: Never Assessed Sex and Gender Information Value Date Recorded Sex Assigned at Not on file Legal Sex Male 4:20 PM CDT Gender Identity Not on file Sexual Orientation Not on file documented as of this encounter Miscellaneous Notes * Cerner Conversion Note - Radha ProviderMD - 01/05/2020 10:00 PM CDT Pain Assessment Entered On: 01/05/2020 22:42 EDT Performed On: 01/05/2020 21:17 EDT by LUIS HOUGH RN Intervention Information: acetaminophen Performed by LUIS HOUGH RN on 01/05/2020 20:17:00 EDT acetaminophen,650mg Oral Pain Assessment Pain Assessment : Follow-up assessment Pain Scale Goal : 3 Pain Scale Used : 0-10 Scale LUIS HOUGH RN - 01/05/2020 22:42 EDT Pain Scale Intensity : 0 LUIS HOUGH RN - 01/05/2020 22:42 EDT Image 4 - Images currently included in the form version of this document have not been included in the text rendition version of the form. documented in this encounter Plan of Treatment Not on file documented as of this encounter Visit Diagnoses Not on filedocumented in this encounter Care Teams Electrician Front Relationship Specialty Start Date End Date Genaro Avendano MD [address] [place] [address] PCP - General Adolescent Medicine 01/25/23 Christophe Vega MD Medical Oncologist Hematology and Oncology 07/27/22 Dennys Kent MD [address] [place] [address] Surgeon Otolaryngology 07/27/22 documented as of this encounter
--- OUTSIDE RECORDS SUMMARY | 2025-06-17 08:02 | XMS_ITS | Encounter Summary ---
Author Organization [employer] ([place], [place], [place], [place], [place]) Address [address] [place] [address] Care Team Providers Care Manager Medical Affairs Name Role Phone Christophe Vega MD Unavailable Unavailable Dennys Kent MD Unavailable [phone] Genaro Avendano MD Primary Care Provider [phone] Encounter Details Date Type Department Care Team (Late st Contact Info) Description 01/04/2020 Transcribed Document [facility] [place] [address] [place] [address] ProviderRadha MD [address] [place] [address] Social History Tobacco Use Types Packs/Day Years Used Date Smoking Tobacco: Never Assessed Sex and Gender Information Value Date Recorded Sex Assigned at Not on file Legal Sex Male 4:20 PM CDT Gender Identity Not on file Sexual Orientation Not on file documented as of this encounter Miscellaneous Notes * Cerner Conversion Note - Radha ProviderMD - 01/04/2020 5:00 AM CDT Chart Check - Review Order Profile Entered On: 01/04/2020 4:10 EDT Performed On: 01/04/2020 5:00 EDT by Don Hargrove, RN Chart Check Powerplans Initiated/Discontinued as Appropriate : Yes All Active Orders Reviewed : Yes Don Hargrove RN - 01/04/2020 4:10 EDT Electronically signed by Braeden Joy Conversion Crown Assembly Machine Operator Cerner at 11/25/2022 12:24 AM CDT documented in this encounter Plan of Treatment Not on file documented as of this encounter Visit Diagnoses Not on filedocumented in this encounter Care Teams Manager Medical Affairs Relationship Specialty Start Date End Date Genaro Avendano MD [address] [place] [address] PCP - General Adolescent Medicine 01/25/23 Christophe Vega MD Medical Oncologist Hematology and Oncology 07/27/22 Dennys Kent MD [address] [place] [address] Surgeon Otolaryngology 07/27/22 documented as of this encounter
--- OUTSIDE RECORDS SUMMARY | 2025-06-17 08:02 | XMS_ITS | Encounter Summary ---
Author Organization [employer] ([place], [place], [place], [place], [place]) Address [address] [place] [address] Care Team Providers Care Food Handler Name Role Phone Christophe Vega MD Unavailable Unavailable Dennys Kent MD Unavailable [phone] Genaro Avendano MD Primary Care Provider [phone] Encounter Details Date Type Department Care Team (Late st Contact Info) Description 01/06/2020 Transcribed Document [facility] [place] Family Medicine [address] [place] [address] ProviderRadha MD [address] [place] [address] Social History Tobacco Use Types Packs/Day Years Used Date Smoking Tobacco: Never Assessed Sex and Gender Information Value Date Recorded Sex Assigned at Not on file Legal Sex Male 4:20 PM CDT Gender Identity Not on file Sexual Orientation Not on file documented as of this encounter Miscellaneous Notes * Cerner Conversion Note - Radha Garduno MD - 01/06/2020 4:16 PM CDT On Going Discharge Planning Entered On: 01/06/2020 16:22 EDT Performed On: 01/06/2020 16:16 EDT by EMELYN CHACKO RN-Python Django DeveloperDomestic Cleaner Progress Note Discharge Arrangements : Patient Post-Acute Information Patient Name: JONATHAN RIVAS Gender: Male : 59 Age: 64 Years No Post-Acute Placement(s) Listed No Post-Acute Service(s) Listed No [place] Referral(s) Listed Discharge Options Discussed with Patient : DME, Home Health Barriers to Discharge Identified : Clinical Condition of Patient Barriers to Discharge Unresolved : Clinical Condition of Patient Patient Offered Choice/Affiliations Explained : Yes Were Referrals Sent to Post Acute Providers : Yes Is the Patient Meeting Medical Necessity : Yes Physician Agreeable to Move Forward with D/C Plan? : Yes EMELYN CHACKO RN-Python Django Developer - 01/06/2020 16:16 EDT Narrative Progress Note Narrative Progress Note : Patient had J-tube placed on 01/03. Recommended plan is Osmolite 1.5 @ 65ml/hr and flush with 260ml FW 4x daily. Patient choiced [facility] in [place] [phone] for supplies. They are closed on Tuesday so will need to be ordered on Tuesday. CM discussed home health services with an RN to instruct and monitor feeding. Referral made to [facility] via [facility]. Plan is for discharge on Tuesday. Historical Progress Note : Met with Pt during IDT rounds. Pt currently NPO for PEG placement sometime today. Plans remain home with . CM will follow. CAMILA GATES, RN-Python Django Developer - 01/04/20 11:05:56 EMELYN CHACKO RN-Python Django Developer - 01/06/2020 16:16 EDT Electronically signed by Benita [facility] Conversion Oil Heat Technician Cerner at 11/25/2022 12:28 AM CDT documented in this encounter Plan of Treatment Not on file documented as of this encounter Visit Diagnoses Not on filedocumented in this encounter Care Teams Food Handler Relationship Specialty Start Date End Date Genaro Avendano MD [address] [place] [address] PCP - General Adolescent Medicine 01/25/23 Christophe Vega MD Medical Oncologist Hematology and Oncology 07/27/22 Dennys Kent MD [address] [place] [address] Surgeon Otolaryngology 07/27/22 documented as of this encounter
--- OUTSIDE RECORDS SUMMARY | 2025-06-17 08:02 | XMS_ITS | Encounter Summary ---
Author Organization [employer] ([place], [place], [place], [place], [place]) Address [address] [place] [address] Care Team Providers Care Vendor Relationship Manager Name Role Phone Christophe Vega MD Unavailable Unavailable Dennys Kent MD Unavailable [phone] Genaro Avendano MD Primary Care Provider [phone] Encounter Details Date Type Department Care Team (Late st Contact Info) Description 01/04/2020 Transcribed Document [facility] [place] Family Medicine [address] [place] [address] ProviderRadha MD [address] [place] [address] Social History Tobacco Use Types Packs/Day Years Used Date Smoking Tobacco: Never Assessed Sex and Gender Information Value Date Recorded Sex Assigned at Not on file Legal Sex Male 4:20 PM CDT Gender Identity Not on file Sexual Orientation Not on file documented as of this encounter Miscellaneous Notes * Cerner Conversion Note - Radha Garduno MD - 01/04/2020 8:33 AM CDT PLEASE MODIFY BEFORE SIGNING CLINICAL DOCUMENTATION CLARIFICATION FORM: Dear Dr. Gutierrez Date: 01/03 Please exercise your independent, professional judgment in responding to the clarification form. Clinical indicators are provided on the bottom of this form for your review Please check appropriate box(es): [ x ] Severe Protein Calorie Malnutrition [ ] Moderate Protein Calorie Malnutrition [ ] Other Malnutrition (please specify) [ ] No Diagnosis of Malnutrition [ ] Other diagnosis [ ] Unable to determine For continuity of documentation, please document condition throughout progress notes and discharge summary. Thank You. To be completed by CDI/Coding staff for physician review: Present Clinical Indicators - Signs / Symptoms / Labs Results and Location in Medical Record x Documentation of SEVERE PROTEIN CALORIE MALNUTRITION 01/03/20- per Dietary- Severe Protein Calorie Malnutrition identified x BMI of 22.6 01/03/20- per Dietary- BMI- 22.6 Two or More of the Following ASPEN Criteria: x Unintentional Insufficient Energy Intake 01/03/20- per Dietary- Severely reduced: </= 75% needs for >/= 1 month x Weight Loss 01/03/20- per Dietary- Severe: >5% past 1 month with wt loss of wt loss of ~35#/19% X 3 weeks x Loss of Muscle Mass 01/03/20- per dietary- Observed moderate muscle wasting in clavicle area. 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 Weight Loss: 1-2%/1 week; 5%/ 1 month; 7.5%/3 months ?? Other: mild body fat loss; mild muscle mass loss; mild fluid accumulation; Severe Malnutrition (in acute illness) ?? Energy Intake: ? 50% of estimated energy requirement for ? 5 days Weight Loss: >2%/1 week; >5%/1 month; >7.5%/3 months ?? Other: moderate body fat loss; moderate muscle mass loss; moderate- severe fluid accumulation; measurably reduced electric organ assembler strength Moderate Malnutrition (in chronic illness) Energy Intake: <75% of estimated energy requirement for ?1 month ?? Weight Loss: 5%/1 month; 7.5%/3 months; 10%/6 months; 20%/1 year ?? Other: mild body fat loss; mild muscle mass loss; mild fluid accumulation Severe Malnutrition (in chronic illness) ?? Energy Intake: ?75% of estimated energy requirement for ?1 month Weight Loss: >5%/1 month; >7.5%/3 months; >10%/6 months; >20%/1 year ?? Other: severe body fat loss; severe muscle mass loss; severe fluid accumulation; measurably reduced electric organ assembler strength This is a permanent part of the Medical Record [id number] 2019 [facility] Updated: Electronically signed by Benita, [facility] Conversion Rail Project Engineer Cerner at 11/25/2022 12:12 AM CDT documented in this encounter Plan of Treatment Not on file documented as of this encounter Visit Diagnoses Not on filedocumented in this encounter Care Teams Vendor Relationship Manager Relationship Specialty Start Date End Date Genaro Avendano MD [address] [place] [address] PCP - General Adolescent Medicine 01/25/23 Christophe Vega MD Medical Oncologist Hematology and Oncology 07/27/22 Dennys Kent MD [address] [place] [address] Surgeon Otolaryngology 07/27/22 documented as of this encounter
--- OUTSIDE RECORDS SUMMARY | 2025-06-17 08:02 | XMS_ITS | Encounter Summary ---
Author Organization [email or web address] ([place], [place], [place], [place], [place]) Address [address] [place] [address] Care Team Providers Care Home Appliance Washing Machine Mechanic Name Role Phone Christophe Vega MD Unavailable Unavailable Dennys Kent MD Unavailable [phone] Genaro Avendano MD Primary Care Provider [phone] Encounter Details Date Type Department Care Team (Late st Contact Info) Description 01/04/2020 Transcribed Document [facility] [place] [address] [place] [address] ProviderRadha MD [address] [place], [place] [id number] Social History Tobacco Use Types Packs/Day Years Used Date Smoking Tobacco: Never Assessed Sex and Gender Information Value Date Recorded Sex Assigned at Not on file Legal Sex Male 4:20 PM CDT Gender Identity Not on file Sexual Orientation Not on file documented as of this encounter Miscellaneous Notes * Cerner Conversion Note - Radha ProviderMD - 01/04/2020 8:13 AM CDT Patient: JONATHAN RIVAS Age: 64 [...] level better, still feel nausea and anxiety plan feeding tube today ROS: no fever, no chest pain or SOB, has nausea and anxiety Health Status Allergies: Allergic Reactions (Selected) Moderate Codeine- No reactions were documented., Allergies (1) Active Reaction codeine None Documented Problem list: Medical At risk for sleep apnea / IMO [id number] / Confirmed, Active Problems (2) At risk for sleep apnea Severe protein-calorie malnutrition Objective VS/Measurements Vitals Signs (last 24 hrs) Last Charted Minimum Maximum Temp 97.8 (JANUARY 03 06:00) 97.8 (JANUARY 03:00) 98 (JANUARY 03 00:00) Mon HR 55 (JANUARY 03 06:00) 54 (JANUARY 03 03:00) 59 (JANUARY 02 11:00) Resp Rate 14 (JANUARY 03:00) 14 (JANUARY 03 06:00) 16 (JANUARY 03 00:00) SBP 104 (JANUARY 03 06:00) 90 (JANUARY 03 00:00) 128 (JANUARY 02 11:00) DBP L 59 (JANUARY 03 06:00) L 42 (JANUARY 03 00:00) 71 (JANUARY 02 11:00) MAP 72 (JANUARY 03 06:00) 57 (JANUARY 03 00:00) 87 (JANUARY 02 18:35) SpO2 98 (JANUARY 03 06:00) 97 (JANUARY 03 03:00) 99 (JANUARY 02 20:00) General: Alert and oriented, No acute distress. Neck: Supple, Non-tender, No jugular venous distention. [...] problem Adult failure to thrive severe dehydration on admit metastatic squamous cell carcinoma HTN GERD hypernatremia on admit- better h/o PAD with leg stent Anxiety PLAN: cont ivf D5W with kcl consult dr. Wylie for feeding tube- today close watch BMP ppi lovenox sq, hold in am d/w pat and surgery and nurse bmp in am Electronically signed by [facility] Conversion Flat Sheet Maker Cerner at 11/25/2022 12:23 AM CDT documented in this encounter Plan of Treatment Not on file documented as of this encounter Visit Diagnoses Not on filedocumented in this encounter Care Teams Home Appliance Washing Machine Mechanic Relationship Specialty Start Date End Date Genaro Avendano MD [address] [place] [address] PCP - General Adolescent Medicine 01/25/23 Christophe Vega MD Medical Oncologist Hematology and Oncology 07/27/22 Dennys Kent MD [address] [place] [address] Surgeon Otolaryngology 07/27/22 documented as of this encounter
--- OUTSIDE RECORDS SUMMARY | 2025-06-17 08:02 | XMS_ITS | Encounter Summary ---
Author Organization [employer] ([place], [place], [place], [place], [place]) Address [address] [place] [address] Care Team Providers Care Assistant Project Engineer Name Role Phone Christophe Vega MD Unavailable Unavailable Dennys Kent MD Unavailable [phone] Genaro Avendano MD Primary Care Provider [phone] Encounter Details Date Type Department Care Team (Late st Contact Info) Description 01/04/2020 Transcribed Document [facility] [place] [address] [place] [address] ProviderRadha MD [address] [place] [address] Social History Tobacco Use Types Packs/Day Years Used Date Smoking Tobacco: Never Assessed Sex and Gender Information Value Date Recorded Sex Assigned at Not on file Legal Sex Male 4:20 PM CDT Gender Identity Not on file Sexual Orientation Not on file documented as of this encounter Miscellaneous Notes * Cerner Conversion Note - Radha ProviderMD - 01/04/2020 1:25 PM CDT [facility] Main OR IntraOp Summary Primary Physician: CRISTEL GUO MD-KEVYN Finalized Date/Time: 01/06/20 13:12:18 Pt. Name: JONATHAN RIVAS /Sex: 1955 Male Med Rec #: [id number] Physician: BRAXTON PATTEN MD-INT Financial #: [id number] Pt. Type: I Room/Bed: 373/1 Admit/Disch: 01/02/20 14:42:00 - Institution: [facility] IntraOp Case Attendance Entry 1 Entry 2 Entry 3 Case Attendee CRISTEL GUO MD-MELISSA ARNOLD CALDWELL, JOSEPH A, PLANER TAILER -KARINA Role Performed Surgeon/Proceduralist, Anesthesiologist of PLANER TAILER/Nurse Supervisor Smoke Control First Record Time In 01/04/20 12:54:00 01/04/20 12:54:00 01/04/20 12:54:00 Time Out 01/04/20 15:21:00 01/04/20 15:21:00 01/04/20 13:55:00 Procedure Gastrostomy Tube Gastrostomy Tube Gastrostomy Tube Insertion Laparoscopic Insertion Laparoscopic Insertion Laparoscopic Other Attendee Superficial Wound Closed By: Last Modified By: Tenisha Parks, Tenisha Licona RN Poff, Janie, RN 01/04/20 15:22:01 01/04/20 15:22:01 01/04/20 15:22:01 Entry 4 Entry 5 Entry 6 Case Attendee CHRISTIAN WALTERS Robin A, Surgical Tenisha Parks, OTTO Litigator Role Performed Relay Worker, First Scrub, First Adventure Education Teacher, First Time In 01/04/20 12:54:00 01/04/20 12:54:00 01/04/20 12:54:00 Time Out 01/04/20 15:21:00 01/04/20 15:21:00 01/04/20 15:21:00 Procedure Gastrostomy Tube Gastrostomy Tube Gastrostomy Tube Insertion Laparoscopic Insertion Laparoscopic Insertion Laparoscopic Other Attendee Superficial Wound Closed By: Last Modified By: Tenisha Parks RN Poff, Janie, RN Poff, Janie, RN 01/04/20 15:22:01 01/04/20 15:22:01 01/04/20 15:22:01 Entry 7 Entry 8 Entry 9 Case Attendee Rickey Benton, -Lia Khan Crna OTHER, ATTENDEE #1 Role Performed Litigator, Ancillary PLANER TAILER/Nurse Supervisor Smoke Control Student Time In 01/04/20 12:54:00 01/04/20 13:55:00 01/04/20 13:55:00 Time Out 01/04/20 15:21:00 01/04/20 15:21:00 01/04/20 15:21:00 Procedure Gastrostomy Tube Gastrostomy Tube Gastrostomy Tube Insertion Laparoscopic Insertion Laparoscopic Insertion Laparoscopic Other Attendee CAT CAGE Superficial Wound Closed By: Last Modified By: Tenisha Parks, Tenisha Licona RN Poff, Janie, RN 01/04/20 15:22:01 01/04/20 15:22:01 01/04/20 15:22:01 [facility] IntraOp Case Attendance Audit 01/04/20 15:22:01 Swatch Clerk: JUAN Modifier: POFFJAN 1 <+> Time Out 1 <*> Procedure Gastrostomy Tube Insertion Laparoscopic 2 <+> Time Out 2 <*> Procedure Gastrostomy Tube Insertion Laparoscopic 3 <*> Procedure Gastrostomy Tube Insertion Laparoscopic 4 <+> Time Out 4 <*> Procedure Gastrostomy Tube Insertion Laparoscopic 5 <+> Time Out 5 <*> Procedure Gastrostomy Tube Insertion Laparoscopic 6 <+> Time Out 6 <*> Procedure Gastrostomy Tube Insertion Laparoscopic 7 <+> Time Out 7 <*> Procedure Gastrostomy Tube Insertion Laparoscopic 8 <+> Time Out 8 <*> Procedure Gastrostomy Tube Insertion Laparoscopic 9 <+> Time Out 9 <*> Procedure Gastrostomy Tube Insertion Laparoscopic 01/04/20 14:32:46 Swatch Clerk: JUAN Modifier: POFFJAN 1 <*> Procedure Gastrostomy Percutaneous Endoscopic, Gastrostomy Tube Insertion Laparoscopic 2 <*> Procedure Gastrostomy Percutaneous Endoscopic, Gastrostomy Tube Insertion Laparoscopic 3 <*> Procedure Gastrostomy Percutaneous Endoscopic, Gastrostomy Tube Insertion Laparoscopic 4 <*> Procedure Gastrostomy Percutaneous Endoscopic, Gastrostomy Tube Insertion Laparoscopic 5 <*> Procedure Gastrostomy Percutaneous Endoscopic, Gastrostomy Tube Insertion Laparoscopic 6 <*> Procedure Gastrostomy Percutaneous Endoscopic, Gastrostomy Tube Insertion Laparoscopic 7 <*> Procedure Gastrostomy Percutaneous Endoscopic, Gastrostomy Tube Insertion Laparoscopic 8 <*> Procedure Gastrostomy Percutaneous Endoscopic, Gastrostomy Tube Insertion Laparoscopic 9 <*> Procedure Gastrostomy Percutaneous Endoscopic, Gastrostomy Tube Insertion Laparoscopic 01/04/20 14:01:22 Swatch Clerk: JUAN Modifier: POFFJAN 1 <*> Procedure Gastrostomy Percutaneous Endoscopic, Gastrostomy Tube Insertion Laparoscopic 2 <+> Time In 2 <*> Procedure Gastrostomy Percutaneous Endoscopic, Gastrostomy Tube Insertion Laparoscopic 3 <+> Time In 3 <+> Time Out 3 <*> Procedure Gastrostomy Percutaneous Endoscopic, Gastrostomy Tube Insertion Laparoscopic 4 <+> Time In 4 <*> Procedure Gastrostomy Percutaneous Endoscopic, Gastrostomy Tube Insertion Laparoscopic 5 <+> Time In 5 <*> Procedure Gastrostomy Percutaneous Endoscopic, Gastrostomy Tube Insertion Laparoscopic 6 <+> Time In 6 <*> Procedure Gastrostomy Percutaneous Endoscopic, Gastrostomy Tube Insertion Laparoscopic 7 <+> Time In 7 <*> Procedure Gastrostomy Percutaneous Endoscopic, Gastrostomy Tube Insertion Laparoscopic <+> 8 Case Attendee <+> 8 Role Performed <+> 8 Time In <+> 8 Procedure <+> 9 Case Attendee <+> 9 Role Performed <+> 9 Time In <+> 9 Procedure <+> 9 Other Attendee [facility] IntraOp Case Times Entry 1 Patient In Room Time 01/04/20 12:54:00 Out Room Time 01/04/20 15:21:00 Anesthesia Start Time 01/04/20 12:54:00 Stop Time 01/04/20 15:21:00 Surgery / Procedure Times Start Time 01/04/20 13:25:00 Stop Time 01/04/20 15:15:00 Last Modified By: Tenisha Parks RN 01/04/20 15:21:16 [facility] IntraOp Case Times Audit 01/04/20 15:21:16 Swatch Clerk: JUAN Modifier: JUAN <+> 1 Out Room Time <+> 1 Stop Time 01/04/20 15:15:16 Swatch Clerk: JUAN Modifier: JUAN <+> 1 Stop Time [facility] IntraOp Cautery Entry 1 ESU Identification Cautery Type Monopolar ESU ID Number [id number] ID Type Hospital Number Cautery Settings Cut Setting 1 Coag Setting 30 ESU Grounding Pad Ground Pad Type Adult Grounding Pad Site Right thigh Grounding Pad Tenisha Parks RN Applied By Grounding Pad Site Warm, dry and intact Skin Condition Before Cautery Grounding Pad Site Warm, dry and intact Skin Condition After Cautery Last Modified By: Tenisha Parks RN 01/04/20 14:31:36 [facility] IntraOp Cautery Audit 01/04/20 14:31:36 Swatch Clerk: POFFJAN Modifier: POFFJAN <+> 1 ID Number [facility] IntraOp Counts Verification Entry 1 Procedure Gastrostomy Tube Insertion Laparoscopic Count Info Count Type Sponge, Sharps, Instrument, Miscellaneous Counts Verification Baseline/pre-procedure Sequence Count Results Not Applicable Counts Performed By Count Performed By Alonso Thurman, Surgical (Scrub) Litigator Count Performed By Tenisha Parks RN (RN) Last Modified By: Tenisha Parks RN 01/04/20 14:32:47 [facility] IntraOp Counts Verification Audit 01/04/20 14:32:47 Swatch Clerk: POFFJAN Modifier: POFFJAN 1 <*> Procedure Gastrostomy Percutaneous Endoscopic, Gastrostomy Tube Insertion Laparoscopic [facility] IntraOp Counts Final Entry 1 Procedure Gastrostomy Tube Insertion Laparoscopic Final Count Info Count Type Sponge, Sharps, Miscellaneous Counts Verification Skin Closure/end of Sequence procedure Count Results Correct, surgeon notified Counts Performed By Count Performed By Alonso Thurman, Surgical (Scrub) Litigator Count Performed By Tenisha Parks RN (RN) Last Modified By: Tenisha Parks RN 01/04/20 15:11:41 [facility] IntraOp Counts Final Audit 01/04/20 15:11:41 Swatch Clerk: POFFJAN Modifier: POFFJAN 1 <*> Procedure Gastrostomy Tube Insertion Laparoscopic 1 <+> Count Performed By (RN) 01/04/20 14:32:49 Swatch Clerk: KISHAFFJAN Modifier: POFFJAN 1 <*> Procedure Gastrostomy Percutaneous Endoscopic, Gastrostomy Tube Insertion Laparoscopic [facility] IntraOp Departure from OR Entry 1 Integumentary Assessment Integumentary WDL with patient Assessment WDL specific variances Patient's Normal SURGICAL INCISIONS = Integumentary ABDOMEN Variance(s) Transfer/Handoff Transfer to PACU Phase I Handoff Method Phone call Post-op Transport Stretcher/Gurney Via Patient Transport TRANG VELASCO, Accompanied by SELENA GIL KAREN A. Last Modified By: Tenisha Parks RN 01/04/20 13:47:44 [facility] IntraOp Drains and Tubes Entry 1 Device Type Jejunostomy Tube Size 14 FR Drain/Tube Activity Inserted Drain/Tube Suction Not applicable Device Location JEJUNEUM Method of Drainage Passive Tube Dressing Dry, Intact Condition Last Modified By: Tenisha Parks RN 01/04/20 14:23:30 [facility] IntraOp Dressing and Packing Entry 1 Type Dressing Location ABDOMEN Wound Dressing Item Other, Skin Closure Glue Last Modified By: Tenisha Parks RN 01/04/20 15:21:53 [facility] IntraOp Dressing and Packing Audit 01/04/20 15:21:53 Swatch Clerk: JUAN Modifier: JUAN <+> 1 Wound Dressing Item [facility] IntraOp Fire Risk Assessment Entry 1 Fire Info Surgical Site or 0- No Incision Above the Xyphoid Open O2 Source 0- No (Mask or Cannula) Available Ignition 1- Yes (ESU, Laser, Light Source) Fire Risk 1 Assessment Score Fire Score Fire Risk Yes Assessment Complete Fire Risk Tenisha Parks RN Assessment Verified By Fire Risk 01/04/20 13:24:00 Assessment Verified Date/Time Fire Risk Standard Fire Yes Safety Precautions Followed Last Modified By: Tenisha Parks RN 01/04/20 13:54:49 [facility] IntraOp Fire Risk Assessment Audit 01/04/20 13:54:49 Swatch Clerk: JUAN Modifier: JUAN <+> 1 Fire Risk Assessment Verified Date/Time [facility] IntraOp General Case Chemical Dependency Counselor 1 Case Information OR OR 12 [facility] Case Level 1 Room Verified Yes Wound Class II - Clean-Contaminated Specialty SN General Anesthesia Type General ASA Class 3 Diagnosis Preop Diagnosis FAILURE TO THRIVE Postop Same As Preop Yes Postop Diagnosis FAILURE TO THRIVE Last Modified By: Tenisha Parks RN 01/04/20 14:11:11 [facility] IntraOp General Case Data Audit 01/04/20 14:11:11 Swatch Clerk: JUAN Modifier: CHARLINEJAN <+> 1 ASA Class 01/04/20 13:56:08 Swatch Clerk: JUAN Modifier: JUAN 1 <*> OR OR 08 [facility] 1 <+> Anesthesia Type 1 <+> Postop Same As Preop 1 <+> Preop Diagnosis 1 <+> Postop Diagnosis 1 <+> Room Verified [facility] IntraOp Intraoperative Assessment Entry 1 Valid History / Yes Physical in Chart Preoperative Yes Checklist Reviewed/Evaluated Allergies Reviewed Yes Patient is Latex No Sensitive Isolation Not applicable Precautions Noted Level of WDL Consciousness (WDL = Alert, Oriented to Person, Place, and Time) Skin Assessment Yes Verified Present Upon Other Arrival to OR Intraoperative PORT A CATH ACCESSED Assessment Comment Last Modified By: Tenisha Parks RN 01/04/20 14:13:01 [facility] IntraOp Intraoperative Assessment Audit 01/04/20 14:13:01 Swatch Clerk: CHARLINECOURTNEY Modifier: KISHAWILYCOURTNEY 1 <*> Present Upon Arrival to OR IVs 1 <+> Intraoperative Assessment Comment [facility] IntraOp Intraoperative Equipment Entry 1 Type Monitoring Equipment Equipment Aki Suction System Intraop Monitoring Electrocardiogram Three lead placement (ECG) Electrode Placement Blood Pressure Non-Invasive BP Device Source Antiembolic Devices Antiembolic Devices Sequential compression device, knee high Antiembolic Device Bilateral Location Scopes Photo/Video Documentation Last Modified By: Tenisha Parks RN 01/04/20 14:13:33 [facility] IntraOp Patient Positioning Entry 1 Procedure Gastrostomy Tube Insertion Laparoscopic Body Position Supine Left Arm Position Tucked and padded at side Right Arm Position Tucked and padded at side Left Leg Position Uncrossed, parallel Right Leg Position Uncrossed, parallel Feet Uncrossed Yes Pressure Points Yes Checked Positioning Devices Head Rest, Pad, Elbow, Pad, Elbow, Safety Strap, Thighs Positioned By TRANG VELASCO CRNA, CHRISTIAN WALTERS, Tenisha Parks RN Position Verified Positioning Yes Verified by Anesthesia Positioning Yes Verified by Surgeon Last Modified By: Tenisha Parks RN 01/04/20 14:32:48 [facility] IntraOp Patient Positioning Audit 01/04/20 14:32:48 Swatch Clerk: JUAN Modifier: KISHAWILYCOURTNEY 1 <*> Procedure Gastrostomy Percutaneous Endoscopic, Gastrostomy Tube Insertion Laparoscopic [facility] IntraOp Sign In Entry 1 Patient, Site, Yes Procedure Identified Surgical Consent Yes Confirmed Relevant Surgical No, unable to assess - Documents Available Emergent case Surgical Site N/A Marked by person performing procedure Anesthesia Machine Yes Check Completed Medication Checks Yes Completed Allergies Yes Airway Difficult No Airway/Aspiration Risk Difficult Yes Airway/Aspiration Intervention Equipment Available Blood Loss Risk Yes Blood Loss Yes Intervention Equipment Prepared and Ready Blood Identifiers Not applicable Verified Per Policy Hypothermia Risk Yes Warming Measures Yes Taken Last Modified By: Tenisha Parks RN 01/04/20 13:31:25 [facility] IntraOp Sign Out Entry 1 RN Confirmation Surgical Yes Procedure(s) Identified Instrument, Sponge Yes and Sharps Counts Correct/Documented Equipment Problems N/A Documented Specimen Labeled N/A Correctly Urinary Catheter N/A Documented in IView Christina Patient Yes Recovery Concerns Reviewed with Anesthesia Provider, Surgeon and RN Christina Patient Yes Management Concerns Reviewed with Anesthesia Provider, Surgeon and RN Safety Checklist Yes Elements Complete? RN Sign Out Tenisha Parks RN Signature RN Sign Out 01/04/20 15:21:00 Signature Date/Time Plan of Care Outcome - Fire Risk OUTCOME STATEMENT: Goal met Patient is free from injury related to surgical fire Plan of Care Outcome - Pt Positioning OUTCOME STATEMENT: Goal met Absence of signs and symptoms of positioning injury. Plan of Care Outcome - Skin Prep OUTCOME STATEMENT: Goal met Intraoperative care is consistent with measures to prevent infection Plan of Care Outcome - Xray/Images OUTCOME STATEMENT: N/A Absence of observable signs or symptoms of radiation injury Plan of Care Outcome - Counts OUTCOME STATEMENT: Goal met Absence of signs and symptoms of injury related to extraneous objects Last Modified By: Tenisha Parks RN 01/04/20 15:21:33 [facility] IntraOp Sign Out Audit 01/04/20 15:21:33 Swatch Clerk: JUAN Modifier: JUAN <+> 1 RN Sign Out Signature Date/Time [facility] IntraOp Skin Prep Entry 1 Procedure Gastrostomy Tube Insertion Laparoscopic Prescribed Yes Pre-Surgical Prep Completed Prep Area ABDOMEN Intraop Prep Integumentary WDL Assessment WDL Prep Agents Chloraprep Prep by Tenisha Parks RN Hair Removal Methods No hair removal performed Last Modified By: Tenisha Parks RN 01/04/20 14:32:48 [facility] IntraOp Skin Prep Audit 01/04/20 14:32:48 Swatch Clerk: JUAN Modifier: JUAN 1 <*> Procedure Gastrostomy Percutaneous Endoscopic, Gastrostomy Tube Insertion Laparoscopic [facility] IntraOp Surgical Procedures Entry 1 Procedure Gastrostomy Tube Insertion Laparoscopic Additional LAPAROSCOPIC Procedure JEJUNOSTOMY TUBE Description INSERTION Primary Procedure Yes Primary Surgeon CRISTEL GUO MD-KEVYN Start 01/04/20 13:25:00 Stop 01/04/20 15:15:00 Anesthesia Type General Specialty SN General Wound Class II - Clean-Contaminated Last Modified By: Tenisha Parks RN 01/04/20 15:21:25 [facility] IntraOp Surgical Procedures Audit 01/04/20 15:21:25 Swatch Clerk: JUAN Modifier: JUAN <+> 1 Stop 01/04/20 14:33:15 Swatch Clerk: JUAN Modifier: JUAN Entry 1 was deleted. Higher numbered entries shifted one position to fill the gap. <-> 1 Procedure Gastrostomy Percutaneous Endoscopic <-> 1 Primary Procedure Yes <-> 1 Primary Surgeon CRISTEL GUO MD-KEVYN <-> 1 Specialty <-> 1 Start 01/04/20 13:25:00 <-> 1 Wound Class II - Clean-Contaminated <-> 1 Anesthesia Type General <-> 1 Additional Procedure Description (PEG TUBE PLACEMENT OR LAPAROSCOPIC GASTROSTOMY TUBE INSERTION) [facility] IntraOP Time Out Entry 1 Procedure to be Gastrostomy Tube Performed Insertion Laparoscopic Time Out Time Out Pause Time 01/04/20 13:24:00 All activity Yes suspended (unless life threatening emergency) Team Verbally Correct patient Confirms Information identity, Consent form is present and accurate, Agreement on the procedure to be done, Correct patient position, Relevant images/results properly labeled/appropriately displayed, Confirm antibiotics have been administered, Confirm the skin prep has dried, Confirm prosthesis/implant/devic e is present, Performed in location of procedure after prepped/draped Antibiotic Yes Prophylaxis Administered Or In Progress Within the Last 60 Minutes Beta Kimber N/A Administered Venous N/A Thromboembolism Prophylaxis Required Anticipated Critical Events Surgeon None expected Anesthesia Provider None expected Nursing Assures Sterility of instruments Essential Imaging Yes Labeled and Displayed Last Modified By: Tenisha Parks RN 01/04/20 14:32:48 [facility] IntraOP Time Out Audit 01/04/20 14:32:48 Swatch Clerk: JUAN Modifier: JUAN 1 <*> Procedure to be Performed Gastrostomy Percutaneous Endoscopic, Gastrostomy Tube Insertion Laparoscopic Case Comments <None> Finalized By: MELL ASHRAF Document Signatures Signed By: Tenisha Parks RN 01/04/20 15:22 MELL ASHRAF 01/06/20 13:12 Unfinalized History Date/Time Username Reason for Unfinalizing Freetext Reason for Unfinalizing 01/06/20 13:10 COLIN Correct Billing Electronically signed by Benita [facility] Conversion Loss Prevention Research Engineer Cerner at 11/25/2022 12:16 AM CDT documented in this encounter Plan of Treatment Not on file documented as of this encounter Visit Diagnoses Not on filedocumented in this encounter Care Teams Assistant Project Engineer Relationship Specialty Start Date End Date Genaro Avendano MD [address] [place] [address] PCP - General Adolescent Medicine 01/25/23 Christophe Vega MD Medical Oncologist Hematology and Oncology 07/27/22 Dennys Kent MD [address] [place] [id number] Surgeon Otolaryngology 07/27/22 documented as of this encounter
--- OUTSIDE RECORDS SUMMARY | 2025-06-17 08:02 | XMS_ITS | Encounter Summary ---
Author Organization [email or web address] ([place], [place], [place], [place], [place]) Address [address] [place] [address] Care Team Providers Care Sweeper Brush Maker Machine Name Role Phone Christophe Vega MD Unavailable Unavailable Dennys Kent MD Unavailable [phone] Genaro Avendano MD Primary Care Provider [phone] Encounter Details Date Type Department Care Team (Late st Contact Info) Description 01/05/2020 Transcribed Document [facility] Family Medicine [address] [place] [address] ProviderRadha MD [address] [place] [address] Social History Tobacco Use Types Packs/Day Years Used Date Smoking Tobacco: Never Assessed Sex and Gender Information Value Date Recorded Sex Assigned at Not on file Legal Sex Male 4:20 PM CDT Gender Identity Not on file Sexual Orientation Not on file documented as of this encounter Miscellaneous Notes * Cerner Conversion Note - Radha Garduno MD - 01/05/2020 12:14 PM CDT Patient: JONATHAN RIVAS Age: 64 Years Sex: Male : 1955 Assessment/Plan 64-year-old male with 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 Start tube feeds today Home tomorrow if tolerating his tube feeds No medications through the tube VTE Prophylaxis - Medical Sequential Compression Device Start: 01/02/20 16:04:00 EDT, Bilateral, Continuous Order (BRAXTON PATTEN MD-INT) Subjective No acute events overnight Pain controlled Vital Signs T: 36.4 ??C TMIN: 36.1 ??C TMAX: 36.7 ??C HR: 56(Monitored) RR: 18 BP: 101/63 SpO2: 99% Oxygen Settings (Last) Oxygen Therapy Mode: Room air (01/05/20 06:44:00) Oxygen Flow Rate: 2 Liter/Min (01/04/20 16:25:00) Intake & Output Totals Last 24 Hours (7a-7a) Input Total: 3026.13 mL Output Total: 425 mL Balance: 2601.13 mL Physical Exam Gen: NAD Resp:Nonlabored respirations CV:Normal peripheral perfusion Ab:soft, NTND. Incisions c/d/i Medications cetuximab 480 mg + evacuated glass container [...] 12.5 mg= 0.25 mL, IV Push, 1-Time ketorolac, 15 mg= 0.5 mL, IV Push, Q6H, PRN LORazepam, 0.25 mg= 0.5 Tab, Oral, QID, PRN Milk of Magnesia 8% oral suspension, 30 mL, Oral, Daily, PRN morphine, 2 mg= 1 mL, IV Push, Q3H, PRN oxyCODONE, 5 mg= 1 Tab, Oral, Q4H, PRN Pepcid + Sodium Chloride 0.9% intravenous solution 50 mL Pepcid + Sodium Chloride 0.9% intravenous solution 50 mL Protonix, 40 mg= 1 Tab, Oral, [...] 0.9% intravenous solution, 1000 mL, IntraVENous, 1-Time Tylenol, 650 mg= 2 Tab, Oral, Q4H Zofran, 4 mg= 2 mL, IV Push, Q4H, PRN Zofran, 4 mg= 2 mL, IV Push, Q6H, PRN Zofran + Sodium Chloride 0.9% intravenous [...] Sodium Chloride 0.9% intravenous solution 50 mL Lab Results Test Name Test Result Date/Time Sodium Level 137 mmol/L 01/05/2020 07:06 EDT Potassium Level 3.5 mmol/L 01/05/2020 07:06 EDT Chloride Level 106 mmol/L 01/05/2020 07:06 EDT Carbon Dioxide Level 25 mmol/L 01/05/2020 07:06 EDT Anion Gap 10 01/05/2020 07:06 EDT Glucose Level 123 mg/dL (High) 01/05/2020 07:06 EDT Blood Urea Nitrogen 13 mg/dL 01/05/2020 07:06 EDT Creatinine Level 0.90 mg/dL 01/05/2020 07:06 EDT eGFR >60 mL/min/1.73m2 01/05/2020 07:06 EDT eGFR NonAfrican >60 mL/min/1.73m2 01/05/2020 07:06 EDT Bun/Creatinine 14.4 01/05/2020 07:06 EDT Calcium Level 7.8 mg/dL (Low) 01/05/2020 07:06 EDT Magnesium Level 1.7 mg/dL 01/05/2020 07:06 EDT Electronically signed by Benita [facility] Conversion Home Organizer Niravner at 11/25/2022 12:23 AM CDT documented in this encounter Plan of Treatment Not on file documented as of this encounter Visit Diagnoses Not on filedocumented in this encounter Care Teams Sweeper Brush Maker Machine Relationship Specialty Start Date End Date Genaro Avendano MD [address] [place], [place] [address] PCP - General Adolescent Medicine 01/25/23 Christophe Vega MD Medical Oncologist Hematology and Oncology 07/27/22 Dennys Kent MD [address] [place] [address] Surgeon Otolaryngology 07/27/22 documented as of this encounter
--- OUTSIDE RECORDS SUMMARY | 2025-06-17 08:02 | XMS_ITS | Clinical Summary ---
Author Organization Healthcare Address [address] [place] [address] Care Team Providers Care Fulling Mill Operator Name Role Phone Genaro Avendano MD Primary Care Provider [phone] Allergies Active Allergy Reactions Criticality Noted Date [...] Date Smoking Tobacco: Every Day Cigarettes 0.5 50.9 Started: 1974 Smokeless Tobacco: Never Tobacco Cessation:Ready [...] Description 12/06/2025 12:20 PM EDT Office Visit [facility] [address] [place] [address] Christopher Casiano MD [address] [place] [id number] Health Maintenance Due Date Last Done Comments [facility]-Depression Screening 1955 [facility]-Hepatitis C Screening 1955 [facility]-Medicare Annual Wellness (AWV) 1955 [facility]-Infant/Child/Adol SDOH Screenings 1955 [facility]- SDOH Screenings 1975 [facility]-Adult SDOH Screenings 1975 CT Colonography 2002 Colonoscopy 2002 FIT-DNA 2002 FIT 2002 FOBT 2002 Sigmoidoscopy 2002 [facility]-Colorectal Cancer Screening 2002 Lung Cancer Screening Shared Decision Making 2007 [facility]-Lung Cancer Screening 2007 [facility]-RSV Vaccine: 60+ Years or (1 - Risk 60-74 years 1-dose series) 2017 [facility]-Abdominal Aortic Aneurysm (AAA) Screening 2022 [id number] Vaccine ( season) 2025 03/15/2022, 12/03/2020, 11/05/2020 [facility]-Influenza Vaccine [...] to complete this topic Insurance Care Teams Fulling Mill Operator Relationship Specialty Start Date End Date Genaro Avendano MD [facility] [address] [place] [address] PCP - General 12/19/20
--- OUTSIDE RECORDS SUMMARY | 2025-06-17 08:02 | XMS_ITS | Encounter Summary ---
Author Organization [employer] ([place], [place], [place], [place], [place]) Address [address] [place] [address] Care Team Providers Care Tower Switch Operator Name Role Phone Christophe Vega MD Unavailable Unavailable Dennys Kent MD Unavailable [phone] Genaro Avendano MD Primary Care Provider [phone] Encounter Details Date Type Department Care Team (Late st Contact Info) Description 01/04/2020 Transcribed Document [facility] [place] [address] [place] [address] ProviderRadha MD [address] [place] [address] Social History Tobacco Use Types Packs/Day Years Used Date Smoking Tobacco: Never Assessed Sex and Gender Information Value Date Recorded Sex Assigned at Not on file Legal Sex Male 4:20 PM CDT Gender Identity Not on file Sexual Orientation Not on file documented as of this encounter Miscellaneous Notes * Cerner Conversion Note - Radha Garduno MD - 01/04/2020 11:03 AM CDT On Going Discharge Planning Entered On: 01/04/2020 11:05 EDT Performed On: 01/04/2020 11:03 EDT by CAMILA GATES RN-Board OperatorBuilding Repair Maintenance Supervisor Progress Note Discharge Arrangements : Patient Post-Acute Information Patient Name: JONATHAN RIVAS Gender: Male : [birth year] Age: 64 Years No Post-Acute Placement(s) Listed No Post-Acute Service(s) Listed No [place] Referral(s) Listed Discharge Options Discussed with Patient : Home Health Is the Patient Meeting Medical Necessity : Yes Did you Attend Multidisciplinary Rounds? : Yes CAMILA GATES RN-Board Operator - 01/04/2020 11:03 EDT Narrative Progress Note Narrative Progress Note : Met with Pt during IDT rounds. Pt currently NPO for PEG placement sometime today. Plans remain home with . CM will follow. CAMILA GATES RN-Board Operator - 01/04/2020 11:03 EDT Electronically signed by Benita [facility] Conversion Marine Equipment Preservation Inspector Cerner at 11/25/2022 12:13 AM CDT documented in this encounter Plan of Treatment Not on file documented as of this encounter Visit Diagnoses Not on filedocumented in this encounter Care Teams Tower Switch Operator Relationship Specialty Start Date End Date Genaro Avendano MD [address] [place] [address] PCP - General Adolescent Medicine 01/25/23 Christophe Vega MD Medical Oncologist Hematology and Oncology 07/27/22 Dennys Kent MD [address] [place] [address] Surgeon Otolaryngology 07/27/22 documented as of this encounter
--- OUTSIDE RECORDS SUMMARY | 2025-06-17 08:02 | XMS_ITS | Encounter Summary ---
Author Organization [employer] ([place], [place], [place], [place], [place]) Address [address] [place] [address] Care Team Providers Care Forming Machine Operator Name Role Phone Christophe Vega MD Unavailable Unavailable Dennys Kent MD Unavailable [phone] Genaro Avendano MD Primary Care Provider [phone] Encounter Details Date Type Department Care Team (Late st Contact Info) Description 01/04/2020 Transcribed Document [facility] [place] Medicine [address] [place] [address] ProviderRadha MD [address] [place] [address] Social History Tobacco Use Types Packs/Day Years Used Date Smoking Tobacco: Never Assessed Sex and Gender Information Value Date Recorded Sex Assigned at Not on file Legal Sex Male 4:20 PM CDT Gender Identity Not on file Sexual Orientation Not on file documented as of this encounter Miscellaneous Notes * Cerner Conversion Note - Radha ProviderMD - 01/04/2020 1:25 PM CDT [facility] Main OR Preop Summary Primary Physician: CRISTEL GUO MD-KEVYN Finalized Date/Time: 01/04/20 15:17:51 Pt. Name: JONATHAN RIVAS /Sex: 1955 Male Med Rec #: [id number] Physician: BRAXTON PATTEN MD-INT Financial #: [id number] Pt. Type: I Room/Bed: 373/1 Admit/Disch: 01/02/20 14:42:00 - Institution: [facility] PreOp Case Times Entry 1 In Preop 01/04/20 10:44:00 Ready for Holding n/a Room Patient Ready for n/a Surgery Patient Out of Preop 01/04/20 12:52:00 Patient Out of n/a Holding Room Last Modified By: JEFFERY RENAE RN 01/04/20 15:17:49 [facility] PreOp Case Times Audit 01/04/20 15:17:49 Wire Taper: LLUVIA Modifier: [email or web address] <+> 1 Patient Out of Preop Finalized By: JEFFERY RENAE, RN Document Signatures Signed By: JEFFERY RENAE RN 01/04/20 15:17 documented in this encounter Plan of Treatment Not on file documented as of this encounter Visit Diagnoses Not on filedocumented in this encounter Care Teams Forming Machine Operator Relationship Specialty Start Date End Date Genaro Avendano MD [address] [facility] [address] [place] [address] PCP - General Adolescent Medicine 01/25/23 Christophe Vega MD Medical Oncologist Hematology and Oncology 07/27/22 Dennys Kent MD [address] [place] [address] Surgeon Otolaryngology 07/27/22 documented as of this encounter
--- OUTSIDE RECORDS SUMMARY | 2025-06-17 08:02 | XMS_ITS | Encounter Summary ---
Author Organization [employer] ([place], [place], [place], [place], [place]) Address [address] [place] [address] Care Team Providers Care Owner Professional Engineer Name Role Phone Christophe Vega MD Unavailable Unavailable Dennys Kent MD Unavailable [phone] Genaro Avendano MD Primary Care Provider [phone] Encounter Details Date Type Department Care Team (Late st Contact Info) Description 01/04/2020 Transcribed Document [facility] [place] [address] [place] [address] ProviderRadha MD [address] [place] [address] Social History Tobacco Use Types Packs/Day Years Used Date Smoking Tobacco: Never Assessed Sex and Gender Information Value Date Recorded Sex Assigned at Not on file Legal Sex Male 4:20 PM CDT Gender Identity Not on file Sexual Orientation Not on file documented as of this encounter Miscellaneous Notes * Cerner Conversion Note - Radha ProviderMD - 01/04/2020 5:42 PM CDT PLEASE MODIFY BEFORE SIGNING CLINICAL DOCUMENTATION CLARIFICATION FORM: Dear : Matt Date: _01/04/20 SLR Please exercise your independent, professional judgment in responding to the clarification form. Clinical indicators are provided on the bottom of this form for your review Please check appropriate box(s): [ ] Mucositis as adverse effect of chemo possible etiology of FTT/dehydration [ x ] No diagnosis of Mucositis as adverse effect of chemo possible etiology of FTT/dehydration [ ] Other diagnosis [ ] Unable to determine For continuity of documentation, please document condition throughout progress notes and discharge summary. Thank You. To be completed by CDI/Coding staff for physician review: Present Clinical Indicators - Signs / Symptoms / Labs Results and Location in Medical Record [X] Intractable nausea and vomiting 01/01 H&P: He presents with complaints of vomiting with eating. 15 lb weight loss over the last week. [X] Regurgitation 01/01 H&P: no swallow problem just cant hold food in his stomach [X] Chemotherapy 01/01 H&P: Completed 4 cycles of 6 chemotherapy Present Risk Factors Results and Location in Medical Record [X] Recent Tonsilectomy 01/01 H&P: Tonsilectomy and LN bx 2-3 months ago [X] History of radiation therapy 01/01 H&P: Completed 4 cycles of 6 chemotherapy [X] Weight Loss 01/01 H&P: 15 lb weight loss over the last week. Present Treatments Results and Location in Medical Record [X] Medication (Protonix) 01/02 Orders: Pantaprazole 40 mg IVP [X] Feeding Tube 01/01 H&P:consult Dr. Christianson for feeding tube CDS Signature: ___Huyen Marlow RN Phone #: [phone] This is a permanent part of the Medical Record 2018 [facility] Updated: documented in this encounter Plan of Treatment Not on file documented as of this encounter Visit Diagnoses Not on filedocumented in this encounter Care Teams Owner Professional Engineer Relationship Specialty Start Date End Date Genaro Avendano MD [address] [place] [address] PCP - General Adolescent Medicine 01/25/23 Christophe Vega MD Medical Oncologist Hematology and Oncology 07/27/22 Dennys Kent MD [address] [place] [address] Surgeon Otolaryngology 07/27/22 documented as of this encounter
--- OUTSIDE RECORDS SUMMARY | 2025-06-17 08:02 | XMS_ITS | Encounter Summary ---
Author Organization [employer] ([place], [place], [place], [place], [place]) Address [address] [place] [address] Care Team Providers Care Conduit Reamer Operator Name Role Phone Christophe Vega MD Unavailable Unavailable Dennys Kent MD Unavailable [phone] Genaro Avendano MD Primary Care Provider [phone] Encounter Details Date Type Department Care Team (Late st Contact Info) Description 01/04/2020 Transcribed Document [facility] [place] [address] [place] [address] ProviderRadha MD [address] [place] [address] Social History Tobacco Use Types Packs/Day Years Used Date Smoking Tobacco: Never Assessed Sex and Gender Information Value Date Recorded Sex Assigned at Not on file Legal Sex Male 4:20 PM CDT Gender Identity Not on file Sexual Orientation Not on file documented as of this encounter Miscellaneous Notes * Cerner Conversion Note - Radha ProviderMD - 01/04/2020 11:07 AM CDT Clinical Dietitian Note Entered On: 01/04/2020 11:10 EDT Performed On: 01/04/2020 11:[address], LD Clinical Dietitian Note Clinical Dietitian Note : 01/03: Check on pt, feeding tube not yet placed. On CLD, minimal intake. Spoke with FADY Hutson about recommendations for Jtube. Pt with persistant N/V which has been un-relieved by antiemetics. Plan to restart RT on tuesday. Concern for continued N/V with PEG placement, which could complicate/worsen treatment side effects (mucositis/ulcers, etc). No labs drawn this am 1. Recommend to place J-tube placed with TF regimen: Osmolite 1.5 @ 65 ml/hr (provides 2145 kcals, 90 grams protein and 1090 ml water). Flush with 260 ml FW 4x daily. Advance TF by 10 ml q 10-12 hours, monitoring elytes closely. Goal: meet est needs 2. PO intake as tolerated. RD to send Ensure clear BID. Goal: no N/V 3. Monitor wt 1-2x per week Goal: avoid significant unintended wt loss 4. Monitor eltyes and replace prn (pt at refeeding risk) Goal: wnls Nutrition risk: high Severe PCM identified AREN FRANCO, RD, LD - 01/04/2020 11:07 EDT Electronically signed by Benita, [facility] Conversion Magneto Electrician Cerner at 11/25/2022 12:20 AM CDT documented in this encounter Plan of Treatment Not on file documented as of this encounter Visit Diagnoses Not on filedocumented in this encounter Care Teams Conduit Reamer Operator Relationship Specialty Start Date End Date Genaro Avendano MD [address] [place] [address] PCP - General Adolescent Medicine 01/25/23 Christophe Vega MD Medical Oncologist Hematology and Oncology 07/27/22 Dennys Kent MD [address] [place] [address] Surgeon Otolaryngology 07/27/22 documented as of this encounter
--- OUTSIDE RECORDS SUMMARY | 2025-06-17 08:02 | XMS_ITS | Encounter Summary ---
Author Organization [employer] ([place], [place], [place], [place], [place]) Address [address] [place] [address] Care Team Providers Care Embossograph Operator Name Role Phone Christophe Vega MD Unavailable Unavailable Dennys Kent MD Unavailable [phone] Genaro Avendano MD Primary Care Provider [phone] Encounter Details Date Type Department Care Team (Late st Contact Info) Description 01/04/2020 Transcribed Document [facility] [place] [address] [place] [address] ProviderRadha MD [address] [place] [address] Social History Tobacco Use Types Packs/Day Years Used Date Smoking Tobacco: Never Assessed Sex and Gender Information Value Date Recorded Sex Assigned at Not on file Legal Sex Male 4:20 PM CDT Gender Identity Not on file Sexual Orientation Not on file documented as of this encounter Miscellaneous Notes * Cerner Conversion Note - Radha ProviderMD - 01/04/2020 1:[address] [facility] Main OR PACU Summary Primary Physician: CRISTEL GUO MD-KEVYN Finalized Date/Time: 01/04/20 16:51:48 Pt. Name: JONATHAN RIVAS /Sex: 1955 Male Med Rec #: [id number] Physician: BRAXTON PATTEN MD-INT Financial #: [id number] Pt. Type: I Room/Bed: 373/1 Admit/Disch: 01/02/20 14:42:00 - Institution: [facility] Main OR PACU I Case Times Entry 1 In PACU I 01/04/20 15:23:00 Ready for PACU 01/04/20 16:38:00 Discharge Discharge from PACU 01/04/20 16:38:00 I Last Modified By: GILES SEBASTIAN RN 01/04/20 16:51:19 [facility] Main OR PACU I Case Times Audit 01/04/20 16:51:19 Core Shaper Sides: [id number] Modifier: [id number] <+> 1 Ready for PACU Discharge <+> 1 Discharge from PACU I Finalized By: GILES SEBASTIAN, RN Document Signatures Signed By: GILES SEBASTIAN RN 01/04/20 16:[address] [facility] Conversion Project Superintendent Cerner at 11/25/2022 12:13 AM CDT documented in this encounter Plan of Treatment Not on file documented as of this encounter Visit Diagnoses Not on filedocumented in this encounter Care Teams Embossograph Operator Relationship Specialty Start Date End Date Genaro Avendano MD [address] [facility] [address] [place] [address] PCP - General Adolescent Medicine 01/25/23 Christophe Vega MD Medical Oncologist Hematology and Oncology 07/27/22 Dennys Kent MD [address] [place] [address] Surgeon Otolaryngology 07/27/22 documented as of this encounter
--- OUTSIDE RECORDS SUMMARY | 2025-06-17 08:02 | XMS_ITS | Data Portability ---
Author Organization [facility] CARMEN Agudelo [place] [facility] Address [address] [place] [address] Care Team Providers Care Set Up Inspector Name Role Phone MUNIR PARRA Medical Oncologist MISAEL ARAGON General Surgeon Assessment No assessment recorded. Plan of Treatment Reminders Order Date Submit Date Provider Last Modified By Organization Details Last Modified Time Details Appointments None record ed. Lab None record ed. Referral None record ed. Procedures None record ed. Surgeries None record ed. Imaging None record ed. Medication Orders None record ed. Patient TargetsNo targets recorded. Patient InstructionsNo instructions recorded. Reason for Referral None Reported. Problems Name Problem SNOMED Code Status Onset Date Resolution Date Notes Provider Name and Address Organization Details Recorded Time Hypothy[facility] 91395058 [facility] Problem Notes None recorded. Procedures Surgical History Date Name Laterality Status Provider Name and Address Organization Details Recorded Time 03/20/20 25 Nasolaryngoscopy completed [facility] 03/18/2025 12:04:16 09/19/19 25 Nasolaryngoscopy completed [facility] 09/19/2024 14:13:16 02/13/20 24 Nasolaryngoscopy completed [facility] 02/06/2024 15:23:07 08/10/19 24 [facility] 15:39:48 02/08/20 23 Nasolaryngoscopy completed Christine Singleton [place] - [facility] 02/07/2023 12:01:52 10/07/19 23 Remove Port-A-Cath w/port/pump completed MISAEL ARAGON MD [address] [place], [address], [facility] 10/06/2022 09:43:13 09/22/19 23 Nasolaryngoscopy completed Christine Singleton [place] [facility] 09/22/2022 11:20:16 05/21/20 22 Nasolaryngoscopy completed MISAEL JAIMES MD [facility] [place], [address], [facility] 05/21/2022 12:00:07 01/20/20 22 Nasolaryngoscopy completed MISAEL JAIMES MD [address] [place], [address], [facility] - [facility] 01/19/2022 12:46:44 10/13/19 22 Nasolaryngoscopy completed MISAEL JAIMES MD [address] [place], [address], [facility] - [facility] 10/12/2021 11:44:34 07/14/20 21 Nasolaryngoscopy completed MISAEL JAIMES MD [facility] [place], [address], [facility] 07/14/2021 12:17:23 04/08/20 21 Laryngoscopy Flex completed Chinyere Chery [facility] 04/08/2021 09:39:02 10/16/19 21 Laryngoscopy Flex completed EILEEN ONTIVEROS MD [address] [place], [address], [facility] - [facility] 10/15/2020 13:55:32 08/13/19 21 Laryngoscopy Flex completed EILEEN ONTIVEROS MD [facility] [place], [address], [facility] - [facility] 08/13/2020 13:17:05 05/06/20 20 Laryngoscopy Flex completed EILEEN ONTIVEROS MD [address] [place], [address], [facility] 05/06/2020 13:57:09 03/25/20 20 Laryngoscopy Flex completed EILEEN ONTIVEROS MD [address] [place], [address], [facility] 03/25/2020 11:28:54 10/17/19 20 Laryngoscopy Flex completed EILEEN ONTIVEROS MD [address] [place], [address], [facility] 10/17/2019 14:13:33 Imaging Results None recorded. Procedure Notes None recorded. Medical Equipment None Reported. Allergies Allergen ID Allergen Name Allergen Category Reaction Reaction Severity Criticality Documentation Date Start Date Code Code System Note Provider Name and Address Organization Details Recorded Time 320397 codeine medicatio n Not available Not available Not available 10/06/2022 2670 RxNorm [facility] 09:05:33 Medications Name Sig Start Date Stop Date Status Note LastModified by Organization Details LastModified Time losartan 50 mg tablet active Not Available Not Available Not Available BD Luer-Vera Syringe 3 mL 23 x 1 active Not Available Not Available N ot Available pilocarpin e 5 mg tablet active Not Available Not Available Not Available doxycyclin e hyclate 100 mg capsule 08/10 completed Not Available Not Available Not Available ketoconazo le 2 % shampoo active Not Available Not Available Not Available lisinopril 20 mg-hydroch lorothiazi de 12.5 mg tablet active Not Available Not Available Not Available azithromyc in 250 mg tablet 08/10 completed Not Available Not Available Not Available Lidocaine Viscous 2 % mucosal solution 03/25 completed Not Available Not Available Not Available hydrocodon e 5 mg-acetami nophen 325 mg tablet 10/15 completed Not Available Not Available Not Available ondansetro n HCl 8 mg tablet 03/25 completed Not Available Not Available Not Available prednisone 20 mg tablet active not taking Not Available Not Available Not Available fexofenadi ne 180 mg tablet Take 1 tablet every day by oral route. 2022 active Not Available Not Available Not Avai lable hydrocodon e 10 mg-acetami nophen 325 mg tablet 03/25 completed Not Available Not Available Not Available lidocaine- prilocaine 2.5 %-2.5 % topical cream 03/25 completed Not Available Not Available Not Available levothyrox ine 75 mcg tablet active Not Available Not Available Not Available lorazepam 0.5 mg tablet 2019 active Not Available Not Available Not Avai lable levothyrox ine 50 mcg tablet TAKE 1 TABLET BY MOUTH ONCE DAILY 10/06 completed Not Available Not Available Not Available cephalexin 500 mg capsule 09/22 completed Not Available Not Available Not Available paroxetine 20 mg tablet active Not Available Not Available Not Available cyanocobal hobson (vit B-12) 1,000 mcg/mL injection solution active Not Available Not Available Not Available promethazi ne 25 mg tablet 03/25 completed Not Available Not Available Not Available nicotine 21 mg/24 hr daily transderma l patch 10/16 completed Not Available Not Available Not Available hydrochlor othiazide 25 mg tablet 03/25 completed Not Available Not Available Not Available mupirocin 2 % topical ointment active Not Available Not Available Not Available cefdinir 300 mg capsule 10/15 completed Not Available Not Available Not Available fluticason e propionate 50 mcg/actuat ion nasal spray,susp ension 2 sprays each nostril once daily active Not Available Not Available No t Available doxycyclin e hyclate 100 mg tablet 09/22 completed Not Available Not Available Not Available amoxicilli n 875 mg-potassi um clavulanat e 125 mg tablet 10/29 completed Not Available Not Available Not Available esomeprazo le magnesium 20 mg capsule,de layed release active Not Available Not Available Not Available Asprin Ec Low Dose 81 mg tablet,del ayed release Take 1 tablet every day by oral route. active Not Available Not Available No t Available Phenadoz 25 mg rectal suppositor y 03/25 completed Not Available Not Available Not Available rosuvastat in 10 mg tablet active Not Available Not Available Not Available bupropion HCl XL 300 mg 24 hr tablet, extended release 03/25 completed Not Available Not Available Not Available bupropion HCl XL 150 mg 24 hr tablet, extended release 10/16 completed Not Available Not Available Not Available hydrocodon e 7.5 mg-acetami nophen 325 mg/15 mL oral solution 03/25 completed Not Available Not Available Not Available Wellbutrin SR 03/25 completed Not Available Not Available Not Available Nexium active Not Available Not Availa ble Not Available vareniclin e tartrate 1 mg tablet TAKE 1 TABLET BY MOUTH TWICE DAILY active Not Available Not Available No t Available Chantix active Not Available Not Avail able Not Available diclofenac 1 % topical gel active Not Available Not Available Not Available Sancuso 3.1 mg/24 hour transderma l patch 03/25 completed Not Available Not Available Not Available GaviLyte-G 236 gram-22.74 gram-6.74 gram-5.86 gram oral solution 10/06 completed Not Available Not Available Not Available Plenvu 140 gram-9 gram-5.2 gram powder packs 10/16 completed Not Available Not Available Not Available Vitals Date Recorded Body height Body mass index (BMI) Body weight Heart rate Systolic And Diastolic Provider Name and Address Organization Details Last Updated DateTime 08/10/2023 172.72 cm 25.1 kg/m2 01991.74 g 73 /min 122/77 mm[Hg] J[facility]il [facility] 08/10/2023 15:34:07 Date Recorded Body height Body mass index (BMI) Body weight Heart rate Systolic And Diastolic Provider Name and Address Organization Details Last Updated DateTime 09/19/2024 172.72 cm 25.1 kg/m2 22939.74 g 74 /min 132/75 mm[Hg] No[facility]ia [facility] 09/19/2024 14:07:32 Date Recorded Body height Body mass index (BMI) Body weight Heart rate Systolic And Diastolic Provider Name and Address Organization Details Last Updated DateTime 02/07/2023 172.72 cm 24.8 kg/m2 09881.56 g 64 /min 157/90 mm[Hg] Kay [facility] 02/07/2023 11:53:38 Date Recorded Body height Body mass index (BMI) Body weight Provider Name and Address Organization Details Last Updated DateTime 02/13/2024 172.72 cm 25.5 kg/m2 74707.52 g Lucy [facility] 02/13/2024 15:17:48 Date Recorded Body height Body mass index (BMI) Body weight Heart rate Systolic And Diastolic Provider Name and Address Organization Details Last Updated DateTime 03/20/2025 172.72 cm 24.3 kg/m2 14515.78 g 77 /min 136/61 mm[Hg] Roxie [facility] 03/20/2025 14:00:21 Social History Question Answer Notes LastModified by Organizat ion Details LastModified Time Tobacco Smoking Status Current Every Day Smoker Myrna [facility]ad [facility] 10/17/2019 13:59:51 What Was The Date Of Your Most Recent Tobacco Screening? 12/24/2020 [email or web address] Information not available 12/24/2020 How Much Tobacco Do You Smoke? 1 PPD 47 Years [email or web address] Information not available 10/17/2019 Sex: Unknown Functional Status None recorded. Mental Status None recorded. Family History Relationship Description Onset Age of this Age Resolved Age Notes LastModified by Organization Details LastModified Time Brother Myocardial infarction [email or web address] Not available 10/18 10:51:08 Sister Cerebrovascu lar accident [email or web address] Not available 10:51:42 Father Cerebrovascu lar accident [email or web address] Not available 10:51:42 Mother Cerebrovascu lar accident [email or web address] Not available 10:51:42 Medical History Condition Response Kidney Stones Y Sleep Disorder Y Snoring problems Y Acid Reflux (GERD) Y Cancer Y Hypertension Y Kidney Disease Y Immunizations Vaccine Type Date Status Note Provider Nam e and Address Organization Details Recorded Time Influenza, split virus, quadrivalent, preservative 8 completed Not Available [facility] 03/20/2025 13:54:53 Influenza, split virus, quadrivalent, PF 9 completed Not Available [facility] 03/20/2025 13:54:53 COVID-19, mRNA, LNP-S, PF, 100 mcg/0.5mL dose or 50 mcg/0.25mL dose 1 completed Not Available [facility] 03/20/2025 13:54:53 COVID-19, mRNA, LNP-S, PF, 100 mcg/0.5mL dose or 50 mcg/0.25mL dose 1 completed Not Available [facility] 03/20/2025 13:54:53 zoster recombinant 1 completed Not Available [facility] 03/20/2025 13:54:53 Influenza, split virus, quadrivalent, PF 1 completed Not Available [facility] 03/20/2025 13:54:53 zoster recombinant 1 completed Not Available [facility] 03/20/2025 13:54:53 COVID-19, mRNA, LNP-S, PF, 100 mcg/0.5mL dose or 50 mcg/0.25mL dose 2 completed Not Available [facility] 03/20/2025 13:54:53 Influenza, recombinant, quadrivalent, PF 2 completed Not Available [facility] 03/20/2025 13:54:53 Tdap 4 completed Not Available [facility] 03/20/2025 13:54:53 Pneumococcal conjugate PCV20, polysaccharide [id number] conjugate, adjuvant, PF 4 completed Not Available [facility] 03/20/2025 13:54:53 Influenza, high-dose, trivalent, PF 4 completed Not Available [facility] 03/20/2025 13:54:53 Past Encounters Encounter ID Performer Location Encounter Start Date Encounter Closed Date Diagnosis/Indication Diagnosis SNOMED-CT Code Diagnosis ICD10 Code Diagnosis IMO Codes Diagnosis Note [id number] EILEEN ONTIVEROS MD ENT [facility] [place] [address] 10/17/2019 13:32:32 10/19/2019 23:16:49 Metastatic squamous cell carcinoma 568205764 C79.9 full risks, benefits and alternativ es to neck dissection were discussed in detail including: design of incision, injury of greater auricular nerve (numbness of ear lobe), injury of facial nerve/bran ches (most often weakness of lower lip), injury to lingual nerve (numbness of half of tongue), hypoglossa l nerve (impaired tongue mvmt/swall owing), spinal accessory nerve (inability to raise shoulder/w inging of scapula), vagus nerve (hoarsenes s/aspirati on), brachial plexus (impaired mvmt of arm/hand), phrenic nerve (impaired breathing/ diaphragm paralysis) , chyle leak (accumulat ion of lymph fluid in neck) or acts of God such as heart attack, stroke, blood clot, pneumonia Mass of neck 698259967 R 22.1 Malignant neoplasm of unknown origin 847645489 C79.9 left tonsillect isabella pt was fully informed of R/B/A of tonsillect isabella- not being done for infection but to determine if it is the source of his cancer ( ~ 20% risk) Specifical ly discussed was postop pain, infection, bleeding, potential of dehydratio n--> bleeding, PNA, ATN, need for IVF with attendant cost, or need for return to OR for bleeding. Patinet was told to avoid any anticoagul ant medicines such as ASA, ibuprofen, vit E for at least a week before procedure and for several weeks after. Patient was told to remain on blendarize d diet until tonsillar wounds lose the holland scabs and have pink tissue, again, so as to avoid bleeding Anticoagulant therapy 18 9714286 Z79.01 hold ASA [id number] MISAEL ARAGON MD GENERAL SURGERY [facility] [address] [place] [address] 6 10/19/2019 10:26:36 10/19/2019 11:58:08 Primary malignant neoplasm of tonsil 849241127 C09.9 [id number] MISAEL ARAGON MD SURGERY SCHEDULE [address] [place] [address] 1 10/22/2019 06:38:52 10/22/2019 06:39:42 Malignant neoplasm of tonsil 730041299 C09.9 [id number] EILEEN ONTIVEROS MD SURGERY SCHEDULE [address] [place] [address] 1 10/22/2019 06:41:57 10/22/2019 06:42:10 [id number] EILEEN ONTIVEROS MD ENT SB [address] [place] [address] 1 10/24/2019 08:41:56 10/24/2019 08:53:15 [id number] EILEEN ONTIVEROS MD ENT SB [address] [place] [address] 1 10/30/2019 14:03:03 10/31/2019 14:28:27 Metastatic squamous cell carcinoma 971560113 C79.9 reviewed path w pt- should have a better outcome with apparently unknown primary and hopefully need for lower dose XRT. 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 3341674989 130840 Z85.79 Primary ma lignant neoplasm of unknown site 674969539 C80.1 Dysphagia 94791841 R13.1 0 dysphagia after XRT [id number] EILEEN ONTIVEROS MD ENT [place] [address] 1 05/15/2020 14:39:18 05/15/2020 15:26:24 Dysphagia 53453768 R13.10 dysphagia after XRT- Rx on paper as they live OOT Gastroesop hageal reflux disease without esophagitis 293584767 K21.9 change PPI to qhs [id number] EILEEN ONTIVEROS MD ENT [place] [address] 1 08/13/2020 12:59:48 08/13/2020 13:37:20 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 Ontiveros that had unknown primary and treated with radiation therapy about a year ago. I do not see a staging in his nodes. No evidence of recurrent malignancy on physical exam today. 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 No evidence of malignancy . f/u 3 months. 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 No evidence of malignancy on exam or endoscopy. f/u 3 months. 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 No evidence of malignancy on exam or endoscopy. f/u 3 months. 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 No evidence of malignancy on exam or endoscopy. f/u 4 months. 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 No evidence of malignancy on exam or endoscopy. f/u 4 months. 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 No evidence of malignancy on exam or endoscopy. f/u 4 months. Allergic rhinitis 930281 04 J30.9 Bothered by post-nasal drainage. Drainage is also exacerbate d by severely deviated septum. Start Harriet and Flonase. 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 No evidence of malignancy on exam or endoscopy. 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 No evidence of malignancy on exam or endoscopy. 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 No evidence of malignancy on exam or endoscopy. F/u 6mo Popping se nsation in ear 631806557 H93.299 Right. Removed hairs from the TM which may have been the source. 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 No evidence of malignancy on exam or endoscopy. F/u 6mo and if no pathology at that point would not need any further follow-up Dizziness 140704449 R42 Describes light headedness upon standing up too fast. Likely secondary to orthostati c hypotensio n. Ear exam is normal. 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 No evidence of malignancy on exam or endoscopy. Since he is 5 years out from radiation he is considered cured. F/u prn Health Concerns Section Related Observation LastModified by Organization Detai ls LastModified Time None Recorded Concern Status LastModified by Organization Details LastModified Time None Recorded Advance Directives Directive None Recorded Payers Insurance Date Sequence Insurance Name Policy Number Policy Manuel Covered Member ID Manuel Member ID Guarantor Name 05/18/2022 1 [employer] (MEDICARE REPLACEMENT/A DVANTAGE - HMO) Colton Ascencio [id number] Colton Ascencio 08/10/2023 1 [employer] - GOLD PLUS (MEDICARE REPLACEMENT/A DVANTAGE - HMO) Colton Ascencio [id number] Colton Ascencio 11/13/2021 PAYMENT PLAN Colton Ascencio 05/18/2022 1 [employer] (PPO) [id number] Colton Ascencio [id number] Colton Ascencio 03/17/2025 1 [employer] (MEDICARE REPLACEMENT/A DVANTAGE - PPO) Colton Ascencio [id number] Colton Ascencio Notes Date Note Type Note Provider Name and Address Organization Details Recorded Time 02/07/2023 text/html Chief Complaint: Hx of cancer metastatic to lymph nodes with unknown primaryTiming: Completed XRT (12/2019)Duration:L ocation: Left neckSeverity:Qualit y:Context: S/p left neck dissection and left tonsillectomy (10/2019)Modifying Factors: Continues to smoke 1ppd, allergy medicineAssoc signs and symptoms: No dysphagia, has some hoarseness, and PND, no otalgia, no hemoptysis, no throat pain MISAEL JAIMES MD [address] [place] [address], [phone], [facility] 02/07/2023 12:14:50 08/10/2023 text/html Chief Complaint: Hx of cancer metastatic to lymph nodes with unknown primaryTiming:Durat ion:Location: Left neckSeverity: no significant changes since last visitQuality:Contex t: S/p left neck dissection and left tonsillectomy (10/2019), Completed XRT (12/2019)Modifying Factors: Continues to smoke 1ppdAssoc signs and symptoms: dry cough, dry mouth, no dysphagia, no hemoptysis, no otalgia, no felt lumps in neck, no sores in mouth, left ear pops/cracks MISAEL JAIMES MD [address] [place] [address], [phone], [facility] 08/10/2023 16:54:39 02/13/2024 text/html Chief Complaint: Hx of cancer metastatic to lymph nodes with unknown primaryTiming:Durat ion:Location: Left neckSeverity:Qualit y:Context: S/p left neck dissection and left tonsillectomy (10/2019), Completed XRT (12/2019)Modifying Factors: Continues to smokeAssoc signs and symptoms: no throat pain, no voice changes, eating and drinking well, occasional cough- non productive, no known mass/ lesions, no bleeding, no hematemesis, no hemoptysis, no fever, did have a sore throat that resolved, no dysphagia, has right neck pain occasionally Chief complaint: Ad poppingonset >3 mo-was suggested for him to use Flonase - has not used-denies otalgia, no hearing changesDizziness, no fever MISAEL JAIMES MD [address] [place] [address], [id number], [facility] 02/13/2024 17:11:41 09/19/2024 text/html Chief Complaint: Hx of cancer metastatic to lymph nodes with unknown primaryTiming:Durat ion:Location: Left neckSeverity:Qualit y:Context: S/p left neck dissection and left tonsillectomy (10/2019), Completed XRT (12/2019)Modifying Factors: Continues to smokeAssoc signs and symptoms: no throat pain, no changes in voice, no dysphagia, no bleeding, occasional coughing, no hemoptysis, no otalgia #2Chief Complaint: Dizziness Timin months Duration: Location: Severity: Quality: light headed Context: is on bp medication Modifying Factors: no tx Assoc signs and symptoms: MISAEL JAIMES MD [address] [place] [address], [id number], [facility] 09/19/2024 14:45:47 03/20/2025 text/html Chief Complaint: Hx of cancer metastatic to lymph nodes with unknown primaryTiming:Durat ion:Location: Left neckSeverity:Qualit y:Context:Modifying Factors: S/p left neck dissection and left tonsillectomy (10/2019), Completed XRT (12/2019)Assoc signs and symptoms: dry cough, no sore throat, no dysphagia, no changes in voice, no otalgia, no felt lumps in the neck, no throat pain MISAEL JAIMES MD [address] [place] [address], [phone], [facility] 03/20/2025 16:25:26
--- OUTSIDE RECORDS SUMMARY | 2025-06-17 08:02 | XMS_ITS | Encounter Summary ---
Author Organization [employer] ([place], [place], [place], [place], [place]) Address [address] [place] [address] Care Team Providers Care Apprentice Painter Neckties Name Role Phone Christophe Vega MD Unavailable Unavailable Dennys Kent MD Unavailable [phone] Genaro Avendano MD Primary Care Provider [phone] Encounter Details Date Type Department Care Team (Late st Contact Info) Description 01/04/2020 Transcribed Document [facility] [place] Family Medicine [address] [place] [address] ProviderRadha MD [address] [place] [address] Social History Tobacco Use Types Packs/Day Years Used Date Smoking Tobacco: Never Assessed Sex and Gender Information Value Date Recorded Sex Assigned at Not on file Legal Sex Male 4:20 PM CDT Gender Identity Not on file Sexual Orientation Not on file documented as of this encounter Miscellaneous Notes * Cerner Conversion Note - Radha ProviderMD - 01/04/2020 2:00 AM CDT Director Of Communications Details Entered On: 01/04/2020 4:10 EDT Performed On: 01/04/2020 2:00 EDT by Don Hargrove RN Order Details Transport Mode Order Detail : Wheelchair Isolation Precautions Order Detail : Standard Precautions Order Detail : N/A IV Order Detail : 1 Nurse Collect Order Detail : 1 Lift/Transfer : Independent Central Line Order Detail : Yes Room Service : Not Appropriate Arterial Line : No Don Hargrove RN - 01/04/2020 4:10 EDT documented in this encounter Plan of Treatment Not on file documented as of this encounter Visit Diagnoses Not on filedocumented in this encounter Care Teams Apprentice Painter Neckties Relationship Specialty Start Date End Date Genaro Avendano MD [address] [place] [address] PCP - General Adolescent Medicine 01/25/23 Christophe Vega MD Medical Oncologist Hematology and Oncology 07/27/22 Dennys Kent MD [address] [place] [address] Surgeon Otolaryngology 07/27/22 documented as of this encounter
--- OUTSIDE RECORDS SUMMARY | 2025-06-17 08:02 | XMS_ITS | Encounter Summary ---
Author Organization [employer] ([place], [place], [place], [place], [place]) Address [address] [place] [address] Care Team Providers Care Spike Machine Feeder Name Role Phone Christophe Vega MD Unavailable Unavailable Dennys Kent MD Unavailable [phone] Genaro Avendano MD Primary Care Provider [phone] Encounter Details Date Type Department Care Team (Late st Contact Info) Description 01/05/2020 Transcribed Document [facility] [place] [address] [place] [address] ProviderRadha MD [address] [place] [address] Social History Tobacco Use Types Packs/Day Years Used Date Smoking Tobacco: Never Assessed Sex and Gender Information Value Date Recorded Sex Assigned at Not on file Legal Sex Male 4:20 PM CDT Gender Identity Not on file Sexual Orientation Not on file documented as of this encounter Miscellaneous Notes * Cerner Conversion Note - Radha Garduno MD - 01/05/2020 1:14 PM CDT Patient: JONATHAN RIVAS Age: 64 years Sex: Male : 1955 Associated Diagnoses: None Author: BRAXTON PATTEN MD-INT Subjective 64 yo male with PMH of metastatic squamous celll carcinoma diagnosed 2-3 months ago. per patient he had no swallow problem, [...] abd pain. no recently travel. mild anxiety also. he got J-tube yesterday saw him today in am and awake and d/w nurse on ivf and na level better, still feel nausea and anxiety , today his k level better, mag 1.7 , tolerated some CLD also ROS: no fever, no chest pain or SOB, has nausea and anxiety Health Status Allergies: Allergic Reactions (Selected) Moderate Codeine- No reactions were documented., Allergies (1) Active Reaction codeine None Documented Problem list: Medical At risk for sleep apnea / IMO [id number] / Confirmed, Active Problems (2) At risk for sleep apnea Severe protein-calorie malnutrition Objective VS/Measurements Vitals Signs (last 24 hrs) Last Charted Minimum Maximum Temp 97.5 (JANUARY 04 10:45) 97 (JANUARY 03 15:23) 98 (JANUARY 04 06:44) Mon HR 56 (JANUARY 04 10:45) 55 (JANUARY 03 16:05) 69 (JANUARY 03 15:25) Resp Rate 18 (JANUARY 04 06:44) 14 (JANUARY 03 15:50) 18 (JANUARY 03:30) SBP 101 (JANUARY 04 10:45) 98 (JANUARY 04 06:44) H 142 (JANUARY 03 15:23) DBP 63 (JANUARY 04 10:45) L 58 (JANUARY 03 15:50) 74 (JANUARY 03 15:25) MAP 74 (JANUARY 04 10:45) 71 (JANUARY 04 06:44) 102 (JANUARY 03 15:25) SpO2 99 (JANUARY 04 10:45) 98 (JANUARY 03 15:50) 100 (JANUARY 03 15:23) General: Alert and oriented, Mild distress. Neck: Supple, Non-tender, No jugular venous distention. Respiratory: Breath sounds are equal, Symmetrical chest wall expansion, No chest wall tenderness. Cardiovascular: Normal rate, No murmur, No gallop. Gastrointestinal: Soft, Normal bowel sounds, s/p J tube . Musculoskeletal: No tenderness, No deformity. Integumentary: Warm, Intact, No pallor. Neurologic: Alert, Oriented, No focal deficits. Psychiatric: Cooperative, anxiety, Not appropriate mood & affect. Results Review Lab and test: Labs (Last four charted values) WBC 7.7 (JANUARY 01) HB L 11.6 (JANUARY 01) HCT L 34.1 (JANUARY 01) Plt 261 (JANUARY 01) Na 137 (JANUARY 04) 139 (JANUARY 03) 146 (JANUARY 02) H 151 (JANUARY 01) K 3.5 (JANUARY 04) L 3.0 (JANUARY 03) L 3.3 (JANUARY 02) 4.0 (JANUARY 01) Cl 106 (JANUARY 04) 109 (JANUARY 03) H 117 (JANUARY 02) H 123 (JANUARY 01) CO2 25 (JANUARY 04) 23 (JANUARY 03) 23 (JANUARY 02) L 18 (JANUARY 01) BUN 13 (JANUARY 04) 14 (JANUARY 03) 21 (JANUARY 02) H 26 (JANUARY 01) Cr 0.90 (JANUARY 04) 0.80 (JANUARY 03) 1.10 (JANUARY 02) 1.20 (JANUARY 01) Glu R H 123 (JANUARY 04) H 109 (JANUARY 03) H 138 (JANUARY 02) H 133 (JANUARY 01) Ca L 7.8 (JANUARY 04) L 7.9 (JANUARY 03) L 8.2 (JANUARY 02) 8.5 (JANUARY 01) [...] failure to thrive severe dehydration on admit - better metastatic squamous cell carcinoma HTN GERD hypernatremia on admit- resolved h/o PAD with leg stent Anxiety PLAN: cont ivf now will start tube feeding gradually close watch BMP ppi lovenox sq, d/w pat and nurse if tolerated TF, then go home in am, dry food products mixer consult for home tube feeding documented in this encounter Plan of Treatment Not on file documented as of this encounter Visit Diagnoses Not on filedocumented in this encounter Care Teams Spike Machine Feeder Relationship Specialty Start Date End Date Genaro Avendano MD [address] [place] [address] PCP - General Adolescent Medicine 01/25/23 Christophe Vega MD Medical Oncologist Hematology and Oncology 07/27/22 Dennys Kent MD [address] [place] [address] Surgeon Otolaryngology 07/27/22 documented as of this encounter
--- OUTSIDE RECORDS SUMMARY | 2025-06-17 08:03 | XMS_ITS | Encounter Summary ---
Author Organization [employer] ([place], [place], [place], [place], [place]) Address [address] [place] [address] Care Team Providers Care Legend Maker Name Role Phone Christophe Vega MD Unavailable Unavailable Dennys Kent MD Unavailable [phone] Genaro Avendano MD Primary Care Provider [phone] Encounter Details Date Type Department Care Team (Late st Contact Info) Description 08/20/2020 Transcribed Document [facility] [address] [place] [address] ProviderRadha MD [address] [place] [address] Social History Tobacco Use Types Packs/Day Years Used Date Smoking Tobacco: Never Assessed Sex and Gender Information Value Date Recorded Sex Assigned at Not on file Legal Sex Male 4:20 PM CDT Gender Identity Not on file Sexual Orientation Not on file documented as of this encounter Miscellaneous Notes * Cerner Conversion Note - Radha ProviderMD - 08/20/2020 6:40 PM CRANKSHAFT BALANCER [facility] [address] JONATHAN RIVAS :1955 Visit Time:08/20/2020 Your Visit Summary Your Care Team Primary Provider: SHAYNE MIRZA PA-C Secondary Provider: Your Diagnosis Complaint associated with gastric tube GI tube evaluation Malfunction of gastrostomy tube [...] do next Follow-Up Appointments Follow Up with CRISTEL GUO When Within 2 to 3 days Comments General Surgery Call for follow up appointment Return to ER with any new or worsening symptoms Where: [address] [facility] [address] [place] [address]- Business (1) Follow Up with KRISTAL RAHMAN When Within 2 to 3 days Where: [address] [facility] [address] [place] [address]- Business (1) Allergies codeine Immunizations This Visit No [...] This Visit (last charted value for your 08/20/2020 visit) No Laboratory or Other Results This [...] the balloon can be found in the thaw shed heater tender???s specifications. ??? Make sure the person takes [...] care provider. Document Released: 10/03/2002 Document Revised: 07/07/2018 Document Reviewed: 09/19/2017 [employer] Patient Education ?? 2020 [employer]. Emergency Awareness and Preventative Care STRO[place] is [...] Assistance with quitting is available by contacting 0-804-ZFDR-NOW. This is a free resource providing counseling, [...] was given the opportunity to ask questions. Patient/Senior Master Scheduler Name: Patient/Senior Master Scheduler Signature: Relationship to Patient: Clinician/Hospital Senior Master Scheduler Signature: Please Provide a Telephone Number Where You Can Be Reached: Is it Permissible To Leave a Message? Date: Electronically signed by Benita [facility] Conversion Marisa Blankenship at 11/25/2022 12:14 AM CDT documented in this encounter Plan of Treatment Not on file documented as of this encounter Visit Diagnoses Not on filedocumented in this encounter Care Teams Legend Maker Relationship Specialty Start Date End Date Genaro Avendano MD [address] [place] [address] PCP - General Adolescent Medicine 01/25/23 Christophe Vega MD Medical Oncologist Hematology and Oncology 07/27/22 Dennys Kent MD [address] [place] [address] Surgeon Otolaryngology 07/27/22 documented as of this encounter
--- OUTSIDE RECORDS SUMMARY | 2025-06-17 08:03 | XMS_ITS | Encounter Summary ---
Author Organization [employer] ([place], [place], [place], [place], [place]) Address [address] [place] [address] Care Team Providers Care Egg Candler Name Role Phone Christophe Vega MD Unavailable Unavailable Dennys Kent MD Unavailable [phone] Genaro Avendano MD Primary Care Provider [phone] Encounter Details Date Type Department Care Team (Late st Contact Info) Description 01/07/2020 Transcribed Document [facility] [place] [address] [place] [address] ProviderRadha MD [address] [place] [address] Social History Tobacco Use Types Packs/Day Years Used Date Smoking Tobacco: Never Assessed Sex and Gender Information Value Date Recorded Sex Assigned at Not on file Legal Sex Male 4:20 PM CDT Gender Identity Not on file Sexual Orientation Not on file documented as of this encounter Miscellaneous Notes * Cerner Conversion Note - Radha ProviderMD - 01/07/2020 8:45 AM CDT Patient: JONATHAN RIVAS Age: 64 Years Sex: Male : 1955 Assessment/Plan 64-year-old male with 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 tube placement [1] Tube feeds to be advanced to goal this morning. Okay for discharge home when tolerating goal rate VTE Prophylaxis - Medical Enoxaparin 40 mg, SubCutaneous, Inj, [id number], Routine, Start 01/05/20 21:00:00 EDT (BRAXTON PATTEN MD-INT) Sequential Compression Device Start: 01/02/20 16:04:00 EDT, Bilateral, Continuous Order (BRAXTON PATTEN MD-INT) Subjective No complaints. Marika TF. Plan is for discharge today. Vital Signs T: 36.7 ??C TMIN: 36.4 ??C TMAX: 36.7 ??C HR: 65(Monitored) RR: 16 BP: 121/78 SpO2: 97% Oxygen Settings (Last) Oxygen Therapy Mode: Room air (01/07/20 06:18:00) Oxygen Flow Rate: 2 Liter/Min (01/04/20 16:25:00) Intake & Output Totals Last 24 Hours (7a-7a) Input Total: 1180 mL Output Total: 1475 mL Balance: -295 mL Physical Exam Gen: NAD Resp: Nonlabored respirations CV: Normal peripheral perfusion Ab: soft, nontender, nondistended Medications cetuximab 480 mg + evacuated glass [...] PRN Lovenox, 40 mg= 0.4 mL, SubCutaneous, [id number] Milk of Magnesia 8% oral suspension, 30 [...] Sodium Chloride 0.9% intravenous solution 50 mL documented in this encounter Plan of Treatment Not on file documented as of this encounter Visit Diagnoses Not on filedocumented in this encounter Care Teams Egg Candler Relationship Specialty Start Date End Date Genaro Avendano MD [address] [place] [address] PCP - General Adolescent Medicine 01/25/23 Christophe Vega MD Medical Oncologist Hematology and Oncology 07/27/22 Dennys Kent MD [address] [place] [address] Surgeon Otolaryngology 07/27/22 documented as of this encounter
--- OUTSIDE RECORDS SUMMARY | 2025-06-17 08:03 | XMS_ITS | Encounter Summary ---
Author Organization [employer] ([place], [place], [place], [place], [place]) Address [address] [place] [address] Care Team Providers Care Material Preparation Worker Name Role Phone Christophe Vega MD Unavailable Unavailable Dennys Kent MD Unavailable [phone] Genaro Avendano MD Primary Care Provider [phone] Encounter Details Date Type Department Care Team (Late st Contact Info) Description 01/26/2020 Transcribed Document [facility] [place] [address] [place] [address] ProviderRadha MD [address] [place] [address] Social History Tobacco Use [...] MD - 01/26/2020 3:20 PM CDT ED Triage Entered On: 01/26/2020 15:30 EDT Performed On: 01/26/2020 15:27 EDT by EVONNE BAIRES, LEAD REFINERY SUPERVISOR Triage Across the Room Chief Complaint : patient with throat cancer usues a feeding tube for supp feedings, tube was clogged this AM, tried soda and warm water but can't get it going, patient has no complaints Triage Date/Time : 01/26/2020 15:27 EDT EVONNE BAIRES, RN - 01/26/2020 15:27 EDT DCP GENERIC CODE Tracking Acuity : 4 - Non - Urgent Tracking Group : [facility] ED EVONNE BAIRES RN - 01/26/2020 15:27 EDT Mode of Arrival : Ambulatory Transported to ED by : Private vehicle To Room Via : Ambulate Accompanied By : Significant other ED Vital Signs : Document Height & Weight : Document ED Allergies : Document ED Reason for Visit : Document EVONNE BAIRES RN - 01/26/2020 15:27 EDT Infectious Disease History Has the patient ever been tested for COVID-19? : Yes, Patient stated results Negative COVID19 Screening : No Experiencing Infectious Disease Symptoms : No symptoms Physical contact outside [place] in the last 30 days : No Infectious Disease Symptoms Score : 0 Infectious Disease History : None Tuberculosis Symptoms : None EVONNE BAIRES RN - 01/26/2020 15:27 EDT Vital Signs ED Temperature Source : Oral Temperature Mode : Fahrenheit Temperature, Fahrenheit : 98 Deg F ED Pain : No Clinical Temperature, C : 36.7 Deg C Oxygen Therapy Mode : Room air Peripheral Pulse Rate : 67 bpm Respiratory Rate : 18 Breaths/Min Systolic Blood Pressure : 145 mmHg (HI) Diastolic Blood Pressure : 79 mmHg Oxygen Saturation : 97 % EVONNE BAIRES RN - 01/26/2020 15:27 EDT Allergy (As Of: 01/26/2020 15:30:03 EDT) Allergies (Active) codeine Estimated Onset Date: Unspecified ; Created By: Carlotta York RN; Reaction Status: Active ; Category: Drug ; Substance: codeine ; Type: Allergy ; Severity: Moderate ; Updated By: Carlotta York RN; Reviewed Date: 01/26/2020 15:29 EDT Diagnosis Control ED (As Of: 01/26/2020 15:30:03 EDT) Problems(Active) At risk for sleep apnea (IMO :58140001 ) Name of Problem: At risk for sleep apnea ; Recorder: SYSTEM, SYSTEM; Confirmation: Confirmed ; Classification: Medical ; Code: [id number] ; Last Updated: 01/02/2020 18:40 EDT ; Life Cycle Date: 01/02/2020 ; Life Cycle Status: Active ; Vocabulary: IMO Severe protein-calorie malnutrition (SNOMED CT :650312992 ) Name of Problem: Severe protein-calorie malnutrition ; Onset Date: 01/03/2020 ; Recorder: KALLI GAMEZ, BRANDON, KATIE; Confirmation: Confirmed ; Classification: DIETARY ; Code: [id number] ; Contributor System: Solaborate ; Last Updated: 01/03/2020 15:46 EDT ; [...] J-tube. Nutrient Intake Status : Active Diagnoses(Active) GI tube evaluation Date: 01/26/2020 ; Diagnosis Type: Reason For Visit ; Confirmation: Complaint of ; Clinical Dx: GI tube evaluation ; Classification: Medical ; Clinical Service: Non-Specified ; Code: PNED ; Probability: 0 ; Diagnosis Code: [id number] ED Height and Weight Height Source : Stated Height Entry Format : [place] Height, Feet : 5 ft(Converted to: 152 cm, 60 Inch) Height, Inches : 8 Inch(Converted to: 0 ft 8 Inch, 20.32 cm) Clinical Height : 172.72 cm Weight Source, ED : Critical estimated dosing weight Weight Entry Format : [place] Weight, Pounds : 150 lb Clinical Dosing Weight : 68.18 kg Body Surface Area (BSA) : 1.81 m2 Body Mass Index : 22.9 kg/m2 [place] Body Weight (IBW) : 67.45 kg EVONNE BAIRES RN - 01/26/2020 15:27 EDT documented in this encounter Plan of Treatment Not on file documented as of this encounter Visit Diagnoses Not on filedocumented in this encounter Care Teams Material Preparation Worker Relationship Specialty Start Date End Date Genaro Avendano MD [address] [place] [address] PCP - General Adolescent Medicine 01/25/23 Christophe Vega MD Medical Oncologist Hematology and Oncology 07/27/22 Dennys Kent MD [address] [place] [address] Surgeon Otolaryngology 07/27/22 documented as of this encounter
--- OUTSIDE RECORDS SUMMARY | 2025-06-17 08:03 | XMS_ITS | Encounter Summary ---
Author Organization [employer] ([place], [place], [place], [place], [place]) Address [address] [place] [address] Care Team Providers Care Rn Corrections Name Role Phone Christophe Vega MD Unavailable Unavailable Dennys Kent MD Unavailable [phone] Genaro Avendano MD Primary Care Provider [phone] Encounter Details Date Type Department Care Team (Late st Contact Info) Description 08/20/2020 Transcribed Document [facility] [place] Family Medicine [facility] [place] [address] ProviderRadha MD [address] [place] [address] Social History Tobacco Use Types Packs/Day Years Used Date Smoking Tobacco: Never Assessed Sex and Gender Information Value Date Recorded Sex Assigned at Not on file Legal Sex Male 4:20 PM CDT Gender Identity Not on file Sexual Orientation Not on file documented as of this encounter Miscellaneous Notes * Cerner Conversion Note - Radha ProviderMD - 08/20/2020 6:24 PM INSPECTOR RECEIVING Patient: JONATHAN RIVAS Age: 64 years Sex: Male : 1955 Associated Diagnoses: Complaint associated with gastric tube; Malfunction of gastrostomy tube Author: SHAYNE MIRZA PA-C Basic Information Additional information: Chief Complaint from Nursing Triage Note : Chief Complaint 08/20/2020 14:33 EST Chief Complaint g tube clogged . History of Present Illness The patient presents with Patient is 64-year-old male with a history of neck cancer and G-tube placement, who presents today reporting that his tube is unclogged for approximately 24 hours, he says that him and his had tried to unclog it with warm water and coke without any improvement so they presented to the emergency department today. NO fever chills GONZALES abd pain n/v/d. Review of Systems Additional review of systems information: All other systems reviewed and otherwise negative. Health Status Allergies: Allergic Reactions (Selected) Moderate [...] Supp, Rectal, Q4H, PRN: Nausea/Vomiting, 0 Refill(s). Immunizations: Per nurse's notes. Past Medical/ Family/ Social History Medical history Reviewed as documented in chart. Surgical history: No active procedure history items have been selected or recorded., Reviewed as documented in chart. Family history: No family history items have been selected or recorded., Reviewed as documented in chart. Social history: Social & Psychosocial Habits Tobacco 01/17/2020 Smoking Status Never (less than 100 in l Smokeless Tobacco Status Never . Problem list: Active Problems (2) At risk for sleep apnea Severe protein-calorie malnutrition , per nurse's notes. Physical Examination Vital Signs Vital Signs/Vital Measures 08/20/2020 14:33 EST Systolic Blood Pressure 121 mmHg Diastolic Blood Pressure 71 mmHg Temperature Source Oral Temperature Mode Fahrenheit Temperature, Fahrenheit 97.0 Deg F Clinical Temperature, C 36.1 Deg C Peripheral Pulse Rate 70 bpm Respiratory Rate 18 Breaths/Min Oxygen Saturation 98 % Oxygen Therapy Mode Room air . Measurements 08/20/2020 14:33 EST Height Source Stated Height Entry Format [place] Height/Length, COMORAN (ft) 5 ft Height/Length COMORAN 8 Inch CLINICALHEIGHT 172.72 cm [place] Body Weight 67.45 kg Weight Source, ED Critical estimated dosing weight Weight Entry Format [place] Weight Swazi lb 147 lb CLINICALWEIGHT 66.82 kg Body Surface Area (BSA) 1.79 m2 Body Mass Index 22.4 kg/m2 . Oxygen Saturation 08/20/2020 14:33 EST Oxygen Saturation 98 % . General: Alert, no acute distress. Skin: Warm, dry, pink, intact. Head: Normocephalic, atraumatic. Neck: Supple, trachea midline. Eye: Normal conjunctiva. Ears, nose, mouth and throat: Oral mucosa moist. Cardiovascular: No murmur, Normal peripheral perfusion. Gastrointestinal: Soft, Nontender, Non distended, G tube in LUQ, currently a 16french jara for tube. Musculoskeletal: Normal ROM, normal strength. Neurological: Alert and oriented to person, place, time, and situation, No focal neurological deficit observed, normal speech observed, normal coordination observed. Psychiatric: Cooperative, appropriate mood & affect. Medical Decision Making Differential Diagnosis: Documents reviewed: Emergency department nurses' notes. Orders Include Previous Orders (Selected) Inpatient Orders Ordered Broset Violence Assessment: ED Adult Fall Risk Assessment: ED C-SSRS: ED Clinical Reconciliation: ED senior benefits analyst: Ordered (Exam Ordered) CR G/J Tube PAtency Check: Completed ED Adult Triage: . Notes: Both x-ray Lisa tapia, and Dr. Maya both attempted to flush G-tube without any improvement, Dr. Maya removed 16 [place] Islander Jara and replaced with 22 [place] Islander G-tube, x-ray was taken after replacement which showed successful distribution of Gastrografin.. Impression and Plan Diagnosis Complaint associated with gastric tube - Discharge, Medical Malfunction of gastrostomy tube - Discharge, Medical Calls-Consults - Spoke with Dr Yaw Chavis no further reccomendations, advised follow up in office with Dr Cedeno. Plan Condition: Stable. Disposition: Discharged Admit/Transfer/Discharge: Discharge (Order): Start: 08/20/2020 18:36 EST, Discharge to: Home. Patient was given the following educational materials: Gastrostomy Tube Home Guide, Adult. Follow up with: KRISTAL RAHMAN Within 2 to 3 days; CRISTEL CEDENO Within 2 to 3 days General Surgery Call for follow up appointment Return to ER with any new or worsening symptoms. Counseled: Patient, Regarding diagnosis, Regarding diagnostic results, Regarding treatment plan, Patient indicated understanding of instructions. documented in this encounter Plan of Treatment Not on file documented as of this encounter Visit Diagnoses Not on filedocumented in this encounter Care Teams Rn Corrections Relationship Specialty Start Date End Date Genaro Avendano MD [address] [place] [address] PCP - General Adolescent Medicine 01/25/23 Christophe Vega MD Medical Oncologist Hematology and Oncology 07/27/22 Dennys Kent MD [address] [place] [address] Surgeon Otolaryngology 07/27/22 documented as of this encounter
--- OUTSIDE RECORDS SUMMARY | 2025-06-17 08:03 | XMS_ITS | Encounter Summary ---
Author Organization [employer] ([place], [place], [place], [place], [place]) Address [address] [place] [address] Care Team Providers Care Aerodynamics Engineer Name Role Phone Christophe Vega MD Unavailable Unavailable Dennys Kent MD Unavailable [phone] Genaro Avendano MD Primary Care Provider [phone] Encounter Details Date Type Department Care Team (Late st Contact Info) Description 08/20/2020 Transcribed Document [facility] [place] [address] [place] [address] ProviderRadha MD [address] [place] [address] Social History Tobacco Use Types Packs/Day Years Used Date Smoking Tobacco: Never Assessed Sex and Gender Information Value Date Recorded Sex Assigned at Not on file Legal Sex Male 4:20 PM CDT Gender Identity Not on file Sexual Orientation Not on file documented as of this encounter Miscellaneous Notes * Cerner Conversion Note - Radha ProviderMD - 08/20/2020 1:48 PM CHOKE SETTER ED Assessment Entered On: 08/20/2020 18:50 EST Performed On: 08/20/2020 14:36 EST by Deepthi Fairbanks RN ED Quick Look Assessment Level of Consciousness : Alert Orientation : Oriented x 4 Deepthi Fairbanks RN - 08/20/2020 18:48 EST ED General-Functional Assess Preferred Communication Mode : Verbal Communication Barrier : None Primary Language : Northern Irish Any Spiritual/Cultural Needs or Requests : No Currently in Unsafe Situation : No Deepthi Fairbanks RN - 08/20/2020 18:48 EST Social Habits Smoking Status : Never (less than 100 in lifetime; none in last 30 days) Smokeless Tobacco Status : Never Desires Tobacco Cessation Calc : 0 Deepthi Fairbanks RN - 08/20/2020 18:48 EST Social History (As Of: 08/20/2020 18:50:02 EST) Tobacco: Never (less than 100 in lifetime) Smoking Status. Never Smokeless Tobacco Status. (Last Updated: 01/17/2020 15:59:40 EDT by Flora Lara RN) Gastrointestinal ED Gastrointestinal Assessment WDL : WDL with exceptions (Comment: g-tube not working/clogged, pt denies pain, denies vomiting [Deepthi Fairbanks RN - 08/20/2020 18:48 EST] ) Deepthi Fairbanks RN - 08/20/2020 18:48 EST Electronically signed by [facility], [facility] Conversion Freight Car Repairer Cerner at 11/25/2022 12:27 AM CDT documented in this encounter Plan of Treatment Not on file documented as of this encounter Visit Diagnoses Not on filedocumented in this encounter Care Teams Aerodynamics Engineer Relationship Specialty Start Date End Date Genaro Avendano MD [address] [place] [address] PCP - General Adolescent Medicine 01/25/23 Christophe Vega MD Medical Oncologist Hematology and Oncology 07/27/22 Dennys Kent MD [address] [place] [address] Surgeon Otolaryngology 07/27/22 documented as of this encounter
--- OUTSIDE RECORDS SUMMARY | 2025-06-17 08:03 | XMS_ITS | Encounter Summary ---
Author Organization [employer] ([place], [place], [place], [place], [place]) Address [address] [place] [address] Care Team Providers Care Gas Plant Specialist Name Role Phone Christophe Vega MD Unavailable Unavailable Dennys Kent MD Unavailable [phone] Genaro Avendano MD Primary Care Provider [phone] Encounter Details Date Type Department Care Team (Late st Contact Info) Description 01/05/2020 Transcribed Document [facility] [place] [address] [place] [address] ProviderRadha MD [address] [place] [address] Social History Tobacco Use Types Packs/Day Years Used Date Smoking Tobacco: Never Assessed Sex and Gender Information Value Date Recorded Sex Assigned at Not on file Legal Sex Male 4:20 PM CDT Gender Identity Not on file Sexual Orientation Not on file documented as of this encounter Miscellaneous Notes * Cerner Conversion Note - Radha ProviderMD - 01/05/2020 9:34 AM CDT Patient: JONATHAN RIVAS Age: 64 Years Sex: Male : 1955 Saw Mr. Rivas. He denies emesis since admission. Nausea improved as well. He is tolerated medications PO and some liquids. I advised no medications per J tube. 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 He will see me in office Tuesday as an outpatient regarding consideration of restarting head and neck radiotherapy. Please call with any questions. has my cell phone # as well. documented in this encounter Plan of Treatment Not on file documented as of this encounter Visit Diagnoses Not on filedocumented in this encounter Care Teams Gas Plant Specialist Relationship Specialty Start Date End Date Genaro Avendano MD [address] [place] [address] PCP - General Adolescent Medicine 01/25/23 Christophe Vega MD Medical Oncologist Hematology and Oncology 07/27/22 Dennys Kent MD [address] [place] [address] Surgeon Otolaryngology 07/27/22 documented as of this encounter
--- OUTSIDE RECORDS SUMMARY | 2025-06-17 08:03 | XMS_ITS | Encounter Summary ---
Author Organization [employer] ([place], [place], [place], [place], [place]) Address [address] [place] [address] Care Team Providers Care Preparation Plant Repairer Name Role Phone Christophe eVga MD Unavailable Unavailable Dennys Kent MD Unavailable [phone] Genaro Chirinos MD Primary Care Provider [phone] Encounter Details Date Type Department Care Team (Late st Contact Info) Description 01/26/2020 Transcribed Document [facility] [place] Family Medicine [address] [place] [address] ProviderRadha MD [address] [place] [address] Social History Tobacco Use Types Packs/Day Years Used Date Smoking Tobacco: Never Assessed Sex and Gender Information Value Date Recorded Sex Assigned at Not on file Legal Sex Male 4:20 PM CDT Gender Identity Not on file Sexual Orientation Not on file documented as of this encounter Miscellaneous Notes * Cerner Conversion Note - Radha Garduno MD - 01/26/2020 4:23 PM CDT [facility] [place] [address] JONATHAN RIVAS :1955 Visit Time:01/26/2020 Your [...] When Within 2 to 3 days Where: [address] [place], [place] [id number] copygram (1) Allergies codeine Immunizations This Visit No [...] the balloon can be found in the enterprise architect manager???s specifications. ??? Make sure the person takes [...] 10/03/2002 Document Revised: 02/07/2018 Document Reviewed: 09/19/2017 [email or web address] Interactive Patient Education ?? 2020 [employer]. Emergency Awareness and Preventative Care STROKE is [...] Assistance with quitting is available by contacting 4-319-MDMT-NOW. This is a free resource providing counseling, [...] was given the opportunity to ask questions. Patient/Rn Bone Marrow Transplant Name: Patient/Rn Bone Marrow Transplant Signature: Relationship to Patient: Clinician/Hospital Rn Bone Marrow Transplant Signature: Please Provide a Telephone Number Where You Can Be Reached: Is it Permissible To Leave a Message? Date: Electronically signed by [facility], [facility] Conversion Policy Advisor Cerner at 11/25/2022 12:27 AM CDT documented in this encounter Plan of Treatment Not on file documented as of this encounter Visit Diagnoses Not on filedocumented in this encounter Care Teams Preparation Plant Repairer Relationship Specialty Start Date End Date Genaro Chirinos MD [address] [place] [address] PCP - General Adolescent Medicine 01/25/23 Christophe Vega MD Medical Oncologist Hematology and Oncology 07/27/22 Dennys Kent MD [address] [place] [place] [address] Surgeon Otolaryngology 07/27/22 documented as of this encounter
--- OUTSIDE RECORDS SUMMARY | 2025-06-17 08:03 | XMS_ITS | Encounter Summary ---
Author Organization [employer] ([place], [place], [place], [place], [place]) Address [address] [place] [address] Care Team Providers Care Dielectric Machine Operator Name Role Phone Christophe Vega MD Unavailable Unavailable Dennys Kent MD Unavailable [phone] Genaro Avendano MD Primary Care Provider [phone] Encounter Details Date Type Department Care Team (Late st Contact Info) Description 01/06/2020 Transcribed Document [facility] [place] Medicine [address] [place] [address] ProviderRadha MD [address] [place] [address] Social History Tobacco Use Types Packs/Day Years Used Date Smoking Tobacco: Never Assessed Sex and Gender Information Value Date Recorded Sex Assigned at Not on file Legal Sex Male 4:20 PM CDT Gender Identity Not on file Sexual Orientation Not on file documented as of this encounter Miscellaneous Notes * Cerner Conversion Note - Radha ProviderMD - 01/06/2020 10:00 AM CDT Pain Assessment Entered On: 01/06/2020 20:29 EDT Performed On: 01/06/2020 10:24 EDT by Fei Garay RN Intervention Information: acetaminophen Performed by Fei Garay RN on 01/06/2020 09:24:00 EDT acetaminophen,650mg Oral Pain Assessment Pain Assessment : Follow-up assessment Pain Scale Goal : 3 Pain Scale Used : FACES Fei Garay RN - 01/06/2020 20:29 EDT Pain Scale Intensity : 3 Fei Garay, RN - 01/06/2020 20:29 EDT Image 4 - Images currently included in the form version of this document have not been included in the text rendition version of the form. documented in this encounter Plan of Treatment Not on file documented as of this encounter Visit Diagnoses Not on filedocumented in this encounter Care Teams Dielectric Machine Operator Relationship Specialty Start Date End Date Genaro Avendano MD [address] [place] [address] PCP - General Adolescent Medicine 01/25/23 Christophe Vega MD Medical Oncologist Hematology and Oncology 07/27/22 Dennys Kent MD [address] [place] [address] Surgeon Otolaryngology 07/27/22 documented as of this encounter
--- OUTSIDE RECORDS SUMMARY | 2025-06-17 08:03 | XMS_ITS | Encounter Summary ---
Author Organization [employer] ([place], [place], [place], [place], [place]) Address [address] [place] [address] Care Team Providers Care Quiller Hand Name Role Phone Christophe Vega MD Unavailable Unavailable Dennys Kent MD Unavailable [phone] Genaro Avendano MD Primary Care Provider [phone] Encounter Details Date Type Department Care Team (Late st Contact Info) Description 01/06/2020 Transcribed Document [facility] [place] [address] [place] [address] ProviderRadha MD [address] [place] [address] Social History Tobacco Use Types Packs/Day Years Used Date Smoking Tobacco: Never Assessed Sex and Gender Information Value Date Recorded Sex Assigned at Not on file Legal Sex Male 4:20 PM CDT Gender Identity Not on file Sexual Orientation Not on file documented as of this encounter Miscellaneous Notes * Cerner Conversion Note - Radha ProviderMD - 01/06/2020 5:00 PM CDT Chart Check - Review Order Profile Entered On: 01/06/2020 20:30 EDT Performed On: 01/06/2020 17:00 EDT by Fei Garay, RN Chart Check Powerplans Initiated/Discontinued as Appropriate : Yes All Active Orders Reviewed : Yes Fei Garay RN - 01/06/2020 20:30 EDT Electronically signed by [facility] Conversion Walking Dragline Operator Cerner at 11/25/2022 12:03 AM CDT documented in this encounter Plan of Treatment Not on file documented as of this encounter Visit Diagnoses Not on filedocumented in this encounter Care Teams Quiller Hand Relationship Specialty Start Date End Date Genaro Avendano MD [address] [facility] [address] [place] [address] PCP - General Adolescent Medicine 01/25/23 Christophe Vega MD Medical Oncologist Hematology and Oncology 07/27/22 Dennys Kent MD [address] [place] [address] Surgeon Otolaryngology 07/27/22 documented as of this encounter
--- OUTSIDE RECORDS SUMMARY | 2025-06-17 08:03 | XMS_ITS | Encounter Summary ---
Author Organization [employer] ([place], [place], [place], [place], [place]) Address [address] [place] [address] Care Team Providers Care Termite Inspector Name Role Phone Christophe Vega MD Unavailable Unavailable Dennys Kent MD Unavailable [phone] Genaro Avendano MD Primary Care Provider [phone] Encounter Details Date Type Department Care Team (Late st Contact Info) Description 01/06/2020 Transcribed Document [facility] [place] Family Medicine [address] [place] [address] ProviderRadha MD [address] [place] [address] Social History Tobacco Use Types Packs/Day Years Used Date Smoking Tobacco: Never Assessed Sex and Gender Information Value Date Recorded Sex Assigned at Not on file Legal Sex Male 4:20 PM CDT Gender Identity Not on file Sexual Orientation Not on file documented as of this encounter Miscellaneous Notes * Cerner Conversion Note - Radha Garduno MD - 01/06/2020 12:15 PM CDT Patient: JONATHAN RIVAS Age: 64 [...] to have feeding tube by dr. Cedeno. he was in radiation oncology dr. Lopez office for XRT and dr. lopez referred him for inpatient ivf and do feeding tube in hospital. He deny any chest pain or SOB, no fever, no abd pain. no recently travel. mild anxiety also. he got J-tube on 01/03 saw him today in am and awake and d/w nurse, advance tube feeding now also d/w residential case manager for pump infusion for tube feeding ROS: no fever, no chest pain or SOB, has nausea and anxiety Health Status Allergies: Allergic Reactions (Selected) Moderate Codeine- No reactions were documented., Allergies (1) Active Reaction codeine None Documented Problem list: Medical At risk for sleep apnea / IMO [id number] / Confirmed, Active Problems (2) At risk for sleep apnea Severe protein-calorie malnutrition Objective VS/Measurements Vitals Signs (last 24 hrs) Last Charted Minimum Maximum Temp 97.9 (JANUARY 05:) 97.9 (JANUARY 05:) 97.5 (JANUARY 04:15) Mon HR 60 (JANUARY 05:00) 56 (JANUARY 04:15) 60 (JANUARY 05:) Resp Rate 18 (JANUARY 05:) 16 (JANUARY 04:30) 18 (JANUARY 05:) SBP 120 (JANUARY 05:) 115 (JANUARY 04 16:15) 125 (JANUARY 05 03:00) DBP 74 (JANUARY 05:00) 62 (JANUARY 05:00) 75 (JANUARY 04:30) MAP 86 (JANUARY 05:00) 76 (JANUARY 05:00) 98 (JANUARY 04:30) SpO2 97 (JANUARY 05:) 97 (JANUARY 04:30) 97 (JANUARY 04:30) General: Alert and oriented, Mild distress. Neck: [...] resolved h/o PAD with leg stent Anxiety s/p J-tube on 01/03 PLAN: will advance tube feeding to goal close watch BMP ppi lovenox sq, d/w pat and nurse d/w cm, need pump for tube feeding, and per cm, it has to be wait until tomorrow for set up home tube feeding via pump. documented in this encounter Plan of Treatment Not on file documented as of this encounter Visit Diagnoses Not on filedocumented in this encounter Care Teams Termite Inspector Relationship Specialty Start Date End Date Genaro Avendano MD [address] [place] [address] PCP - General Adolescent Medicine 01/25/23 Christophe Vega MD Medical Oncologist Hematology and Oncology 07/27/22 Dennys Kent MD [address] [place] [address] Surgeon Otolaryngology 07/27/22 documented as of this encounter
--- OUTSIDE RECORDS SUMMARY | 2025-06-17 08:03 | XMS_ITS | Encounter Summary ---
Author Organization [employer] ([place], [place], [place], [place], [place]) Address [address] [place] [address] Care Team Providers Care Salesperson Shoes Name Role Phone Christophe Vega MD Unavailable Unavailable Dennys Kent MD Unavailable [phone] Genaro Chirinos MD Primary Care Provider [phone] Encounter Details Date Type Department Care Team (Late st Contact Info) Description 01/26/2020 Transcribed Document [facility] [place] Family Medicine [address] [place] [address] ProviderRadha MD [address] [place], [place] [id number] Social History Tobacco Use Types Packs/Day Years Used Date Smoking Tobacco: Never Assessed Sex and Gender Information Value Date Recorded Sex Assigned at Not on file Legal Sex Male 4:20 PM CDT Gender Identity Not on file Sexual Orientation Not on file documented as of this encounter Miscellaneous Notes * Cerner Conversion Note - Radha ProviderMD - 01/26/2020 4:04 PM CDT Patient: JONATHAN RIVAS Age: 64 years Sex: Male : 1955 Associated Diagnoses: Malfunction of gastrostomy tube Author: REGINALD MARTINES MD-EMR Basic Information Time seen: Date 01/26/2020, Immediately upon arrival. History source: Patient. Arrival mode: Private vehicle, walking. History limitation: None. Additional information: Chief Complaint from Nursing Triage Note : Chief Complaint 01/26/2020 15:27 EDT Chief Complaint patient with throat cancer usues a feeding tube for supp feedings, tube was clogged this AM, tried soda and warm water but can't get it going, patient has no complaints . History of Present Illness The patient presents with GI tube eval. The degree at onset was minimal. The degree at present is minimal. Radiating pain: none. The exacerbating factor is none. The relieving factor is none. Therapy today: none. Risk factors consist of none. Associated symptoms: none. Patient has obstruction of his GI tube that was placed approximately 1 month ago.. Review of Systems Constitutional symptoms: Negative except as documented in HPI. Skin symptoms: Negative except as documented in HPI. Eye symptoms: Negative except as documented in HPI. ENMT symptoms: Negative except as documented in HPI. Respiratory symptoms: Negative except as documented in HPI. Cardiovascular symptoms: Negative except as documented in HPI. Gastrointestinal symptoms: Negative except as documented in HPI. Genitourinary symptoms: Negative except as documented in HPI. Musculoskeletal symptoms: Negative except as documented in HPI. Neurologic symptoms: Negative except as documented in HPI. Psychiatric symptoms: Negative except as documented in HPI. Endocrine symptoms: Negative except as documented in HPI. Hematologic/Lymphatic symptoms: Negative except as documented in HPI. Allergy/immunologic symptoms: Negative except as documented in HPI. Additional review of systems information: All other [...] procedure history items have been selected or recorded.. Family history: No family history items have been selected or recorded.. Social history: Social & Psychosocial Habits Tobacco 01/17/2020 Smoking Status Never (less than 100 in l Smokeless Tobacco Status Never . Problem list: Active Problems (2) At risk for sleep apnea Severe protein-calorie malnutrition . Physical Examination Vital Signs Vital Signs/Vital Measures 01/26/2020 15:27 EDT Systolic Blood Pressure 145 mmHg HI Diastolic Blood Pressure 79 mmHg Temperature Source Oral Temperature Mode Fahrenheit Temperature, Fahrenheit 98 Deg F Clinical Temperature, C 36.7 Deg C Peripheral Pulse Rate 67 bpm Respiratory Rate 18 Breaths/Min Oxygen Saturation 97 % Oxygen Therapy Mode Room air . Measurements 01/26/2020 15:27 EDT Height Source Stated Height Entry Format [place] Height/Length, GUYANESE (ft) 5 ft Height/Length GUYANESE 8 Inch CLINICALHEIGHT 172.72 cm [place] Body Weight 67.45 kg Weight Source, ED Critical estimated dosing weight Weight Entry Format [place] Weight Scottish lb 150 lb CLINICALWEIGHT 68.18 kg Body Surface Area (BSA) 1.81 m2 Body Mass Index 22.9 kg/m2 . Oxygen Saturation 01/26/2020 15:27 EDT Oxygen Saturation 97 % . General: Alert, no acute distress. Skin: Warm, dry, pink, intact. Head: Normocephalic, atraumatic. Neck: Supple, trachea midline, no tenderness, no JVD, no carotid bruit. Cardiovascular: Regular rate and rhythm, No murmur, Normal peripheral perfusion, No edema. Respiratory: Lungs are clear to auscultation, respirations are non-labored, breath sounds are equal, Symmetrical chest wall expansion. Chest wall: No tenderness, No deformity. Gastrointestinal: Soft, Nontender, Non distended, Normal bowel sounds, No organomegaly, Scars: G-tube in L abdomen. Medical Decision Making Documents reviewed: Emergency department nurses' notes. Reexamination/ Reevaluation Time: 01/26/2020 16:06:00 . Notes: G tube unclogged at bedside.. Impression and Plan Diagnosis Malfunction of gastrostomy tube - Discharge, Medical Plan Condition: Improved. Disposition: Discharged Admit/Transfer/Discharge: Discharge (Order): Start: 01/26/2020 16:07 EDT, Discharge to: Home. Patient was given the following educational materials: Gastrostomy Tube Home Guide, Adult. Follow up with: GENARO CHIRINOS Within 2 to 3 days. Counseled: Patient, Family, Regarding diagnosis, Regarding diagnostic results, Regarding treatment plan, Regarding prescription, Patient indicated understanding of instructions. documented in this encounter Plan of Treatment Not on file documented as of this encounter Visit Diagnoses Not on filedocumented in this encounter Care Teams Salesperson Shoes Relationship Specialty Start Date End Date Genaro Chirinos MD [address] [place] [address] PCP - General Adolescent Medicine 01/25/23 Christophe Vega MD Medical Oncologist Hematology and Oncology 07/27/22 Dennys Kent MD [address] [place] [address] Surgeon Otolaryngology 07/27/22 documented as of this encounter
--- OUTSIDE RECORDS SUMMARY | 2025-06-17 08:03 | XMS_ITS | Encounter Summary ---
Author Organization [employer] ([place], [place], [place], [place], [place]) Address [address] [place] [address] Care Team Providers Care Enrollment Specialist Name Role Phone Christophe Vega MD Unavailable Unavailable Dennys Kent MD Unavailable [phone] Genaro Avendano MD Primary Care Provider [phone] Encounter Details Date Type Department Care Team (Late st Contact Info) Description 08/20/2020 Transcribed Document [facility] [place] [address] [place] [address] ProviderRadha MD [address] [place] [address] Social History Tobacco Use Types Packs/Day Years Used Date Smoking Tobacco: Never Assessed Sex and Gender Information Value Date Recorded Sex Assigned at Not on file Legal Sex Male 4:20 PM CDT Gender Identity Not on file Sexual Orientation Not on file documented as of this encounter Miscellaneous Notes * Cerner Conversion Note - Radha ProviderMD - 08/20/2020 1:48 PM REGULATORY SPECIALIST Broset Violence Assessment Entered On: 08/20/2020 18:50 EST Performed On: 08/20/2020 14:50 EST by Deepthi Fairbanks RN Broset Violence Assessment Broset Violence Checklist of Symptoms : None Broset Violence Symptoms Subtotal : 0 Broset Violence Symptoms Indicator : Low risk (0) Deepthi Fairbanks RN - 08/20/2020 18:48 EST documented in this encounter Plan of Treatment Not on file documented as of this encounter Visit Diagnoses Not on filedocumented in this encounter Care Teams Enrollment Specialist Relationship Specialty Start Date End Date Genaro Avendano MD [address] [place] [address] PCP - General Adolescent Medicine 01/25/23 Christophe Vega MD Medical Oncologist Hematology and Oncology 07/27/22 Dennys Kent MD [address] [place] [address] Surgeon Otolaryngology 07/27/22 documented as of this encounter
--- OUTSIDE RECORDS SUMMARY | 2025-06-17 08:03 | XMS_ITS | Encounter Summary ---
Author Organization [employer] ([place], [place], [place], [place], [place]) Address [address] [place] [address] Care Team Providers Care Charting Clerk Name Role Phone Christophe Vega MD Unavailable Unavailable Dennys Kent MD Unavailable [phone] Genaro Avendano MD Primary Care Provider [phone] Encounter Details Date Type Department Care Team (Late st Contact Info) Description 08/20/2020 Transcribed Document [facility] [place] [address] [place] [address] ProviderRadha MD [address] [place] [address] Social History Tobacco Use Types Packs/Day Years Used Date Smoking Tobacco: Never Assessed Sex and Gender Information Value Date Recorded Sex Assigned at Not on file Legal Sex Male 4:20 PM CDT Gender Identity Not on file Sexual Orientation Not on file documented as of this encounter Miscellaneous Notes * Cerner Conversion Note - Radha ProviderMD - 08/20/2020 6:36 PM GLUE JOINTER OPERATOR Electronically signed by [facility] Conversion Molecular Genetic Pathologist Cerner at 11/25/2022 12:04 AM CDT documented in this encounter Plan of Treatment Not on file documented as of this encounter Visit Diagnoses Not on filedocumented in this encounter Care Teams Charting Clerk Relationship Specialty Start Date End Date Genaro Avendano MD [address] [place] [address] PCP - General Adolescent Medicine 6/20/23 Christophe Vega MD Medical Oncologist Hematology and Oncology 07/27/22 Dennys Kent MD [address] [place] [address] Surgeon Otolaryngology 07/27/22 documented as of this encounter
--- OUTSIDE RECORDS SUMMARY | 2025-06-17 08:03 | XMS_ITS | Encounter Summary ---
Author Organization [employer] ([place], [place], [place], [place], [place]) Address [address] [place] [address] Care Team Providers Care Wool Brusher Name Role Phone Christophe Vega MD Unavailable Unavailable Dennys Kent MD Unavailable [phone] Genaro Avendano MD Primary Care Provider [phone] Encounter Details Date Type Department Care Team (Late st Contact Info) Description 01/06/2020 Transcribed Document [facility] [place] [address] [place] [address] ProviderRadha MD [address] [place] [address] Social History Tobacco Use Types Packs/Day Years Used Date Smoking Tobacco: Never Assessed Sex and Gender Information Value Date Recorded Sex Assigned at Not on file Legal Sex Male 4:20 PM CDT Gender Identity Not on file Sexual Orientation Not on file documented as of this encounter Miscellaneous Notes * Cerner Conversion Note - Radha ProviderMD - 01/06/2020 10:00 PM CDT Pain Assessment Entered On: 01/07/2020 2:22 EDT Performed On: 01/06/2020 21:23 EDT by LUIS HOUGH RN Intervention Information: acetaminophen Performed by LUIS HOUGH RN on 01/06/2020 20:23:00 EDT acetaminophen,650mg Oral Pain Assessment Pain Assessment : Follow-up assessment Pain Scale Goal : 3 Pain Scale Used : 0-10 Scale LUIS HOUGH RN - 01/07/2020 2:21 EDT Pain Scale Intensity : 0 LUIS HOUGH RN - 01/07/2020 2:21 EDT Image 4 - Images currently included in the form version of this document have not been included in the text rendition version of the form. documented in this encounter Plan of Treatment Not on file documented as of this encounter Visit Diagnoses Not on filedocumented in this encounter Care Teams Wool Brusher Relationship Specialty Start Date End Date Genaro Avendano MD [address] [place] [address] PCP - General Adolescent Medicine 01/25/23 Christophe Vega MD Medical Oncologist Hematology and Oncology 07/27/22 Dennys Kent MD [address] [place] [address] Surgeon Otolaryngology 07/27/22 documented as of this encounter
--- OUTSIDE RECORDS SUMMARY | 2025-06-17 08:03 | XMS_ITS | Encounter Summary ---
Author Organization [employer] ([place], [place], [place], [place], [place]) Address [address] [place] [address] Care Team Providers Care Side Framer Name Role Phone Christophe Vega MD Unavailable Unavailable Dennys Kent MD Unavailable [phone] Genaro Avendano MD Primary Care Provider [phone] Encounter Details Date Type Department Care Team (Late st Contact Info) Description 08/20/2020 Transcribed Document [facility] [place] Family Medicine [address] [place] [address] ProviderRadha MD [address] [place] [address] Social History Tobacco Use Types Packs/Day Years Used Date Smoking Tobacco: Never Assessed Sex and Gender Information Value Date Recorded Sex Assigned at Not on file Legal Sex Male 4:20 PM CDT Gender Identity Not on file Sexual Orientation Not on file documented as of this encounter Miscellaneous Notes * Cerner Conversion Note - Radha ProviderMD - 08/20/2020 1:48 PM PROCESS COACH ED Triage Entered On: 08/20/2020 14:36 EST Performed On: 08/20/2020 14:33 EST by Tamiko Carrillo RN ED Triage Across the Room Chief Complaint : g tube clogged Triage Date/Time : 08/20/2020 14:33 EST Tamiko Carrillo RN - 08/20/2020 14:33 EST DCP GENERIC CODE Tracking Acuity : 4 - Non - Urgent Tracking Group : [facility] ED Tamiko Carrillo RN - 08/20/2020 14:33 EST Mode of Arrival : Ambulatory Transported to ED by : Private vehicle To Room Via : Ambulate Accompanied By : Significant other ED Vital Signs : Document Height & Weight : Document ED Allergies : Document ED Reason for Visit : Document Tetanus Immunization : Unknown Manager Resource Needed : No Tamiko Carrillo RN - 08/20/2020 14:33 EST Infectious Disease History Has the patient ever been tested for COVID-19? : Yes, Patient stated results Negative Date of COVID-19 test known? : No Does patient have symptoms of COVID-19? : No COVID19 Screening : No Experiencing Infectious Disease Symptoms : No symptoms Physical contact outside [place] in the last 30 days : No Infectious Disease History : None Tuberculosis Symptoms : None Tamiko Carrillo RN - 08/20/2020 14:33 EST Vital Signs ED Temperature Source : Oral Temperature Mode : Fahrenheit Temperature, Fahrenheit : 97.0 Deg F Clinical Temperature, C : 36.1 Deg C Oxygen Therapy Mode : Room air Peripheral Pulse Rate : 70 bpm Respiratory Rate : 18 Breaths/Min Systolic Blood Pressure : 121 mmHg Diastolic Blood Pressure : 71 mmHg Oxygen Saturation : 98 % Tamiko Carrillo RN - 08/20/2020 14:33 EST Allergy (As Of: 08/20/2020 14:36:05 EST) Allergies (Active) codeine Estimated Onset Date: Unspecified ; Created By: Carlotta York RN; Reaction Status: Active ; Category: Drug ; Substance: codeine ; Type: Allergy ; Severity: Moderate ; Updated By: Carlotta York RN; Reviewed Date: 08/20/2020 14:34 EST Diagnosis Control ED (As Of: 08/20/2020 14:36:05 EST) Problems(Active) At risk for sleep apnea (IMO :15791559 ) Name of Problem: At risk for sleep apnea ; Recorder: SYSTEM, SYSTEM; Confirmation: Confirmed ; Classification: Medical ; Code: [id number] ; Last Updated: 01/02/2020 18:40 EDT ; Life Cycle Date: 01/02/2020 ; Life Cycle Status: Active ; Vocabulary: IMO Severe protein-calorie malnutrition (SNOMED CT :678772070 ) Name of Problem: Severe protein-calorie malnutrition ; Onset Date: 01/03/2020 ; Recorder: KALLI GAMEZ, RD, LD; Confirmation: Confirmed ; Classification: DIETARY ; Code: [id number] ; Contributor System: Medstro ; Last Updated: 01/03/2020 15:46 EDT ; Life Cycle Date: 01/03/2020 ; Life Cycle Status: Active ; Vocabulary: SNOMED CT ; Comments: 01/03/2020 15:46 - KALLI GAMEZ RD, KATIE Nutrition Diagnoses Nutrient Intake : Chronic [...] : Active Diagnoses(Active) GI tube evaluation Date: 08/20/2020 ; Diagnosis Type: Reason For Visit ; Confirmation: Complaint of ; Clinical Dx: GI tube evaluation ; Classification: Medical ; Clinical Service: Emergency medicine ; Code: PNED ; Probability: 0 ; Diagnosis Code: [id number] ED Height and Weight Height Source : Stated Height Entry Format : [place] Height, Feet : 5 ft(Converted to: 152 cm, 60 Inch) Height, Inches : 8 Inch(Converted to: 0 ft 8 Inch, 20.32 cm) Clinical Height : 172.72 cm Weight Source, ED : Critical estimated dosing weight Weight Entry Format : [place] Weight, Pounds : 147 lb Clinical Dosing Weight : 66.82 kg Body Surface Area (BSA) : 1.79 m2 Body Mass Index : 22.4 kg/m2 [place] Body Weight (IBW) : 67.45 kg Tamiko Carrillo RN - 08/20/2020 14:33 EST documented in this encounter Plan of Treatment Not on file documented as of this encounter Visit Diagnoses Not on filedocumented in this encounter Care Teams Side Framer Relationship Specialty Start Date End Date Genaro Avendano MD [address] [place] [address] PCP - General Adolescent Medicine 01/25/23 Christophe Vega MD Medical Oncologist Hematology and Oncology 07/27/22 Dennys Kent MD [address] [place] [address] Surgeon Otolaryngology 07/27/22 documented as of this encounter
--- OUTSIDE RECORDS SUMMARY | 2025-06-17 08:03 | XMS_ITS | Encounter Summary ---
Author Organization [employer] ([place], [place], [place], [place], [place]) Address [address] [place] [address] Care Team Providers Care Professional System Administrator Name Role Phone Christophe Vega MD Unavailable Unavailable Dennys Kent MD Unavailable [phone] Genaro Avendano MD Primary Care Provider [phone] Encounter Details Date Type Department Care Team (Late st Contact Info) Description 08/22/2020 Transcribed Document [facility] [place] [facility] [place] [address] ProviderRadha MD [address] [place] [address] Social History Tobacco Use Types Packs/Day Years Used Date Smoking Tobacco: Never Assessed Sex and Gender Information Value Date Recorded Sex Assigned at Not on file Legal Sex Male 4:20 PM CDT Gender Identity Not on file Sexual Orientation Not on file documented as of this encounter Miscellaneous Notes * Cerner Conversion Note - Historical ProviderMD - 08/22/2020 9:15 AM [employer] FARMER CR G-J Tube Injection Ordered: 08/20/2020 Auth (Verified) Reason for Exam: clogged J tube 08/21/2020 14:23 08/22/2020 09:15 (ARCELIA GRACIA APRN) Reviewed by Provider, No further action required x1 documented in this encounter Plan of Treatment Not on file documented as of this encounter Visit Diagnoses Not on filedocumented in this encounter Care Teams Professional System Administrator Relationship Specialty Start Date End Date Genaro Avendano MD [address] [place] [address] PCP - General Adolescent Medicine 01/25/23 Christophe Vega MD Medical Oncologist Hematology and Oncology 07/27/22 Dennys Kent MD [address] [place] [address] Surgeon Otolaryngology 07/27/22 documented as of this encounter
--- OUTSIDE RECORDS SUMMARY | 2025-06-17 08:03 | XMS_ITS | Encounter Summary ---
Author Organization [employer] ([place], [place], [place], [place], [place]) Address [address] [place] [address] Care Team Providers Care Stamp Pad Finisher Name Role Phone Christophe Vega MD Unavailable Unavailable Dennys Kent MD Unavailable [phone] Genaro Avendano MD Primary Care Provider [phone] Encounter Details Date Type Department Care Team (Late st Contact Info) Description 01/06/2020 Transcribed Document [facility] [place] [address] [place] [address] ProviderRadha MD [address] [place] [address] Social History Tobacco Use Types Packs/Day Years Used Date Smoking Tobacco: Never Assessed Sex and Gender Information Value Date Recorded Sex Assigned at Not on file Legal Sex Male 4:20 PM CDT Gender Identity Not on file Sexual Orientation Not on file documented as of this encounter Miscellaneous Notes * Cerner Conversion Note - Radha Garduno MD - 01/06/2020 1:11 PM CDT Patient: JONATHAN RIVAS Age: 64 Years Sex: Male : 1955 Assessment/Plan 64-year-old male with 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 Patient has no complaints Vital Signs T: 36.4 ??C TMIN: 36.4 ??C TMAX: 36.6 ??C HR: 58(Monitored) RR: 18 BP: 125/77 SpO2: 97% Oxygen Settings (Last) Oxygen Therapy Mode: Room air (01/06/20 09:00:00) Oxygen Flow Rate: 2 Liter/Min (01/04/20 16:25:00) Intake & Output Totals Last 24 Hours (7a-7a) Input Total: 1364.38 mL Output Total: 1400 mL Balance: -35.62 mL Physical Exam Gen: NAD Resp:Nonlabored respirations [...] PRN Lovenox, 40 mg= 0.4 mL, SubCutaneous, [id number] Milk of Magnesia 8% oral suspension, 30 [...] Sodium Chloride 0.9% intravenous solution 50 mL [1] Surgery Progress Note - APSO; CRISTEL GUO MD-KEVYN 01/05/2020 12:14 EDT Electronically signed by [facility] Conversion Hospital Librarian Cerner at 11/25/2022 12:11 AM CDT documented in this encounter Plan of Treatment Not on file documented as of this encounter Visit Diagnoses Not on filedocumented in this encounter Care Teams Stamp Pad Finisher Relationship Specialty Start Date End Date Genaro Avendano MD [address] [place] [address] PCP - General Adolescent Medicine 01/25/23 Christophe Vega MD Medical Oncologist Hematology and Oncology 07/27/22 Dennys Kent MD [address] [place] [address] Surgeon Otolaryngology 07/27/22 documented as of this encounter
--- OUTSIDE RECORDS SUMMARY | 2025-06-17 08:03 | XMS_ITS | Encounter Summary ---
Author Organization [employer] ([place], [place], [place], [place], [place]) Address [address] [place] [address] Care Team Providers Care Therapeutic Case Manager Name Role Phone Christophe Vega MD Unavailable Unavailable Dennys Kent MD Unavailable [phone] Genaro Avendano MD Primary Care Provider [phone] Encounter Details Date Type Department Care Team (Late st Contact Info) Description 01/26/2020 Transcribed Document [facility] [place] [address] [place] [address] ProviderRadha MD [address] [place] [address] Social History Tobacco Use Types Packs/Day Years Used Date Smoking Tobacco: Never Assessed Sex and Gender Information Value Date Recorded Sex Assigned at Not on file Legal Sex Male 4:20 PM CDT Gender Identity Not on file Sexual Orientation Not on file documented as of this encounter Miscellaneous Notes * Cerner Conversion Note - Radha ProviderMD - 01/26/2020 3:20 PM CDT [employer] Suicide Severity Rating Scale (C-SSRS) Entered On: 01/26/2020 16:09 EDT Performed On: 01/26/2020 16:09 EDT by NEO BOSTON RN [employer] Suicide Severity Rating Scale (C-SSRS) CSSRS Past Month Wish to be : No CSSRS Past Month Suicidal Thoughts : No CSSRS Lifetime Suicide Behavior : No Suicide Severity Rating Score : 0 Suicide Severity Rating : No Additional Care Required at this time Thoughts of Harming/Killing Others : No NEO BOSTON RN - 01/26/2020 16:09 EDT documented in this encounter Plan of Treatment Not on file documented as of this encounter Visit Diagnoses Not on filedocumented in this encounter Care Teams Therapeutic Case Manager Relationship Specialty Start Date End Date Genaro Avendano MD [address] [place] [address] PCP - General Adolescent Medicine 01/25/23 Christophe Vega MD Medical Oncologist Hematology and Oncology 07/27/22 Dennys Kent MD [address] [place] [address] Surgeon Otolaryngology 07/27/22 documented as of this encounter
--- OUTSIDE RECORDS SUMMARY | 2025-06-17 08:03 | XMS_ITS | Encounter Summary ---
Author Organization [employer] ([place], [place], [place], [place], [place]) Address [address] [place] [address] Care Team Providers Care Escalator Attendant Name Role Phone Christophe Vega MD Unavailable Unavailable Dennys Kent MD Unavailable [phone] Genaro Avendano MD Primary Care Provider [phone] Encounter Details Date Type Department Care Team (Late st Contact Info) Description 01/07/2020 Transcribed Document [facility] [place] Family Medicine [address] [place] [address] ProviderRadha MD [address] [place] [address] Social History Tobacco Use Types Packs/Day Years Used Date Smoking Tobacco: Never Assessed Sex and Gender Information Value Date Recorded Sex Assigned at Not on file Legal Sex Male 4:20 PM CDT Gender Identity Not on file Sexual Orientation Not on file documented as of this encounter Miscellaneous Notes * Cerner Conversion Note - Radha ProviderMD - 01/07/2020 1:55 PM CDT UM Authorization Entered On: 01/07/2020 13:55 EDT Performed On: 01/07/2020 13:55 EDT by Priscilla Clarke Rn-Utilization Review Primary Insurance Authorization Authorization and Policy Numbers : Insurance 1 Health Plan: [email or web address] Policy Number: [id number] Authorization Number: Insurance Primary Name : [email or web address] Policy Number: [id number] Authorization Status-Primary : Admit approved Authorization Fax Number-Primary : [phone] Auth/Referral Phone Number-Primary : [phone] Auth/Referral Contact Name-Primary : Marcelina Campbell RN Reference Number-Primary : [id number] Number of Days Authorized-Primary : 3 Day(s) Authorized Service Begin Date-Primary : 01/02/2020 EDT Authorized Service End Date-Primary : 01/05/2020 EDT Authorization Comments-Primary : clinical faxed per cerner for 01/05 nd 01/06 per faxed request Historical Authorization Comments-Primary : Comment 1: Per fax received 01/03/2020 approved IP admission 01/01-01/04 NRD 01/05. Please fax to [phone]. (BRITTANY CLARK RN 01/03/2020 12:53) Comment 2: Per fax received 01/02/2020 @ 0739 needs clinicals submitted for review. Please fax to [phone]. Marcelina Campbell RN phone # is [phone]. (BRITTANY CLARK RN 01/03/2020 08:21) Priscilla Clarke Rn-Utilization Review - 01/07/2020 13:55 EDT Electronically signed by Benita [facility] Conversion Accounting Clerk Cerner at 11/25/2022 12:24 AM CDT documented in this encounter Plan of Treatment Not on file documented as of this encounter Visit Diagnoses Not on filedocumented in this encounter Care Teams Escalator Attendant Relationship Specialty Start Date End Date Genaro Avendano MD [address] [place] [address] PCP - General Adolescent Medicine 01/25/23 Christophe Vega MD Medical Oncologist Hematology and Oncology 07/27/22 Dennys Kent MD [address] [place] [address] Surgeon Otolaryngology 07/27/22 documented as of this encounter
--- OUTSIDE RECORDS SUMMARY | 2025-06-17 08:03 | XMS_ITS | Encounter Summary ---
Author Organization [employer] ([place], [place], [place], [place], [place]) Address [address] [place] [address] Care Team Providers Care Natural Gas Plant Technician Name Role Phone Christophe Vega MD Unavailable Unavailable Dennys Kent MD Unavailable [phone] Genaro Chirinos MD Primary Care Provider [phone] Encounter Details Date Type Department Care Team (Late st Contact Info) Description 01/07/2020 Transcribed Document [facility] [place] [address] [place] [address] ProviderRadha MD [address] [place] [address] Social History Tobacco Use Types Packs/Day Years Used Date Smoking Tobacco: Never Assessed Sex and Gender Information Value Date Recorded Sex Assigned at Not on file Legal Sex Male 4:20 PM CDT Gender Identity Not on file Sexual Orientation Not on file documented as of this encounter Miscellaneous Notes * Cerner Conversion Note - Radha ProviderMD - 01/07/2020 1:18 PM CDT [facility] [place] [address] JONATHAN RIVAS :1955 Visit Time:01/02/2020 Your Visit Summary Your Care Team Admitting Physician - BRAXTON PATTEN MD-INT Attending Physician - BRAXTON PATTEN MD-INT Primary Care Physician - GENARO CHIRINOS (REF)MD-[facility] Referring Physician - Lynn, UNKNOWN Your Diagnosis Adult failure to thrive, Adult failure to thrive Discharge Vitals Temperature 36.3 ??C Heart Rate (Monitored) 83 Respiratory Rate 18 Blood Pressure 136/78 What to do next Instructions From Your Care Team Home Health Services: [facility] will contact you at home regarding home health, plans to start 01/09/2020 Infusion [facility] for Tube Feedings: [employer] [phone] Discharge Activity: Discharge Activity: Activity as tolerated Diet: Osmolite 1.5 @ 65ml/hr and flush with 260ml FW 4x dailyalso he can have clear liquid by oral if tolerated, Discharge Diet: Other (see Special Instructions) Follow-Up Appointments Follow Up with continue outpatient XRT by dr. Mccall When Within in AM Follow Up with his oncology in [address] Vega When Within 1 week Follow Up with CRISTEL GUO MD-KEVYN When Only if needed Where: [address] [place] [address] Medications What How Much When Instructions Next [...] Every 4 Hours as needed for Nausea/Vomiting Take your medications faithfully. Do NOT skip [...] Please dispose of unused and medications per your retail pharmacy guidance. Allergies codeine Immunizations This Visit No Immunizations Found Education Materials Jejunostomy, Care After This sheet gives you information about how to care for yourself after your procedure. Your health care provider may also give you more specific instructions. If you have problems or questions, contact your health care provider. What can I expect after the procedure? After the procedure, it is common to have: ??? Pain and tenderness around your feeding tube. ??? Slight drainage around your feeding tube. [...] and water are not available, use hand program project analyst. ? Change your dressing as told by [...] a bad smell. General instructions ??? Take ryri-whg-nodfvuo and prescription medicines only as told by [...] 07/30/2014 Document Revised: 05/06/2017 Document Reviewed: 05/06/2017 [employer] Patient Education ?? 2019 [employer] Emergency Awareness and Preventative Care STROKE is [...] Assistance with quitting is available by contacting 7-079-YKGXNOW. This is a free resource providing counseling, support, and referral. Or you may contact your personal physician. [place] [facility]: The National Suicide Prevention Lifeline is a [...] CPR? There are two easy steps: Call 9-1-1 if you see a teen or adult [...] and how to prevent infections, visit www.cdc.gov/sepsis. Test Results Laboratory or Other Results This Visit (last charted value for your 01/02/2020 visit) Hematology 01/02/2020 3:53 PM WBC: 7.7 K/uL -- Normal range between ( 3.6 and 9.5 ) RBC: 3.50 Million/uL -- Normal range between ( 4.20 and 5.70 ) Hct: 34.1 % -- Normal range between ( 40.1 and 51.0 ) Hgb: 11.6 g/dL -- Normal range between ( 13.5 and 17.3 ) Platelet Count: 261 K/uL -- Normal range between ( 163 and 369 ) MCH: 33.1 pg -- Normal range between ( 25.6 and 32.2 ) MCHC: 34.0 Gram/dL -- Normal range between ( 32.2 and 36.5 ) MCV: 97.4 fL -- Normal range between ( 79.0 and 94.8 ) Slide Review: Technologist Eos %: 0.0 % -- Normal range between ( 0.0 and 7.0 ) Ulster #: 0.08 K/uL -- Normal range between ( 0.16 and 1.00 ) Eos #: 0.00 x10(3)/uL -- Normal range between ( 0.00 and 0.80 ) Ulster %: 1.0 % -- Normal range between ( 3.0 and 9.0 ) Baso %: 0.3 % -- Normal range between ( 0.0 and 1.5 ) RBC Morphology: Normal Baso #: 0.02 x10(3)/uL -- Normal range between ( 0.00 and 0.20 ) RDW: 14.9 % -- Normal range between ( 11.7 and 14.9 ) Neut %: 94.9 % -- Normal range between ( 34.0 and 71.0 ) Neut #: 7.32 K/uL -- Normal range between ( 1.56 and 6.13 ) Anisocytosis: 1+ Lymph %: 3.2 % -- Normal range between ( 19.3 and 53.1 ) Platelet Ct Estimate: Adequate Lymph #: 0.25 x10(3)/uL -- Normal range between ( 1.00 and 3.90 ) MPV: 11.2 fL -- Normal range between ( 9.4 and 12.4 ) IG#: 0.05 x10(3)/uL -- Normal range between ( 0.00 and 0.05 ) IG%: 0.60 % -- Normal range between ( 0.00 and 0.60 ) Microbiology 01/03/2020 3:31 AM Novel Coronavirus 2019: Not Detected General Chemistry 01/05/2020 7:06 AM Creatinine Level: 0.90 mg/dL -- Normal range between ( 0.70 and 1.30 ) Sodium Level: 137 mmol/L -- Normal range between ( 136 and 146 ) Potassium Level: 3.5 mmol/L -- Normal range between ( 3.5 and 5.1 ) Chloride Level: 106 mmol/L -- Normal range between ( 102 and 112 ) Carbon Dioxide Level: 25 mmol/L -- Normal range between ( 21 and 32 ) Anion Gap: 10 -- Normal range between ( 9 and 20 ) Bun/Creatinine: 14.4 -- Normal range between ( 8.0 and 20.0 ) Calcium Level: 7.8 mg/dL -- Normal range between ( 8.4 and 10.1 ) eGFR : >60 mL/min/1.73m2 eGFR NonAfrican: >60 mL/min/1.73m2 Glucose Level: 123 mg/dL -- Normal range between ( 74 and 106 ) Magnesium Level: 1.7 mg/dL -- Normal range between ( 1.5 and 2.4 ) Blood Urea Nitrogen: 13 mg/dL -- Normal range between ( 7 and 22 ) 01/04/2020 10:25 AM Phosphorus: 3.2 mg/dL -- Normal range between ( 2.5 and 4.9 ) 01/02/2020 3:53 PM Bilirubin Total: 0.5 mg/dL -- Normal range between ( 0.2 and 1.2 ) A/G Ratio: 0.9 -- Normal range between ( 1.1 and 2.5 ) ALT: 31 Units/Liter -- Normal range between ( 16 and 61 ) AST: 15 Units/Liter -- Normal range between ( 5 and 37 ) Globulin: 3.2 Gram/dL -- Normal range between ( 1.5 and 4.5 ) Alk Phos: 84 Units/Liter -- Normal range between ( 27 and 136 ) Lactic Acid Level: 1.1 mmol/L -- Normal range between ( 0.4 and 2.0 ) Protein Total: 6.0 Gram/dL -- Normal range between ( 6.4 and 8.2 ) Albumin Level: 2.8 Gram/dL -- Normal range between ( 3.4 and 5.0 ) Coagulation 01/02/2020 3:53 PM INR: 1.3 -- Normal range between ( 0.9 and 1.1 ) PT: 13.2 Second(s) -- Normal range between ( 9.6 and 12.0 ) Endocrinology 01/02/2020 3:53 PM TSH: 0.508 mcInt Units/mL -- Normal range between ( 0.358 and 3.740 ) Patient Name:JONATHAN RIVAS I have received and understand this information and was given the opportunity to ask questions. Patient/Tree Inspector Name: Patient/Tree Inspector Signature: Relationship to Patient: Clinician/Hospital Tree Inspector Signature: Date: Electronically signed by [facility], [facility] Conversion Dog Day Care Attendant Cerner at 11/25/2022 12:10 AM CDT documented in this encounter Plan of Treatment Not on file documented as of this encounter Visit Diagnoses Not on filedocumented in this encounter Care Teams Natural Gas Plant Technician Relationship Specialty Start Date End Date Genaro Chirinos MD [address] [place] [address] PCP - General Adolescent Medicine 01/25/23 Christophe Vega MD Medical Oncologist Hematology and Oncology 07/27/22 Dennys Kent MD [address] [place] [address] Surgeon Otolaryngology 07/27/22 documented as of this encounter
--- OUTSIDE RECORDS SUMMARY | 2025-06-17 08:03 | XMS_ITS | Encounter Summary ---
Author Organization [employer] ([place], [place], [place], [place], [place]) Address [address] [place] [address] Care Team Providers Care Slag Motor Operator Name Role Phone Christophe Vega MD Unavailable Unavailable Dennys Kent MD Unavailable [phone] Genaro Avendano MD Primary Care Provider [phone] Encounter Details Date Type Department Care Team (Late st Contact Info) Description 01/07/2020 Transcribed Document [facility] [place] Family Medicine [address] [place] [address] ProviderRadha MD [address] [place] [address] Social History Tobacco Use Types Packs/Day Years Used Date Smoking Tobacco: Never Assessed Sex and Gender Information Value Date Recorded Sex Assigned at Not on file Legal Sex Male 4:20 PM CDT Gender Identity Not on file Sexual Orientation Not on file documented as of this encounter Miscellaneous Notes * Cerner Conversion Note - Radha ProviderMD - 01/07/2020 11:16 AM CDT Stroke/Warfarin Instructions Entered On: 01/07/2020 11:16 EDT Performed On: 01/07/2020 11:16 EDT by Yanet Gonsales RN Stroke/Warfarin Instructions Stroke/TIA Discharge Ins : N/A Warfarin Discharge Ins : N/A Yanet Gonsales RN - 01/07/2020 11:16 EDT documented in this encounter Plan of Treatment Not on file documented as of this encounter Visit Diagnoses Not on filedocumented in this encounter Care Teams Slag Motor Operator Relationship Specialty Start Date End Date Genaro Avendano MD [address] [place] [address] PCP - General Adolescent Medicine 01/25/23 Christophe Vega MD Medical Oncologist Hematology and Oncology 07/27/22 Dennys Kent MD [address] [place] [address] Surgeon Otolaryngology 07/27/22 documented as of this encounter
--- OUTSIDE RECORDS SUMMARY | 2025-06-17 08:03 | XMS_ITS | Encounter Summary ---
Author Organization [employer] ([place], [place], [place], [place], [place]) Address [address] [place] [address] Care Team Providers Care Gear Machine Operator General Name Role Phone Christophe Vega MD Unavailable Unavailable Dennys Kent MD Unavailable [phone] Genaro Avendano MD Primary Care Provider [phone] Encounter Details Date Type Department Care Team (Late st Contact Info) Description 01/06/2020 Transcribed Document [facility] [address] [place] [address] ProviderRadha MD [address] [place] [address] Social History Tobacco Use Types Packs/Day Years Used Date Smoking Tobacco: Never Assessed Sex and Gender Information Value Date Recorded Sex Assigned at Not on file Legal Sex Male 4:20 PM CDT Gender Identity Not on file Sexual Orientation Not on file documented as of this encounter Miscellaneous Notes * Cerner Conversion Note - Radha ProviderMD - 01/06/2020 2:00 AM CDT Friction Welding Machine Operator Details Entered On: 01/06/2020 3:18 EDT Performed On: 01/06/2020 2:00 EDT by LUIS HOUGH RN Order Details Transport Mode Order Detail : Wheelchair Isolation Precautions Order Detail : Standard Precautions Order Detail : N/A IV Order Detail : 0 Nurse Collect Order Detail : 0 Lift/Transfer : Independent Central Line Order Detail : Yes Room Service : Not Appropriate Arterial Line : No LUIS HOUGH RN - 01/06/2020 3:17 EDT documented in this encounter Plan of Treatment Not on file documented as of this encounter Visit Diagnoses Not on filedocumented in this encounter Care Teams Gear Machine Operator General Relationship Specialty Start Date End Date Genaro Avendano MD [address] [place] [address] PCP - General Adolescent Medicine 01/25/23 Christophe Vega MD Medical Oncologist Hematology and Oncology 07/27/22 Dennys Kent MD [address] [place] [address] Surgeon Otolaryngology 07/27/22 documented as of this encounter
--- OUTSIDE RECORDS SUMMARY | 2025-06-17 08:03 | XMS_ITS | Encounter Summary ---
Author Organization [employer] ([place], [place], [place], [place], [place]) Address [address] [place] [address] Care Team Providers Care Analytical Strategist Name Role Phone Christophe Vega MD Unavailable Unavailable Dennys Kent MD Unavailable [phone] Genaro Avendano MD Primary Care Provider [phone] Encounter Details Date Type Department Care Team (Late st Contact Info) Description 01/06/2020 Transcribed Document [facility] [place] Family Medicine [address] [place] [address] ProviderRadha MD [address] [place] [address] Social History Tobacco Use Types Packs/Day Years Used Date Smoking Tobacco: Never Assessed Sex and Gender Information Value Date Recorded Sex Assigned at Not on file Legal Sex Male 4:20 PM CDT Gender Identity Not on file Sexual Orientation Not on file documented as of this encounter Miscellaneous Notes * Cerner Conversion Note - Radha ProviderMD - 01/06/2020 2:00 PM CDT Pain Assessment Entered On: 01/06/2020 20:29 EDT Performed On: 01/06/2020 16:07 EDT by Fei Garay RN Intervention Information: acetaminophen Performed by Fei Garay RN on 01/06/2020 15:07:00 EDT acetaminophen,650mg Oral Pain Assessment Pain Assessment [...] on filedocumented in this encounter Care Teams Analytical Strategist Relationship Specialty Start Date End Date Genaro Avendano MD [address] [place] [address] PCP - General Adolescent Medicine 01/25/23 Christophe Vega MD Medical Oncologist Hematology and Oncology 07/27/22 Dennys Kent MD [address] [place] [address] Surgeon Otolaryngology 07/27/22 documented as of this encounter
--- OUTSIDE RECORDS SUMMARY | 2025-06-17 08:03 | XMS_ITS | Encounter Summary ---
Author Organization [employer] ([place], [place], [place], [place], [place]) Address [address] [place] [address] Care Team Providers Care Fibrous Plasterer Name Role Phone Christophe Vega MD Unavailable Unavailable Dennys Kent MD Unavailable [phone] Genaro Chirinos MD Primary Care Provider [phone] Encounter Details Date Type Department Care Team (Late st Contact Info) Description 01/07/2020 Transcribed Document [facility] [place] Family Medicine [address] [place] [address] ProviderRadha MD [address] [place] [address] Social History Tobacco Use Types Packs/Day Years Used Date Smoking Tobacco: Never Assessed Sex and Gender Information Value Date Recorded Sex Assigned at Not on file Legal Sex Male 4:20 PM CDT Gender Identity Not on file Sexual Orientation Not on file documented as of this encounter Miscellaneous Notes * Cerner Conversion Note - Radha ProviderMD - 01/07/2020 12:52 PM CDT Patient: JONATHAN RIVAS Age: 64 years Sex: Male : 1955 Associated Diagnoses: None Author: BRAXTON PATTEN MD-INT Subjective ADMIT DATE: 01/02/2020 DISCHARGE DATE: 01/07/2020 PCP: GENARO CHIRINOS ADMIT MD: dr. Patten CONSULT TEAMS: surgery: dr. Campos REASON FOR ADMIT: 64 yo male with PMH of metastatic [...] supposed to have feeding tube by dr. Campos. today he was in radiation oncology dr. Lopez office for XRT and dr. lopez referred him for inpatient ivf and do feeding tube in hospital. He deny any chest pain or SOB, no fever, no abd pain. no recently travel. mild anxiety also HOSPITAL COURSE: patient was started ivf and consulted dr. campos and he did Laparoscopic jejunostomy. after 24 h, started tube feeding and he tolerated TF and per nutrition suggest, he need TF via pump due to J tube. geriatric case manager also helped set up home TF. he will be discharged to home today and continue to have XRT with Dr. Lopez and also f/u dr. Vega as outpatient I saw him today in am and d/w nurse, he is alert, no fever, no chest pain or SOB, no n/v/d. willing to go home today Objective VS/Measurements Vitals Signs (last 24 hrs) Last Charted Minimum Maximum Temp 97.4 (JAN 06:) 97.4 (JAN 06:) 98.1 (JANUARY 05 18:30) Mon HR 83 (JAN 06 11:) 65 (JAN 06:18) 83 (JAN 06 11:) Resp Rate 18 (JAN 06:) 16 (JANUARY 05 22:00) 18 (JAN 06 11:) SBP 136 (JAN 06:) 121 (JAN 06:18) H 142 (JANUARY 05 22:00) DBP 78 (JAN 06 11:) 78 (JANUARY 05 18:30) 82 (JANUARY 05 22:00) MAP 93 (JAN 06:) 90 (JAN 06:18) 106 (JANUARY 05 22:00) SpO2 97 (RASHID 01 06:18) 97 (JANUARY 05 22:00) 98 (JANUARY 05 18:30) General: Alert and oriented, Mild distress. Neck: [...] to thrive severe dehydration on admit - RESOLVED metastatic squamous cell carcinoma HTN GERD hypernatremia on admit- resolved h/o PAD with leg stent Anxiety S/P Laparoscopic jejunostomy Discharge Medications (7) Active acetaminophen-HYDROcodone 325 mg-10 mg oral tablet 1 Tab, PRN, Oral, Q4H aspirin 81 mg oral delayed release tablet 81 mg = 1 Tab, Oral, Daily hydroCHLOROthiazide 25 mg oral tablet 25 mg = 1 Tab, Oral, Daily LORazepam 0.5 mg oral tablet 0.25 mg = 0.5 Tab, PRN, Oral, QID NexIUM 24HR 20 mg oral delayed release capsule 20 mg = 1 Cap, Oral, Daily promethazine 25 mg rectal suppository 1 Supp, PRN, Rectal, Q4H Sancuso 3.1 mg/24 hr transdermal film, extended release 1 Patch, Topical, Weekly FOLLOW UP: Dr. Vega [place] [address] Lopez for XRT today PCP PRN I spent over 30 min today CC1: Dr. Vega CC2: Dr. Lopez CC3: GENARO CHIRINOS Electronically signed by [facility] Conversion Resin Maker Cerner at 11/25/2022 12:06 AM CDT documented in this encounter Plan of Treatment Not on file documented as of this encounter Visit Diagnoses Not on filedocumented in this encounter Care Teams Fibrous Plasterer Relationship Specialty Start Date End Date Genaro Chirinos MD [address] [place] [address] PCP - General Adolescent Medicine 01/25/23 Christophe Vega MD Medical Oncologist Hematology and Oncology 07/27/22 Dennys Kent MD [address] [place] [address] Surgeon Otolaryngology 07/27/22 documented as of this encounter
--- OUTSIDE RECORDS SUMMARY | 2025-06-17 08:03 | XMS_ITS | Encounter Summary ---
Author Organization [facility] Address [address] [place] [address] Care Team Providers Care Airport Driver Name Role Phone Genaro Avendano MD Primary Care Provider [phone] Reason for Referral * Consultation (Routine) - Closed Specialty Diagnoses / Procedures Referred By Carol t Referred To Contact Nephrology Diagnoses Chronic kidney disease (CKD) stage G3b/A1, moderately decreased glomerular filtration rate (GFR) between 30-44 mL/min/1.73 square meter and albuminuria creatinine ratio less than 30 mg/g Genaro Avendano MD [address] [place] [address] Phone: tel: fax: [facility] [address] [address] Phone: tel: fax: Referral ID Status Reason Start Date Expiration Date V isits Requested Visits Authorized [id number] Closed Specialty Services Required 06/20/2024 12/20/2025 1 1 Encounter Details Date Type Department Care Team (Late st Contact Info) Description 06/20/2024 [facility] [address] [place] [address] Genaro Avendano MD [address] [place] [address] Chronic kidney disease (CKD) stage G3b/A1, moderately [...] Description 12/06/2025 12:20 PM EDT Office Visit [facility] [address] [place] [id number] Christopher Casiano MD [address] [place] [address] Scheduled Referrals Name Type Priority Associated [...] and albuminuria creatinine ratio less than 30 mg/g- Primary documented in this encounter Care Teams Airport Driver Relationship Specialty Start Date End Date Genaro Avendano MD [address] [place] [address] PCP - General 12/19/20 documented as of this encounter
--- OUTSIDE RECORDS SUMMARY | 2025-06-17 08:03 | XMS_ITS | Encounter Summary ---
Author Organization [employer] ([place], [place], [place], [place], [place]) Address [address] [place] [address] Care Team Providers Care Clinical Dietetic Technician Name Role Phone Christophe Vega MD Unavailable Unavailable Dennys Kent MD Unavailable [phone] Genaro Avendano MD Primary Care Provider [phone] Encounter Details Date Type Department Care Team (Late st Contact Info) Description 01/07/2020 Transcribed Document [facility] Family Medicine [address] [place] [address] ProviderRadha MD [address] [place] [address] Social History Tobacco Use Types Packs/Day Years Used Date Smoking Tobacco: Never Assessed Sex and Gender Information Value Date Recorded Sex Assigned at Not on file Legal Sex Male 4:20 PM CDT Gender Identity Not on file Sexual Orientation Not on file documented as of this encounter Miscellaneous Notes * Cerner Conversion Note - Radha ProviderMD - 01/07/2020 2:00 AM CDT Molder Closed Molds Details Entered On: 01/07/2020 2:21 EDT Performed On: 01/07/2020 2:00 EDT by LUIS HOUGH RN Order Details Transport Mode Order Detail : Wheelchair Isolation Precautions Order Detail : Standard Precautions Order Detail : N/A IV Order Detail : 0 Oxygen Order Detail : 0 Nurse Collect Order Detail : 0 Lift/Transfer : Independent Central Line Order Detail : Yes Room Service : Not Appropriate Arterial Line : No LUIS HOUGH RN - 01/07/2020 2:21 EDT documented in this encounter Plan of Treatment Not on file documented as of this encounter Visit Diagnoses Not on filedocumented in this encounter Care Teams Clinical Dietetic Technician Relationship Specialty Start Date End Date Genaro Avendano MD [address] [place] [address] PCP - General Adolescent Medicine 01/25/23 Christophe Vega MD Medical Oncologist Hematology and Oncology 07/27/22 Dennys Kent MD [address] [place] [address] Surgeon Otolaryngology 07/27/22 documented as of this encounter
--- OUTSIDE RECORDS SUMMARY | 2025-06-17 08:03 | XMS_ITS | Encounter Summary ---
Author Organization [employer] ([place], [place], [place], [place], [place]) Address [address] [place] [address] Care Team Providers Care Android Software Engineer Name Role Phone Christophe Vega MD Unavailable Unavailable Dennys Kent MD Unavailable [phone] Genaro Avendano MD Primary Care Provider [phone] Encounter Details Date Type Department Care Team (Late st Contact Info) Description 01/06/2020 Transcribed Document [facility] [place] [address] [place] [address] ProviderRadha MD [address] [place] [address] Social History Tobacco Use Types Packs/Day Years Used Date Smoking Tobacco: Never Assessed Sex and Gender Information Value Date Recorded Sex Assigned at Not on file Legal Sex Male 4:20 PM CDT Gender Identity Not on file Sexual Orientation Not on file documented as of this encounter Miscellaneous Notes * Cerner Conversion Note - Radha ProviderMD - 01/06/2020 5:00 AM CDT Chart Check - Review Order Profile Entered On: 01/06/2020 3:17 EDT Performed On: 01/06/2020 5:00 EDT by LUIS HOUGH RN Chart Check Powerplans Initiated/Discontinued as Appropriate : Yes All Active Orders Reviewed : Yes LUIS HOUGH RN - 01/06/2020 3:17 EDT Electronically signed by Benita [facility] Conversion [facility] Worker Krzysztof at 11/25/2022 12:14 AM CDT documented in this encounter Plan of Treatment Not on file documented as of this encounter Visit Diagnoses Not on filedocumented in this encounter Care Teams Android Software Engineer Relationship Specialty Start Date End Date Genaro Avendano MD [address] [facility] [address] [place] [address] PCP - General Adolescent Medicine 01/25/23 Christophe Vega MD Medical Oncologist Hematology and Oncology 07/27/22 Dennys Kent MD [address] [place] [address] Surgeon Otolaryngology 07/27/22 documented as of this encounter
--- OUTSIDE RECORDS SUMMARY | 2025-06-17 08:03 | XMS_ITS | Encounter Summary ---
Author Organization [employer] ([place], [place], [place], [place], [place]) Address [address] [place] [address] Care Team Providers Care Credit Reporter Name Role Phone Christophe Vega MD Unavailable Unavailable Dennys Kent MD Unavailable [phone] Genaro Avendano MD Primary Care Provider [phone] Encounter Details Date Type Department Care Team (Late st Contact Info) Description 08/20/2020 Transcribed Document [facility] Family Medicine [address] [place] [address] ProviderRadha MD [address] [place] [address] Social History Tobacco Use Types Packs/Day Years Used Date Smoking Tobacco: Never Assessed Sex and Gender Information Value Date Recorded Sex Assigned at Not on file Legal Sex Male 4:20 PM CDT Gender Identity Not on file Sexual Orientation Not on file documented as of this encounter Miscellaneous Notes * Cerner Conversion Note - Historical ProviderMD - 08/20/2020 6:00 PM SENIOR CUSTOMER SERVICE REPRESENTATIVE ED Event Note Entered On: 08/20/2020 18:51 EST Performed On: 08/20/2020 18:00 EST by Deepthi Fairbanks, ELECTRICAL CONTINUITY INSPECTOR Event Note ED Description of Event : g-tube replaced per in radiology Deepthi Fairbanks, OTTO - 08/20/2020 18:50 EST Electronically signed by Benita [facility] Conversion Gullet Slitter Cerner at 11/25/2022 12:24 AM CDT documented in this encounter Plan of Treatment Not on file documented as of this encounter Visit Diagnoses Not on filedocumented in this encounter Care Teams Credit Reporter Relationship Specialty Start Date End Date Genaro Avendano MD [address] [place] [address] PCP - General Adolescent Medicine 01/25/23 Christophe Vega MD Medical Oncologist Hematology and Oncology 07/27/22 Dennys Kent MD [address] [place] [address] Surgeon Otolaryngology 07/27/22 documented as of this encounter
--- OUTSIDE RECORDS SUMMARY | 2025-06-17 08:03 | XMS_ITS | Encounter Summary ---
Author Organization [employer] ([place], [place], [place], [place], [place]) Address [address] [place] [address] Care Team Providers Care Primer Expeditor And Drier Name Role Phone Christophe Vega MD Unavailable Unavailable Dennys Kent MD Unavailable [phone] Genaro Avendano MD Primary Care Provider [phone] Encounter Details Date Type Department Care Team (Late st Contact Info) Description 08/20/2020 Transcribed Document [facility] Family Medicine [facility] [place] [address] ProviderRadha MD [address] [place] [address] Social History Tobacco Use Types Packs/Day Years Used Date Smoking Tobacco: Never Assessed Sex and Gender Information Value Date Recorded Sex Assigned at Not on file Legal Sex Male 4:20 PM CDT Gender Identity Not on file Sexual Orientation Not on file documented as of this encounter Miscellaneous Notes * Cerner Conversion Note - Radha ProviderMD - 08/20/2020 6:51 PM RESOURCING ADVISOR ED Discharge Entered On: 08/20/2020 18:51 EST Performed On: 08/20/2020 18:51 EST by Deepthi Fairbanks RN Discharge Process Patient Disposition : Discharge Personal Belongings With Patient : Yes Patient Education Completed : Yes Teaching Evaluation : Verbalizes understanding Nursing Documentation Completed : Yes Deepthi Fairbanks RN - 08/20/2020 18:51 EST ED Discharge Discharge To : Home without planned follow-up Mode Of Departure : Private vehicle Accompanied By : Spouse Discharge Instructions Reviewed With, Opportunity For Questions Given : Patient Prescriptions Given to Patient : Deepthi Taylor RN - 08/20/2020 18:51 EST documented in this encounter Plan of Treatment Not on file documented as of this encounter Visit Diagnoses Not on filedocumented in this encounter Care Teams Primer Expeditor And Drier Relationship Specialty Start Date End Date Genaro Avendano MD [address] [place] [address] PCP - General Adolescent Medicine 01/25/23 Christophe Vega MD Medical Oncologist Hematology and Oncology 07/27/22 Dennys Kent MD [address] [place] [address] Surgeon Otolaryngology 07/27/22 documented as of this encounter
--- OUTSIDE RECORDS SUMMARY | 2025-06-17 08:03 | XMS_ITS | Encounter Summary ---
Author Organization [employer] ([place], [place], [place], [place], [place]) Address [address] [place] [address] Care Team Providers Care Division Merchandise Manager Name Role Phone Christophe Vega MD Unavailable Unavailable Dennys Kent MD Unavailable [phone] Genaro Avendano MD Primary Care Provider [phone] Encounter Details Date Type Department Care Team (Late st Contact Info) Description 01/07/2020 Transcribed Document [facility] [place] [address] [place] [address] ProviderRadha MD [address] [place] [address] Social History Tobacco Use Types Packs/Day Years Used Date Smoking Tobacco: Never Assessed Sex and Gender Information Value Date Recorded Sex Assigned at Not on file Legal Sex Male 4:20 PM CDT Gender Identity Not on file Sexual Orientation Not on file documented as of this encounter Miscellaneous Notes * Cerner Conversion Note - Radha ProviderMD - 01/07/2020 5:00 AM CDT Chart Check - Review Order Profile Entered On: 01/07/2020 3:09 EDT Performed On: 01/07/2020 5:00 EDT by LUIS HOUGH RN Chart Check Powerplans Initiated/Discontinued as Appropriate : Yes All Active Orders Reviewed : Yes LUIS HOUGH RN - 01/07/2020 3:09 EDT documented in this encounter Plan of Treatment Not on file documented as of this encounter Visit Diagnoses Not on filedocumented in this encounter Care Teams Division Merchandise Manager Relationship Specialty Start Date End Date Genaro Avendano MD [address] [facility] [address] [place] [address] PCP - General Adolescent Medicine 01/25/23 Christophe Vega MD Medical Oncologist Hematology and Oncology 07/27/22 Dennys Kent MD [address] [place] [address] Surgeon Otolaryngology 07/27/22 documented as of this encounter
--- OUTSIDE RECORDS SUMMARY | 2025-06-17 08:03 | XMS_ITS | Encounter Summary ---
Author Organization [employer] ([place], [place], [place], [place], [place]) Address [address] [place] [address] Care Team Providers Care Relish Blender Name Role Phone Christophe Vega MD Unavailable Unavailable Dennys Kent MD Unavailable [phone] Genaro Chirinos MD Primary Care Provider [phone] Encounter Details Date Type Department Care Team (Late st Contact Info) Description 01/07/2020 Transcribed Document [facility] [place] Family Medicine [address] [place] [address] ProviderRadha MD [address] [place] [address] Social History Tobacco Use Types Packs/Day Years Used Date Smoking Tobacco: Never Assessed Sex and Gender Information Value Date Recorded Sex Assigned at Not on file Legal Sex Male 4:20 PM CDT Gender Identity Not on file Sexual Orientation Not on file documented as of this encounter Miscellaneous Notes * Cerner Conversion Note - Radha Garduno MD - 01/07/2020 11:17 AM CDT [facility] [place] [address] JONATHAN RIVAS :1955 Visit Time:01/02/2020 Your Visit Summary Your Care Team Admitting Physician - BRAXTON PATTEN MD-INT Attending Physician - BRAXTON PATTEN MD-INT Primary Care Physician - GENARO CHIRINOS (REF)MD-[facility] Referring Physician - Taz, UNKNOWN Your Diagnosis Adult failure to thrive, Adult failure to thrive Discharge Vitals Temperature 36.7 ??C Heart Rate (Monitored) 65 Respiratory Rate 16 Blood Pressure 121/78 What to do next Instructions From Your Care Team Discharge Activity: Discharge Activity: Activity as tolerated Diet: Osmolite 1.5 @ 65ml/hr and flush with 260ml FW 4x daily also he can have clear liquid by oral if tolerated Follow-Up Appointments Follow Up with continue outpatient XRT by dr. Mccall When Within in AM Follow Up with his oncology in [address] Vega When Within 1 week Follow Up with Follow up with primary care provider When Within 2 to 3 days Follow Up with CRISTEL GUO MD-KEVYN When Only if needed Where: [address] [place] [address] Medications What How Much When Instructions Next Dose acetaminophen-hydrocodone (acetaminophen-HYDROcodone 325 mg-10 mg oral tablet) 1 Tablet(s) Oral Every 4 Hours as needed for for pain aspirin (aspirin 81 mg oral delayed release tablet) 1 Tablet(s) Oral Every Day 6/2 esomeprazole (NexIUM 24HR 20 mg oral delayed release capsule) 1 Capsule(s) Oral Every Day 6/2 granisetron (Sancuso 3.1 mg/ 24 hr transdermal film, extended release) 1 Patch(es) Topical Weekly hydroCHLOROthiazide (hydroCHLOROthiazide 25 mg oral tablet) 1 Tablet(s) Oral Every Day 6/2 LORazepam (LORazepam 0.5 mg oral tablet) 0.5 [...] and water are not available, use hand shipper receiver. ? Change your dressing as told by [...] a bad smell. General instructions ??? Take mwev-wff-xjbmysj and prescription medicines only as told by [...] 07/30/2014 Document Revised: 05/06/2017 Document Reviewed: 05/06/2017 [employer] Interactive Patient Education ?? 2019 [employer] Emergency Awareness and Preventative Care STROKE [...] Assistance with quitting is available by contacting 9-715-LMECNOW. This is a free resource providing counseling, support, and referral. Or you may contact your personal physician. [place] Suicide Prevention Lifeline: The National Suicide Prevention [...] range between ( 0.0 and 7.0 ) [place] #: 0.08 K/uL -- Normal range between ( 0.16 and 1.00 ) [place] #: 0.00 x10(3)/uL -- Normal range between ( 0.00 and 0.80 ) [place] %: 1.0 % -- Normal range between [...] 0.358 and 3.740 ) Patient Name:JONATHAN RIVAS [place]NA I have received and understand this information and was given the opportunity to ask questions. Patient/Pottery Decorator Name: Patient/Pottery Decorator Signature: Relationship to Patient: Clinician/Hospital Pottery Decorator Signature: Date: Electronically signed by Benita, [facility] Conversion Lending Activities Supervisor Niravner at 11/25/2022 12:11 AM CDT documented in this encounter Plan of Treatment Not on file documented as of this encounter Visit Diagnoses Not on filedocumented in this encounter Care Teams Relish Blender Relationship Specialty Start Date End Date Genaro Chirinos MD [address] [place] [address] PCP - General Adolescent Medicine 01/25/23 Christophe Vega MD Medical Oncologist Hematology and Oncology 07/27/22 Dennys Kent MD [address] [place] [address] Surgeon Otolaryngology 07/27/22 documented as of this encounter
--- OUTSIDE RECORDS SUMMARY | 2025-06-17 08:03 | XMS_ITS | Encounter Summary ---
Author Organization [employer] ([place], [place], [place], [place], [place]) Address [address] [place] [address] Care Team Providers Care Jig Hand Name Role Phone Christophe Vega MD Unavailable Unavailable Dennys Kent MD Unavailable [phone] Genaro Aevndano MD Primary Care Provider [phone] Encounter Details Date Type Department Care Team (Late st Contact Info) Description 01/07/2020 Transcribed Document [facility] [place] Family [place] [address] [place] [address] ProviderRadha MD [address] [place] [address] Social History Tobacco Use Types Packs/Day Years Used Date Smoking Tobacco: Never Assessed Sex and Gender Information Value Date Recorded Sex Assigned at Not on file Legal Sex Male 4:20 PM CDT Gender Identity Not on file Sexual Orientation Not on file documented as of this encounter Miscellaneous Notes * Cerner Conversion Note - Radha ProviderMD - 01/07/2020 2:06 PM CDT UM Authorization Entered On: 01/07/2020 14:06 EDT Performed On: 01/07/2020 14:06 EDT by Priscilla Clarke Rn-Utilization Review Primary Insurance Authorization Authorization and Policy Numbers : Insurance 1 Health Plan: [employer] Policy Number: [id number] Authorization Number: Insurance Primary Name : [employer] Policy Number: [id number] Authorization Status-Primary : Admit approved Authorization Fax Number-Primary : [phone] Auth/Referral Phone Number-Primary : [phone] Auth/Referral Contact Name-Primary : Marcelina Campbell RN Reference Number-Primary : [id number] Number of Days Authorized-Primary : 3 Day(s) Authorized Service Begin Date-Primary : 01/02/2020 EDT Authorized Service End Date-Primary : 01/05/2020 EDT Authorization Comments-Primary : d/c summary faxed per cerner Historical Authorization Comments-Primary : Comment 1: clinical faxed per cerner for 01/05 nd 01/06 per faxed request (Priscilla Clarke, aNm-Utilization Review 01/07/2020 13:55) Comment 2: Per fax received 01/03/2020 approved IP admission 01/01-01/04 NRD 01/05. Please fax to [phone]. (BRITTANY CLARK RN 01/03/2020 12:53) Comment 3: Per fax received 01/02/2020 @ 0739 needs clinicals submitted for review. Please fax to [phone]. Marcelina Campbell RN phone # is [phone]. (BRITTANY CLARK RN 01/03/2020 08:21) Priscilla Clarke Rn-Utilization Review - 01/07/2020 14:06 EDT documented in this encounter Plan of Treatment Not on file documented as of this encounter Visit Diagnoses Not on filedocumented in this encounter Care Teams Jig Hand Relationship Specialty Start Date End Date Genaro Avendano MD [address] [place] [address] PCP - General Adolescent Medicine 01/25/23 Christophe Vega MD Medical Oncologist Hematology and Oncology 07/27/22 Dennys Kent MD [address] [place] [address] Surgeon Otolaryngology 07/27/22 documented as of this encounter
--- OUTSIDE RECORDS SUMMARY | 2025-06-17 08:03 | XMS_ITS | Encounter Summary ---
Author Organization [employer] ([place], [place], [place], [place], [place]) Address [address] [place] [address] Care Team Providers Care Red Lead Burner Name Role Phone Christophe Vega MD Unavailable Unavailable Dennys Kent MD Unavailable [phone] Genaro Avendano MD Primary Care Provider [phone] Encounter Details Date Type Department Care Team (Late st Contact Info) Description 01/06/2020 Transcribed Document [facility] [place] [address] [place] [address] ProviderRadha MD [address] [place] [address] Social History Tobacco Use Types Packs/Day Years Used Date Smoking Tobacco: Never Assessed Sex and Gender Information Value Date Recorded Sex Assigned at Not on file Legal Sex Male 4:20 PM CDT Gender Identity Not on file Sexual Orientation Not on file documented as of this encounter Miscellaneous Notes * Cerner Conversion Note - Radha ProviderMD - 01/06/2020 6:00 AM CDT Pain Assessment Entered On: 01/06/2020 9:45 EDT Performed On: 01/06/2020 7:02 EDT by Fei Garay RN Intervention Information: acetaminophen Performed by LUIS HOUGH RN on 01/06/2020 06:02:00 EDT acetaminophen,650mg Oral Pain Assessment Pain Assessment : Follow-up assessment Pain Scale Goal : 3 Pain Scale Used : FACES Fei Garay RN - 01/06/2020 9:45 EDT Pain Scale Intensity : 2 Fie Garay, RN - 01/06/2020 9:45 EDT Image 4 - Images currently included in the form version of this document have not been included in the text rendition version of the form. documented in this encounter Plan of Treatment Not on file documented as of this encounter Visit Diagnoses Not on filedocumented in this encounter Care Teams Red Lead Burner Relationship Specialty Start Date End Date Genaro Avendano MD [address] [place] [address] PCP - General Adolescent Medicine 01/25/23 Christophe Vega MD Medical Oncologist Hematology and Oncology 07/27/22 Dennys Kent MD [address] [place] [address] Surgeon Otolaryngology 07/27/22 documented as of this encounter
[2025-06-17] MEDS: BARIUM SULFATE(E-Z-AC);750ML BOTTLE 750 ML PO (10:38)
[2025-06-17] MEDS: E-Z-GASII EFFERVESCENT GRANULES;1PK 1 EACH PO (10:39)
[2025-06-17] MEDS: BARIUM SULFATE (E-Z-HD 340GM);135ML BOTTLE 135 ML PO (10:39)
== END 2025-06-17 23:59 | disposition home or self-care (01) ==
LOC: RAD 07:57
PROVIDERS: PCP Internal Medicine Adolescent Medicine; Visit Provider Surgery
DX: K44.9 Diaphragmatic hernia without obstruction or gangrene (principal); R93.2 Abnormal findings on diagnostic imaging of liver and biliary tract; K21.9 Gastro-esophageal reflux disease without esophagitis
CPT/HCPCS: 74246; 74248